=== PATIENT | male | born 1950 | race Caucasian/White ===

== ENCOUNTER 2019-10-23 12:41 | Emergency (ER) | payer MEDICARE, OTHER, SELFPAY ==
[2019-10-23 12:42] VITALS: BMI 24.2
--- NOTE | 2019-10-23 12:42 | ED_ITS ---
Entered by Kimberly Fernandez, acting as scribe for Slim Alvarez DO HPI - General Adult General: Chief complaint: Abdominal Pain Stated complaint: EPIGASTRIC PAIN Time Seen by Provider: 10/23/19 12:45 History of Present Illness: HPI narrative: 69 yo male presents with abd pain. Pt denies nausea but has diarrhea. Complains of infraumbilical abdominal pain he denies dysuria urgency or frequency has had some diarrhea. I called and talked to his primary care doctor who sent in from the custodial they had reported chest pain he did not relay that to us at all initially I found this later when talking to his doctor. Known Rodger for some time he is previously had a stroke and he has significant limitations to conversation and communication. He mostly answers in yes and no tends to get a little bit frustrated at times when we tried to delve into questions beyond yes and no because he has difficult time formulating responses. MD complaint: abd pain Location: abdomen Associated symptoms: Deny chest pain, dyspnea, malaise, nausea, rash or vomiting Review of Systems Const: Denies: fever, chills, body aches, change in appetite, fatigue or malaise ENMT: Denies: throat pain, ear pain, nasal discharge or nasal congestion Card: Denies: chest pain, edema, shortness of breath on exertion or shortness of breath when lying down Resp: Denies: shortness of breath, productive cough or non-productive cough GI: Reports: diarrhea; Denies: abdominal pain, nausea, vomiting, vomiting blood, coffee grounds in vomit, constipation, bloating, blood in stool or black tarry stool : Denies: flank pain, painful urination, urinary frequency or urinary urgency Skin/Breast: Denies: rash or itching [facility] ED PFSH: Surgical History History of intestinal surgery Social History Smoking and tobacco status: never smoked Physical Exam Const: COMMON NORMALS: no apparent distress GENERAL APPEARANCE: cooperative and comfortable ORIENTATION/CONSCIOUSNESS: Yes awake, Yes oriented to person, Yes oriented to place and Yes oriented to time HENMT: COMMON NORMALS: normocephalic, head/scalp atraumatic, hearing grossly normal bilaterally, external ears normal, EAC's normal, TM's normal bilaterally, nasal mucous membranes and turbinates normal, moist oral mucous membranes and oropharynx normal HEAD & SCALP: normocephalic and atraumatic NOSE: nasal mucous membranes and turbinates normal EXTERNAL EAR: Yes external ears normal EXTERNAL AUDITORY CANAL: EAC's normal TYMPANIC MEMBRANE: TM's normal bilaterally Eye: COMMON NORMALS: PERRL, EOMs intact bilaterally, conjunctivae normal and no scleral icterus CONJUNCTIVA: Yes conjunctivae normal PUPIL: Yes PERRL Neck/C-Spine: COMMON NORMALS: full ROM, no lymphadenopathy, supple and no JVD Lymph: LYMPHATIC: no lymphadenopathy noted and no lymphedema noted Resp: COMMON NORMALS: normal respiratory effort, no retractions, no use of accessory muscles and clear to auscultation bilaterally AUSCULTATION: clear to auscultation bilaterally Cardio: COMMON NORMALS: no JVD, regular rate, regular rhythm and no murmurs RATE: regular rate RHYTHM: regular rhythm GI: COMMON NORMALS: soft to palpation AUSCULTATION: Yes normoactive bowel sounds PALPATION: Yes soft, Yes tender Details: LUQ and RUQ and No guarding Extremity: COMMON NORMALS: normal to inspection, normal capillary refill, no clubbing, cyanosis or edema, no calf tenderness and no pedal edema Neuro: SENSORIUM/ORIENTATION: Yes oriented to person, Yes oriented to place and Yes oriented to time Skin: COMMON NORMALS: no rashes or lesions noted GENERAL SKIN EXAM: no rashes or lesions noted Course ED course: Rectal exam done in the ER is Hemoccult negative. His previous labs show significant change but they are quite old when I called . his primary care doctor his creatinine and hemoglobin are about what he recalls is his baseline which is probably reflected as well by his potassium and his MCV is to his creatinine and anemia. He is repeatedly denies any chest pain does we did do a troponin off the first blood draw and then repeated another did actually gone down some organ to go ahead and discharge him back to the custodial Dr. Garcia will follow him there and address these lab abnormalities. No change in his medications. Vital Signs: Vital signs: Vital Signs Temperature 97.7 F 10/23/19 12:49 Pulse Rate 91 10/23/19 17:19 Respiratory Rate 16 10/23/19 17:19 Blood Pressure 179/90 10/23/19 17:19 Pulse Oximetry 94 10/23/19 17:19 [facility] - General Adult Lab Data: Labs: Lab Results 10/23/19 10/23/19 10/23/19 Range/Units 12:55 12:55 12:55 WBC 6.5 (4.0-10.0) 10^3/ uL RBC 2.44 L (4.1-5.3) 10^6/u L Hgb 9.7 L (11.7-16.6) g/dL Hct 29.7 L (42.0-52.0) % MCV 121.7 H (80-94) fL MCH 39.8 H (28.0-34.0) pg MCHC 32.7 (30.0-36.0) g/dL RDW 14.5 (12.1-15.1) % Plt Count 209 (130-400) 10^3/c mm MPV 11.0 H (7.4-10.4) fL Neut % (Auto) 69.7 % Lymph % (Auto) 20.5 % [place] % (Auto) 7.1 % Eos % (Auto) 2.2 % Baso % (Auto) 0.3 % Neut # (Auto) 4.5 (1.8-7.7) 10^3/u L Lymph # (Auto) 1.3 (0.8-4.8) 10^3/u L [place] # (Auto) 0.5 (0.2-0.9) 10^3/u L Eos # (Auto) 0.1 (0.0-0.8) 10^3/u L Baso # (Auto) 0.0 (0.0-0.1) 10^3/u L Nucleated RBC % (a uto) 0 % Nucleated RBCs # 0.0 /100WBC Sodium 140 (136-145) mmol/L Potassium 3.5 (3.5-5.1) mmol/L Chloride 110 H (98-107) mmol/L Carbon Dioxide 15 L (22-29) mmol/L Anion Gap 18.5 (5-19) BUN 15 (8-23) mg/dL Creatinine 3.2 H (0.7-1.2) mg/dL GFR Calculation 19.5 L (90-130) mL/min Glucose 133 H (65-115) mg/dL Calcium 7.7 L (8.5-10.5) mg/dL Total Bilirubin 0.2 (0.15-1.2) mg/dL AST 18 (0-40) U/L ALT 11 (0-41) U/L Alkaline Phosphata se 87 (40-130) IU/L Troponin T Gen 5 n g/L 56 H (0-15) ng/mL Troponin T Baselin e (0-15) ng/mL Total Protein 6.1 L (6.6-8.7) g/dL Albumin 3.8 (3.5-5.2) g/dL Globulin 2.3 (1.3-4.6) g/dL Lipase 66 H (13-60) U/L Urine Color (Yellow) Urine Appearance (CLEAR) Urine pH (5-7) Ur Specific Gravit y (1.005-1.030) Urine Protein (Negative) Urine Glucose (UA) (Normal) Urine Ketones (Negative) Urine Blood (Negative) Urine Nitrate (Negative) Urine Bilirubin (NEGATIVE) Urine Urobilinogen (Negative) mg/dL Ur Leukocyte Dedar ase (Negative) 10/23/19 10/23/19 Range/Units 14:15 16:25 WBC (4.0-10.0) 10^3/ uL RBC (4.1-5.3) 10^6/u L Hgb (11.7-16.6) g/dL Hct (42.0-52.0) % MCV (80-94) fL MCH (28.0-34.0) pg MCHC (30.0-36.0) g/dL RDW (12.1-15.1) % Plt Count (130-400) 10^3/c mm MPV (7.4-10.4) fL Neut % (Auto) % Lymph % (Auto) % [place] % (Auto) % Eos % (Auto) % Baso % (Auto) % Neut # (Auto) (1.8-7.7) 10^3/u L Lymph # (Auto) (0.8-4.8) 10^3/u L [place] # (Auto) (0.2-0.9) 10^3/u L Eos # (Auto) (0.0-0.8) 10^3/u L Baso # (Auto) (0.0-0.1) 10^3/u L Nucleated RBC % (a uto) % Nucleated RBCs # /100WBC Sodium (136-145) mmol/L Potassium (3.5-5.1) mmol/L Chloride (98-107) mmol/L Carbon Dioxide (22-29) mmol/L Anion Gap (5-19) BUN (8-23) mg/dL Creatinine (0.7-1.2) mg/dL GFR Calculation (90-130) mL/min Glucose (65-115) mg/dL Calcium (8.5-10.5) mg/dL Total Bilirubin (0.15-1.2) mg/dL AST (0-40) U/L ALT (0-41) U/L Alkaline Phosphata se (40-130) IU/L Troponin T Gen 5 n g/L (0-15) ng/mL Troponin T Baselin e 42 H (0-15) ng/mL Total Protein (6.6-8.7) g/dL Albumin (3.5-5.2) g/dL Globulin (1.3-4.6) g/dL Lipase (13-60) U/L Urine Color Straw (Yellow) Urine Appearance Clear (CLEAR) Urine pH 5.0 (5-7) Ur Specific Gravit y 1.015 (1.005-1.030) Urine Protein Neg (Negative) Urine Glucose (UA) Trace H (Normal) Urine Ketones Negative (Negative) Urine Blood Neg (Negative) Urine Nitrate Negative (Negative) Urine Bilirubin Neg (NEGATIVE) Urine Urobilinogen Norm (Negative) mg/dL Ur Leukocyte Dedra ase Negative (Negative) Discharge Plan Discharge Patient Disposition: Home, Self-Care Clinical Impression: Abdominal pain Condition: Stable Prescriptions: No Action alendronate 10 mg Tablet 10 mg PO DAILY RF: 0 acetaminophen 325 mg Tablet 325 mg PO QID PRN (Reason: Pain) RF: 0 sulfasalazine 500 mg Tablet 1,000 mg PO TID RF: 0 loperamide 2 mg Capsule 2 mg PO BID PRN (Reason: UNKNOWN) RF: 0 citalopram 10 mg Tablet 10 mg PO DAILY RF: 0 risperidone 0.25 mg Tablet 0.25 mg PO DAILY RF: 0 triamcinolone acetonide 0.1 % Cream 1 applic TOPICAL BID PRN (Reason: UNKNOWN) RF: 0 citalopram 20 mg Tablet 20 mg PO DAILY RF: 0 lorazepam 0.5 mg Tablet 0.5 mg PO Q6H PRN (Reason: Anxiety) RF: 0 lorazepam 0.5 mg Tablet 0.5 mg PO DAILY RF: 0 tamsulosin 0.4 mg Capsule 0.4 mg PO BEDTIME RF: 0 sodium bicarbonate 650 mg Tablet 1,300 mg PO BID RF: 0 Novolog U-100 Insulin aspart 100 unit/mL Solution See Rx Instructions .ROUTE .COMPLEX RF: 0 ferrous sulfate 325 mg (65 mg iron) Tablet 325 mg PO BID RF: 0 Charli-Gest Antacid 200 mg calcium (500 mg) Tablet,Chewable 200 mg PO QID PRN (Reason: UNKNOWN) RF: 0 docusate sodium 100 mg Capsule 100 mg PO BID PRN (Reason: Constipation) RF: 0 Aspirin Childrens 81 mg Tablet,Chewable 81 mg PO DAILY RF: 0 gabapentin 100 mg Capsule 100 mg PO TID RF: 0 Vitamin D2 1,250 mcg (50,000 unit) Capsule See Rx Instructions .ROUTE .COMPLEX RF: 0 alum-mag hydroxide-simeth 200-200-20 mg/5 mL Suspension See Rx Instructions .ROUTE .COMPLEX PRN (Reason: UNKNOWN) RF: 0 mirtazapine 15 mg Tablet,Disintegrating 15 mg PO BEDTIME RF: 0 calcitriol 0.25 mcg Capsule 0.25 mcg PO BEDTIME RF: 0 risperidone 0.5 mg Tablet 0.5 mg PO BEDTIME RF: 0 Novolog PenFill U-100 Insulin 100 unit/mL Cartridge See Rx Instructions .ROUTE .COMPLEX RF: 0 Lantus Solostar U-100 Insulin 100 unit/mL (3 mL) Insulin Pen 7 unit SUBCUT BEDTIME RF: 0 Magnesium (oxide/AA chelate) 400 MG 400 mg PO BID RF: 0 Discharge Orders: Discharge Order (Routine); Ordered 10/23/19 Ordered By: Slim Alvarez Referrals: Bryan Garcia DO [Family Provider] - Discharge Diet: Usual diet Discharge Activity: Resume usual activity Patient Instructions: Cholecystitis (ED), Abdominal Pain (ED) Coding Level of Care Code 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
[2019-10-23 12:49] VITALS: BP 149/96; PULSE 107; RESP 20; TEMP 36.5; O2SAT 98
--- NOTE | 2019-10-23 12:49 | CTR_ITS ---
PROCEDURE INFORMATION: Exam: CT Abdomen And Pelvis Without Contrast Exam date and time: 10/23/2019 12:50 PM Age: 69 years old Clinical indication: Abdominal pain; Epigastric; Prior surgery; Surgery date: 6+ months; Surgery type: Stanislaw. Hips and bowel; Patient HX: Chron's; Additional info: Abd pain TECHNIQUE: Imaging protocol: Computed tomography of the abdomen and pelvis without contrast. Total DLP: 419.5 mGy-cm Radiation optimization: All CT scans at this facility use at least one of these dose optimization techniques: automated exposure control; mA and/or kV adjustment per patient size (includes targeted exams where dose is matched to clinical indication); or iterative reconstruction. COMPARISON: CT abdomen pelvis con [id number] 09/19/2016 7:09 PM FINDINGS: Detailed evaluation of the abdominal and pelvic viscera is somewhat limited in the absence of intravenous contrast. Lungs: Mild interstitial prominence and trace dependent airspace disease. Liver: No focal hepatic mass. Gallbladder and bile ducts: Cholelithiasis. Pancreas: No pancreatic mass or ductal dilatation. Spleen: No splenomegaly. Adrenals: Unremarkable adrenals. Kidneys and ureters: Renal cysts, including a 3.4 cm right renal cyst, which previously measured 3.1 cm. Right renal atrophy. Nonobstructing subcentimeter bilateral renal calculi, including a 6 mm left renal calculus. Stomach and bowel: Status post right hemicolectomy. Colonic dilatation with air-fluid levels and diverticula. Appendix: Status post appendectomy. Intraperitoneal space: No significant free fluid. Vasculature: Vascular calcification. No abdominal aortic aneurysm. Lymph nodes: Subcentimeter lymph nodes. Bladder: Partial obscuration of the bladder by beam hardening artifact in association with bilateral hip arthroplasties. Reproductive: Calcification in the prostate which is partially obscured by beam hardening artifact. Bones/joints: Bilateral hip arthroplasties. Osteopenia, mild degenerative change, and Schmorl's nodes. CT/CT abdomen pelvis con [id number] IMPRESSION: 1. Cholelithiasis. 2. Nonobstructing subcentimeter bilateral renal calculi. 3. Additional findings as described above. Radiation Dose CTDIVOL = (mGy): DLP = 419.5 (mGy-cm)
[2019-10-23 12:56] VITALS: RESP 17
[2019-10-23] MEDS: sodium chloride 0.9% 1,000 ML 999 ML IV ×2 (12:59→15:06)
[2019-10-23 13:01] LABS: Basophils % 0.3 %; Eosinophils # 0.1 10^3/uL (0.0-0.8); Eosinophils % 2.2 %; Hematocrit 29.7 % (42.0-52.0); Hemoglobin 9.7 g/dL (11.7-16.6); Lymphocytes # 1.3 10^3/uL (0.8-4.8); Lymphocytes % 20.5 %; Mean Corpuscular HGB Conc 32.7 g/dL (30.0-36.0); Mean Corpuscular Hemoglobin 39.8 pg (28.0-34.0); Mean Corpuscular Volume 121.7 fL (80-94); Monocytes # 0.5 10^3/uL (0.2-0.9); Monocytes % 7.1 %; Neutrophils # 4.5 10^3/uL (1.8-7.7); Neutrophils % 69.7 %; Nucleated Red Blood Cells % 0 %; Platelet Count 209 10^3/cmm (130-400); Red Blood Count 2.44 10^6/uL (4.1-5.3); Red Cell Distribution Width 14.5 % (12.1-15.1); White Blood Count 6.5 10^3/uL (4.0-10.0)
[2019-10-23 13:21] LABS: Alanine Aminotransferase 11 U/L (0-41); Albumin Level 3.8 g/dL (3.5-5.2); Alkaline Phosphatase 87 IU/L (40-130); Anion Gap 18.5 (5-19); Aspartate Amino Transferase 18 U/L (0-40); Blood Urea Nitrogen 15 mg/dL (8-23); Calcium 7.7 mg/dL (8.5-10.5); Carbon Dioxide 15 mmol/L (22-29); Chloride 110 mmol/L (98-107); Globulin 2.3 g/dL (1.3-4.6); Glomerular Filtration Rate 19.5 mL/min (90-130); Glucose 133 mg/dL (65-115); Lipase 66 U/L (13-60); Potassium 3.5 mmol/L (3.5-5.1); Sodium 140 mmol/L (136-145); Total Bilirubin 0.2 mg/dL (0.15-1.2); Total Protein 6.1 g/dL (6.6-8.7)
[2019-10-23] MEDS: sodium chlor 0.9% + KCl 20 mEq 20 MEQ/1,000 ML BAG 125 MEQ IV (13:31)
[2019-10-23 14:22] LABS: Add Urine Microscopic? NO
[2019-10-23 14:30] LABS: Bilirubin Urine Neg (NEGATIVE); Blood Urine Neg (Negative); Glucose Urine UA Trace (Normal); Ketones Urine Negative (Negative); Leukocyte Esterase Urine Negative (Negative); Nitrate Urine Negative (Negative); Protein Urine Neg (Negative); Specific Gravity, Urine 1.015 (1.005-1.030); Urine Appearance Clear (CLEAR); Urine Color Straw (Yellow); Urobilinogen Urine Norm (Negative)
[2019-10-23 14:44] VITALS: RESP 16; O2SAT 99
[2019-10-23] MEDS: ondansetron 2 mg/ML SDV 2 mL 4 MG IVP (14:44)
[2019-10-23] MEDS: morphine 4 mg/mL SDV 1 mL IVP (14:44)
--- NOTE | 2019-10-23 15:42 | ECG_ITS ---
Measurements Intervals [place] Rate: 105 P: 56 NM: 130 QRS: 32 QRSD: 92 T: 30 QT: 351 QTc: 464 SINUS TACHYCARDIA ABNORMAL RHYTHM ECG INTERPRETATION BASED ON A DEFAULT AGE OF 40 YEARS No previous ECG available for comparison Electronically Signed On 10-23-2019 19:05:16 REPAIR ORDER CLERK by Alison Cuevas M.D. [id number]
[2019-10-23 16:24] LABS: Troponin T (5th) Once 56 ng/mL (0-15)
[2019-10-23 17:06] LABS: Troponin(5th) Baseline 42 ng/mL (0-15)
[2019-10-23 17:19] VITALS: BP 179/90; PULSE 91; RESP 16; O2SAT 94
--- NOTE | 2019-10-23 21:42 | ECG_ITS ---
Measurements Intervals [place] Rate: 83 P: 64 CA: 131 QRS: 50 QRSD: 90 T: 39 QT: 407 QTc: 480 SINUS RHYTHM No previous ECG available for comparison Electronically Signed On 10-23-2019 19:08:06 BEVELING MACHINE OPERATOR by Alison Cuevas M.D. [email or web address]
== END 2019-10-23 18:50 | disposition home or self-care (01) ==
PROVIDERS: Emergency Provider Family Medicine; Family Provider Internal Medicine
DX: R10.13 Epigastric pain (principal); Z86.73 Personal history of transient ischemic attack (TIA), and cerebral infarction without residual deficits; K80.20 Calculus of gallbladder without cholecystitis without obstruction; N20.0 Calculus of kidney; R00.0 Tachycardia, unspecified; R94.31 Abnormal electrocardiogram [ECG] [EKG]
CPT/HCPCS: 12345; 36415; 51798; 74176; 80053; 81003; 83690; 84484; 85025; 93005; 96365; 96366; 96375; 99283; 99284; J2270; J2405; J7030

== ENCOUNTER 2020-06-17 19:56 | Inpatient (IN) | payer OTHER, MEDICARE, SELFPAY ==
[2020-06-17 19:57] VITALS: BMI 22.6
[2020-06-17 20:01] VITALS: BP 157/129; PULSE 120; RESP 32; TEMP 36.9; O2SAT 96
--- NOTE | 2020-06-17 20:19 | W.ED.ABDPA2 ---
Documented by User: NORA De 06/17/20 23:02 HPI - Abdominal Pain General: Chief Complaint: Abdominal Pain Stated Complaint: abdominal pain/ diverticulitis Time Seen by Provider: 06/17/20 20:16 Source: patient Mode of arrival: ambulatory Limitations: no limitations History of Present Illness: HPI narrative: 70-year-old male patient comes in here with abdominal pain from [facility]. Patient care staff was concerned for diverticulitis. Patient has a history of diverticulitis. Patient appears chronically ill. Patient has a history of depression, diabetes. Patient answers simple yes no answers. Suspect probable history of CVA. Patient states no vomiting or diarrhea. Patient does state yes to chills. Review of Systems General: Reports: 10 or more systems reviewed and unremarkable except in HPI and below GI: Reports: abdominal pain PFSH ED PFSH: Medical History (Updated 06/18/20 @ 01:04 BUILDING PRESSURE WASHER by Bert Maharaj DO) Anemia Anxiety reaction Bowel obstruction Crohn's disease CVA (cerebral vascular accident) Diabetes mellitus Gastroesophageal reflux GI bleeding Hypertension Nephrolithiasis Peripheral arterial occlusive disease Renal failure Surgical History History of intestinal surgery Social History Smoking and tobacco status: never smoked Physical Exam Const: COMMON NORMALS: no acute distress and patient oriented x3 GENERAL APPEARANCE: cooperative HENMT: COMMON NORMALS: normocephalic, TM's normal bilaterally and Normal external nose present HEAD & SCALP: normal to inspection and normocephalic NOSE: Normal external nose present TYMPANIC MEMBRANE: TM's normal bilaterally MOUTH: Normal oral and palatal mucosa present THROAT: posterior oropharynx normal Eye: GENERAL EYE: appearance normal, both eyes and all related structures Neck/C-Spine: COMMON NORMALS: full ROM Lymph: LYMPHATIC: no lymphadenopathy noted Chest: COMMONS NORMALS: normal inspection of the chest Resp: COMMON NORMALS: normal respiratory effort EFFORT & INSPECTION: Yes able to speak in complete sentences Cardio: COMMON NORMALS: regular rate and regular rhythm RATE: regular rate RHYTHM: regular rhythm GI: INSPECTION: Yes abdominal distension AUSCULTATION: Yes Hypoactive bowel sounds present PALPATION: Yes Tenderness to palpation present (GI) Back/Pelvis: COMMON NORMALS: thoracic and lumbar spine normal to inspection Extremity: COMMON NORMALS: normal to inspection Neuro: COMMON NORMALS: patient oriented x3 and moves all extremities Psych: COMMON NORMALS: mental status grossly normal and cooperative Skin: COMMON NORMALS: no rashes or lesions noted GENERAL SKIN EXAM: no rashes or lesions noted Course ED course: 929, reviewed with Dr. Jung regarding abnormal CT scan. It shows severe gastric dilation suggestive of a small bowel obstruction versus severe ileus. Patient also has some mild colitis. Incidental cholelithiasis, nephrolithiasis. It was also noted that patient had some bibasilar pneumonitis. Discussed this with Dr. Maharaj who agreed to seeking admission. We will do Covid screening due to the infiltrates noted on the lung. Nasogastric tube will be inserted, and Zosyn was given, and IV fluids. Vincent catheter inserted for monitoring of output. Vital Signs: Vital signs: Vital Signs Temperature 97.7 F 06/18/20 01:26 CD T Pulse Rate 113 H 06/18/20 01:26 CD T Respiratory Rate 19 H 06/18/20 01:26 CD T Blood Pressure 143/84 06/18/20 01:26 CD T Pulse Oximetry 97 06/18/20 01:26 CD T MDM - Abdominal Pain MDM Narrative: Medical decision making narrative: Patient was brought in by ambulance from [facility]. Patient was sent over for concerns of abdominal pain. Patient reports nausea. Patient has a history of diverticulitis, Crohn's, and small bowel obstruction in the past. On exam we have a patient that is able to answer yes and no questions only. Abdomen is slightly distended with generalized tenderness. Vital signs were normal. Respirations were even lungs were clear to auscultation. Absent bowel sounds were noted on auscultation. Differential diagnosis includes bowel obstruction, diverticulitis, constipation. Laboratory values noted a lactate of 4, white blood cell count 14,000, creatinine of 2.8, and glucose of 223. Patient does have a history of chronic kidney disease. CT scan of the abdomen and pelvis noted a small bowel obstruction versus a ileus, and dilation of the gastric. Reviewed exam with Dr. Maharaj who agreed patient need to be admitted for small bowel obstruction. NG tube was placed, patient was given 3 g of Zosyn, and IV fluid replacement. Patient had a Vincent catheter to monitor intake and output. Patient needs admission to the hospital for IV fluids, repeat labs, IV antibiotics, and surgical consultation. Lab Data: Labs: Lab Results 06/17/20 06/17/20 06/17/20 Range/Units 20:00 20:00 20:43 WBC 14.0 H (4.0-10.0) 10^3/ uL RBC 3.77 L (4.1-5.3) 10^6/u L Hgb 12.5 (11.7-16.6) g/dL Hct 38.5 L (42.0-52.0) % MCV 102.1 H (80-94) fL MCH 33.2 (28.0-34.0) pg MCHC 32.5 (30.0-36.0) g/dL RDW 14.1 (12.1-15.1) % Plt Count 314 (130-400) 10^3/c mm MPV 10.7 H (7.4-10.4) fL Neut % (Auto) 89.4 % Lymph % (Auto) 5.6 % Grimes % (Auto) 4.4 % Eos % (Auto) 0.0 % Baso % (Auto) 0.2 % Neut # (Auto) 12.49 H (1.8-7.7) 10^3/u L Lymph # (Auto) 0.8 (0.8-4.8) 10^3/u L Grimes # (Auto) 0.6 (0.2-0.9) 10^3/u L Eos # (Auto) 0.0 (0.0-0.8) 10^3/u L Baso # (Auto) 0.0 (0.0-0.1) 10^3/u L Nucleated RBC % (a uto) 0 % Nucleated RBCs # 0.0 /100WBC Sodium 139 (136-145) mmol/L Potassium 4.8 (3.5-5.1) mmol/L Chloride 96 L (98-107) mmol/L Carbon Dioxide 26 (22-29) mmol/L Anion Gap 21.8 H (5-19) BUN 34 H (8-23) mg/dL Creatinine 2.8 H (0.7-1.2) mg/dL GFR Calculation 22.6 L (90-130) mL/min Glucose 223 H (65-115) mg/dL Calculated Osmolal ity 303 H (285-295) mOsm/k g Lactic Acid 4.0 H (0.5-2.2) mmol/L Calcium 9.2 (8.5-10.5) mg/dL Total Bilirubin 0.2 (0.15-1.2) mg/dL AST 25 (0-40) U/L ALT 19 (0-41) U/L Alkaline Phosphata se 78 (40-130) IU/L C-Reactive Protein 11.5 H (0.0-4.9) mg/L Total Protein 7.4 (6.6-8.7) g/dL Albumin 4.3 (3.5-5.2) g/dL Globulin 3.1 (1.3-4.6) g/dL Urine Color (Yellow) Urine Appearance (CLEAR) Urine pH (5-7) Ur Specific Gravit y (1.005-1.030) Urine Protein (Negative) Urine Glucose (UA) (Normal) Urine Ketones (Negative) Urine Blood (Negative) Urine Nitrate (Negative) Urine Bilirubin (Negative) Urine Urobilinogen (Negative) mg/dL Ur Leukocyte Dedra ase (Negative) Urine RBC (0-2) /hpf Urine WBC (0-5) /hpf Ur Squamous Epith Cells (0-5) /hpf Amorphous Sediment Urine Bacteria (NONE) /hpf Hyaline Casts /lpf Urine Mucus /hpf SARS-CoV-2 Ag (Rap id) (Negative) 06/17/20 06/17/20 Range/Units 22:00 22:05 WBC (4.0-10.0) 10^3/ uL RBC (4.1-5.3) 10^6/u L Hgb (11.7-16.6) g/dL Hct (42.0-52.0) % MCV (80-94) fL MCH (28.0-34.0) pg MCHC (30.0-36.0) g/dL RDW (12.1-15.1) % Plt Count (130-400) 10^3/c mm MPV (7.4-10.4) fL Neut % (Auto) % Lymph % (Auto) % Grimes % (Auto) % Eos % (Auto) % Baso % (Auto) % Neut # (Auto) (1.8-7.7) 10^3/u L Lymph # (Auto) (0.8-4.8) 10^3/u L Grimes # (Auto) (0.2-0.9) 10^3/u L Eos # (Auto) (0.0-0.8) 10^3/u L Baso # (Auto) (0.0-0.1) 10^3/u L Nucleated RBC % (a uto) % Nucleated RBCs # /100WBC Sodium (136-145) mmol/L Potassium (3.5-5.1) mmol/L Chloride (98-107) mmol/L Carbon Dioxide (22-29) mmol/L Anion Gap (5-19) BUN (8-23) mg/dL Creatinine (0.7-1.2) mg/dL GFR Calculation (90-130) mL/min Glucose (65-115) mg/dL Calculated Osmolal ity (285-295) mOsm/k g Lactic Acid (0.5-2.2) mmol/L Calcium (8.5-10.5) mg/dL Total Bilirubin (0.15-1.2) mg/dL AST (0-40) U/L ALT (0-41) U/L Alkaline Phosphata se (40-130) IU/L C-Reactive Protein (0.0-4.9) mg/L Total Protein (6.6-8.7) g/dL Albumin (3.5-5.2) g/dL Globulin (1.3-4.6) g/dL Urine Color Yellow (Yellow) Urine Appearance Clear (CLEAR) Urine pH 6 (5-7) Ur Specific Gravit y 1.015 (1.005-1.030) Urine Protein 1+ H (Negative) Urine Glucose (UA) 1+ (Normal) Urine Ketones Negative (Negative) Urine Blood Neg (Negative) Urine Nitrate Negative (Negative) Urine Bilirubin 1+ H (Negative) Urine Urobilinogen Norm (Negative) mg/dL Ur Leukocyte Dedra ase Negative (Negative) Urine RBC 0-4 H (0-2) /hpf Urine WBC 0-4 H (0-5) /hpf Ur Squamous Epith Cells 10-15 H (0-5) /hpf Amorphous Sediment Not Reportable Urine Bacteria Trace (NONE) /hpf Hyaline Casts 5-10 H /lpf Urine Mucus Trace /hpf SARS-CoV-2 Ag (Rap id) Negative (Negative) Discharge Plan Discharge Patient Disposition: Admitted As Inpatient Admit Provider: Ryan Palomino Clinical Impression: Small bowel obstruction Condition: Stable Discharge Date/Time: 06/18/20 00:14 Coding Level of Care Code ED Sld Educational Aide for Chg Fwd Exam Comprehensive Documented by User: Bert Maharaj DO 06/18/20 01:04 BUILDING PRESSURE WASHER HPI - Abdominal Pain General: Chief Complaint: Abdominal Pain Stated Complaint: abdominal pain/ diverticulitis Time Seen by Provider: 06/17/20 20:16 PFSH ED PFSH: Medical History (Updated 06/18/20 @ 01:04 BUILDING PRESSURE WASHER by Bert Maharaj DO) Anemia Anxiety reaction Bowel obstruction Crohn's disease CVA (cerebral vascular accident) Diabetes mellitus Gastroesophageal reflux GI bleeding Hypertension Nephrolithiasis Peripheral arterial occlusive disease Renal failure Surgical History History of intestinal surgery Social History Smoking and tobacco status: never smoked Course Vital Signs: Vital signs: Vital Signs Temperature 97.7 F 06/18/20 01:26 CD T Pulse Rate 113 H 06/18/20 01:26 CD T Respiratory Rate 19 H 06/18/20 01:26 CD T Blood Pressure 143/84 06/18/20 01:26 CD T Pulse Oximetry 97 06/18/20 01:26 CD T MDM - Abdominal Pain MDM Narrative: Medical decision making narrative: This patient was originally seen by NORA Manley. I agree with his history, evaluation, and initial treatment. This patient has a small bowel obstruction with significant gastric distention. He feels much better after nasogastric tube placement and over 1400 mL output from it. He will be admitted and treated for small bowel obstruction. His creatinine is 2.8, which appears to be his baseline. Lab Data: Labs: Lab Results 06/17/20 06/17/20 06/17/20 Range/Units 20:00 20:00 20:43 WBC 14.0 H (4.0-10.0) 10^3/ uL RBC 3.77 L (4.1-5.3) 10^6/u L Hgb 12.5 (11.7-16.6) g/dL Hct 38.5 L (42.0-52.0) % MCV 102.1 H (80-94) fL MCH 33.2 (28.0-34.0) pg MCHC 32.5 (30.0-36.0) g/dL RDW 14.1 (12.1-15.1) % Plt Count 314 (130-400) 10^3/c mm MPV 10.7 H (7.4-10.4) fL Neut % (Auto) 89.4 % Lymph % (Auto) 5.6 % Grimes % (Auto) 4.4 % Eos % (Auto) 0.0 % Baso % (Auto) 0.2 % Neut # (Auto) 12.49 H (1.8-7.7) 10^3/u L Lymph # (Auto) 0.8 (0.8-4.8) 10^3/u L Grimes # (Auto) 0.6 (0.2-0.9) 10^3/u L Eos # (Auto) 0.0 (0.0-0.8) 10^3/u L Baso # (Auto) 0.0 (0.0-0.1) 10^3/u L Nucleated RBC % (a uto) 0 % Nucleated RBCs # 0.0 /100WBC Sodium 139 (136-145) mmol/L Potassium 4.8 (3.5-5.1) mmol/L Chloride 96 L (98-107) mmol/L Carbon Dioxide 26 (22-29) mmol/L Anion Gap 21.8 H (5-19) BUN 34 H (8-23) mg/dL Creatinine 2.8 H (0.7-1.2) mg/dL GFR Calculation 22.6 L (90-130) mL/min Glucose 223 H (65-115) mg/dL Calculated Osmolal ity 303 H (285-295) mOsm/k g Lactic Acid 4.0 H (0.5-2.2) mmol/L Calcium 9.2 (8.5-10.5) mg/dL Total Bilirubin 0.2 (0.15-1.2) mg/dL AST 25 (0-40) U/L ALT 19 (0-41) U/L Alkaline Phosphata se 78 (40-130) IU/L C-Reactive Protein 11.5 H (0.0-4.9) mg/L Total Protein 7.4 (6.6-8.7) g/dL Albumin 4.3 (3.5-5.2) g/dL Globulin 3.1 (1.3-4.6) g/dL Urine Color (Yellow) Urine Appearance (CLEAR) Urine pH (5-7) Ur Specific Gravit y (1.005-1.030) Urine Protein (Negative) Urine Glucose (UA) (Normal) Urine Ketones (Negative) Urine Blood (Negative) Urine Nitrate (Negative) Urine Bilirubin (Negative) Urine Urobilinogen (Negative) mg/dL Ur Leukocyte Dedra ase (Negative) Urine RBC (0-2) /hpf Urine WBC (0-5) /hpf Ur Squamous Epith Cells (0-5) /hpf Amorphous Sediment Urine Bacteria (NONE) /hpf Hyaline Casts /lpf Urine Mucus /hpf SARS-CoV-2 Ag (Rap id) (Negative) 06/17/20 06/17/20 Range/Units 22:00 22:05 WBC (4.0-10.0) 10^3/ uL RBC (4.1-5.3) 10^6/u L Hgb (11.7-16.6) g/dL Hct (42.0-52.0) % MCV (80-94) fL MCH (28.0-34.0) pg MCHC (30.0-36.0) g/dL RDW (12.1-15.1) % Plt Count (130-400) 10^3/c mm MPV (7.4-10.4) fL Neut % (Auto) % Lymph % (Auto) % Grimes % (Auto) % Eos % (Auto) % Baso % (Auto) % Neut # (Auto) (1.8-7.7) 10^3/u L Lymph # (Auto) (0.8-4.8) 10^3/u L Grimes # (Auto) (0.2-0.9) 10^3/u L Eos # (Auto) (0.0-0.8) 10^3/u L Baso # (Auto) (0.0-0.1) 10^3/u L Nucleated RBC % (a uto) % Nucleated RBCs # /100WBC Sodium (136-145) mmol/L Potassium (3.5-5.1) mmol/L Chloride (98-107) mmol/L Carbon Dioxide (22-29) mmol/L Anion Gap (5-19) BUN (8-23) mg/dL Creatinine (0.7-1.2) mg/dL GFR Calculation (90-130) mL/min Glucose (65-115) mg/dL Calculated Osmolal ity (285-295) mOsm/k g Lactic Acid (0.5-2.2) mmol/L Calcium (8.5-10.5) mg/dL Total Bilirubin (0.15-1.2) mg/dL AST (0-40) U/L ALT (0-41) U/L Alkaline Phosphata se (40-130) IU/L C-Reactive Protein (0.0-4.9) mg/L Total Protein (6.6-8.7) g/dL Albumin (3.5-5.2) g/dL Globulin (1.3-4.6) g/dL Urine Color Yellow (Yellow) Urine Appearance Clear (CLEAR) Urine pH 6 (5-7) Ur Specific Gravit y 1.015 (1.005-1.030) Urine Protein 1+ H (Negative) Urine Glucose (UA) 1+ (Normal) Urine Ketones Negative (Negative) Urine Blood Neg (Negative) Urine Nitrate Negative (Negative) Urine Bilirubin 1+ H (Negative) Urine Urobilinogen Norm (Negative) mg/dL Ur Leukocyte Dedra ase Negative (Negative) Urine RBC 0-4 H (0-2) /hpf Urine WBC 0-4 H (0-5) /hpf Ur Squamous Epith Cells 10-15 H (0-5) /hpf Amorphous Sediment Not Reportable Urine Bacteria Trace (NONE) /hpf Hyaline Casts 5-10 H /lpf Urine Mucus Trace /hpf SARS-CoV-2 Ag (Rap id) Negative (Negative) Discharge Plan Discharge Patient Disposition: Admitted As Inpatient Admit Provider: Ryan Palomino Clinical Impression: Small bowel obstruction Condition: Stable Discharge Date/Time: 06/18/20 00:14 Coding Level of Care Code ED Sld Educational Aide for Chg Fwd Exam Comprehensive
[2020-06-17] MEDS: sodium chloride 0.9% 500 ML 999 ML IV (20:32)
[2020-06-17] MEDS: ondansetron 2 mg/ML SDV 2 mL 4 MG IVP (20:32)
[2020-06-17 20:33] VITALS: RESP 18; O2SAT 94
[2020-06-17 20:33] LABS: Basophils % 0.2 %; Hematocrit 38.5 % (42.0-52.0); Hemoglobin 12.5 g/dL (11.7-16.6); Lymphocytes # 0.8 10^3/uL (0.8-4.8); Lymphocytes % 5.6 %; Mean Corpuscular HGB Conc 32.5 g/dL (30.0-36.0); Mean Corpuscular Hemoglobin 33.2 pg (28.0-34.0); Mean Corpuscular Volume 102.1 fL (80-94); Mean Platelet Volume 10.7 fL (7.4-10.4); Monocytes # 0.6 10^3/uL (0.2-0.9); Monocytes % 4.4 %; Neutrophils # 12.49 10^3/uL (1.8-7.7); Neutrophils % 89.4 %; Nucleated Red Blood Cells % 0 %; Platelet Count 314 10^3/cmm (130-400); Red Blood Count 3.77 10^6/uL (4.1-5.3); Red Cell Distribution Width 14.1 % (12.1-15.1)
[2020-06-17] MEDS: morphine 4 mg/mL SDV 1 mL 2 MG IVP (20:33)
[2020-06-17 20:36] VITALS: BP 144/85; PULSE 108; RESP 18; O2SAT 94
--- NOTE | 2020-06-17 20:50 | CTR_ITS ---
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 TECHNIQUE: Imaging protocol: Computed tomography of the abdomen and pelvis without contrast. Radiation optimization: All CT scans at this facility use at least one of these dose optimization techniques: automated exposure control; mA and/or kV adjustment per patient size (includes targeted exams where dose is matched to clinical indication); or iterative reconstruction. COMPARISON: 1. CT abdomen pelvis wo con [id number] 10/23/2019 1:[address] abdomen pelvis con [id number] 09/19/2016 7:09:05 PM RADIATION DOSE METRICS: Total DLP (mGy-cm): 422.23 FINDINGS: Limitations: The absence of intravenous contrast lessens the sensitivity of this study for solid organ abnormalities. Lungs: There are dependent densities at the lung bases bilaterally more on the left than on the right which are nonspecific. One could not exclude some pneumonitis. Correlation with clinical findings is suggested. Liver: There is no focal abnormality within the liver. Gallbladder and bile ducts: A calcified gallstone is present. Pancreas: The pancreas is normal. Spleen: The spleen is normal. Adrenal glands: The adrenal glands are normal. Kidneys and ureters: There is a 3 cm benign-appearing cyst in the lower pole of the right kidney not changed from previous. There is a peripelvic cyst in the upper pole of the right kidney. There is moderate generalized cortical atrophy of the right kidney. There is no evidence of right hydronephrosis. There is a 2 cm simple cyst medially in the left kidney not changed from previous. There are multiple left renal collecting system calcifications. There is no evidence of left hydronephrosis. There is no stone in the left ureter. Stomach and bowel: There is right hemicolectomy. There is mild wall thickening of the sigmoid colon and rectum which could represent some nonspecific colitis. There is severe dilatation of the stomach which is filled with fluid there is moderate dilatation of small bowel loops throughout the abdomen. The distal ileum just before the ileocolic anastomosis is not dilated there is suggestion of mild wall thickening. The configuration of the distal ileum is similar to on the previous examination. This could represent some focal stricture but one could not exclude active Crohn's disease. There is gas within the colon indicating absence of complete obstruction. Appendix: Not identified Intraperitoneal space: Unremarkable. No free air. No significant fluid collection. Vasculature: The aorta demonstrates mild atherosclerotic calcification. Lymph nodes: There are mildly prominent mesenteric lymph nodes not significantly changed from the recent previous examinations. Urinary bladder: Unremarkable as visualized. Reproductive: Unremarkable as visualized. Bones/joints: There are bilateral hip replacements which cause streak artifact which obscures portions of the pelvis. Soft tissues: Unremarkable. CT/CT abdomen pelvis wo con [id number] IMPRESSION: 1. Severe gastric dilatation. 2. Findings with dilated small bowel which could represent severe ileus, or more likely partial obstruction involving the distal ileum. 3. Question of mild colitis involving the rectosigmoid colon. 4. Cholelithiasis. 5. Nephrolithiasis. 6. Possible basilar pneumonitis. COMMENTS: 1. Findings were discussed with Rivera Nascimento at 06/17/2020 9:23 PM CDT. 2. Consistent with the [employer]'s Incidental Findings Committee white paper (J Am Sylvia Radiol 2018): Any incidental renal lesion less than 1 cm or classified as too small to characterize, or any incidental cystic renal lesion characterized as simple-appearing, is likely benign. No follow-up imaging is recommended for these lesions per consensus recommendations based on imaging criteria. Radiation Dose CTDIVOL = (mGy): DLP = 422.23 (mGy-cm)
[2020-06-17 20:55] LABS: Alanine Aminotransferase 19 U/L (0-41); Albumin Level 4.3 g/dL (3.5-5.2); Alkaline Phosphatase 78 IU/L (40-130); Anion Gap 21.8 (5-19); Aspartate Amino Transferase 25 U/L (0-40); Blood Urea Nitrogen 34 mg/dL (8-23); C Reactive Protein 11.5 mg/L (0.0-4.9); Calcium 9.2 mg/dL (8.5-10.5); Carbon Dioxide 26 mmol/L (22-29); Chloride 96 mmol/L (98-107); Globulin 3.1 g/dL (1.3-4.6); Glomerular Filtration Rate 22.6 mL/min (90-130); Glucose 223 mg/dL (65-115); Osmolality Calculated 303 mOsm/kg (285-295); Potassium 4.8 mmol/L (3.5-5.1); Sodium 139 mmol/L (136-145); Total Bilirubin 0.2 mg/dL (0.15-1.2); Total Protein 7.4 g/dL (6.6-8.7)
[2020-06-17 21:00] VITALS: BP 130/94; PULSE 99; RESP 18; O2SAT 99
--- NOTE | 2020-06-17 21:09 | PC.NURSE ---
lab called critical lactic acid 4.0. Notified ALEXIA Nascimento. No orders at this time
--- NOTE | 2020-06-17 21:29 | XRR_ITS ---
PROCEDURE INFORMATION: Exam: XR Chest, 1 View Exam date and time: 06/17/2020 9:29 PM Age: 70 years old Clinical indication: Device placement; Ng tube; Additional info: Ng placement TECHNIQUE: Imaging protocol: XR of the chest Views: 1 view. COMPARISON: No relevant prior studies available. FINDINGS: Tubes, catheters and devices: Nasogastric tube is in place with its tip in the stomach. Lungs: There is some minimal basilar infiltrate on both sides. More on the left. Pleural space: Unremarkable. No pleural effusion. No pneumothorax. Heart/Mediastinum: Heart is within normal limits of size. Bones/joints: There is left shoulder replacement. XR/XR chest 1V portable [id number] IMPRESSION: Minimal basilar infiltrates.
[2020-06-17 22:00] VITALS: BP 139/89; PULSE 110; RESP 28; O2SAT 96
[2020-06-17] MEDS: piperacillin-tazobactam 3.375 GM in sodium chloride 0.9% (plus) 50 ML IV (22:06)
[2020-06-17 22:23] LABS: Bilirubin Urine 1+ (Negative); Blood Urine Neg (Negative); Glucose Urine UA 1+ (Normal); Ketones Urine Negative (Negative); Leukocyte Esterase Urine Negative (Negative); Nitrate Urine Negative (Negative); Protein Urine 1+ (Negative); Specific Gravity, Urine 1.015 (1.005-1.030); Urine Appearance Clear (CLEAR); Urine Color Yellow (Yellow); Urobilinogen Urine Norm (Negative); pH Urine 6 (5-7)
[2020-06-17 22:24] LABS: Add Urine Microscopic? YES
[2020-06-17 22:26] LABS: Add Urine Culture? No; Bacteria Urine TRACE /hpf; Mucus Urine TRACE /hpf; RBC Urine 0-4 /hpf (0-2); WBC Urine 0-4 /hpf (0-5)
[2020-06-17 22:33] LABS: Reflex Lactate Order REFLEX LACTIC ORDERD
[2020-06-17 22:35] LABS: SARS Covid-2 Antigen Negative (Negative)
[2020-06-18] VITALS (11 sets, daily range): BP systolic 85–143; BP diastolic 50–91; PULSE 77–113; RESP 15–19; TEMP 36.3–37.2; O2SAT 92–99
[2020-06-18] MEDS: sodium chloride 0.9% 1,000 ML 100 ML IV ×2 (01:18→09:29)
--- NOTE | 2020-06-18 01:19 | PC.NURSE ---
ADMIT NOTE Pt received to floor from ER at 0030. Is alert and oriented. Speech is limited since old CVA as well as weakness in right arm from same CVA. Is able to converse with some words but is limited. c/o abd pain and tenderness abbey in right side. Abd is soft. Has NG tube intact via right nare and is to LIS. Draining pale green liquid at present. Pt is NPO with swabs given. Vincent intact and draining clear yellow urine. O2 in place at 2l per NC. IV fluids have been started and pt is recieviing IV Morphine and Pepcid. RN to complete admission assessment
[2020-06-18] MEDS: famotidine 20 mg/2 mL INJ IVP (01:22)
--- NOTE | 2020-06-18 01:33 | PC.NURSE ---
Morphine 4 mg ivp given at 0120. Unable to complete documentation in OCT d/t Error= Start date/time 06-18-2020 at 0105. Nas in Pharmacy has been notifed & is aware of this problem.
--- NOTE | 2020-06-18 01:34 | PM.HP ---
Providers/Chief Complaint Admitting Physician: Ryan Palomino Primary Care Provider: Bryan Garcia DO Chief Complaint: abdominal pain/ diverticulitis History of Present Illness 70-year-old with past medical history significant for anxiety, depression, peripheral vascular disease, hypertension, gastroesophageal reflux disease, diabetes mellitus, CVA, and Crohn's disease who presented to the hospital with acute onset of abdominal pain. Patient denies any nausea, vomiting. Upon arrival to emergency room his laboratory workup showed a WBC of 14.0, hemoglobin of 12.5, hematocrit 38.5 and a platelet count of 314. sodium 139, potassium 4.8, chloride 96, bicarb 26, BUN 34 and creatinine of 2.8. Prior creatinine of 3.2 in October of 2019. glucose was elevated at 223. lactic acid was elevated to 4.0. LFTs were within normal limits. COVID-19 rapid antigen testing was negative. CT abdomen pelvis was performed without contrast which showed severe gastric dilation with dilated small bowel representing ileus versus partial small bowel obstruction. Additionally was noted have questionable mild colitis involving the rectosigmoid colon. Chest x-ray showed minimal bibasilar infiltrates. Patient denied any recent fever or chills. Denied chest pain, respiratory distress or cough. in emergency room patient was given Zosyn, IV fluids, morphine. Additionally a nasogastric tube was placed to LIS. Review of Systems General: Reports: 10 or more systems reviewed and unremarkable except in HPI and below Medications/Allergies Home Medications Medication Instructions Recorded Confirmed Last Taken Type Magnesium (oxide/AA chelate) 400 mg PO BID 10/23/19 10/23/19 10/23/19 07:20 History acetaminophen 325 mg PO QID PRN 10/23/19 10/23/19 10/03/19 History alendronate 10 mg PO DAILY 10/23/19 10/23/19 10/23/19 History alum-mag hydroxide-simeth See Rx Instructions .ROUTE 10/23/19 10/23/19 Unknown History .COMPLEX PRN aspirin [Aspirin Childrens] 81 mg PO DAILY 10/23/19 10/23/19 10/23/19 History calcitriol 0.25 mcg PO BEDTIME 10/23/19 10/23/19 10/22/19 20:36 History calcium carbonate [Charli-Gest 200 mg PO QID PRN 10/23/19 10/23/19 Unknown History Antacid] citalopram 10 mg PO DAILY 10/23/19 10/23/19 10/23/19 07:20 History citalopram 20 mg PO DAILY 10/23/19 10/23/19 10/23/19 07:20 History docusate sodium 100 mg PO BID PRN 10/23/19 10/23/19 01/05/19 History ergocalciferol (vitamin D2) See Rx Instructions .ROUTE .COMPLEX 10/23/19 10/23/19 10/17/19 07:02 History [Vitamin D2] ferrous sulfate 325 mg PO BID 10/23/19 10/23/19 10/23/19 07:20 History gabapentin 100 mg PO TID 10/23/19 10/23/19 10/23/19 07:20 History insulin aspart U-100 [Novolog See Rx Instructions .ROUTE .COMPLEX 10/23/19 10/23/19 10/12/19 16:28 History PenFill U-100 Insulin] insulin aspart U-100 [Novolog See Rx Instructions .ROUTE .COMPLEX 10/23/19 10/23/19 10/23/19 10:47 History U-100 Insulin aspart] insulin glargine [Lantus Solostar 7 unit SUBCUT BEDTIME 10/23/19 10/23/19 10/22/19 20:36 History U-100 Insulin] loperamide 2 mg PO BID PRN 10/23/19 10/23/19 10/22/19 06:36 History lorazepam 0.5 mg PO DAILY 10/23/19 10/23/19 10/23/19 04:22 History lorazepam 0.5 mg PO Q6H PRN 10/23/19 10/23/19 10/22/19 14:28 History mirtazapine 15 mg PO BEDTIME 10/23/19 10/23/19 10/22/19 20:36 History risperidone 0.25 mg PO DAILY 10/23/19 10/23/19 10/23/19 07:20 History risperidone 0.5 mg PO BEDTIME 10/23/19 10/23/19 10/22/19 20:36 History sodium bicarbonate 1,300 mg PO BID 10/23/19 10/23/19 10/23/19 07:20 History sulfasalazine 1,000 mg PO TID 10/23/19 10/23/19 10/23/19 07:20 History tamsulosin 0.4 mg PO BEDTIME 10/23/19 10/23/19 10/23/19 07:20 History triamcinolone acetonide 1 applic TOPICAL BID PRN 10/23/19 10/23/19 Unknown History Allergies Allergy/AdvReac Type Severity Reaction Status Date / Time No Known Allergies Allergy Verified 10/23/19 12:52 PFSH Acute PFSH: Medical History (Updated 06/18/20 @ 01:36 AUTO BODY ESTIMATOR by Ryan Palomino MD) Anemia Anxiety reaction Bowel obstruction Crohn's disease CVA (cerebral vascular accident) Diabetes mellitus Gastroesophageal reflux GI bleeding Hypertension Nephrolithiasis Peripheral arterial occlusive disease Renal failure Surgical History History of intestinal surgery Social History Smoking and tobacco status: never smoked Vitals/I&O/Wt Last Vital Signs Temp 97.7 F 06/18/20 01:26 CDT Pulse 113 H 06/18/20 01:26 CDT Resp 19 H 06/18/20 01:26 CDT BP 143/84 06/18/20 01:26 CDT Pulse Ox 97 06/18/20 01:26 CDT Weight last 48 hrs Weight 63.503 kg Physical Exam Narrative: EXAM NARRATIVE: General : Alert in mild distress due to abdominal pain HEENT : Grossly unremarkable Chest : Decrease in bilateral bases CVS: Tachycardia no obvious murmurs Abdomen : Diffuse tenderness Ext: No edema Urinary Catheter Management^: Vincent: Cath Placed During This Visit: yes Reason for Continuing Indwelling Catheter: Acute Urinary Retention or Obstruction Urinary Catheter Date of Insertion: 06/17/20 Urinary Catheter Time of Insertion: 22:12 Data : 06/17/20 20:00 06/17/20 20:00 A&P Assessment and plan (1) Partial small bowel obstruction: Status: Acute (2) Abdominal pain: Status: Acute Abdominal pain suspected partial SBO Lactic acidosis Chrons disease Chronic stage 3 kidney disease Hypertension Diabetes Mellitus Hx of CVA Hx of GI bleed PVD GERD DVT ppx - SCDs only Plan: Ileus vs p.SBO vs gasteroparesis Possible colitis on CT Will continue NG to LIS Remain NPO NS at 75 cc/hr Continue Zosyn renally dose Pain control - will try to limit narcotics Pepcid 20 mg IV BID Zofran 4 mg IV Q6hr PRN for nausea Q6hr Blood sugar checks while NPO Sliding scale insulin only Consider general surgery consult in am CBC/CMP/Lactic acid in am Attestations Medical Necessity Statement*: Due to suspected partial bowel obstruction requiring NG possible surgery consult will likely require over 2 midnight stay in hospital. Time Spent in Patient Care: Greater than 35 minutes Coding Level of Care Code Acute Hotel Custodian for [facility] Fwd Diagnoses Partial small bowel obstruction K56.600 Abdominal pain R10.9
[2020-06-18 03:36] LABS: Basophils % 0.3 %; Eosinophils % 0.3 %; Hematocrit 36.6 % (42.0-52.0); Hemoglobin 11.4 g/dL (11.7-16.6); Lymphocytes # 0.8 10^3/uL (0.8-4.8); Mean Corpuscular HGB Conc 31.1 g/dL (30.0-36.0); Mean Corpuscular Hemoglobin 33.3 pg (28.0-34.0); Mean Platelet Volume 10.9 fL (7.4-10.4); Monocytes # 1.1 10^3/uL (0.2-0.9); Monocytes % 7.9 %; Neutrophils # 11.27 10^3/uL (1.8-7.7); Neutrophils % 85.2 %; Nucleated Red Blood Cells % 0 %; Platelet Count 225 10^3/cmm (130-400); Red Blood Count 3.42 10^6/uL (4.1-5.3); Red Cell Distribution Width 14.3 % (12.1-15.1); White Blood Count 13.2 10^3/uL (4.0-10.0)
[2020-06-18 03:47] LABS: Alanine Aminotransferase 19 U/L (0-41); Albumin Level 3.5 g/dL (3.5-5.2); Alkaline Phosphatase 67 IU/L (40-130); Blood Urea Nitrogen 34 mg/dL (8-23); Calcium 8.1 mg/dL (8.5-10.5); Carbon Dioxide 25 mmol/L (22-29); Chloride 102 mmol/L (98-107); Globulin 2.7 g/dL (1.3-4.6); Glomerular Filtration Rate 18.7 mL/min (90-130); Glucose 237 mg/dL (65-115); Osmolality Calculated 303 mOsm/kg (285-295); Sodium 139 mmol/L (136-145); Total Bilirubin 0.3 mg/dL (0.15-1.2); Total Protein 6.2 g/dL (6.6-8.7)
[2020-06-18 03:48] LABS: Lactic Sepsis W/Reflex 2.4 mmol/L (0.5-2.2)
[2020-06-18 03:58] LABS: Anion Gap 17.9 (5-19); Aspartate Amino Transferase 29 U/L (0-40); Potassium 5.9 mmol/L (3.5-5.1)
[2020-06-18 05:12] LABS: Reflex Lactate Order REFLEX LACTIC ORDERD
[2020-06-18 05:31] LABS: Slide Review Slide Review Perform
[2020-06-18] MEDS: morphine 4 mg/mL SDV 1 mL IVP (05:51)
[2020-06-18 06:39] LABS: Lactic Acid level (Lactate) 2.8 mmol/L (0.5-2.2)
[2020-06-18 08:40] LABS: Glucose Point of Care 223 mg/dL (70-110)
[2020-06-18] MEDS: piperacillin-tazobactam 3.375 GM in sodium chloride 0.9% (plus) 50 ML IV ×3 (09:29→23:50)
--- NOTE | 2020-06-18 10:34 | PM.PN ---
Subjective Subjective: Interval history: Admitted last night. H&P and labs noted. As per my conversation with the nursing staff at [facility] patient is a long-term resident over there because of history of stroke. He does have history of Crohn's disease and CKD. He was admitted last night because he started complaining of abdominal pain with nausea yesterday in the evening. His last bowel movement was on May 17 denied of having any melena or hematemesis, fever. They also state he is DNR/DNI brother Torin is the one who is his healthcare proxy. Vitals/I&O/Wt Last Vital Signs Temp 97.5 F L 06/18/20 07:31 Pulse 94 06/18/20 07:31 Resp 15 06/18/20 07:31 BP 85/56 06/18/20 07:31 Pulse Ox 97 06/18/20 07:31 06/17/20 06/18/20 06/18/20 23:59 06:59 14:59 Intake Total 1038.333 / 1038.333 Output Total Balance 1038.333 / 1038.333 Weight last 48 hrs Weight 63.503 kg Physical Exam Narrative: EXAM NARRATIVE: General: In mild acute distress because of NG tube and abdominal pain, patient is aphasic and usually communicating through few words. This is his apparent baseline as [facility]. Dehydrated HEENT: PERRLA, pupils bilaterally equal and reactive Chest: Normal vesicular breath sounds, no added sounds, equal good air entry bilaterally CVS: S1-S2 regular, no murmurs, no tachycardia, no gallops, no rubs Abdomen: Soft, generalized tenderness more localized in the right lower quadrant, no organomegaly, bowel sounds sluggish to absent Neuro: No focal deficits, no facial deformity, AO x3, power 5/5 in all limbs Urinary Catheter Management^: Vincent: Cath Placed During This Visit: yes Reason for Continuing Indwelling Catheter: Acute Urinary Retention or Obstruction Urinary Catheter Date of Insertion: 06/17/20 Urinary Catheter Time of Insertion: 22:12 Data : 06/18/20 03:07 06/18/20 03:07 A&P Assessment and plan (1) Abdominal pain: Status: Acute (2) Partial small bowel obstruction: Status: Acute (3) Crohn's disease: Status: Acute (4) CKD (chronic kidney disease) stage 4, GFR 15-29 ml/min: Status: Acute (5) Hypertension: Status: Acute (6) Diabetes mellitus: Status: Acute (7) Hyperkalemia: Status: Acute (8) Lactic acidosis: Status: Acute Additional A&P Information Abdominal pain: Most likely secondary to partial small bowel obstruction along with colitis as apparent on CT abdomen. Crohn's disease: Chronic. As per nursing staff patient has not had any recent exacerbation. Patient is on chronic sulfasalazine. Has not been on steroids for few years. Plan: For now continue with conservative treatment. Continue with NG tube to intermittent suction. N.p.o. Zofran for nausea and vomiting. Morphine 1 mg every 6 hours as needed for pain. Protonix IV for PUD prophylaxis. Continue with Zosyn for colitis. Stool studies. Check MRSA swab, blood cultures CRP mildly elevated to 11.5 on admission. Check ESR. For now hold off on sulfasalazine. Because inflammatory markers are not elevated will hold off on starting on steroids for now. We will consult surgery for further recommendation. Case discussed with Dr. Esparza. Lactic acidosis: Last lactate 2.8. Most likely secondary to colitis in setting of CKD. Continue with IV hydration with normal saline at 100 cc/h. CKD: Baseline creatinine 2-2.4. Currently 3.3. Medical reconciliation for nephrotoxic drugs. Continue with IV hydration as above. Continue with Vincent catheterization for strict input output charting. Hyperkalemia: We will treat with calcium gluconate, sodium bicarbonate, D50 and 10 in 10 units insulin. Repeat potassium levels at 4 PM. Will treat accordingly. Hypertension: Goal blood pressure less than 140/90 mmHg with mean over 60. Blood pressure is borderline for now. We will continue to monitor. Type 2 diabetes mellitus: Patient is n.p.o. for now. Continue with insulin sliding scale at moderate dose every 6 hourly. Medical reconciliation drug. Medication switched to IV where possible. Goals of care: As per the charting and conversation with the nurse at [facility] patient is DNR/DNI. Patient's brother Mr. Harkins is the healthcare proxy. Have tried calling him multiple times on [phone] but not able to get in touch. Not able to leave voicemail was not set up. Did speak with his other brother Mr. Finnegan and update him regarding his health. CODE STATUS change in system. DNR/DNI. NPO. Heparin for DVT prophylaxis Attestations Medical Necessity Statement*: Patient needs further hospitalization for management of small bowel obstruction, lactic acidosis,Crohn's, colitis, CKD, hyperkalemia. Time Spent in Patient Care: Greater than 35 minutes (>than 50% of time spent in counselling and/or direct pt care on unit). Coding Level of Care Code Acute Payroll Professional for [facility] Fwd Diagnoses Abdominal pain R10.9 Partial small bowel obstruction K56.600 Crohn's disease K50.90 CKD (chronic kidney disease) stage 4, GFR 15-29 ml/min N18.4 Hypertension I10 Diabetes mellitus E11.9 Hyperkalemia E87.5 Lactic acidosis E87.2
[2020-06-18 10:57] LABS: Glucose Point of Care 117 mg/dL (70-110)
--- NOTE | 2020-06-18 12:31 | P.CONIM_ITS ---
Providers/Reason For Consult Consulting Physican/Specialty*: General Surgery Leon Esparza MD Reason for Consult*: Crohn's disease, possible bowel obstruction. Attending Physician: Mitchel Em MD Primary Care Provider: Bryan Garcia DO History of Present Illness History of Present Illness Rodger Barbosa is a 70 year old male with a long history of Crohn's disease who is a correction resident. He is able answer questions, but it seems that he either has some difficulty remembering his medical history and/or has a hard time expressing himself, presumably from his previous CVA. He indicates that he had developed some abdominal pain over the past 2 days. He denies any vomiting. He was apparently sent to the emergency room by the correction staff for to rule out diverticulitis. Upon presentation to the emergency room yesterday a CAT scan showed a significantly dilated stomach and evidence of a possible intestinal ileus but no obvious evidence of inflammatory change anywhere. A nasogastric tube was placed and he says he felt much better after that was done. He denies any recent changes in bowel habits and says he is still passing flatus. Review of Systems General: Reports: 10 or more systems reviewed and unremarkable except in HPI and below Const: Denies: fever(s) GI: Reports: abdominal pain; Denies: vomiting Meds/Allergies Home Medications and Allergies Home Medications Medication Instructions Recorded Confirmed Last Taken Type acetaminophen 650 mg PO Q4H PRN 10/23/19 06/18/20 06/16/20 History calcitriol 0.5 mcg PO BEDTIME 10/23/19 06/18/20 06/16/20 History calcium carbonate [Charli-Gest See Rx Instructions .ROUTE 10/23/19 06/18/20 Unknown History Antacid] .COMPLEX PRN citalopram 40 mg PO DAILY 10/23/19 06/18/20 06/17/20 History docusate sodium 100 mg PO BID PRN 10/23/19 06/18/20 01/05/19 History ergocalciferol (vitamin D2) See Rx Instructions .ROUTE .COMPLEX 10/23/19 06/18/20 05/27/20 History [Vitamin D2] gabapentin 100 mg PO TID 10/23/19 06/18/20 06/17/20 History insulin aspart U-100 [Novolog See Rx Instructions .ROUTE .COMPLEX 10/23/19 06/18/20 10/23/19 10:47 History U-100 Insulin aspart] insulin glargine [Lantus Solostar 7 unit SUBCUT BEDTIME 10/23/19 06/18/20 06/16/20 History U-100 Insulin] lorazepam 0.5 mg PO BID 10/23/19 06/18/20 06/17/20 History risperidone 0.25 mg PO DAILY 10/23/19 06/18/20 06/17/20 History risperidone 0.5 mg PO BEDTIME 10/23/19 06/18/20 06/16/20 History sodium bicarbonate 1,300 mg PO TID 10/23/19 06/18/20 06/17/20 History sulfasalazine 1,000 mg PO TID 10/23/19 06/18/20 06/17/20 History tamsulosin 0.4 mg PO BEDTIME 10/23/19 06/18/20 06/16/20 History triamcinolone acetonide 1 applic TOPICAL BID PRN 10/23/19 06/18/20 Unknown History alum-mag hydroxide-simeth 30 ml PO QID PRN 06/18/20 06/18/20 Unknown History aspirin 81 mg PO DAILY 06/18/20 06/18/20 06/17/20 History hxixamrtor-[id number] chlor 1 ea MUCOUS MEMBRANE QID PRN 06/18/20 06/18/20 Unknown History [Orajel 3X Mouth Sores] calcium carbonate [Antacid Ultra 2,000 mg PO QAM 06/18/20 06/18/20 06/17/20 History Strength] calcium carbonate [Oyster Shell See Rx Instructions .ROUTE .COMPLEX 06/18/20 06/18/20 06/16/20 History Calcium 500] diclofenac sodium 4 g TOPICAL BID 06/18/20 06/18/20 06/17/20 History diphenoxylate-atropine [Lomotil] 1 tab PO QID PRN 06/18/20 06/18/20 06/16/20 History famotidine 20 mg PO DAILY PRN 06/18/20 06/18/20 Unknown History finasteride 5 mg PO BEDTIME 06/18/20 06/18/20 06/16/20 History hydrocodone-acetaminophen [[place]] 1 tab PO Q8H PRN MDD 6 TABS 06/18/20 06/18/20 06/16/20 History mirtazapine 15 mg PO BEDTIME 06/18/20 06/18/20 06/16/20 History pyridoxine (vitamin B6) 50 mg PO DAILY 06/18/20 06/18/20 06/17/20 History Allergies Allergy/AdvReac Type Severity Reaction Status Date / Time morphine Allergy Unknown Verified 06/18/20 10:09 Current Medications Current Medications Generic Name Dose Route Start Last Admin Trade Name Freq PRN Reason Stop Dose Admin Sodium Chloride 1,000 mls @ 100 mls/hr 06/18/20 01:05 POST OFFICE CLERK 06/18/20 09:29 Sodium Chloride 0.9% IV 100 mls/hr .Q10H CARRI Administration Piperacillin Sod/Tazobactam 50 mls @ 12.5 mls/hr 06/18/20 08:00 06/18/20 09:29 Sod 3.375 gm/ Sodium Chloride IV 12.5 mls/hr Q8H CARRI Administration Protocol As Directed PFSH Acute PFSH: Medical History (Updated 06/18/20 @ 13:04 by Leon Esparza MD) Anemia Anxiety reaction Carotid artery disease Cholelithiasis CKD (chronic kidney disease) stage 4, GFR 15-29 ml/min Crohn's disease CVA (cerebral vascular accident) Residual right-sided weakness Depression Diabetes mellitus Diverticulitis Gastroesophageal reflux Mild gastritis on EGD 2011 GI bleeding History of common carotid artery stent placement Hypertension Nephrolithiasis Obsessive compulsive disorder Peripheral arterial occlusive disease Surgical History (Updated 06/18/20 @ 13:04 by Leon Esparza MD) History of colonoscopy 02/2012 --active Crohn's disease at ileocolic anastomosis History of esophagogastroduodenoscopy 02/2012 --mild gastritis History of lithotripsy x 2 History of resection of small bowel x 1-2 History of right hemicolectomy Social History Smoking and tobacco status: never smoked Vitals/I&O/Wt Last Vital Signs Temp 97.3 F L 06/18/20 11:14 Pulse 89 06/18/20 11:14 Resp 16 06/18/20 11:14 BP 95/59 06/18/20 11:14 Pulse Ox 97 06/18/20 11:14 06/17/20 06/18/20 06/18/20 23:59 06:59 14:59 Intake Total 1038.333 / 1038.333 Output Total Balance 1038.333 / 1038.333 Weight last 48 hrs Weight 140 lb Physical Exam Narrative: EXAM NARRATIVE: The patient was encountered in his hospital room. He has a nasogastric tube in place which is draining light green-colored fluid. The patient does not appear to be in any acute distress. Pupils are equal. Lungs are clear anteriorly. Heart seems regular. The abdomen does reveal some hypoactive bowel sounds. He has a healed midline incision from the xiphoid process down to the pubis. He does not seem to have much in the way of tenderness on my exam. No obvious masses are palpated. The extremities reveal no edema. Urinary Catheter Management^: Vincent: Cath Placed During This Visit: yes Reason for Continuing Indwelling Catheter: Acute Urinary Retention or Obstruction Urinary Catheter Date of Insertion: 06/17/20 Urinary Catheter Time of Insertion: 22:12 Data Imaging^: CT Abd/Pel: Radiologist's impression: CT abdomen/pelvis 06/17/2020 IMPRESSION: 1. Severe gastric dilatation. 2. Findings with dilated small bowel which could represent severe ileus, or more likely partial obstruction involving the distal ileum. 3. Question of mild colitis involving the rectosigmoid colon. 4. Cholelithiasis. 5. Nephrolithiasis. 6. Possible basilar pneumonitis. A&P Assessment and plan (1) Crohn's disease: The patient is feeling much better since having an NG tube placed. He continues to pass some flatus and his CAT scan does show air throughout his intestinal tract, indicating he does not have a complete obstruction. His stomach was impressively dilated on presentation. Having said that, I am not certain that his Crohn's disease is involved in his presentation. He does appear to have some narrowing of the distal ileum as it comes up to the anastomosis in the mid to distal transverse colon, but apparently it looks the same as his last CAT scan. I am hopeful that conservative measures alone will result in the patient's improvement. I would not be opposed to at least a short trial of steroids to see if this improves his intestinal function. It does not appear that he has an immediate need for any surgical intervention. I will be happy to continue following the patient while he is hospitalized. Status: Acute Consult Attestations Medical Necessity Statement: See admitting service's notation. Coding Level of Care Code Acute Supervisor Tumbling And Rolling for Chg Fwd Diagnoses Crohn's disease K50.90
[2020-06-18] MEDS: dextrose 50% syringe 50 mL IVP (12:44)
[2020-06-18] MEDS: pantoprazole 40 mg SDV IVP (12:45)
[2020-06-18] MEDS: insulin regular-human 10 UNIT in SYRINGE 1 EACH IVP (12:49)
[2020-06-18] MEDS: sodium bicarbonate 50 MEQ in sodium chloride 0.45% 1,000 ML 100 MEQ IV ×2 (13:42→23:48)
[2020-06-18] MEDS: heparin 5,000 unit/mL INJ 1 mL 5000 UNIT SUBCUT ×2 (13:42→23:50)
[2020-06-18 14:08] LABS: Glucose Point of Care 179 mg/dL (70-110)
[2020-06-18 14:25] LABS: Anion Gap 14.6 (5-19); Blood Urea Nitrogen 39 mg/dL (8-23); Calcium 8.1 mg/dL (8.5-10.5); Carbon Dioxide 28 mmol/L (22-29); Chloride 107 mmol/L (98-107); Glomerular Filtration Rate 14.2 mL/min (90-130); Glucose 172 mg/dL (65-115); Lactate (Lactic Acid level) 2.7 mmol/L (0.5-2.2); Osmolality Calculated 313 mOsm/kg (285-295); Potassium 4.6 mmol/L (3.5-5.1); Sodium 145 mmol/L (136-145)
[2020-06-18] MEDS: albumin 12.5 GM/250 ML VIAL IV (14:43)
[2020-06-18 17:12] LABS: Glucose Point of Care 88 mg/dL (70-110)
--- NOTE | 2020-06-18 17:35 | PC.PT ---
PT note; despite encouragement patient declined out of bed for physical therapy evaluation today, will reattempt tomorrow
[2020-06-19] VITALS (8 sets, daily range): BP systolic 110–164; BP diastolic 52–80; PULSE 72–92; RESP 16–18; TEMP 36.5–36.9; O2SAT 95–98
--- NOTE | 2020-06-19 00:10 | PC.PHAR ---
Zosyn dosage is adjusted from 3.375mg IVPB every 8 hours to 3.375gm IVPB every 12 hours due to creatinine clearance of 15.1622.
[2020-06-19 00:30] LABS: Glucose Point of Care 221 mg/dL (70-110)
[2020-06-19 01:51] LABS: Glucose Point of Care 216 mg/dL (70-110)
[2020-06-19] MEDS: morphine 4 mg/mL SDV 1 mL 1 MG IVP ×2 (03:40→13:11)
[2020-06-19 04:01] LABS: Basophils % 0.1 %; Hemoglobin 9.1 g/dL (11.7-16.6); Lymphocytes # 0.4 10^3/uL (0.8-4.8); Lymphocytes % 3.8 %; Mean Corpuscular HGB Conc 31.4 g/dL (30.0-36.0); Mean Corpuscular Hemoglobin 32.7 pg (28.0-34.0); Mean Corpuscular Volume 104.3 fL (80-94); Mean Platelet Volume 12.3 fL (7.4-10.4); Monocytes # 0.1 10^3/uL (0.2-0.9); Monocytes % 0.7 %; Neutrophils # 9.34 10^3/uL (1.8-7.7); Neutrophils % 95.2 %; Nucleated Red Blood Cells % 0 %; Platelet Count 149 10^3/cmm (130-400); Red Blood Count 2.78 10^6/uL (4.1-5.3); Red Cell Distribution Width 14.5 % (12.1-15.1); White Blood Count 9.8 10^3/uL (4.0-10.0)
[2020-06-19 04:24] LABS: Alanine Aminotransferase 21 U/L (0-41); Albumin Level 3.7 g/dL (3.5-5.2); Alkaline Phosphatase 72 IU/L (40-130); Blood Urea Nitrogen 39 mg/dL (8-23); Calcium 7.8 mg/dL (8.5-10.5); Carbon Dioxide 24 mmol/L (22-29); Chloride 103 mmol/L (98-107); Glucose 212 mg/dL (65-115); Osmolality Calculated 308 mOsm/kg (285-295); Sodium 141 mmol/L (136-145); Total Bilirubin 0.4 mg/dL (0.15-1.2); Total Protein 5.7 g/dL (6.6-8.7)
[2020-06-19 04:45] LABS: Anion Gap 19.4 (5-19); Aspartate Amino Transferase 36 U/L (0-40); Potassium 5.4 mmol/L (3.5-5.1)
[2020-06-19 05:59] LABS: Glucose Point of Care 139 mg/dL (70-110)
--- NOTE | 2020-06-19 08:11 | PM.PN ---
Subjective Subjective: Interval history: The patient denies any abdominal pain. He says he is hungry this morning. He is not aware of any obvious flatus that he is passing. Vitals/I&O/Wt Last Vital Signs Temp 97.7 F 06/19/20 07:20 Pulse 77 06/19/20 07:20 Resp 16 06/19/20 07:20 BP 110/80 06/19/20 07:20 Pulse Ox 97 06/19/20 07:20 06/18/20 06/19/20 06/19/20 22:59 06:59 14:59 Intake Total 50 / 2148.333 1010 / 2148.333 Output Total 900 / 1750 850 / 1750 Balance -850 / 398.333 160 / 398.333 Weight last 48 hrs Weight 140 lb Physical Exam Narrative: EXAM NARRATIVE: Bowel sounds are present but are still somewhat hypoactive. The abdomen is nontender. Urinary Catheter Management^: Vincent: Cath Placed During This Visit: yes Reason for Continuing Indwelling Catheter: Acute Urinary Retention or Obstruction Urinary Catheter Date of Insertion: 06/17/20 Urinary Catheter Time of Insertion: 22:12 Data : 06/19/20 03:13 06/19/20 03:13 Micro: Microbiology 06/18/20 13:50 Blood Culture - Preliminary Blood SPECIMEN COLLECTED 06/18/20 13:45 Blood Culture - Preliminary Blood SPECIMEN COLLECTED A&P Assessment and plan (1) Crohn's disease: The patient's not aware of any flatus, but I am going to clamp his NG tube just to see how he does. If he tolerates this and we are able to get the nasogastric tube removed, I may consider an upper GI study given the size of his stomach on his presentation CAT scan; it is dilated enough that I do not think this was all an acute event. Status: Acute Attestations Medical Necessity Statement*: See admitting service's notation. Coding Level of Care Code Acute Film Color Tester for [facility] Diagnoses Crohn's disease K50.90
--- NOTE | 2020-06-19 08:37 | PC.NURSE ---
NG tube clamped at this time.
[2020-06-19] MEDS: pantoprazole 40 mg SDV IVP (08:38)
--- NOTE | 2020-06-19 13:01 | PM.PN ---
Subjective Subjective: Interval history: NGT clamped per Dr. Esparza, had 200 mL NGT output and 1300 mL urine output overnight. Hemodynamically stable, afebrile, on RA. Remains NPO. Resolved leukocytosis, drop in Hg, some improvement in renal function. Resting quietly in bed, reports having some gas, no BMs. 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 Medications: Reviewed: Yes Medication Review Details: Active Medications Generic Name Dose Route Start Last Admin Trade Name Freq PRN Reason Stop Dose Admin Dextrose 25 ml 06/18/20 00:33 D50w IVP ONCE PRN hypoglycemia prot ocol Protocol Dextrose 50 ml 06/18/20 00:33 D50w IVP PRN PRN hypoglycemia prot ocol Protocol Glucagon 1 mg 06/18/20 00:33 Glucagen IM ONCE PRN Adult Acute Hypog lycemia Prot. Protocol Heparin Sodium (Be ef Lung) 5,000 unit 06/18/20 12:30 06/18/20 23:50 Heparin SUBCUT 5,000 unit Q12H CARRI Administration Dextrose 500 mls @ 100 mls /hr 06/18/20 00:33 D5w IV ONCE PRN Adult Acute Hypog lycemia Prot Protocol Sodium Chloride 1,000 mls @ 100 m ls/hr 06/18/20 01:05 CS T 06/19/20 06:08 Sodium Chloride 0.9% IV Not Given .Q10H CARRI Sodium Bicarbonate 50 meq/ 1,050 mls @ 100 m ls/hr 06/18/20 11:00 06/18/20 23:48 Sodium Chloride IV 100 mls/hr .[id number] CARRI Administration Piperacillin Sod/T azobactam 50 mls @ 12.5 mls /hr 06/19/20 00:15 06/19/20 00:22 Sod 3.375 gm/ So dium Chloride IV Not Given Q12H CARRI Protocol As Directed Insulin Aspart 0 unit 06/18/20 12:30 06/19/20 05:59 Novolog SUBCUT Not Given Q6H CARRI Protocol Methylprednisolone Sodium Succinate 60 mg 06/18/20 15:00 06/19/20 06:08 Solu-Medrol IVP 60 mg Q8H CARRI Administration Morphine Sulfate 1 mg 06/18/20 10:09 06/19/20 03:40 Morphine IVP 1 mg Q4H PRN Administration pain Naloxone HCl 0.1 mg 06/18/20 01:05 CS T Narcan IVP Q2M PRN OPIATERV Ondansetron HCl 4 mg 06/18/20 01:05 CS T Zofran IVP Q6H PRN NAUSEA AND VOMITI NG Pantoprazole Sodiu m 40 mg 06/18/20 10:30 06/19/20 08:38 Protonix IVP 40 mg DAILY CARRI Administration morphine Allergy (Verified 06/18/20 10:09) Unknown Vitals/I&O/Wt Last Vital Signs Temp 97.8 F 06/19/20 11:18 Pulse 72 06/19/20 11:18 Resp 16 06/19/20 11:18 BP 156/76 06/19/20 11:18 Pulse Ox 97 06/19/20 11:18 06/18/20 06/19/20 06/19/20 22:59 06:59 14:59 Intake Total 50 / 1764.501 8948 / 2148.333 Output Total 900 / 900 850 / 1750 120 / 120 Balance -850 / 238.333 160 / 398.333 -120 / -120 Weight last 48 hrs Weight 63.503 kg Physical Exam Const: COMMON NORMALS: no acute distress and alert GENERAL APPEARANCE: cooperative and comfortable NUTRITIONAL APPEARANCE: thin ORIENTATION/CONSCIOUSNESS: Yes awake HENMT: COMMON NORMALS: normocephalic, atraumatic and hearing grossly normal bilaterally HEAD & SCALP: normocephalic and atraumatic NOSE: Other nasal findings present (NGT in place) MOUTH: moist mucous membranes abnormal Details: parched Eye: COMMON NORMALS: Equal, round and reactive pupils present, EOMs intact bilaterally and conjunctivae normal CONJUNCTIVA: Yes conjunctivae normal PUPIL: Yes Equal, round and reactive pupils present Neck/C-Spine: COMMON NORMALS: full ROM GENERAL: Yes normal visual inspection and Yes trachea midline Resp: COMMON NORMALS: normal respiratory effort, No retractions, No use of accessory muscles and clear to auscultation bilaterally EFFORT & INSPECTION: Yes able to speak in complete sentences, Yes symmetric chest movement and No tachypneic AUSCULTATION: clear to auscultation bilaterally OTHER: -on RA Cardio: COMMON NORMALS: regular rate, regular rhythm, S1 normal heart sound present, S2 normal heart sound present and No murmurs present (Cardio) RATE: regular rate RHYTHM: regular rhythm HEART SOUNDS: S1 normal heart sound present and S2 normal heart sound present GI: COMMON NORMALS: Soft to palpation and non-tender INSPECTION: Yes normal to inspection and No abdominal distension AUSCULTATION: Yes Hypoactive bowel sounds present PALPATION: Yes Soft to palpation, No Tenderness to palpation present (GI), No Guarding due to palpation present (GI), No Rigid due to palpation and No Rebound tenderness present : BLADDER/KIDNEY EXAM: Yes catheter in place Catheter type (Male): urethral Extremity: COMMON NORMALS: normal to inspection, full ROM and no clubbing, cyanosis or edema; negative for no pedal edema Neuro: COMMON NORMALS: moves all extremities, no focal motor deficits and no sensory deficits noted SENSORIUM/ORIENTATION: Yes alert SPEECH: receptive aphasia Psych: COMMON NORMALS: mental status grossly normal, Normal thought process present, cooperative, normal affect and speech normal SPEECH: Yes normal speech THOUGHT PROCESS: Normal thought process present Skin: COMMON NORMALS: no rashes or lesions noted, no jaundice, no petechiae and no mottling GENERAL SKIN EXAM: no rashes or lesions noted Urinary Catheter Management^: Vincent: Cath Placed During This Visit: yes Reason for Continuing Indwelling Catheter: Acute Urinary Retention or Obstruction Urinary Catheter Date of Insertion: 06/17/20 Urinary Catheter Time of Insertion: 22:12 Data : 06/19/20 03:13 06/19/20 14:23 Micro: Microbiology 06/18/20 13:50 Blood Culture - Preliminary Blood SPECIMEN COLLECTED 06/18/20 13:45 Blood Culture - Preliminary Blood SPECIMEN COLLECTED A&P Assessment and plan (1) Partial small bowel obstruction: -NPO, has NGT in place, continue to monitor output -Surgery consult by Dr. Esparza appreciated -pain control, antiemetics as needed -imaging reviewed -on empiric antibiotics, IVF hydration Status: Acute (2) Abdominal pain: -likely multifactorial given noted colitis, partial SBO, gastric dilatation Status: Acute Qualifiers: Abdominal location: unspecified location Qualified Code(s): R10.9 - Unspecified abdominal pain (3) Lactic acidosis: -likely secondary to colitis -on IVF hydration -trend lactic acid Status: Acute (4) Hyperkalemia: -treated medically with calcium gluconate, insulin, D50 -continue to trend Status: Acute (5) CKD (chronic kidney disease) stage 4, GFR 15-29 ml/min: -IVANA on CKD stage 4 -baseline Cr is around 2 -continue to monitor renal function -avoid nephrotoxins, renally dose meds Status: Chronic (6) Diabetes mellitus: -check A1c -Accucheks, ISS, hypoglycemia precautions Status: Chronic Qualifiers: Diabetes mellitus complication detail: with unspecified neuropathy Diabetes mellitus complication status: with neurologic complications Diabetes mellitus skilled nursing insulin use: with exterminator helper use Diabetes mellitus type: type 2 Qualified Code(s): E11.40 - Type 2 diabetes mellitus with diabetic neuropathy, unspecified; Z79.4 - USP (current) use of insulin (7) Crohn's disease: -on IV steroids, not previously on oral steroids -on chronic sulfasalazine -empiric antibiotics -mild CRP elevation, lactic acidosis, resolved leukocytosis Status: Chronic Qualifiers: Digestive disease complication type: unspecified complication Gastrointestinal tract location: unspecified location Qualified Code(s): K50.919 - Crohn's disease, unspecified, with unspecified complications (8) Hypertension: -VSS; continue to monitor Status: Chronic Qualifiers: Hypertension type: essential hypertension Qualified Code(s): I10 - Essential (primary) hypertension Additional A&P Information -hx of BPH -NPO -GI ppx with PPI -DVT ppx with heparin -Dispo: return to [facility] -Code status: DNR/DNI Attestations Medical Necessity Statement*: Patient requires hospitalization for continued management of partial SBO, colitis, acute on chronic renal impairment. Time Spent in Patient Care: Greater than 35 minutes (>than 50% of time spent in counselling and/or direct pt care on unit). Coding Level of Care Code Acute Fitness Trainer for Chg Fwd Exam Comprehensive Diagnoses Partial small bowel obstruction K56.600 Abdominal pain R10.9 Abdominal location: unspecified location Lactic acidosis E87.2 Hyperkalemia E87.5 CKD (chronic kidney disease) stage 4, GFR 15-29 ml/min N18.4 Diabetes mellitus E11.40; Z79.4 Diabetes mellitus complication detail: with unspecified neuropathy Diabetes mellitus complication status: with neurologic complications Diabetes mellitus skilled nursing insulin use: with skilled nursing use Diabetes mellitus type: type 2 Crohn's disease K50.919 Digestive disease complication type: unspecified complication Gastrointestinal tract location: unspecified location Hypertension I10 Hypertension type: essential hypertension
[2020-06-19 13:12] LABS: Glucose Point of Care 210 mg/dL (70-110)
[2020-06-19] MEDS: sodium bicarbonate 50 MEQ in sodium chloride 0.45% 1,000 ML 100 MEQ IV ×2 (13:12→22:41)
[2020-06-19] MEDS: heparin 5,000 unit/mL INJ 1 mL 5000 UNIT SUBCUT (13:12)
[2020-06-19 13:26] LABS: Glucose Point of Care 234 mg/dL (70-110)
[2020-06-19] MEDS: calcium gluconate 0.1 gm/mL 10% SDV 10mL 1 GM IVP (13:39)
[2020-06-19] MEDS: piperacillin-tazobactam 3.375 GM in sodium chloride 0.9% (plus) 50 ML IV (14:11)
[2020-06-19 15:28] LABS: Potassium 4.8 mmol/L (3.5-5.1)
[2020-06-19 17:55] LABS: Glucose Point of Care 111 mg/dL (70-110)
--- NOTE | 2020-06-19 18:12 | PC.NURSE ---
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 Relayed result to primary nurse, Sonam.
--- NOTE | 2020-06-19 18:32 | PC.NURSE ---
Patient has NG tube clammed since 0837 this morning. NG tube hooked to regular suction at this time. Waited 5 minutes with no results from NG. Patient has had no nausea or vomiting today. Orders received to remove NG tube and place patient on clear liquid diet. Water given to patient at this time. Patient was able to swallow without difficulty.
--- NOTE | 2020-06-19 18:36 | PC.PT ---
PT note; patient again refuses participation with physical therapy despite encouragement; nursing states patient only get up one he wants to, therefore no further attempts at PT evaluation will be made, until new orders received. Discharge physical therapy evaluation.
[2020-06-20] VITALS (8 sets, daily range): BP systolic 153–180; BP diastolic 74–82; PULSE 72–79; RESP 16–18; TEMP 36–37.2; O2SAT 93–98
[2020-06-20 00:53] LABS: Glucose Point of Care 212 mg/dL (70-110)
[2020-06-20] MEDS: piperacillin-tazobactam 3.375 GM in sodium chloride 0.9% (plus) 50 ML IV ×2 (01:52→11:48)
[2020-06-20] MEDS: heparin 5,000 unit/mL INJ 1 mL 5000 UNIT SUBCUT ×2 (01:53→11:49)
[2020-06-20 06:17] LABS: Basophils % 0.1 %; Hematocrit 30.4 % (42.0-52.0); Hemoglobin 9.4 g/dL (11.7-16.6); Lymphocytes # 0.7 10^3/uL (0.8-4.8); Lymphocytes % 4.2 %; Mean Corpuscular HGB Conc 30.9 g/dL (30.0-36.0); Mean Corpuscular Hemoglobin 32.8 pg (28.0-34.0); Mean Corpuscular Volume 105.9 fL (80-94); Monocytes # 0.6 10^3/uL (0.2-0.9); Monocytes % 3.8 %; Neutrophils # 15.14 10^3/uL (1.8-7.7); Neutrophils % 91.2 %; Nucleated Red Blood Cells % 0 %; Platelet Count 223 10^3/cmm (130-400); Red Blood Count 2.87 10^6/uL (4.1-5.3); Red Cell Distribution Width 14.2 % (12.1-15.1); White Blood Count 16.6 10^3/uL (4.0-10.0)
[2020-06-20 06:33] LABS: Glucose Point of Care 149 mg/dL (70-110)
[2020-06-20 06:36] LABS: Anion Gap 18.4 (5-19); Blood Urea Nitrogen 51 mg/dL (8-23); C Reactive Protein 68.8 mg/L (0.0-4.9); Calcium 8.1 mg/dL (8.5-10.5); Carbon Dioxide 26 mmol/L (22-29); Chloride 102 mmol/L (98-107); Glomerular Filtration Rate 18.1 mL/min (90-130); Glucose 149 mg/dL (65-115); Osmolality Calculated 310 mOsm/kg (285-295); Potassium 4.4 mmol/L (3.5-5.1); Sodium 142 mmol/L (136-145)
--- NOTE | 2020-06-20 07:01 | PM.PN ---
Subjective Subjective: Interval history: The patient did well with his NG tube clamped yesterday so was removed and he was started on a clear liquid diet which he says he tolerated well. The patient denies abdominal pain. He is passing flatus. He would like some regular food. Vitals/I&O/Wt Last Vital Signs Temp 97.4 F L 06/20/20 04:00 Pulse 75 06/20/20 04:00 Resp 18 06/20/20 04:00 BP 176/74 06/20/20 04:00 Pulse Ox 98 06/20/20 04:00 06/19/20 06/20/20 06/20/20 22:59 06:59 14:59 Intake Total 1098.333 / 2148.333 Output Total / 2019 Balance 598.333 / 128.333 -1400 / 128.333 Physical Exam Narrative: EXAM NARRATIVE: Abdomen is soft. Urinary Catheter Management^: Vincent: Cath Placed During This Visit: yes Reason for Continuing Indwelling Catheter: Acute Urinary Retention or Obstruction Urinary Catheter Date of Insertion: 06/17/20 Urinary Catheter Time of Insertion: 22:12 Data : 06/20/20 05:48 06/20/20 05:48 Micro: Microbiology 06/18/20 13:54 MRSA Culture - Final Nose 06/18/20 13:45 Blood Culture - Preliminary Blood NEGATIVE TO DATE 06/18/20 13:50 Blood Culture - Preliminary Blood NEGATIVE TO DATE A&P Assessment and plan (1) Crohn's disease: Advance diet. Status: Chronic Qualifiers: Gastrointestinal tract location: unspecified location Digestive disease complication type: unspecified complication Qualified Code(s): K50.919 - Crohn's disease, unspecified, with unspecified complications Attestations Medical Necessity Statement*: See admitting service's notation. Coding Level of Care Code Acute Customer Support Associate for [facility] Diagnoses Crohn's disease K50.919 Gastrointestinal tract location: unspecified location Digestive disease complication type: unspecified complication
[2020-06-20 07:31] LABS: Estmated Average Glucose 134
[2020-06-20] MEDS: morphine 4 mg/mL SDV 1 mL 1 MG IVP ×2 (07:54→23:11)
[2020-06-20 07:55] LABS: Hemoglobin A1C 6.3 % (4.0-6.0)
[2020-06-20] MEDS: pantoprazole 40 mg SDV IVP (08:04)
[2020-06-20] MEDS: sodium bicarbonate 50 MEQ in sodium chloride 0.45% 1,000 ML 100 MEQ IV (09:27)
[2020-06-20 10:49] LABS: Glucose Point of Care 212 mg/dL (70-110)
[2020-06-20] MEDS: mupirocin oint 22 gm 1 APPLIC NASAL ×2 (11:49→17:41)
--- NOTE | 2020-06-20 12:46 | P.PN_ITS ---
Subjective Subjective: Interval history: NGT removed and advanced to GI soft diet, no BMs yet though passing gas. Had 1550 mL urine output overnight, requesting removal of Vincent catheter. Noted hypertension this morning, will add oral antihypertensive agent. On RA, afebrile. Noted increased leukocytosis, stable hemoglobin, improvement in creatinine but increasing BUN. Lactate remains elevated at 3.0. Resting in bed, whimpering and pointing at IV on LUE AC, looks patent and currently has IVF running. Seems quite uncomfortable. Had a large liquid BM earlier this afternoon. Medications: Reviewed: Yes Medication Review Details: Active Medications Generic Name Dose Route Start Last Admin Trade Name Freq PRN Reason Stop Dose Admin Dextrose 25 ml 06/18/20 00:33 D50w IVP ONCE PRN hypoglycemia prot ocol Protocol Dextrose 50 ml 06/18/20 00:33 D50w IVP PRN PRN hypoglycemia prot ocol Protocol Glucagon 1 mg 06/18/20 00:33 Glucagen IM ONCE PRN Adult Acute Hypog lycemia Prot. Protocol Heparin Sodium (Be ef Lung) 5,000 unit 06/18/20 12:30 06/20/20 11:49 Heparin SUBCUT 5,000 unit Q12H CARRI Administration Dextrose 500 mls @ 100 mls /hr 06/18/20 00:33 D5w IV ONCE PRN Adult Acute Hypog lycemia Prot Protocol Piperacillin Sod/T azobactam 50 mls @ 12.5 mls /hr 06/19/20 00:15 06/20/20 11:48 Sod 3.375 gm/ So dium Chloride IV 12.5 mls/hr Q12H CARRI Administration Protocol As Directed Sodium Chloride 1,000 mls @ 100 m ls/hr 06/20/20 12:45 Sodium Chloride 0.45% IV .Q10H CARRI Metronidazole 500 mg in 100 mls @ 100 mls/hr 06/20/20 13:00 Flagyl Iv IV Q8H CARRI Protocol Insulin Aspart 0 unit 06/18/20 12:30 06/20/20 12:35 Novolog SUBCUT 6 unit Q6H CARRI Administration Protocol Methylprednisolone Sodium Succinate 60 mg 06/18/20 15:00 06/20/20 07:58 Solu-Medrol IVP 60 mg Q8H CARRI Administration Morphine Sulfate 1 mg 06/18/20 10:09 06/20/20 07:54 Morphine IVP 1 mg Q4H PRN Administration pain Mupirocin 1 applic 06/19/20 19:05 06/20/20 11:49 Bactroban NASAL 1 applic BID CARRI Administration Naloxone HCl 0.1 mg 06/18/20 01:05 CS T Narcan IVP Q2M PRN OPIATERV Ondansetron HCl 4 mg 06/18/20 01:05 CS T Zofran IVP Q6H PRN NAUSEA AND VOMITI NG Pantoprazole Sodiu m 40 mg 06/18/20 10:30 06/20/20 08:04 Protonix IVP 40 mg DAILY CARRI Administration morphine Allergy (Verified 06/18/20 10:09) Unknown Vitals/I&O/Wt Last Vital Signs Temp 97.2 F L 06/20/20 11:13 Pulse 72 06/20/20 11:13 Resp 18 06/20/20 11:13 BP 172/82 06/20/20 11:13 Pulse Ox 95 06/20/20 11:13 06/19/20 06/20/20 06/20/20 22:59 06:59 14:59 Intake Total 1098.333 / 2148.333 50 / 2198.333 1170 / 1170 Output Total 500 / 620 1400 / 2020 650 / 650 Balance 598.333 / 1528.333 -1350 / 178.333 520 / 520 Physical Exam Const: COMMON NORMALS: no acute distress and alert GENERAL APPEARANCE: cooperative NUTRITIONAL APPEARANCE: thin ORIENTATION/CONSCIOUSNESS: Yes awake HENMT: COMMON NORMALS: normocephalic, atraumatic and hearing grossly normal bilaterally HEAD & SCALP: normocephalic and atraumatic NOSE: Other nasal findings present (NGT in place) MOUTH: moist mucous membranes abnormal Details: parched Eye: COMMON NORMALS: Equal, round and reactive pupils present, EOMs intact bilaterally and conjunctivae normal CONJUNCTIVA: Yes conjunctivae normal PUPIL: Yes Equal, round and reactive pupils present Neck/C-Spine: COMMON NORMALS: full ROM GENERAL: Yes normal visual inspection and Yes trachea midline Resp: COMMON NORMALS: normal respiratory effort, No retractions, No use of accessory muscles and clear to auscultation bilaterally EFFORT & INSPECTION: Yes able to speak in complete sentences, Yes symmetric chest movement and No tachypneic AUSCULTATION: clear to auscultation bilaterally OTHER: -on RA Cardio: COMMON NORMALS: regular rate, regular rhythm, S1 normal heart sound present, S2 normal heart sound present and No murmurs present (Cardio) RATE: regular rate RHYTHM: regular rhythm HEART SOUNDS: S1 normal heart sound present and S2 normal heart sound present GI: COMMON NORMALS: Soft to palpation and non-tender INSPECTION: Yes normal to inspection and No abdominal distension AUSCULTATION: Yes Hypoactive bowel sounds present PALPATION: Yes Soft to palpation, No Tenderness to palpation p resent (GI), No Guarding due to palpation present (GI), No Rigid due to palpation and No Rebound tenderness present Extremity: COMMON NORMALS: normal to inspection, full ROM and no clubbing, cyanosis or edema; negative for no pedal edema Neuro: COMMON NORMALS: moves all extremities, no focal motor deficits and no sensory deficits noted SENSORIUM/ORIENTATION: Yes alert SPEECH: receptive aphasia Psych: COMMON NORMALS: mental status grossly normal, Normal thought process present and cooperative MOOD & AFFECT: Yes tearful THOUGHT PROCESS: Normal thought process present Skin: COMMON NORMALS: no rashes or lesions noted, no jaundice, no petechiae and no mottling GENERAL SKIN EXAM: no rashes or lesions noted Urinary Catheter Management^: Vincent: Cath Placed During This Visit: yes Reason for Continuing Indwelling Catheter: Acute Urinary Retention or Obstruction Urinary Catheter Date of Insertion: 06/17/20 Urinary Catheter Time of Insertion: 22:12 Data : 06/20/20 05:48 06/20/20 05:48 Micro: Microbiology 06/18/20 13:54 MRSA Culture - Final Nose 06/18/20 13:45 Blood Culture - Preliminary Blood NEGATIVE TO DATE 06/18/20 13:50 Blood Culture - Preliminary Blood NEGATIVE TO DATE A&P Assessment and plan (1) Partial small bowel obstruction: -NGT removed with improvement, on GI soft diet -Surgery consult by Dr. Esparza appreciated -pain control, antiemetics as needed -imaging reviewed -on empiric antibiotics, IVF hydration. Given increased leukocytosis, lactic acidosis, CRP elevation, will add Flagyl Status: Acute (2) Abdominal pain: -likely multifactorial given noted colitis, partial SBO, gastric dilat ation -improving Status: Acute Qualifiers: Abdominal location: unspecified location Qualified Code(s): R10.9 - Unspecified abdominal pain (3) Lactic acidosis: -likely secondary to colitis -on IVF hydration -remains elevated, continue to trend lactic acid Status: Acute (4) Hyperkalemia: -treated medically with calcium gluconate, insulin, D50 -continue to trend Status: Resolved (5) CKD (chronic kidney disease) stage 4, GFR 15-29 ml/min: -IVANA on CKD stage 4 -baseline Cr is around 2 -continue to monitor renal function; gradually improving -avoid nephrotoxins, renally dose meds -d/c Vincent catheter Status: Chronic (6) Diabetes mellitus: -A1c at goal (6.3) -Accucheks, ISS, hypoglycemia precautions Status: Chronic Qualifiers: Diabetes mellitus complication detail: with unspecified neuropathy Diabetes mellitus complication status: with neurologic complications Diabetes mellitus endoscopy technician insulin use: with long-term use Diabetes mellitus type: type 2 Qualified Code(s): E11.40 - Type 2 diabetes mellitus with diabetic neuropathy, unspecified; Z79.4 - hot dip tinning supervisor (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) use of insulin (7) Crohn's disease: -on IV steroids, not previously on oral steroids -on chronic sulfasalazine -empiric antibiotics -CRP elevation, lactic acidosis, increasing leukocytosis Status: Chronic Qualifiers: Digestive disease complication type: unspecified complication Gastrointestinal tract location: unspecified location Qualified Code(s): K50.919 - Crohn's disease, unspecified, with unspecified complications (8) Hypertension: -noted hypertension today; continue to monitor vital signs -start on low dose amlodipine Status: Chronic Qualifiers: Hypertension type: essential hypertension Qualified Code(s): I10 - Essential (primary) hypertension Additional A&P Information -hx of BPH; on flomax -on GI soft diet -GI ppx with PPI -DVT ppx with heparin -Dispo: return to [facility] -Code status: DNR/DNI Attestations Medical Necessity Statement*: Patient requires hospitalization for continued management of partial small bowel obstruction, gastric dilatation, acute flareup of Crohn's disease requiring continued IV fluid hydration, IV steroids and IV antibiotics. Time Spent in Patient Care: Greater than 35 minutes (>than 50% of time spent in counselling and/or direct pt care on unit) . Coding Level of Care Code Acute Phone Engineer for Chg Fwd Exam Comprehensive Diagnoses Partial small bowel obstruction K56.600 Abdominal pain R10.9 Abdominal location: unspecified location Lactic acidosis E87.2 Hyperkalemia E87.5 CKD (chronic kidney disease) stage 4, GFR 15-29 ml/min N18.4 Diabetes mellitus E11.40; Z79.4 Diabetes mellitus complication detail: with unspecified neuropathy Diabetes mellitus complication status: with neurologic complications Diabetes mellitus endoscopy technician insulin use: with endoscopy technician use Diabetes mellitus type: type 2 Crohn's disease K50.919 Digestive disease complication type: unspecified complication Gastrointestinal tract location: unspecified location Hypertension I10 Hypertension type: essential hypertension
--- NOTE | 2020-06-20 13:00 | PC.NURSE ---
Patient Vincent Catheter removed at this time. Patient had a large loose stool.
[2020-06-20] MEDS: amlodipine 5 mg Tablet PO (14:29)
[2020-06-20] MEDS: sodium chloride 0.45% 1,000 ML 100 ML IV (14:29)
[2020-06-20] MEDS: metroNIDAZOLE IV 500 MG/100 ML PREMIX 100 MG IV ×2 (14:33→21:47)
[2020-06-20 22:37] LABS: Glucose Point of Care 204 mg/dL (70-110)
[2020-06-21] VITALS (10 sets, daily range): BP systolic 149–185; BP diastolic 70–100; PULSE 62–78; RESP 16–18; TEMP 35.9–37; O2SAT 95–99
[2020-06-21 01:41] LABS: Glucose Point of Care 170 mg/dL (70-110)
[2020-06-21] MEDS: piperacillin-tazobactam 3.375 GM in sodium chloride 0.9% (plus) 50 ML IV ×3 (01:46→22:03)
[2020-06-21] MEDS: heparin 5,000 unit/mL INJ 1 mL 5000 UNIT SUBCUT ×2 (01:47→12:37)
[2020-06-21] MEDS: sodium chloride 0.45% 1,000 ML 100 ML IV ×2 (01:47→14:08)
[2020-06-21 05:24] LABS: Basophils % 0.1 %; Hematocrit 30.8 % (42.0-52.0); Hemoglobin 10.3 g/dL (11.7-16.6); Lymphocytes # 0.6 10^3/uL (0.8-4.8); Lymphocytes % 2.8 %; Mean Corpuscular HGB Conc 33.4 g/dL (30.0-36.0); Mean Corpuscular Hemoglobin 33.7 pg (28.0-34.0); Mean Corpuscular Volume 100.7 fL (80-94); Mean Platelet Volume 10.7 fL (7.4-10.4); Monocytes # 0.4 10^3/uL (0.2-0.9); Monocytes % 2.1 %; Neutrophils # 18.47 10^3/uL (1.8-7.7); Nucleated Red Blood Cells % 0 %; Platelet Count 225 10^3/cmm (130-400); Red Blood Count 3.06 10^6/uL (4.1-5.3); Red Cell Distribution Width 13.7 % (12.1-15.1); White Blood Count 19.7 10^3/uL (4.0-10.0)
[2020-06-21] MEDS: metroNIDAZOLE IV 500 MG/100 ML PREMIX 100 MG IV ×3 (05:39→20:01)
[2020-06-21 05:50] LABS: Anion Gap 17.3 (5-19); Blood Urea Nitrogen 54 mg/dL (8-23); Carbon Dioxide 23 mmol/L (22-29); Chloride 100 mmol/L (98-107); Glomerular Filtration Rate 20.1 mL/min (90-130); Glucose 167 mg/dL (65-115); Osmolality Calculated 301 mOsm/kg (285-295); Potassium 4.3 mmol/L (3.5-5.1); Sodium 136 mmol/L (136-145)
[2020-06-21 05:51] LABS: Lactate (Lactic Acid level) 1.3 mmol/L (0.5-2.2)
[2020-06-21 06:26] LABS: Glucose Point of Care 153 mg/dL (70-110)
[2020-06-21 06:45] LABS: C Reactive Protein 42.3 mg/L (0.0-4.9)
--- NOTE | 2020-06-21 07:44 | SUR.OPER ---
Notified PTs nurse about blood pressure
[2020-06-21] MEDS: amlodipine 5 mg Tablet PO ×2 (07:56→12:37)
[2020-06-21] MEDS: morphine 4 mg/mL SDV 1 mL 1 MG IVP ×4 (08:13→20:11)
[2020-06-21] MEDS: pantoprazole 40 mg SDV IVP (08:16)
[2020-06-21] MEDS: mupirocin oint 22 gm 1 APPLIC NASAL ×2 (08:16→17:40)
--- NOTE | 2020-06-21 11:36 | XR_ITS ---
WS: [id number] XR chest 1V portable [id number] REASON FOR EXAM: increasing leukocytosis, r/o infection FINDINGS: The chest is unchanged compared to previous examination of 06/17/2020. Right carotid artery stent. The heart and mediastinum are within normal limits. Minimal interstitial change in the lower lung dowd, chronic. Left shoulder arthroplasty. The right shoulder demonstrates flattening and sclerosis of the humeral h ead with inferior spurring. Mild/moderate gastric distention noted. Large gallbladder calculus. XR/XR chest 1V portable [id number] IMPRESSION: No definite acute chest abnormality.
--- NOTE | 2020-06-21 11:37 | P.PN_ITS ---
Subjective Subjective: Interval history: Hypertensive this morning so will increase dose of amlodipine, afebrile, on room air, 1 bowel movement so far today. Remains on Zosyn and Flagyl. Noted continued increase in leukocytosis though normalization of lactic acid and decreasing CRP. Will order repeat chest x-ray today. Accu- Cheks reviewed. Renal function gradually improving. Continues to tolerate GI soft diet. Resting in bed, tearful and reports some suprapubic discomfort and dysuria. Medications: Reviewed: Yes Medication Review Details: Active Medications Generic Name Dose Route Start Last Admin Trade Name Freq PRN Reason Stop Dose Admin Amlodipine Besylat e 5 mg 06/20/20 12:50 06/21/20 07:56 Norvasc PO 5 mg DAILY CARRI Administration Dextrose 25 ml 06/18/20 00:33 D50w IVP ONCE PRN hypoglycemia prot ocol Protocol Dextrose 50 ml 06/18/20 00:33 D50w IVP PRN PRN hypoglycemia prot ocol Protocol Glucagon 1 mg 06/18/20 00:33 Glucagen IM ONCE PRN Adult Acute Hypog lycemia Prot. Protocol Heparin Sodium (Be ef Lung) 5,000 unit 06/18/20 12:30 06/21/20 01:47 Heparin SUBCUT 5,000 unit Q12H CARRI Administration Dextrose 500 mls @ 100 mls /hr 06/18/20 00:33 D5w IV ONCE PRN Adult Acute Hypog lycemia Prot Protocol Sodium Chloride 1,000 mls @ 100 m ls/hr 06/20/20 12:45 06/21/20 07:56 Sodium Chloride 0.45% IV 100 mls/hr .Q10H CARRI Infusion Metronidazole 500 mg in 100 mls @ 100 mls/hr 06/20/20 13:00 06/21/20 05:39 Flagyl Iv IV 100 mls/hr Q8H CARRI Administration Protocol Piperacillin Sod/T azobactam 50 mls @ 12.5 mls /hr 06/21/20 11:00 Sod 3.375 gm/ So dium Chloride IV Q8H CARRI Protocol Insulin Aspart 0 unit 06/18/20 12:30 06/21/20 07:55 Novolog SUBCUT 4 unit Q6H CARRI Administration Protocol Methylprednisolone Sodium Succinate 60 mg 06/18/20 15:00 06/21/20 07:56 Solu-Medrol IVP 60 mg Q8H CARRI Administration Morphine Sulfate 1 mg 06/18/20 10:09 06/21/20 08:13 Morphine IVP 1 mg Q4H PRN Administration pain Mupirocin 1 applic 06/19/20 19:05 06/21/20 08:16 Bactroban NASAL 1 applic BID CARRI Administration Naloxone HCl 0.1 mg 06/18/20 01:05 CS T Narcan IVP Q2M PRN OPIATERV Ondansetron HCl 4 mg 06/18/20 01:05 CS T Zofran IVP Q6H PRN NAUSEA AND VOMITI NG Pantoprazole Sodiu m 40 mg 06/18/20 10:30 06/21/20 08:16 Protonix IVP 40 mg DAILY CARRI Administration morphine Allergy (Verified 06/18/20 10:09) Unknown Vitals/I&O/Wt Last Vital Signs Temp 97.4 F L 06/21/20 11:20 Pulse 77 06/21/20 11:20 Resp 16 06/21/20 11:20 BP 168/74 06/21/20 11:20 Pulse Ox 96 06/21/20 11:20 06/20/20 06/21/20 06/21/20 22:59 06:59 14:59 Intake Total 490 / 1780 1000 / 2780 450 / 450 Output Total 300 / 1250 400 / 400 Balance 190 / 530 1000 / 1530 50 / 50 Physical Exam Const: COMMON NORMALS: no acute distress and alert GENERAL APPEARANCE: cooperative NUTRITIONAL APPEARANCE: thin ORIENTATION/CONSCIOUSNESS: Yes awake HENMT: COMMON NORMALS: normocephalic, atraumatic, hearing grossly normal bilaterally and moist oral mucous membranes HEAD & SCALP: normocephalic and atraumatic Eye: COMMON NORMALS: Equal, round and reactive pupils present, EOMs intact bilaterally and conjunctivae normal CONJUNCTIVA: Yes conjunctivae normal PUPIL: Yes Equal, round and reactive pupils present Neck/C-Spine: COMMON NORMALS: full ROM GENERAL: Yes normal visual inspection and Yes trachea midline Resp: COMMON NORMALS: normal respiratory effort, No retractions, No use of accessory muscles and clear to auscultation bilaterally EFFORT & INSPECTION: Yes able to speak in complete sentences, Yes symmetric chest movement and No tachypneic AUSCULTATION: clear to auscultation bilaterally OTHER: -on RA Cardio: COMMON NORMALS: regular rate, regular rhythm, S1 normal heart sound present, S2 normal heart sound present and No murmurs present (Cardio) RATE: regular rate RHYTHM: regular rhythm HEART SOUNDS: S1 normal heart sound present and S2 normal heart sound present GI: COMMON NORMALS: Soft to palpation INSPECTION: Yes normal to inspection and No abdominal distension AUSCULTATION: Yes Hypoactive bowel sounds present PALPATION: Yes Soft to palpation, Yes Tenderness to palpation present (GI) (suprapubic), No Guarding due to palpation present (GI), No Rigid due to palpation and No Rebound tenderness present : OTHER: -brief on Extremity: COMMON NORMALS: normal to inspection, full ROM and no clubbing, cyanosis or edema; negative for no pedal edema Neuro: COMMON NORMALS: moves all extremities, no focal motor deficits and no sensory deficits noted SENSORIUM/ORIENTATION: Yes alert SPEECH: expressive aphasia and receptive aphasia Psych: COMMON NORMALS: mental status grossly normal, Normal thought process present and cooperative MOOD & AFFECT: Yes tearful THOUGHT PROCESS: Normal thought process present Skin: COMMON NORMALS: no rashes or lesions noted, no jaundice, no petechiae and no mottling GENERAL SKIN EXAM: no rashes or lesions noted Urinary Catheter Management^: Vincent: Cath Placed During This Visit: yes Reason for Continuing Indwelling Catheter: Acute Urinary Retention or Obstruction Urinary Catheter Date of Insertion: 06/17/20 Urinary Catheter Time of Insertion: 22:12 Data : 06/21/20 05:13 06/21/20 05:13 A&P Assessment and plan (1) Partial small bowel obstruction: -NGT removed with improvement, on GI soft diet which he is tolerating well -Surgery consult by Dr. Esparza appreciated -pain control, antiemetics as needed -imaging reviewed -on empiric antibiotics, IVF hydration. Given increased leukocytosis, lactic acidosis, CRP elevation, added Flagyl. Leukocytosis persists but CRP trending down and lactic acid normalized. Status: Acute (2) Abdominal pain: -likely multifactorial given noted colitis, partial SBO, gastric dila tation -improving -on antibiotics Status: Resolved Qualifiers: Abdominal location: unspecified location Qualified Code(s): R10.9 - U nspecified abdominal pain (3) Lactic acidosis: -likely secondary to colitis -on IVF hydration -lactic acid normalized Status: Resolved (4) Hyperkalemia: -treated medically with calcium gluconate, insulin, D50 -continue to trend Status: Resolved (5) CKD (chronic kidney disease) stage 4, GFR 15-29 ml/min: -IVANA on CKD stage 4 -baseline Cr is around 2 -continue to monitor renal function; gradually improving -avoid nephrotoxins, renally dose meds -d/c Vincent catheter Status: Chronic (6) Diabetes mellitus: -A1c at goal (6.3) -Accucheks, ISS, hypoglycemia precautions Status: Chronic Qualifiers: Diabetes mellitus complication detail: with unspecified neuropathy Diabetes mellitus complication status: with neurologic complications Diabetes mellitus 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 When appropriate will transition to oral steroids -on chronic sulfasalazine -empiric antibiotics -CRP trending down, lactic acidosis resolved, increasing leukocytosis part of which could be steroid-induced Status: Chronic Qualifiers: Digestive disease complication type: unspecified complication Gastrointestinal tract location: unspecified location Qualified Code(s): K50.919 - Crohn's disease, unspecified, with unspecified complications (8) Hypertension: -continued hypertension; continue to monitor vital signs -Increased dose of amlodipine Status: Chronic Qualifiers: Hypertension type: essential hypertension Qualified Code(s): I10 - Essential (primary) hypertension Additional A&P Information -hx of BPH; on flomax -suprapubic discomfort and dysuria; add pyridium -on GI soft diet -GI ppx with PPI -DVT ppx with heparin -Dispo: return to [facility] -Code status: DNR/DNI Attestations Medical Necessity Statement*: Patient requires hospitalization for continued IV fluid hydration secondary to acute renal impairment, continued steroid therapy secondary to Crohn's disease flare and continued hemodynamic status monitoring. Time Spent in Patient Care: 16 - 35 minutes (>than 50% of time spent in counselling and/or direct pt care on unit) . Coding Level of Care Code Acute Word Processing Operator for Chg Fwd Exam Comprehensive Diagnoses Partial small bowel obstruction K56.600 Abdominal pain R10.9 Abdominal location: unspecified location Lactic acidosis E87.2 Hyperkalemia E87.5 CKD (chronic kidney disease) stage 4, GFR 15-29 ml/min N18.4 Diabetes mellitus E11.40; Z79.4 Diabetes mellitus complication detail: with unspecified neuropathy Diabetes mellitus complication status: with neurologic complications Diabetes mellitus alf insulin use: with filler leaf cutter long use Diabetes mellitus type: type 2 Crohn's disease K50.919 Digestive disease complication type: unspecified complication Gastrointestinal tract location: unspecified location Hypertension I10 Hypertension type: essential hypertension
--- NOTE | 2020-06-21 11:54 | PC.SOCIAL ---
IMM Update Pg.2 of IMM updated. Copy provided to patient.
[2020-06-21 12:14] LABS: Glucose Point of Care 391 mg/dL (70-110)
[2020-06-21] MEDS: phenazopyridine 100 mg Tablet 200 MG PO ×2 (15:55→17:27)
[2020-06-21 16:37] LABS: Glucose Point of Care 237 mg/dL (70-110)
[2020-06-22] VITALS (12 sets, daily range): BP systolic 164–208; BP diastolic 64–92; PULSE 72–88; RESP 14–24; TEMP 36.4–37.1; O2SAT 93–96
[2020-06-22] MEDS: morphine 4 mg/mL SDV 1 mL 1 MG IVP ×2 (00:07→04:22)
[2020-06-22 00:08] LABS: Glucose Point of Care 181 mg/dL (70-110)
[2020-06-22] MEDS: metroNIDAZOLE IV 500 MG/100 ML PREMIX 100 MG IV ×3 (04:20→21:02)
[2020-06-22] MEDS: sodium chloride 0.45% 1,000 ML 100 ML IV (04:22)
[2020-06-22] MEDS: sodium chloride 0.45% 1,000 ML 50 ML IV (04:53)
--- NOTE | 2020-06-22 05:24 | PC.NURSE ---
SHIFT SUMMARY Has rested for intervals. c/o pain and tenderness across lower suprapubic area and has received IV Morphine for this per pt request. Voiding well per urinal with urine orange from meds being given. IV infusing without difficulty at 50ml/hr rate and receiving IV antibiotics. 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
[2020-06-22 05:28] LABS: Basophils % 0.1 %; Eosinophils % 0.1 %; Hematocrit 31.7 % (42.0-52.0); Hemoglobin 10.2 g/dL (11.7-16.6); Lymphocytes # 2.1 10^3/uL (0.8-4.8); Lymphocytes % 11.8 %; Mean Corpuscular HGB Conc 32.2 g/dL (30.0-36.0); Mean Corpuscular Hemoglobin 33.3 pg (28.0-34.0); Mean Corpuscular Volume 103.6 fL (80-94); Mean Platelet Volume 10.9 fL (7.4-10.4); Monocytes # 1.7 10^3/uL (0.2-0.9); Monocytes % 9.9 %; Neutrophils % 77.5 %; Nucleated Red Blood Cells % 0 %; Platelet Count 211 10^3/cmm (130-400); Red Blood Count 3.06 10^6/uL (4.1-5.3); Red Cell Distribution Width 13.6 % (12.1-15.1); White Blood Count 17.6 10^3/uL (4.0-10.0)
[2020-06-22 05:44] LABS: Anion Gap 18.5 (5-19); Blood Urea Nitrogen 52 mg/dL (8-23); C Reactive Protein 25.1 mg/L (0.0-4.9); Calcium 7.6 mg/dL (8.5-10.5); Carbon Dioxide 19 mmol/L (22-29); Chloride 103 mmol/L (98-107); Glomerular Filtration Rate 21.7 mL/min (90-130); Glucose 81 mg/dL (65-115); Osmolality Calculated 297 mOsm/kg (285-295); Potassium 3.5 mmol/L (3.5-5.1); Sodium 137 mmol/L (136-145)
[2020-06-22] MEDS: piperacillin-tazobactam 3.375 GM in sodium chloride 0.9% (plus) 50 ML IV ×3 (06:11→22:49)
[2020-06-22 06:15] LABS: Glucose Point of Care 107 mg/dL (70-110)
--- NOTE | 2020-06-22 07:03 | PM.PN ---
Subjective Subjective: Interval history: Uneventful night, continues to have suprapubic and lower abdominal discomfort, will increase analgesia particularly with noted hypertension. Had 1100 mL urine output overnight. Improving renal function. Will encourage out of bed activity as per alf, he was able to ambulate. Aphasia makes communication difficult, he typically is quite tearful and will intermittently answer yes/no Medications: Reviewed: Yes Medication Review Details: Active Medications Generic Name Dose Route Start Last Admin Trade Name Freq PRN Reason Stop Dose Admin Amlodipine Besylat e 10 mg 06/22/20 09:00 Norvasc PO DAILY CARRI Dextrose 25 ml 06/18/20 00:33 D50w IVP ONCE PRN hypoglycemia prot ocol Protocol Dextrose 50 ml 06/18/20 00:33 D50w IVP PRN PRN hypoglycemia prot ocol Protocol Glucagon 1 mg 06/18/20 00:33 Glucagen IM ONCE PRN Adult Acute Hypog lycemia Prot. Protocol Heparin Sodium (Be ef Lung) 5,000 unit 06/18/20 12:30 06/22/20 00:00 Heparin SUBCUT 5,000 unit Q12H CARRI Administration Dextrose 500 mls @ 100 mls /hr 06/18/20 00:33 D5w IV ONCE PRN Adult Acute Hypog lycemia Prot Protocol Sodium Chloride 1,000 mls @ 50 ml s/hr 06/20/20 12:45 06/22/20 04:53 Sodium Chloride 0.45% IV 50 mls/hr .Q20H CARRI Administration Metronidazole 500 mg in 100 mls @ 100 mls/hr 06/20/20 13:00 06/22/20 06:09 Flagyl Iv IV Infused Q8H CARRI Infusion Protocol Piperacillin Sod/T azobactam 50 mls @ 12.5 mls /hr 06/21/20 11:00 06/22/20 06:11 Sod 3.375 gm/ So dium Chloride IV 12.5 mls/hr Q8H CARRI Administration Protocol Insulin Aspart 0 unit 06/18/20 12:30 06/22/20 06:30 Novolog SUBCUT Not Given Q6H CARRI Protocol Methylprednisolone Sodium Succinate 60 mg 06/22/20 09:00 Solu-Medrol IVP DAILY CARRI Morphine Sulfate 1 mg 06/18/20 10:09 06/22/20 04:22 Morphine IVP 1 mg Q4H PRN Administration pain Mupirocin 1 applic 06/19/20 19:05 06/21/20 17:40 Bactroban NASAL 1 applic BID CARRI Administration Naloxone HCl 0.1 mg 06/18/20 01:05 CS T Narcan IVP Q2M PRN OPIATERV Ondansetron HCl 4 mg 06/18/20 01:05 CS T Zofran IVP Q6H PRN NAUSEA AND VOMITI NG Pantoprazole Sodiu m 40 mg 06/18/20 10:30 06/21/20 08:16 Protonix IVP 40 mg DAILY CARRI Administration Phenazopyridine HC l 200 mg 06/21/20 14:50 06/21/20 17:27 Pyridium PO 200 mg TIDPC CARRI Administration morphine Allergy (Verified 06/18/20 10:09) Unknown Vitals/I&O/Wt Last Vital Signs Temp 97.9 F 06/22/20 04:00 Pulse 75 06/22/20 04:00 Resp 14 06/22/20 04:22 BP 166/88 06/22/20 04:00 Pulse Ox 93 06/22/20 04:00 06/21/20 06/22/20 06/22/20 22:59 06:59 14:59 Intake Total 270 / 1610 1370 / 2980 Output Total 950 / 1850 725 / 2575 Balance -680 / -240 645 / 405 Physical Exam Const: COMMON NORMALS: no acute distress and alert GENERAL APPEARANCE: cooperative NUTRITIONAL APPEARANCE: thin ORIENTATION/CONSCIOUSNESS: Yes awake HENMT: COMMON NORMALS: normocephalic, atraumatic, hearing grossly normal bilaterally and moist oral mucous membranes HEAD & SCALP: normocephalic and atraumatic Eye: COMMON NORMALS: Equal, round and reactive pupils present, EOMs intact bilaterally and conjunctivae normal CONJUNCTIVA: Yes conjunctivae normal PUPIL: Yes Equal, round and reactive pupils present Neck/C-Spine: COMMON NORMALS: full ROM GENERAL: Yes normal visual inspection and Yes trachea midline Resp: COMMON NORMALS: normal respiratory effort, No retractions, No use of accessory muscles and clear to auscultation bilaterally EFFORT & INSPECTION: Yes able to speak in complete sentences, Yes symmetric chest movement and No tachypneic AUSCULTATION: clear to auscultation bilaterally OTHER: -on RA Cardio: COMMON NORMALS: regular rate, regular rhythm, S1 normal heart sound present, S2 normal heart sound present and No murmurs present (Cardio) RATE: regular rate RHYTHM: regular rhythm HEART SOUNDS: S1 normal heart sound present and S2 normal heart sound present GI: COMMON NORMALS: Soft to palpation INSPECTION: Yes normal to inspection and No abdominal distension AUSCULTATION: Yes Hypoactive bowel sounds present PALPATION: Yes Soft to palpation, Yes Tenderness to palpation present (GI) (suprapubic), No Guarding due to palpation present (GI), No Rigid due to palpation and No Rebound tenderness present : BLADDER/KIDNEY EXAM: Yes catheter in place OTHER: -brief on Extremity: COMMON NORMALS: normal to inspection, full ROM and no clubbing, cyanosis or edema; negative for no pedal edema Neuro: COMMON NORMALS: moves all extremities, no focal motor deficits and no sensory deficits noted SENSORIUM/ORIENTATION: Yes alert SPEECH: expressive aphasia and receptive aphasia OTHER: -aphasia limits communication Psych: COMMON NORMALS: mental status grossly normal, Normal thought process present and cooperative MOOD & AFFECT: Yes tearful THOUGHT PROCESS: Normal thought process present Skin: COMMON NORMALS: no rashes or lesions noted, no jaundice, no petechiae and no mottling GENERAL SKIN EXAM: no rashes or lesions noted Urinary Catheter Management^: Vincent: Cath Placed During This Visit: yes Reason for Continuing Indwelling Catheter: Acute Urinary Retention or Obstruction Urinary Catheter Date of Insertion: 06/17/20 Urinary Catheter Time of Insertion: 22:12 Data : 06/22/20 04:48 06/22/20 04:48 A&P Assessment and plan (1) Partial small bowel obstruction: -NGT removed with improvement, on GI soft diet which he is tolerating well -Surgery consult by Dr. Esparza appreciated -pain control, antiemetics as needed -imaging reviewed -on empiric antibiotics, IVF hydration. Given increased leukocytosis, lactic acidosis, CRP elevation, added Flagyl. Leukocytosis persists but CRP trending down and lactic acid normalized. Status: Acute (2) Abdominal pain: -likely multifactorial given noted colitis, partial SBO, gastric dilatation -improving -on antibiotics Status: Resolved Qualifiers: Abdominal location: unspecified location Qualified Code(s): R10.9 - Unspecified abdominal pain (3) Lactic acidosis: -likely secondary to colitis -on IVF hydration -lactic acid normalized Status: Resolved (4) Hyperkalemia: -treated medically with calcium gluconate, insulin, D50 -continue to trend Status: Resolved (5) CKD (chronic kidney disease) stage 4, GFR 15-29 ml/min: -IVANA on CKD stage 4 -baseline Cr is around 2 -continue to monitor renal function; gradually improving -avoid nephrotoxins, renally dose meds -Vincent catheter discontinued Status: Chronic (6) Diabetes mellitus: -A1c at goal (6.3) -Accucheks, ISS, hypoglycemia precautions Status: Chronic Qualifiers: Diabetes mellitus complication detail: with unspecified neuropathy Diabetes mellitus complication status: with neurologic complications 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 When appropriate will transition to oral steroids -on chronic sulfasalazine -empiric antibiotics -CRP trending down, lactic acidosis resolved, increasing leukocytosis part of which could be steroid-induced Status: Chronic Qualifiers: Digestive disease complication type: unspecified complication Gastrointestinal tract location: unspecified location Qualified Code(s): K50.919 - Crohn's disease, unspecified, with unspecified complications (8) Hypertension: -continued hypertension; continue to monitor vital signs -continue amlodipine, add low dose BB Status: Chronic Qualifiers: Hypertension type: essential hypertension Qualified Code(s): I10 - Essential (primary) hypertension Additional A&P Information -hx of BPH; on flomax -suprapubic discomfort and dysuria; pyridium added -on GI soft diet -GI ppx with PPI -DVT ppx with heparin -Dispo: return to [facility] -Code status: DNR/DNI Attestations Medical Necessity Statement*: Patient requires hospitalization for continued management of Crohn's flare, colitis, hypertension, acute renal impairment; on IV antibiotics, IVF and IV steroids. Time Spent in Patient Care: 16 - 35 minutes (>than 50% of time spent in counselling and/or direct pt care on unit). Coding Level of Care Code Acute Dividing Machine Operator for Chg Fwd Exam Comprehensive Diagnoses Partial small bowel obstruction K56.600 Abdominal pain R10.9 Abdominal location: unspecified location Lactic acidosis E87.2 Hyperkalemia E87.5 CKD (chronic kidney disease) stage 4, GFR 15-29 ml/min N18.4 Diabetes mellitus E11.40; Z79.4 Diabetes mellitus complication detail: with unspecified neuropathy Diabetes mellitus complication status: with neurologic complications Diabetes mellitus fci insulin use: with fci use Diabetes mellitus type: type 2 Crohn's disease K50.919 Digestive disease complication type: unspecified complication Gastrointestinal tract location: unspecified location Hypertension I10 Hypertension type: essential hypertension
[2020-06-22] MEDS: phenazopyridine 100 mg Tablet 200 MG PO ×3 (08:34→18:01)
[2020-06-22] MEDS: amlodipine 5 mg Tablet 10 MG PO (08:34)
[2020-06-22] MEDS: metoprolol tartrate 25 mg Tablet PO ×2 (08:35→18:01)
[2020-06-22] MEDS: pantoprazole 40 mg SDV IVP (08:35)
[2020-06-22] MEDS: mupirocin oint 22 gm 1 APPLIC NASAL ×2 (08:37→18:07)
[2020-06-22 11:04] LABS: Glucose Point of Care 265 mg/dL (70-110)
[2020-06-22] MEDS: hyDRALAzine 20 mg/mL INJ 1 mL 5 MG IVP (12:16)
[2020-06-22] MEDS: LORazepam 0.5 mg Tablet 0.25 MG PO (12:17)
[2020-06-22] MEDS: heparin 5,000 unit/mL INJ 1 mL 5000 UNIT SUBCUT ×2 (12:19)
[2020-06-22] MEDS: morphine 4 mg/mL SDV 1 mL 2 MG IVP ×2 (12:21→21:00)
[2020-06-22 16:59] LABS: Glucose Point of Care 116 mg/dL (70-110)
[2020-06-23] VITALS (8 sets, daily range): BP systolic 110–154; BP diastolic 68–77; PULSE 76–81; RESP 16–18; TEMP 36.6–36.9; O2SAT 92–97
[2020-06-23] MEDS: ondansetron 2 mg/ML SDV 2 mL 4 MG IVP (00:35)
[2020-06-23] MEDS: heparin 5,000 unit/mL INJ 1 mL 5000 UNIT SUBCUT ×2 (00:54→12:03)
[2020-06-23 00:59] LABS: Glucose Point of Care 220 mg/dL (70-110)
--- NOTE | 2020-06-23 01:26 | XRR_ITS ---
PROCEDURE INFORMATION: Exam: XR Chest, 1 View Exam date and time: 06/23/2020 1:27 AM Age: 70 years old Clinical indication: Device placement; Ng tube; Additional info: Ng tube placement TECHNIQUE: Imaging protocol: XR of the chest Views: 1 view. COMPARISON: CR XR chest 1V portable [id number] 06/21/2020 1:42 PM FINDINGS: An NG tube is seen with the tip in the stomach. Lungs: Unremarkable. No consolidation. Pleural space: Unremarkable. No pleural effusion. No pneumothorax. Heart/Mediastinum: Unremarkable. No cardiomegaly. Bones/joints: Unremarkable. XR/XR chest 1V portable [id number] IMPRESSION: No acute findings.
[2020-06-23 05:26] LABS: Basophils % 0.1 %; Eosinophils % 0.1 %; Hematocrit 35.2 % (42.0-52.0); Hemoglobin 11.1 g/dL (11.7-16.6); Lymphocytes # 1.5 10^3/uL (0.8-4.8); Lymphocytes % 8.5 %; Mean Corpuscular HGB Conc 31.5 g/dL (30.0-36.0); Mean Corpuscular Hemoglobin 33.2 pg (28.0-34.0); Mean Corpuscular Volume 105.4 fL (80-94); Monocytes # 1.9 10^3/uL (0.2-0.9); Monocytes % 10.6 %; Neutrophils # 14.43 10^3/uL (1.8-7.7); Neutrophils % 80.1 %; Nucleated Red Blood Cells % 0 %; Platelet Count 208 10^3/cmm (130-400); Red Blood Count 3.34 10^6/uL (4.1-5.3); Red Cell Distribution Width 14.1 % (12.1-15.1)
[2020-06-23 05:42] LABS: Anion Gap 19.7 (5-19); Blood Urea Nitrogen 56 mg/dL (8-23); Calcium 8.1 mg/dL (8.5-10.5); Carbon Dioxide 19 mmol/L (22-29); Chloride 103 mmol/L (98-107); Glomerular Filtration Rate 18.1 mL/min (90-130); Glucose 102 mg/dL (65-115); Osmolality Calculated 302 mOsm/kg (285-295); Potassium 3.7 mmol/L (3.5-5.1); Sodium 138 mmol/L (136-145)
[2020-06-23] MEDS: metroNIDAZOLE IV 500 MG/100 ML PREMIX 100 MG IV ×3 (05:54→21:22)
[2020-06-23] MEDS: morphine 4 mg/mL SDV 1 mL 2 MG IVP ×2 (06:31→17:19)
[2020-06-23 06:59] LABS: Glucose Point of Care 92 mg/dL (70-110)
[2020-06-23] MEDS: piperacillin-tazobactam 3.375 GM in sodium chloride 0.9% (plus) 50 ML IV ×2 (07:32→20:05)
[2020-06-23] MEDS: metoprolol tartrate 25 mg Tablet PO ×2 (08:15→17:16)
[2020-06-23] MEDS: amlodipine 5 mg Tablet 10 MG PO (08:15)
[2020-06-23] MEDS: sodium chloride 0.45% 1,000 ML 50 ML IV (08:15)
[2020-06-23] MEDS: mupirocin oint 22 gm 1 APPLIC NASAL ×2 (08:16→17:15)
[2020-06-23] MEDS: pantoprazole 40 mg SDV IVP (08:16)
[2020-06-23] MEDS: phenazopyridine 100 mg Tablet 200 MG PO ×3 (08:17→17:16)
--- NOTE | 2020-06-23 09:50 | PC.SOCIAL ---
IMM Updated Page 2 of IMM updated and given to patient. Initialed, dated, and timed and placed back in chart.
--- NOTE | 2020-06-23 09:59 | PC.NURSE ---
Called Dr Esparza to update him of his patient and the new orders for the NG tube placed overnight due to frequent emesis episodes. Left message to return call.
--- NOTE | 2020-06-23 10:30 | PC.NURSE ---
Updated Dr Esparza of NG placement overnight and abdomen being firm in left lower quad and right upper. physician will come and assess.
[2020-06-23 11:05] LABS: Glucose Point of Care 205 mg/dL (70-110)
--- NOTE | 2020-06-23 11:07 | P.PN_ITS ---
Subjective Subjective: Interval history: I had stopped seeing the patient daily earlier this week after he appeared to be doing well on a soft diet. The patient has reportedly started vomiting again and now has a nasogastric tube back in place, however. He seems to indicate that he was having pain in the left suprapubic region but says he feels better now that the NG is in place. He reportedly continues to have some bowel movements. Vitals/I&O/Wt Last Vital Signs Temp 97.8 F 06/23/20 08:00 Pulse 80 06/23/20 08:00 Resp 18 06/23/20 08:00 BP 154/77 06/23/20 08:00 Pulse Ox 97 06/23/20 08:00 06/22/20 06/23/20 06/23/20 22:59 06:59 14:59 Intake Total 730 / 2070 1050 / 2070 Output Total 675 / 1725 900 / 1725 100 / 100 Balance 55 / 345 150 / 345 -100 / -100 Physical Exam Narrative: EXAM NARRATIVE: The nasogastric tube is draining bilious material. Bowel sounds are present. There are a few sounds that may be hyperactive at times. Urinary Catheter Management^: Vincent: Cath Placed During This Visit: yes Reason for Continuing Indwelling Catheter: Acute Urinary Retention or Obstruction Urinary Catheter Date of Insertion: 06/17/20 Urinary Catheter Time of Insertion: 22:12 Data : 06/23/20 05:02 06/23/20 05:02 A&P Assessment and plan (1) Crohn's disease: This patient appears to be doing well but now has had more apparent obstructive symptoms. The patient's current steroids do not seem to be really making much difference; I would be in favor of starting to taper these. I suspect his white blood cell count is increased because of his steroid administration. The size of the patient's stomach on his original CAT scan made me somewhat concerned about a gastric outlet obstruction issue, but he clearly has bilious drainage currently making this much less likely. I had toyed with the notion of doing a contrast study earlier in the week, but held that after the patient appeared to be doing well; I am going to proceed with another CAT scan to see if we can identify an obvious obstructive process. Status: Chronic Qualifiers: Gastrointestinal tract location: unspecified location Digestive disease complication type: unspecified complication Qualified Code(s): K50.919 - Crohn's disease, unspecified, with unspecified complications Attestations Medical Necessity Statement*: See admitting service's notation. Coding Level of Care Code Acute Cylinder Machine Operator for [facility] Fwd Diagnoses Crohn's disease K50.919 Gastrointestinal tract location: unspecified location Digestive disease complication type: unspecified complication
--- NOTE | 2020-06-23 13:27 | PM.PN ---
Subjective Subjective: Interval history: Overnight patient had episodes of nausea and bilious vomiting, increased abdominal distention so NG tube was replaced. Had output of about 100 mL overnight, urine output of 800 mL. Noted relief with NG tube placement. Remains NPO. Repeat imaging ordered this morning by Dr. Esparza. Noted continued leukocytosis, stable hemoglobin, worsening renal function. Hypertensive overnight, blood pressure improved this morning. Seems more comfortable today, though does report some abdominal discomfort. Repeat CT still pending. Has had about 200 mL NGT output today. Medications: Reviewed: Yes Medication Review Details: Active Medications Generic Name Dose Route Start Last Admin Trade Name Freq PRN Reason Stop Dose Admin Amlodipine Besylat e 10 mg 06/22/20 09:00 06/23/20 08:15 Norvasc PO 10 mg DAILY CARRI Administration Dextrose 25 ml 06/18/20 00:33 D50w IVP ONCE PRN hypoglycemia prot ocol Protocol Dextrose 50 ml 06/18/20 00:33 D50w IVP PRN PRN hypoglycemia prot ocol Protocol Glucagon 1 mg 06/18/20 00:33 Glucagen IM ONCE PRN Adult Acute Hypog lycemia Prot. Protocol Heparin Sodium (Be ef Lung) 5,000 unit 06/18/20 12:30 06/23/20 12:03 Heparin SUBCUT 5,000 unit Q12H CARRI Administration Dextrose 500 mls @ 100 mls /hr 06/18/20 00:33 D5w IV ONCE PRN Adult Acute Hypog lycemia Prot Protocol Sodium Chloride 1,000 mls @ 100 m ls/hr 06/20/20 12:45 06/23/20 08:15 Sodium Chloride 0.45% IV 50 mls/hr .Q10H CARRI Administration Metronidazole 500 mg in 100 mls @ 100 mls/hr 06/20/20 13:00 06/23/20 12:03 Flagyl Iv IV 100 mls/hr Q8H CARRI Administration Protocol Piperacillin Sod/T azobactam 50 mls @ 12.5 mls /hr 06/23/20 19:30 Sod 3.375 gm/ So dium Chloride IV Q12H CARRI Protocol Insulin Aspart 0 unit 06/18/20 12:30 06/23/20 12:03 Novolog SUBCUT 6 unit Q6H CARRI Administration Protocol Lorazepam 0.25 mg 06/22/20 11:42 06/22/20 12:17 Ativan PO 0.25 mg TID PRN Administration ANXIETY Methylprednisolone Sodium Succinate 60 mg 06/22/20 09:00 06/23/20 08:14 Solu-Medrol IVP 60 mg DAILY CARRI Administration Metoprolol Tartrat e 25 mg 06/22/20 09:00 06/23/20 08:15 Lopressor PO 25 mg BID CARRI Administration Morphine Sulfate 2 mg 06/22/20 11:29 06/23/20 06:31 Morphine IVP 2 mg Q4H PRN Administration pain Mupirocin 1 applic 06/19/20 19:05 06/23/20 08:16 Bactroban NASAL 1 applic BID CARRI Administration Naloxone HCl 0.1 mg 06/18/20 01:05 CS T Narcan IVP Q2M PRN OPIATERV Ondansetron HCl 4 mg 06/18/20 01:05 CS T 06/23/20 00:35 Zofran IVP 4 mg Q6H PRN Administration NAUSEA AND VOMITI NG Pantoprazole Sodiu m 40 mg 06/18/20 10:30 06/23/20 08:16 Protonix IVP 40 mg DAILY CARRI Administration Phenazopyridine HC l 200 mg 06/21/20 14:50 06/23/20 12:03 Pyridium PO 200 mg TIDPC CARRI Administration morphine Allergy (Verified 06/18/20 10:09) Unknown Vitals/I&O/Wt Last Vital Signs Temp 98.0 F 06/23/20 12:00 Pulse 78 06/23/20 12:00 Resp 16 06/23/20 12:00 BP 131/75 06/23/20 12:00 Pulse Ox 97 06/23/20 12:00 06/22/20 06/23/20 06/23/20 22:59 06:59 14:59 Intake Total 730 / 1020 1150 / 2170 Output Total 675 / 825 900 / 1725 200 / 200 Balance 55 / 195 250 / 445 -200 / -200 Physical Exam Const: COMMON NORMALS: no acute distress and alert GENERAL APPEARANCE: cooperative and comfortable NUTRITIONAL APPEARANCE: thin ORIENTATION/CONSCIOUSNESS: Yes awake HENMT: COMMON NORMALS: normocephalic, atraumatic, hearing grossly normal bilaterally and moist oral mucous membranes HEAD & SCALP: normocephalic and atraumatic NOSE: Other nasal findings present (NGT in place) MOUTH: moist mucous membranes abnormal Details: parched Eye: COMMON NORMALS: Equal, round and reactive pupils present, EOMs intact bilaterally and conjunctivae normal CONJUNCTIVA: Yes conjunctivae normal PUPIL: Yes Equal, round and reactive pupils present Neck/C-Spine: COMMON NORMALS: full ROM GENERAL: Yes normal visual inspection and Yes trachea midline Resp: COMMON NORMALS: normal respiratory effort, No retractions, No use of accessory muscles and clear to auscultation bilaterally EFFORT & INSPECTION: Yes able to speak in complete sentences, Yes symmetric chest movement and No tachypneic AUSCULTATION: clear to auscultation bilaterally OTHER: -on RA Cardio: COMMON NORMALS: regular rate, regular rhythm, S1 normal heart sound present, S2 normal heart sound present and No murmurs present (Cardio) RATE: regular rate RHYTHM: regular rhythm HEART SOUNDS: S1 normal heart sound present and S2 normal heart sound present GI: COMMON NORMALS: Soft to palpation INSPECTION: Yes normal to inspection and No abdominal distension AUSCULTATION: Yes Hypoactive bowel sounds present PALPATION: Yes Soft to palpation, Yes Tenderness to palpation present (GI) (suprapubic) Details: LLQ and RLQ, No Guarding due to palpation present (GI), No Rigid due to palpation and No Rebound tenderness present : BLADDER/KIDNEY EXAM: Yes catheter in place OTHER: -brief on Extremity: COMMON NORMALS: normal to inspection, full ROM and no clubbing, cyanosis or edema; negative for no pedal edema Neuro: COMMON NORMALS: moves all extremities, no focal motor deficits and no sensory deficits noted SENSORIUM/ORIENTATION: Yes alert SPEECH: expressive aphasia and receptive aphasia OTHER: -aphasia limits communication Psych: COMMON NORMALS: mental status grossly normal, Normal thought process present and cooperative THOUGHT PROCESS: Normal thought process present Skin: COMMON NORMALS: no rashes or lesions noted, no jaundice, no petechiae and no mottling GENERAL SKIN EXAM: no rashes or lesions noted Urinary Catheter Management^: Vincent: Cath Placed During This Visit: yes Reason for Continuing Indwelling Catheter: Acute Urinary Retention or Obstruction Urinary Catheter Date of Insertion: 06/17/20 Urinary Catheter Time of Insertion: 22:12 Data : 06/23/20 05:02 06/23/20 05:02 A&P Assessment and plan (1) Partial small bowel obstruction: -NGT replaced overnight due to increased abdominal distention, nausea and bilious vomiting, continue to monitor output -Surgery consult by Dr. Esparza appreciated -pain control, antiemetics as needed -imaging reviewed -on empiric antibiotics, IVF hydration. Leukocytosis persists but CRP trending down and lactic acid normalized. -Repeat imaging today -N.p.o. Status: Acute (2) Abdominal pain: -likely multifactorial given noted colitis, partial SBO, gastric dilatation -Worsened overnight -on antibiotics Status: Resolved Qualifiers: Abdominal location: unspecified location Qualified Code(s): R10.9 - Unspecified abdominal pain (3) Lactic acidosis: -likely secondary to colitis -on IVF hydration -lactic acid normalized Status: Resolved (4) CKD (chronic kidney disease) stage 4, GFR 15-29 ml/min: -IVANA on CKD stage 4 -baseline Cr is around 2 -continue to monitor renal function; gradually improving -avoid nephrotoxins, renally dose meds -Vincent catheter discontinued Status: Chronic (5) Diabetes mellitus: -A1c at goal (6.3) -Accucheks, ISS, hypoglycemia precautions Status: Chronic Qualifiers: Diabetes mellitus complication detail: with unspecified neuropathy Diabetes mellitus complication status: with neurologic complications Diabetes mellitus long term care social worker insulin use: with long term care social worker use Diabetes mellitus type: type 2 Qualified Code(s): E11.40 - Type 2 diabetes mellitus with diabetic neuropathy, unspecified; 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 When appropriate will transition to oral steroids -on chronic sulfasalazine -empiric antibiotics -CRP trending down, lactic acidosis resolved, increasing leukocytosis part of which could be steroid-induced Status: Chronic Qualifiers: Digestive disease complication type: unspecified complication Gastrointestinal tract location: unspecified location Qualified Code(s): K50.919 - Crohn's disease, unspecified, with unspecified complications (7) Hypertension: -continued hypertension; continue to monitor vital signs -continue amlodipine, low dose BB Status: Chronic Qualifiers: Hypertension type: essential hypertension Qualified Code(s): I10 - Essential (primary) hypertension (8) Hyperkalemia: -treated medically with calcium gluconate, insulin, D50 Status: Resolved Additional A&P Information -hx of BPH; on flomax -suprapubic discomfort and dysuria; on pyridium -NPO -GI ppx with PPI -DVT ppx with heparin -Dispo: return to [facility] -Code status: DNR/DNI Attestations Medical Necessity Statement*: Patient requires hospitalization for continued management of partial SBO, NGT replaced overnight due to increased distention, pending repeat imaging. Time Spent in Patient Care: 16 - 35 minutes (>than 50% of time spent in counselling and/or direct pt care on unit). Coding Level of Care Code Acute It Security Consulting Director for [facility] Exam Comprehensive Diagnoses Partial small bowel obstruction K56.600 Abdominal pain R10.9 Abdominal location: unspecified location Lactic acidosis E87.2 CKD (chronic kidney disease) stage 4, GFR 15-29 ml/min N18.4 Diabetes mellitus E11.40; Z79.4 Diabetes mellitus complication detail: with unspecified neuropathy Diabetes mellitus complication status: with neurologic complications Diabetes mellitus long term care social worker insulin use: with penitentiary use Diabetes mellitus type: type 2 Crohn's disease K50.919 Digestive disease complication type: unspecified complication Gastrointestinal tract location: unspecified location Hypertension I10 Hypertension type: essential hypertension Hyperkalemia E87.5
[2020-06-23 17:18] LABS: Glucose Point of Care 139 mg/dL (70-110)
[2020-06-23 20:48] LABS: Glucose Point of Care 173 mg/dL (70-110)
[2020-06-24] VITALS (8 sets, daily range): BP systolic 128–152; BP diastolic 67–80; PULSE 71–96; RESP 17–20; TEMP 36.3–36.8; O2SAT 93–96
[2020-06-24] MEDS: heparin 5,000 unit/mL INJ 1 mL 5000 UNIT SUBCUT ×2 (01:28→11:58)
[2020-06-24] MEDS: sodium chloride 0.45% 1,000 ML 50 ML IV ×2 (01:39→13:16)
[2020-06-24] MEDS: morphine 4 mg/mL SDV 1 mL 2 MG IVP ×2 (04:12→11:09)
[2020-06-24] MEDS: metroNIDAZOLE IV 500 MG/100 ML PREMIX 100 MG IV ×3 (05:40→20:36)
[2020-06-24 06:18] LABS: Basophils % 0.1 %; Eosinophils % 0.1 %; Hematocrit 32.4 % (42.0-52.0); Lymphocytes # 1.7 10^3/uL (0.8-4.8); Lymphocytes % 9.3 %; Mean Corpuscular HGB Conc 30.9 g/dL (30.0-36.0); Mean Corpuscular Hemoglobin 32.7 pg (28.0-34.0); Mean Corpuscular Volume 105.9 fL (80-94); Mean Platelet Volume 11.3 fL (7.4-10.4); Monocytes # 1.6 10^3/uL (0.2-0.9); Monocytes % 8.8 %; Neutrophils # 14.72 10^3/uL (1.8-7.7); Nucleated Red Blood Cells % 0 %; Platelet Count 187 10^3/cmm (130-400); Red Blood Count 3.06 10^6/uL (4.1-5.3); Red Cell Distribution Width 14.1 % (12.1-15.1); White Blood Count 18.2 10^3/uL (4.0-10.0)
[2020-06-24 06:56] LABS: Blood Urea Nitrogen 58 mg/dL (8-23); Calcium 7.9 mg/dL (8.5-10.5); Carbon Dioxide 16 mmol/L (22-29); Chloride 103 mmol/L (98-107); Glomerular Filtration Rate 15.9 mL/min (90-130); Glucose 107 mg/dL (65-115); Osmolality Calculated 303 mOsm/kg (285-295); Sodium 138 mmol/L (136-145)
[2020-06-24 08:07] LABS: Glucose Point of Care 116 mg/dL (70-110)
[2020-06-24 08:23] LABS: Anion Gap 23.1 (5-19); Potassium 4.1 mmol/L (3.5-5.1)
--- NOTE | 2020-06-24 08:56 | PM.PN ---
Subjective Subjective: Interval history: The patient still has a little bit of abdominal pain this morning, but continues to pass flatus and continues to have bowel movements. He does tell me that his recent nausea is something that is brand-new for him. I had ordered a repeat CAT scan yesterday to identify any possible areas of obstruction/partial obstruction. Apparently they got too busy in emergency room/CAT scan yesterday to get the CAT scan done. Vitals/I&O/Wt Last Vital Signs Temp 98.2 F 06/24/20 08:00 Pulse 86 06/24/20 08:00 Resp 18 06/24/20 08:00 BP 152/78 06/24/20 08:00 Pulse Ox 94 06/24/20 08:00 06/23/20 06/24/20 06/24/20 22:59 06:59 14:59 Intake Total 100 / 1070 870 / 1070 Output Total 1150 / 1850 400 / 1850 Balance -1050 / -780 470 / -780 Physical Exam Narrative: EXAM NARRATIVE: NG output has been bilious and moderate in amount. Bowel sounds seem a little more active today. I cannot elicit much focal tenderness on his exam. Urinary Catheter Management^: Vincent: Cath Placed During This Visit: yes Reason for Continuing Indwelling Catheter: Acute Urinary Retention or Obstruction Urinary Catheter Date of Insertion: 06/17/20 Urinary Catheter Time of Insertion: 22:12 Data : 06/24/20 05:44 06/24/20 05:44 Micro: Microbiology 06/18/20 14:00 Stool Lactoferrin - Final Stool C.difficile Toxin B Gene (PCR) - Final Occult Blood (FIT) - Final 06/18/20 13:50 Blood Culture - Final Blood NO GROWTH AFTER 5 DAYS 06/18/20 13:45 Blood Culture - Final Blood NO GROWTH AFTER 5 DAYS A&P Assessment and plan (1) Crohn's disease: With the patient continuing to pass flatus and bowel movements, he is clearly not fully obstructed. It remains possible that he continues to have some abdominal pain and nausea in the absence of significant obstruction; it may be more of an ileus type picture. His CAT scan could not be done yesterday due to a very busy schedule in the emergency room/CAT scanner. Hopefully we can get some images today and make further decisions regarding his nasogastric tube, etc. Status: Chronic Qualifiers: Gastrointestinal tract location: unspecified location Digestive disease complication type: unspecified complication Qualified Code(s): K50.919 - Crohn's disease, unspecified, with unspecified complications Attestations Medical Necessity Statement*: See admitting service's notation. Coding Level of Care Code Acute Lime Boiler for [facility] Diagnoses Crohn's disease K50.919 Gastrointestinal tract location: unspecified location Digestive disease complication type: unspecified complication
[2020-06-24] MEDS: piperacillin-tazobactam 3.375 GM in sodium chloride 0.9% (plus) 50 ML IV ×2 (09:34→18:42)
[2020-06-24] MEDS: pantoprazole 40 mg SDV IVP (09:34)
[2020-06-24] MEDS: metoprolol tartrate 25 mg Tablet PO ×2 (09:35→17:03)
[2020-06-24] MEDS: phenazopyridine 100 mg Tablet 200 MG PO ×3 (09:35→17:03)
[2020-06-24] MEDS: amlodipine 5 mg Tablet 10 MG PO (09:36)
[2020-06-24] MEDS: mupirocin oint 22 gm 1 APPLIC NASAL ×2 (09:50→17:03)
--- NOTE | 2020-06-24 11:14 | CTR_ITS ---
PROCEDURE INFORMATION: Exam: CT Abdomen And Pelvis Without Contrast Exam date and time: 06/24/2020 10:36 AM Age: 70 years old Clinical indication: Nausea and vomiting; Prior surgery; Surgery date: 6+ months; Surgery type: Bowel; Patient HX: N/v, HX of crohns, diverticulitis, renal failure; Additional info: Crohn's disease, intermittent obstructive symptoms/signs TECHNIQUE: Imaging protocol: Computed tomography of the abdomen and pelvis without contrast. Radiation optimization: All CT scans at this facility use at least one of these dose optimization techniques: automated exposure control; mA and/or kV adjustment per patient size (includes targeted exams where dose is matched to clinical indication); or iterative reconstruction. Other contrast: Oral, OMNI 300, 450; COMPARISON: CT abdomen pelvis wo con [id number] 06/17/2020 8:54 PM RADIATION DOSE METRICS: Total DLP (mGy-cm): 382.25 FINDINGS: Tubes, catheters and devices: A nasogastric tube extends into the stomach. Lungs: There is mild atelectasis in the lung bases. Liver: Normal. No mass. Gallbladder and bile ducts: There is a calcified stone in a distended gallbladder. The bile ducts are not dilated. Pancreas: Normal. No ductal dilation. Spleen: Normal. No splenomegaly. Adrenal glands: Normal. No mass. Kidneys and ureters: There is prominent right renal atrophy. Cortical scarring is present in the left kidney. Multiple bilateral nonobstructing renal calcifications are present. Benign-appearing cysts are present in the right kidney. There is no hydronephrosis. Stomach and bowel: There is a prominent amount of stool in the colon. There is no evidence of bowel obstruction or dilatation. Patient has undergone right hemicolectomy. Appendix: No evidence of appendicitis. Intraperitoneal space: Unremarkable. No free air. No significant fluid collection. Vasculature: The aorta is calcified but there is no aneurysm. Lymph nodes: Unremarkable. No enlarged lymph nodes. Urinary bladder: Unremarkable as visualized. Reproductive: Unremarkable as visualized. Bones/joints: Degenerative changes are present in the spine. Bilateral hip prostheses are present causing metal artifact in the pelvis. Soft tissues: Unremarkable. CT/CT abdomen pelvis wo con [id number] IMPRESSION: 1. Right hemicolectomy. Prominent amount of stool in the colon. 2. Right renal atrophy. Bilateral nonobstructing nephrolithiasis. 3. Cholelithiasis. 4. No acute inflammatory processes are seen in the abdomen and pelvis. Radiation Dose CTDIVOL = (mGy): DLP = 382.25 (mGy-cm)
[2020-06-24 11:57] LABS: Glucose Point of Care 176 mg/dL (70-110)
[2020-06-24] MEDS: iohexol 300 mg/mL 50 mL Btl PO (12:48)
--- NOTE | 2020-06-24 13:41 | PC.NURSE ---
took pt to CT via wheelchair. pt is now back in bed resting.
--- NOTE | 2020-06-24 13:58 | P.PN_ITS ---
Subjective Subjective: Interval history: NGT remains in place, had 200 mL output overnight with an additional 300 mL so far today. Had 450 mL urine output overnight. Repeat CT A/P not done due to increased volume from ED yesterday. Hemodynamically stable, afebrile, on RA. Noted worsening renal function today. Case discussed with Dr. Esparza this morning. Does report some abdominal discomfort, had a loose BM this afternoon. Medications: Reviewed: Yes Medication Review Details: Active Medications Generic Name Dose Route Start Last Admin Trade Name Freq PRN Reason Stop Dose Admin Amlodipine Besylat e 10 mg 06/22/20 09:00 06/24/20 09:36 Norvasc PO 10 mg DAILY CARRI Administration Dextrose 25 ml 06/18/20 00:33 D50w IVP ONCE PRN hypoglycemia prot ocol Protocol Dextrose 50 ml 06/18/20 00:33 D50w IVP PRN PRN hypoglycemia prot ocol Protocol Glucagon 1 mg 06/18/20 00:33 Glucagen IM ONCE PRN Adult Acute Hypog lycemia Prot. Protocol Heparin Sodium (Be ef Lung) 5,000 unit 06/18/20 12:30 06/24/20 11:58 Heparin SUBCUT 5,000 unit Q12H CARRI Administration Dextrose 500 mls @ 100 mls /hr 06/18/20 00:33 D5w IV ONCE PRN Adult Acute Hypog lycemia Prot Protocol Sodium Chloride 1,000 mls @ 100 m ls/hr 06/20/20 12:45 06/24/20 13:16 Sodium Chloride 0.45% IV 50 mls/hr .Q10H CARRI Administration Metronidazole 500 mg in 100 mls @ 100 mls/hr 06/20/20 13:00 06/24/20 13:16 Flagyl Iv IV 100 mls/hr Q8H CARRI Administration Protocol Piperacillin Sod/T azobactam 50 mls @ 12.5 mls /hr 06/23/20 19:30 06/24/20 09:34 Sod 3.375 gm/ So dium Chloride IV 12.5 mls/hr Q12H CARRI Administration Protocol Insulin Aspart 0 unit 06/18/20 12:30 06/24/20 11:58 Novolog SUBCUT 4 unit Q6H CARRI Administration Protocol Lorazepam 0.25 mg 06/22/20 11:42 06/22/20 12:17 Ativan PO 0.25 mg TID PRN Administration ANXIETY Metoprolol Tartrat e 25 mg 06/22/20 09:00 06/24/20 09:35 Lopressor PO 25 mg BID CARRI Administration Morphine Sulfate 2 mg 06/22/20 11:29 06/24/20 11:09 Morphine IVP 2 mg Q4H PRN Administration pain Mupirocin 1 applic 06/19/20 19:05 06/24/20 09:50 Bactroban NASAL 1 applic BID CARRI Administration Naloxone HCl 0.1 mg 06/18/20 01:05 CS T Narcan IVP Q2M PRN OPIATERV Ondansetron HCl 4 mg 06/18/20 01:05 CS T 06/23/20 00:35 Zofran IVP 4 mg Q6H PRN Administration NAUSEA AND VOMITI NG Pantoprazole Sodiu m 40 mg 06/18/20 10:30 06/24/20 09:34 Protonix IVP 40 mg DAILY CARRI Administration Phenazopyridine HC l 200 mg 06/21/20 14:50 06/24/20 11:58 Pyridium PO 200 mg TIDPC CARRI Administration Prednisone 40 mg 06/25/20 09:00 Prednisone PO DAILY CARRI morphine Allergy (Verified 06/18/20 10:09) Unknown Vitals/I&O/Wt Last Vital Signs Temp 97.7 F 06/24/20 12:00 Pulse 71 06/24/20 12:00 Resp 18 06/24/20 12:00 BP 151/80 06/24/20 12:00 Pulse Ox 96 06/24/20 12:00 06/23/20 06/24/20 06/24/20 22:59 06:59 14:59 Intake Total 100 / 200 1020 / 1220 580.833 / 580.833 Output Total 1150 / 1450 400 / 1850 540 / 540 Balance -1050 / -1250 620 / -630 40.833 / 40.833 Physical Exam Const: COMMON NORMALS: no acute distress and alert GENERAL APPEARANCE: cooperative and comfortable NUTRITIONAL APPEARANCE: thin ORIENTATION/CONSCIOUSNESS: Yes awake HENMT: COMMON NORMALS: normocephalic, atraumatic, hearing grossly normal bilaterally and moist oral mucous membranes HEAD & SCALP: normocephalic and atraumatic NOSE: Other nasal findings present (NGT in place) MOUTH: moist mucous membranes abnormal Details: parched Eye: COMMON NORMALS: Equal, round and reactive pupils present, EOMs intact bilaterally and conjunctivae normal CONJUNCTIVA: Yes conjunctivae normal PUPIL: Yes Equal, round and reactive pupils present Neck/C-Spine: COMMON NORMALS: full ROM GENERAL: Yes normal visual inspection and Yes trachea midline Resp: COMMON NORMALS: normal respiratory effort, No retractions, No use of accessory muscles and clear to auscultation bilaterally EFFORT & INSPECTION: Yes able to speak in complete sentences, Yes symmetric chest movement and No tachypneic AUSCULTATION: clear to auscultation bilaterally OTHER: -on RA Cardio: COMMON NORMALS: regular rate, regular rhythm, S1 normal heart sound present, S2 normal heart sound present and No murmurs present (Cardio) RATE: regular rate RHYTHM: regular rhythm HEART SOUNDS: S1 normal heart sound present and S2 normal heart sound present GI: COMMON NORMALS: Soft to palpation INSPECTION: Yes normal to inspection and No abdominal distension AUSCULTATION: Yes Hypoactive bowel sounds present PALPATION: Yes Soft to palpation, Yes Tenderness to palpation present (GI) (suprapubic), No Guarding due to palpation present (GI), No Rigid due to palpation and No Rebound tenderness present : OTHER: -brief on Extremity: COMMON NORMALS: normal to inspection, full ROM and no clubbing, cyanosis or edema; negative for no pedal edema Neuro: COMMON NORMALS: moves all extremities, no focal motor deficits and no sensory deficits noted SENSORIUM/ORIENTATION: Yes alert SPEECH: expressive aphasia and receptive aphasia OTHER: -aphasia limits communication Psych: COMMON NORMALS: mental status grossly normal, Normal thought process present and cooperative MOOD & AFFECT: Yes tearful THOUGHT PROCESS: Normal thought process present Skin: COMMON NORMALS: no rashes or lesions noted, no jaundice, no petechiae and no mottling GENERAL SKIN EXAM: no rashes or lesions noted Urinary Catheter Management^: Vincent: Cath Placed During This Visit: yes Reason for Continuing Indwelling Catheter: Acute Urinary Retention or Obstruction Urinary Catheter Date of Insertion: 06/17/20 Urinary Catheter Time of Insertion: 22:12 Data : 06/24/20 05:44 06/24/20 05:44 Micro: Microbiology 06/18/20 14:00 Stool Lactoferrin - Final Stool Enteric Pathogens (PCR) - Final Parasite Antigen Panel - Final C.difficile Toxin B Gene (PCR) - Final Occult Blood (FIT) - Final 06/18/20 13:50 Blood Culture - Final Blood NO GROWTH AFTER 5 DAYS 06/18/20 13:45 Blood Culture - Final Blood NO GROWTH AFTER 5 DAYS A&P Assessment and plan (1) Partial small bowel obstruction: -NGT replaced overnight due to increased abdominal distention, nausea and bilious vomiting, continue to monitor output -Surgery consult by Dr. Esparza appreciated -pain control, antiemetics as needed -imaging reviewed -on empiric antibiotics, IVF hydration. Leukocytosis persists but CRP trending down and lactic acid normalized. -Repeat CT with reported stool in colon, otherwise no acute abnormalities -N.p.o. Status: Acute (2) Abdominal pain: -likely multifactorial given noted colitis, partial SBO, gastric dilatation -has NGT in place -on antibiotics Status: Resolved Qualifiers: Abdominal location: unspecified location Qualified Code(s): R10.9 - Unspecified abdominal pain (3) Lactic acidosis: -likely secondary to colitis -on IVF hydration -lactic acid normalized Status: Resolved (4) CKD (chronic kidney disease) stage 4, GFR 15-29 ml/min: -IVANA on CKD stage 4 -baseline Cr is around 2 -continue to monitor renal function; noted worsening today -avoid nephrotoxins, renally dose meds -Vincent catheter in place; replaced due to acute urinary retention Status: Chronic (5) Diabetes mellitus: -A1c at goal (6.3) -Accucheks, ISS, hypoglycemia precautions Status: Chronic Qualifiers: Diabetes mellitus complication detail: with unspecified neuropathy Diabetes mellitus complication status: with neurologic complications Diabetes mellitus senior care insulin use: with senior care use Diabetes mellitus type: type 2 Qualified Code(s): E11.40 - Type 2 diabetes mellitus with diabetic neuropathy, unspecified; Z79.4 - intermediate project manager (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 Transition to oral steroids -on chronic sulfasalazine -empiric antibiotics -CRP trending down, lactic acidosis resolved, increasing leukocytosis part of which could be steroid-induced Status: Chronic Qualifiers: Digestive disease complication type: unspecified complication Gastrointestinal tract location: unspecified location Qualified Code(s): K50.919 - Crohn's disease, unspecified, with unspecified complications (7) Hypertension: -continued hypertension; continue to monitor vital signs -continue amlodipine, low dose BB Status: Chronic Qualifiers: Hypertension type: essential hypertension Qualified Code(s): I10 - Essential (primary) hypertension (8) Hyperkalemia: -treated medically with calcium gluconate, insulin, D50 Status: Resolved Additional A&P Information -hx of BPH; on flomax -suprapubic discomfort and dysuria; on pyridium -NPO -GI ppx with PPI -DVT ppx with heparin -Dispo: return to [facility] -Code status: DNR/DNI Attestations Medical Necessity Statement*: Patient requires hospitalization for continued management of acute renal impairment, abdominal pain with NGT in place due to concern for some degree of obstruction. Time Spent in Patient Care: 16 - 35 minutes (>than 50% of time spent in counselling and/or direct pt care on unit) . 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
[2020-06-24 17:02] LABS: Glucose Point of Care 170 mg/dL (70-110)
--- NOTE | 2020-06-24 17:54 | PC.NURSE ---
pt has done ok today. pt has had some pain controlled by pts pain medication. pt had difficulty ambulating well to wheelchair when going to CT. pt had 300 output from NG tube today. pt had a large loose bowel movement this afternoon.
[2020-06-24 20:51] LABS: Glucose Point of Care 115 mg/dL (70-110)
[2020-06-25] VITALS (7 sets, daily range): BP systolic 119–157; BP diastolic 62–80; PULSE 67–79; RESP 16–19; TEMP 36.3–36.8; O2SAT 90–98
[2020-06-25 00:31] LABS: Glucose Point of Care 126 mg/dL (70-110)
[2020-06-25] MEDS: heparin 5,000 unit/mL INJ 1 mL 5000 UNIT SUBCUT ×2 (00:59→13:14)
[2020-06-25] MEDS: sodium chloride 0.45% 1,000 ML 50 ML IV ×2 (03:26→14:55)
[2020-06-25 03:44] LABS: Basophils % 0.1 %; Hematocrit 31.3 % (42.0-52.0); Hemoglobin 9.6 g/dL (11.7-16.6); Lymphocytes # 0.9 10^3/uL (0.8-4.8); Lymphocytes % 6.1 %; Mean Corpuscular HGB Conc 30.7 g/dL (30.0-36.0); Mean Corpuscular Hemoglobin 32.9 pg (28.0-34.0); Mean Corpuscular Volume 107.2 fL (80-94); Mean Platelet Volume 11.9 fL (7.4-10.4); Monocytes # 0.9 10^3/uL (0.2-0.9); Monocytes % 5.6 %; Neutrophils # 13.32 10^3/uL (1.8-7.7); Neutrophils % 87.1 %; Nucleated Red Blood Cells % 0 %; Platelet Count 180 10^3/cmm (130-400); Red Blood Count 2.92 10^6/uL (4.1-5.3); Red Cell Distribution Width 14.3 % (12.1-15.1); White Blood Count 15.3 10^3/uL (4.0-10.0)
[2020-06-25 05:33] LABS: Anion Gap 23.2 (5-19); Blood Urea Nitrogen 51 mg/dL (8-23); Carbon Dioxide 13 mmol/L (22-29); Chloride 102 mmol/L (98-107); Glomerular Filtration Rate 16.9 mL/min (90-130); Glucose 143 mg/dL (65-115); Osmolality Calculated 294 mOsm/kg (285-295); Potassium 4.2 mmol/L (3.5-5.1); Sodium 134 mmol/L (136-145)
[2020-06-25 05:46] LABS: Glucose Point of Care 147 mg/dL (70-110)
[2020-06-25] MEDS: metroNIDAZOLE IV 500 MG/100 ML PREMIX 100 MG IV (06:03)
[2020-06-25] MEDS: piperacillin-tazobactam 3.375 GM in sodium chloride 0.9% (plus) 50 ML IV (06:52)
[2020-06-25] MEDS: predniSONE 20 mg Tablet 40 MG PO (09:02)
[2020-06-25] MEDS: mupirocin oint 22 gm 1 APPLIC NASAL ×2 (09:02→17:49)
[2020-06-25] MEDS: pantoprazole 40 mg SDV IVP (09:02)
[2020-06-25] MEDS: amlodipine 5 mg Tablet 10 MG PO (09:02)
[2020-06-25] MEDS: metoprolol tartrate 25 mg Tablet PO ×2 (09:03→17:49)
[2020-06-25] MEDS: phenazopyridine 100 mg Tablet 200 MG PO ×3 (09:05→17:49)
[2020-06-25 10:36] LABS: Glucose Point of Care 95 mg/dL (70-110)
--- NOTE | 2020-06-25 11:00 | P.PN_ITS ---
Subjective Subjective: Interval history: The patient indicates he has lower abdominal discomfort but he points to the right inguinal region and even down into the right hemiscrotum area. I told him that I think we can get his nasogastric tube out but he seems hesitant to agree to that. Vitals/I&O/Wt Last Vital Signs Temp 98.2 F 06/25/20 07:13 Pulse 71 06/25/20 07:13 Resp 18 06/25/20 07:13 BP 119/80 06/25/20 07:13 Pulse Ox 90 06/25/20 07:13 06/24/20 06/25/20 06/25/20 22:59 06:59 14:59 Intake Total 350 / 1789.166 708.333 / 1789.166 Output Total 250 / 1640 850 / 1640 505 / 505 Balance 100 / 149.166 -141.667 / 149.166 -505 / -505 Physical Exam Narrative: EXAM NARRATIVE: Bowel sounds are present. The nasogastric tube was clamped and was hooked back up to suction without any return of fluid. The patient does have a contusion over the right inguinal region, presumably from one of his subcutaneous heparin shots. Urinary Catheter Management^: Vincent: Cath Placed During This Visit: yes Reason for Continuing Indwelling Catheter: Acute Urinary Retention or Obstruction Urinary Catheter Date of Insertion: 06/17/20 Urinary Catheter Time of Insertion: 22:12 Data : 06/25/20 03:19 06/25/20 04:49 Micro: Microbiology 06/18/20 14:00 Stool Lactoferrin - Final Stool Enteric Pathogens (PCR) - Final Parasite Antigen Panel - Final C.difficile Toxin B Gene (PCR) - Final Occult Blood (FIT) - Final CT Abd/Pel: My impression: No acute process seen. The gallbladder appears to be somewhat more distended. The patient has oral contrast all the way into the left side of the colon with some retained stool. Radiologist's impression: CT scan abdomen/pelvis 06/24/2020 IMPRESSION: 1. Right hemicolectomy. Prominent amount of stool in the colon. 2. Right renal atrophy. Bilateral nonobstructing nephrolithiasis. 3. Cholelithiasis. 4. No acute inflammatory processes are seen in the abdomen and pelvis. A&P Assessment and plan (1) Crohn's disease: The patient is hesitant to have his nasogastric tube removed, but he has oral contrast clearly all the way into the left side of the colon. There does not appear to be any evidence of obstruction. I have to wonder if the patient's pain is secondary to a subcutaneous shot in the area of his inguinal canal, affecting the ilioinguinal nerve/genital branch of the genitofemoral nerve. I am going to have nursing remove his nasogastric tube. Clear liquid diet. I am going to discontinue the patient's empiric antibiotics. I am not sure there is any active infection that we are treating. We will see how he does. Continue steroid taper. Status: Chronic Qualifiers: Gastrointestinal tract location: unspecified location Digestive disease complication type: unspecified complication Qualified Code(s): K50.919 - Crohn's disease, unspecified, with unspecified complications Attestations Medical Necessity Statement*: See admitting service's notation. 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
[2020-06-25] MEDS: morphine 4 mg/mL SDV 1 mL 2 MG IVP (11:19)
--- NOTE | 2020-06-25 11:21 | P.PN_ITS ---
Subjective Subjective: Interval history: Seen ambulating in the hallway with PT, now sitting in recliner by bedside, whimpers when asked if he has pain but unable to provide more details. Case discussed with Dr. Esparaz this morning, will d/c NGT and start on CLD. Decreasing leukocytosis, stable Hg, improved renal function. Had 1 BM yesterday. Medications: Reviewed: Yes Medication Review Details: Active Medications Generic Name Dose Route Start Last Admin Trade Name Freq PRN Reason Stop Dose Admin Amlodipine Besylat e 10 mg 06/22/20 09:00 06/25/20 09:02 Norvasc PO 10 mg DAILY CARRI Administration Dextrose 25 ml 06/18/20 00:33 D50w IVP ONCE PRN hypoglycemia prot ocol Protocol Dextrose 50 ml 06/18/20 00:33 D50w IVP PRN PRN hypoglycemia prot ocol Protocol Glucagon 1 mg 06/18/20 00:33 Glucagen IM ONCE PRN Adult Acute Hypog lycemia Prot. Protocol Heparin Sodium (Be ef Lung) 5,000 unit 06/18/20 12:30 06/25/20 00:59 Heparin SUBCUT 5,000 unit Q12H CARRI Administration Dextrose 500 mls @ 100 mls /hr 06/18/20 00:33 D5w IV ONCE PRN Adult Acute Hypog lycemia Prot Protocol Sodium Chloride 1,000 mls @ 100 m ls/hr 06/20/20 12:45 06/25/20 03:26 Sodium Chloride 0.45% IV 50 mls/hr .Q10H CARRI Administration Insulin Aspart 0 unit 06/18/20 12:30 06/25/20 06:03 Novolog SUBCUT 4 unit Q6H CARRI Administration Protocol Lorazepam 0.25 mg 06/22/20 11:42 06/22/20 12:17 Ativan PO 0.25 mg TID PRN Administration ANXIETY Metoprolol Tartrat e 25 mg 06/22/20 09:00 06/25/20 09:03 Lopressor PO 25 mg BID CARRI Administration Morphine Sulfate 2 mg 06/22/20 11:29 06/24/20 11:09 Morphine IVP 2 mg Q4H PRN Administration pain Mupirocin 1 applic 06/19/20 19:05 06/25/20 09:02 Bactroban NASAL 1 applic BID CARRI Administration Naloxone HCl 0.1 mg 06/18/20 01:05 CS T Narcan IVP Q2M PRN OPIATERV Ondansetron HCl 4 mg 06/18/20 01:05 CS T 06/23/20 00:35 Zofran IVP 4 mg Q6H PRN Administration NAUSEA AND VOMITI NG Pantoprazole Sodiu m 40 mg 06/18/20 10:30 06/25/20 09:02 Protonix IVP 40 mg DAILY CARRI Administration Phenazopyridine HC l 200 mg 06/21/20 14:50 06/25/20 09:05 Pyridium PO 200 mg TIDPC CARRI Administration Prednisone 40 mg 06/25/20 09:00 06/25/20 09:02 Prednisone PO 40 mg DAILY CARRI Administration morphine Allergy (Verified 06/18/20 10:09) Unknown Vitals/I&O/Wt Last Vital Signs Temp 97.9 F 06/25/20 11:17 Pulse 71 06/25/20 11:17 Resp 17 06/25/20 11:17 BP 151/74 06/25/20 11:17 Pulse Ox 96 06/25/20 11:17 06/24/20 06/25/20 06/25/20 22:59 06:59 14:59 Intake Total 350 / 1080.833 708.333 / 1789.166 Output Total 250 / 790 850 / 1640 505 / 505 Balance 100 / 290.833 -141.667 / 149.166 -505 / -505 Physical Exam Const: COMMON NORMALS: no acute distress and alert GENERAL APPEARANCE: cooperative and comfortable NUTRITIONAL APPEARANCE: thin ORIENTATION/CONSCIOUSNESS: Yes awake HENMT: COMMON NORMALS: normocephalic, atraumatic, hearing grossly normal bilaterally and moist oral mucous membranes HEAD & SCALP: normocephalic and atraumatic NOSE: Other nasal findings present (NGT in place) MOUTH: moist mucous membranes abnormal Details: parched Eye: COMMON NORMALS: Equal, round and reactive pupils present, EOMs intact bilaterally and conjunctivae normal CONJUNCTIVA: Yes conjunctivae normal PUPIL: Yes Equal, round and reactive pupils present Neck/C-Spine: COMMON NORMALS: full ROM GENERAL: Yes normal visual inspection and Yes trachea midline Resp: COMMON NORMALS: normal respiratory effort, No retractions, No use of accessory muscles and clear to auscultation bilaterally EFFORT & INSPECTION: Yes able to speak in complete sentences, Yes symmetric chest movement and No tachypneic AUSCULTATION: clear to auscultation bilaterally OTHER: -on RA Cardio: COMMON NORMALS: regular rate, regular rhythm, S1 normal heart sound present, S2 normal heart sound present and No murmurs present (Cardio) RATE: regular rate RHYTHM: regular rhythm HEART SOUNDS: S1 normal heart sound present and S2 normal heart sound present GI: COMMON NORMALS: Soft to palpation INSPECTION: Yes normal to inspection and No abdominal distension AUSCULTATION: Yes Hypoactive bowel sounds present PALPATION: Yes Soft to palpation, Yes Tenderness to palpation present (GI) (suprapubic), No Guarding due to palpation present (GI), No Rigid due to palpation and No Rebound tenderness present : OTHER: -brief on Extremity: COMMON NORMALS: normal to inspection, full ROM and no clubbing, cyanosis or edema; negative for no pedal edema Neuro: COMMON NORMALS: moves all extremities, no focal motor deficits and no sensory deficits noted SENSORIUM/ORIENTATION: Yes alert SPEECH: expressive aphasia and receptive aphasia OTHER: -aphasia limits communication Psych: COMMON NORMALS: mental status grossly normal, Normal thought process present and cooperative MOOD & AFFECT: Yes tearful THOUGHT PROCESS: Normal thought process present Skin: COMMON NORMALS: no rashes or lesions noted, no jaundice, no petechiae and no mottling GENERAL SKIN EXAM: no rashes or lesions noted Urinary Catheter Management^: Vincent: Cath Placed During This Visit: yes Reason for Continuing Indwelling Catheter: Acute Urinary Retention or Obstruction Urinary Catheter Date of Insertion: 06/17/20 Urinary Catheter Time of Insertion: 22:12 Data : 06/25/20 03:19 06/25/20 04:49 Micro: Microbiology 06/18/20 14:00 Stool Lactoferrin - Final Stool Enteric Pathogens (PCR) - Final Parasite Antigen Panel - Final C.difficile Toxin B Gene (PCR) - Final Occult Blood (FIT) - Final A&P Assessment and plan (1) Partial small bowel obstruction: -d/c NGT as no clinical or imaging evidence of obstruction -Surgery consult by Dr. Esparza appreciated -pain control, antiemetics as needed -imaging reviewed -d/c empiric antibiotics. Leukocytosis and CRP trending down and lactic acid normalized. -Repeat CT with reported stool in colon, otherwise no acute abnormalities -start on CLD -on IVF Status: Acute (2) Abdominal pain: -likely multifactorial given noted colitis, partial SBO, gastric dilatation -d/c NGT -d/c antibiotics Status: Resolved Qualifiers: Abdominal location: unspecified location Qualified Code(s): R10.9 - Unspecified abdominal pain (3) Lactic acidosis: -likely secondary to colitis -on IVF hydration -lactic acid normalized Status: Resolved (4) CKD (chronic kidney disease) stage 4, GFR 15-29 ml/min: -IVANA on CKD stage 4 -baseline Cr is around 2 -continue to monitor renal function; improving -avoid nephrotoxins, renally dose meds Status: Chronic (5) Diabetes mellitus: -A1c at goal (6.3) -Accucheks, ISS, hypoglycemia precautions Status: Chronic Qualifiers: Diabetes mellitus type: type 2 Diabetes mellitus prison insulin use: with prison use Diabetes mellitus complication status: with neurologic complications Diabetes mellitus complication detail: with unspecified neuropathy Qualified Code(s): E11.40 - Type 2 diabetes mellitus with diabetic neuropathy, unspecified; Z79.4 - group home (current) use of insulin (6) Crohn's disease: -off IV steroids, on oral steroids, taper -on chronic sulfasalazine -d/c empiric antibiotics -CRP trending down, lactic acidosis resolved,suspect that part of leukocytosis is steroid-induced Status: Chronic Qualifiers: Gastrointestinal tract location: unspecified location Digestive disease complication type: unspecified complication Qualified Code(s): K50.919 - Crohn's disease, unspecified, with unspecified complications (7) Hypertension: -continued hypertension; continue to monitor vital signs -continue amlodipine, low dose BB Status: Chronic Qualifiers: Hypertension type: essential hypertension Qualified Code(s): I10 - Essential (primary) hypertension (8) Hyperkalemia: Status: Resolved Additional A&P Information -hx of BPH; on flomax -suprapubic discomfort and dysuria; on pyridium -CLD -GI ppx with PPI -DVT ppx with heparin -Dispo: return to [facility] -Code status: DNR/DNI Attestations Medical Necessity Statement*: Patient requires hospitalization for continued management of abdominal pain, ileus, acute renal impairment. Time Spent in Patient Care: 16 - 35 minutes (>than 50% of time spent in counselling and/or direct pt care on unit) . 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 Diagnoses Partial small bowel obstruction K56.600 Abdominal pain R10.9 Abdominal location: unspecified location Lactic acidosis E87.2 CKD (chronic kidney disease) stage 4, GFR 15-29 ml/min N18.4 Diabetes mellitus E11.40; Z79.4 Diabetes mellitus type: type 2 Diabetes mellitus intermediate manager insulin use: with intermediate manager use Diabetes mellitus complication status: with neurologic complications Diabetes mellitus complication detail: with unspecified neuropathy Crohn's disease K50.919 Gastrointestinal tract location: unspecified location Digestive disease complication type: unspecified complication Hypertension I10 Hypertension type: essential hypertension Hyperkalemia E87.5
[2020-06-25] MEDS: bisacodyl 5 mg Tablet PO (11:24)
[2020-06-25 18:21] LABS: Glucose Point of Care 389 mg/dL (70-110)
--- NOTE | 2020-06-25 18:40 | PC.NURSE ---
pt had his NG tube removed. pt tolerating clear liquids. pt has had no nausea or vomiting. pt had no bowel movement today.
--- NOTE | 2020-06-25 19:25 | PC.NURSE ---
pt had large loose bowel movement
[2020-06-25 20:42] LABS: Glucose Point of Care 437 mg/dL (70-110)
[2020-06-26] VITALS (10 sets, daily range): BP systolic 128–161; BP diastolic 73–82; PULSE 65–74; RESP 16–18; TEMP 36.4–36.8; O2SAT 92–95
[2020-06-26 00:47] LABS: Glucose Point of Care 375 mg/dL (70-110)
[2020-06-26] MEDS: dextrose 5%-sod chloride 0.45% 1,000 ML 75 ML IV ×2 (01:22→14:37)
[2020-06-26] MEDS: heparin 5,000 unit/mL INJ 1 mL 5000 UNIT SUBCUT ×2 (01:23→12:51)
[2020-06-26] MEDS: morphine 4 mg/mL SDV 1 mL 2 MG IVP ×3 (02:48→20:52)
[2020-06-26 04:45] LABS: Glucose Point of Care 303 mg/dL (70-110)
[2020-06-26 05:49] LABS: Alanine Aminotransferase 26 U/L (0-41); Albumin Level 3.1 g/dL (3.5-5.2); Alkaline Phosphatase 112 IU/L (40-130); Aspartate Amino Transferase 12 U/L (0-40); Globulin 2.2 g/dL (1.3-4.6); Total Bilirubin 0.4 mg/dL (0.15-1.2); Total Protein 5.3 g/dL (6.6-8.7)
[2020-06-26 06:11] LABS: Glucose Point of Care 246 mg/dL (70-110)
--- NOTE | 2020-06-26 07:08 | P.PN_ITS ---
Subjective Subjective: Interval history: NG tube was removed yesterday. The patient says he continues to have bowel movements. He does not have much of an appetite. He still has some right groin pain. Vitals/I&O/Wt Last Vital Signs Temp 97.9 F 06/26/20 04:00 Pulse 68 06/26/20 04:00 Resp 17 06/26/20 04:00 BP 131/78 06/26/20 04:00 Pulse Ox 95 06/26/20 04:00 06/25/20 06/26/20 06/26/20 22:59 06:59 14:59 Intake Total 360 / 934.167 Output Total 400 / 2125 900 / 2125 Balance -40 / -1190.833 -900 / -1190.833 Physical Exam Narrative: EXAM NARRATIVE: Exam remains about the same as yesterday. Urinary Catheter Management^: Vincent: Cath Placed During This Visit: yes Reason for Continuing Indwelling Catheter: Acute Urinary Retention or O bstruction Urinary Catheter Date of Insertion: 06/17/20 Urinary Catheter Time of Insertion: 22:12 Data : 06/25/20 03:19 06/25/20 04:49 Other Labs: Laboratory Tests 06/26/20 04:39 Total Bilirubin 0.4 AST 12 ALT 26 Alkaline Phosphatase 112 A&P Assessment and plan (1) Crohn's disease: Leave on clear liquids for now. Continue steroid taper. Status: Chronic Qualifiers: Gastrointestinal tract location: unspecified location Digestive disease complication type: unspecified complication Qualified Code(s): K50.919 - Crohn's disease, unspecified, with unspecified complications Attestations Medical Necessity Statement*: See admitting service's notation. 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
[2020-06-26 08:32] LABS: Anion Gap 20.1 (5-19); Blood Urea Nitrogen 51 mg/dL (8-23); Calcium 7.8 mg/dL (8.5-10.5); Carbon Dioxide 12 mmol/L (22-29); Chloride 101 mmol/L (98-107); Glomerular Filtration Rate 20.9 mL/min (90-130); Glucose 294 mg/dL (65-115); Osmolality Calculated 293 mOsm/kg (285-295); Potassium 4.1 mmol/L (3.5-5.1); Sodium 129 mmol/L (136-145)
[2020-06-26] MEDS: metoprolol tartrate 25 mg Tablet PO ×2 (09:24→18:09)
[2020-06-26] MEDS: phenazopyridine 100 mg Tablet 200 MG PO ×3 (09:24→18:09)
[2020-06-26] MEDS: mupirocin oint 22 gm 1 APPLIC NASAL ×2 (09:25→18:09)
[2020-06-26] MEDS: amlodipine 10 mg Tablet PO (09:25)
[2020-06-26] MEDS: predniSONE 20 mg Tablet 40 MG PO (09:25)
[2020-06-26] MEDS: pantoprazole 40 mg SDV IVP (10:21)
--- NOTE | 2020-06-26 11:19 | PM.PN ---
Subjective Subjective: Interval history: Patient is on clear liquid.Is not complaining of any abdominal pain, nausea, vomiting. Vitals and labs have been reviewed. Medications: Reviewed: Yes Vitals/I&O/Wt Last Vital Signs Temp 97.5 F L 06/26/20 07:19 Pulse 74 06/26/20 07:19 Resp 17 06/26/20 07:19 BP 146/73 06/26/20 07:19 Pulse Ox 95 06/26/20 07:19 06/25/20 06/26/20 06/26/20 22:59 06:59 14:59 Intake Total 360 / 934.167 120 / 120 Output Total 400 / 1225 900 / 2125 250 / 250 Balance -40 / -290.833 -900 / -1190.833 -130 / -130 Physical Exam Const: COMMON NORMALS: patient oriented x3 HENMT: COMMON NORMALS: normocephalic, atraumatic, hearing grossly normal bilaterally and external ears normal HEAD & SCALP: normocephalic and atraumatic EXTERNAL EAR: Yes external ears normal Eye: COMMON NORMALS: no scleral icterus GENERAL EYE: appearance normal, both eyes and all related structures Chest: COMMONS NORMALS: normal inspection of the chest and normal palpation of entire chest wall CHEST: Yes Symmetrical chest wall rise Resp: COMMON NORMALS: normal respiratory effort, No retractions, No use of accessory muscles and clear to auscultation bilaterally EFFORT & INSPECTION: Yes symmetric chest movement AUSCULTATION: clear to auscultation bilaterally Cardio: COMMON NORMALS: regular rate, regular rhythm, S1 normal heart sound present, S2 normal heart sound present, No gallops present (Cardio), No murmurs present (Cardio), No rub (Cardio) and Peripheral pulses 2+ throughout RATE: regular rate RHYTHM: regular rhythm HEART SOUNDS: S1 normal heart sound present and S2 normal heart sound present PERIPHERAL PULSES: Peripheral pulses 2+ throughout GI: COMMON NORMALS: Normal to inspection, nondistended, normoactive bowel sounds present, Soft to palpation, non-tender, No hepatosplenomegaly present and no masses AUSCULTATION: Yes normoactive bowel sounds PALPATION: Yes Soft to palpation and Yes No hepatosplenomegaly present RECTAL EXAM: Yes deferred Extremity: COMMON NORMALS: no clubbing, cyanosis or edema and no pedal edema Neuro: COMMON NORMALS: patient oriented x3 Urinary Catheter Management^: Vincent: Cath Placed During This Visit: yes Reason for Continuing Indwelling Catheter: Acute Urinary Retention or Obstruction Urinary Catheter Date of Insertion: 06/17/20 Urinary Catheter Time of Insertion: 22:12 Data : 06/25/20 03:19 06/26/20 04:39 A&P Assessment and plan (1) Partial small bowel obstruction: -d/c NGT as no clinical or imaging evidence of obstruction -Surgery consult by Dr. Esparza appreciated -pain control, antiemetics as needed -imaging reviewed -d/c empiric antibiotics. Leukocytosis and CRP trending down and lactic acid normalized. -Repeat CT with reported stool in colon, otherwise no acute abnormalities -start on CLD -on IVF Status: Acute (2) Abdominal pain: -likely multifactorial given noted colitis, partial SBO, gastric dilatation -d/c NGT -d/c antibiotics Status: Resolved Qualifiers: Abdominal location: unspecified location Qualified Code(s): R10.9 - Unspecified abdominal pain (3) Lactic acidosis: -likely secondary to colitis -on IVF hydration -lactic acid normalized Status: Resolved (4) CKD (chronic kidney disease) stage 4, GFR 15-29 ml/min: -IVANA on CKD stage 4 -baseline Cr is around 2 -continue to monitor renal function; improving -avoid nephrotoxins, renally dose meds Status: Chronic (5) Diabetes mellitus: -A1c at goal (6.3) -Accucheks, ISS, hypoglycemia precautions Status: Chronic Qualifiers: Diabetes mellitus type: type 2 Diabetes mellitus mcc insulin use: with mcc use Diabetes mellitus complication status: with neurologic complications Diabetes mellitus complication detail: with unspecified neuropathy Qualified Code(s): E11.40 - Type 2 diabetes mellitus with diabetic neuropathy, unspecified; Z79.4 - intermediate manager (current) use of insulin (6) Crohn's disease: -off IV steroids, on oral steroids, taper -on chronic sulfasalazine -d/c empiric antibiotics -CRP trending down, lactic acidosis resolved,suspect that part of leukocytosis is steroid-induced Status: Chronic Qualifiers: Gastrointestinal tract location: unspecified location Digestive disease complication type: unspecified complication Qualified Code(s): K50.919 - Crohn's disease, unspecified, with unspecified complications (7) Hypertension: -continued hypertension; continue to monitor vital signs -continue amlodipine, low dose BB Status: Chronic Qualifiers: Hypertension type: essential hypertension Qualified Code(s): I10 - Essential (primary) hypertension (8) Hyperkalemia: Status: Resolved Additional A&P Information -hx of BPH; on flomax -suprapubic discomfort and dysuria; on pyridium -CLD -GI ppx with PPI -DVT ppx with heparin -Dispo: return to [facility] -Code status: DNR/DNI Attestations Medical Necessity Statement*: Patient requires hospitalization for continued management of abdominal pain and possible Crohns flare Coding Level of Care Code Acute Apparel Trimmings Sales Representative for Chg Fwd Diagnoses Partial small bowel obstruction K56.600 Abdominal pain R10.9 Abdominal location: unspecified location Lactic acidosis E87.2 CKD (chronic kidney disease) stage 4, GFR 15-29 ml/min N18.4 Diabetes mellitus E11.40; Z79.4 Diabetes mellitus type: type 2 Diabetes mellitus 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
[2020-06-26 12:04] LABS: Glucose Point of Care 225 mg/dL (70-110)
[2020-06-26 17:09] LABS: Glucose Point of Care 359 mg/dL (70-110)
[2020-06-26 21:28] LABS: Glucose Point of Care 212 mg/dL (70-110)
[2020-06-27] VITALS (8 sets, daily range): BP systolic 137–174; BP diastolic 70–88; PULSE 64–88; RESP 16–18; TEMP 36.4–36.8; O2SAT 92–96
[2020-06-27 01:18] LABS: Glucose Point of Care 223 mg/dL (70-110)
[2020-06-27] MEDS: heparin 5,000 unit/mL INJ 1 mL 5000 UNIT SUBCUT ×2 (01:20→12:23)
[2020-06-27] MEDS: dextrose 5%-sod chloride 0.45% 1,000 ML 75 ML IV ×2 (04:15→17:16)
[2020-06-27 06:27] LABS: Glucose Point of Care 207 mg/dL (70-110)
[2020-06-27] MEDS: phenazopyridine 100 mg Tablet 200 MG PO ×3 (08:57→17:17)
[2020-06-27] MEDS: metoprolol tartrate 25 mg Tablet PO ×2 (08:57→17:14)
[2020-06-27] MEDS: pantoprazole DR 40 mg Tablet PO (08:57)
[2020-06-27] MEDS: predniSONE 20 mg Tablet 40 MG PO (08:57)
[2020-06-27] MEDS: amlodipine 10 mg Tablet PO (08:58)
[2020-06-27] MEDS: mupirocin oint 22 gm 1 APPLIC NASAL ×2 (08:58→17:17)
[2020-06-27 12:19] LABS: Glucose Point of Care 285 mg/dL (70-110)
[2020-06-27] MEDS: morphine 4 mg/mL SDV 1 mL 2 MG IVP ×2 (12:19→15:57)
[2020-06-27 13:13] LABS: Basophils % 0.1 %; Eosinophils % 0.1 %; Hematocrit 33.2 % (42.0-52.0); Hemoglobin 10.4 g/dL (11.7-16.6); Lymphocytes # 0.5 10^3/uL (0.8-4.8); Lymphocytes % 3.3 %; Mean Corpuscular HGB Conc 31.3 g/dL (30.0-36.0); Mean Corpuscular Hemoglobin 32.6 pg (28.0-34.0); Mean Corpuscular Volume 104.1 fL (80-94); Mean Platelet Volume 11.8 fL (7.4-10.4); Monocytes % 6.9 %; Neutrophils # 13.36 10^3/uL (1.8-7.7); Neutrophils % 88.6 %; Nucleated Red Blood Cells % 0 %; Platelet Count 168 10^3/cmm (130-400); Red Blood Count 3.19 10^6/uL (4.1-5.3); Red Cell Distribution Width 14.1 % (12.1-15.1); White Blood Count 15.1 10^3/uL (4.0-10.0)
--- NOTE | 2020-06-27 13:38 | PM.PN ---
Subjective Subjective: Interval history: no acute event overnight.Vitals and labs are stable.Tolerating CLD Medications: Reviewed: Yes Vitals/I&O/Wt Last Vital Signs Temp 98.1 F 06/27/20 11:35 Pulse 88 06/27/20 11:35 Resp 18 06/27/20 12:19 BP 153/81 06/27/20 11:35 Pulse Ox 96 06/27/20 11:35 06/26/20 06/27/20 06/27/20 22:59 06:59 14:59 Intake Total 1000 / 2473.75 220 / 220 Output Total 200 / 700 500 / 1200 120 / 120 Balance -200 / 773.75 500 / 1273.75 100 / 100 Physical Exam Const: COMMON NORMALS: patient oriented x3 HENMT: COMMON NORMALS: normocephalic, atraumatic, hearing grossly normal bilaterally and external ears normal HEAD & SCALP: normocephalic and atraumatic EXTERNAL EAR: Yes external ears normal Eye: COMMON NORMALS: no scleral icterus GENERAL EYE: appearance normal, both eyes and all related structures Chest: COMMONS NORMALS: normal inspection of the chest and normal palpation of entire chest wall CHEST: Yes Symmetrical chest wall rise Resp: COMMON NORMALS: normal respiratory effort, No retractions, No use of accessory muscles and clear to auscultation bilaterally EFFORT & INSPECTION: Yes symmetric chest movement AUSCULTATION: clear to auscultation bilaterally Cardio: COMMON NORMALS: regular rate, regular rhythm, S1 normal heart sound present, S2 normal heart sound present, No gallops present (Cardio), No murmurs present (Cardio), No rub (Cardio) and Peripheral pulses 2+ throughout RATE: regular rate RHYTHM: regular rhythm HEART SOUNDS: S1 normal heart sound present and S2 normal heart sound present PERIPHERAL PULSES: Peripheral pulses 2+ throughout GI: COMMON NORMALS: Normal to inspection, nondistended, normoactive bowel sounds present, Soft to palpation, non-tender, No hepatosplenomegaly present and no masses AUSCULTATION: Yes normoactive bowel sounds PALPATION: Yes Soft to palpation and Yes No hepatosplenomegaly present RECTAL EXAM: Yes deferred Extremity: COMMON NORMALS: no clubbing, cyanosis or edema and no pedal edema Neuro: COMMON NORMALS: patient oriented x3 Urinary Catheter Management^: Vincent: Cath Placed During This Visit: yes, but has since been removed by the nurse Reason for Continuing Indwelling Catheter: Acute Urinary Retention or Obstruction Urinary Catheter Date of Insertion: 06/17/20 Urinary Catheter Time of Insertion: 22:12 Date Urinary Catheter Removed: 06/20/20 Time Urinary Catheter Discontinued: 14:00 Data : 06/27/20 12:58 06/27/20 13:03 A&P Assessment and plan (1) Partial small bowel obstruction: -d/c NGT as no clinical or imaging evidence of obstruction -Surgery consult by Dr. Esparza appreciated -pain control, antiemetics as needed -imaging reviewed -d/c empiric antibiotics. Leukocytosis and CRP trending down and lactic acid normalized. -Repeat CT with reported stool in colon, otherwise no acute abnormalities -start on CLD -on IVF Status: Acute (2) Abdominal pain: -likely multifactorial given noted colitis, partial SBO, gastric dilatation -d/c NGT -d/c antibiotics Status: Resolved Qualifiers: Abdominal location: unspecified location Qualified Code(s): R10.9 - Unspecified abdominal pain (3) Lactic acidosis: -likely secondary to colitis -on IVF hydration -lactic acid normalized Status: Resolved (4) CKD (chronic kidney disease) stage 4, GFR 15-29 ml/min: -IVANA on CKD stage 4 -baseline Cr is around 2 -continue to monitor renal function; improving -avoid nephrotoxins, renally dose meds Status: Chronic (5) Diabetes mellitus: -A1c at goal (6.3) -Accucheks, ISS, hypoglycemia precautions Status: Chronic Qualifiers: Diabetes mellitus type: type 2 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 Diabetes mellitus complication status: with neurologic complications Diabetes mellitus complication detail: with unspecified neuropathy Qualified Code(s): E11.40 - Type 2 diabetes mellitus with diabetic neuropathy, unspecified; Z79.4 - extermination supervisor (current) use of insulin (6) Crohn's disease: -off IV steroids, on oral steroids, taper -on chronic sulfasalazine -d/c empiric antibiotics -CRP trending down, lactic acidosis resolved,suspect that part of leukocytosis is steroid-induced Status: Chronic Qualifiers: Gastrointestinal tract location: unspecified location Digestive disease complication type: unspecified complication Qualified Code(s): K50.919 - Crohn's disease, unspecified, with unspecified complications (7) Hypertension: -continued hypertension; continue to monitor vital signs -continue amlodipine, low dose BB Status: Chronic Qualifiers: Hypertension type: essential hypertension Qualified Code(s): I10 - Essential (primary) hypertension (8) Hyperkalemia: Status: Resolved Additional A&P Information -hx of BPH; on flomax -suprapubic discomfort and dysuria; on pyridium -CLD -GI ppx with PPI -DVT ppx with heparin -Dispo: return to [facility] -Code status: DNR/DNI Attestations Medical Necessity Statement*: Patient requires hospitalization for continued management of abdominal pain, acute renal impairment. Coding Level of Care Code Acute Traffic Clerk for Chg Fwd Diagnoses Partial small bowel obstruction K56.600 Abdominal pain R10.9 Abdominal location: unspecified location Lactic acidosis E87.2 CKD (chronic kidney disease) stage 4, GFR 15-29 ml/min N18.4 Diabetes mellitus E11.40; Z79.4 Diabetes mellitus type: type 2 Diabetes mellitus retirement insulin use: with retirement use Diabetes mellitus complication status: with neurologic complications Diabetes mellitus complication detail: with unspecified neuropathy Crohn's disease K50.919 Gastrointestinal tract location: unspecified location Digestive disease complication type: unspecified complication Hypertension I10 Hypertension type: essential hypertension Hyperkalemia E87.5
[2020-06-27 14:01] LABS: Alanine Aminotransferase 22 U/L (0-41); Albumin Level 3.2 g/dL (3.5-5.2); Alkaline Phosphatase 108 IU/L (40-130); Anion Gap 17.8 (5-19); Aspartate Amino Transferase 12 U/L (0-40); Blood Urea Nitrogen 34 mg/dL (8-23); Calcium 8.2 mg/dL (8.5-10.5); Carbon Dioxide 16 mmol/L (22-29); Chloride 104 mmol/L (98-107); Globulin 2.5 g/dL (1.3-4.6); Glomerular Filtration Rate 24.7 mL/min (90-130); Glucose 344 mg/dL (65-115); Osmolality Calculated 299 mOsm/kg (285-295); Potassium 3.8 mmol/L (3.5-5.1); Sodium 134 mmol/L (136-145); Total Bilirubin 0.4 mg/dL (0.15-1.2); Total Protein 5.7 g/dL (6.6-8.7)
[2020-06-27 16:40] LABS: Glucose Point of Care 277 mg/dL (70-110)
[2020-06-28] VITALS: BP 115/80; PULSE 61; RESP 17; TEMP 36.6; O2SAT 93
[2020-06-28 02:19] LABS: Glucose Point of Care 444 mg/dL (70-110)
[2020-06-28] MEDS: heparin 5,000 unit/mL INJ 1 mL 5000 UNIT SUBCUT ×2 (02:39→13:02)
[2020-06-28 04:00] VITALS: BP 166/90; PULSE 65; RESP 16; TEMP 36.7; O2SAT 90
[2020-06-28 04:54] LABS: Basophils % 0.1 %; Eosinophils # 0.1 10^3/uL (0.0-0.8); Eosinophils % 0.4 %; Hematocrit 33.2 % (42.0-52.0); Hemoglobin 10.6 g/dL (11.7-16.6); Lymphocytes # 0.5 10^3/uL (0.8-4.8); Lymphocytes % 3.8 %; Mean Corpuscular HGB Conc 31.9 g/dL (30.0-36.0); Mean Corpuscular Hemoglobin 33.3 pg (28.0-34.0); Mean Corpuscular Volume 104.4 fL (80-94); Mean Platelet Volume 12.4 fL (7.4-10.4); Monocytes # 0.7 10^3/uL (0.2-0.9); Monocytes % 5.6 %; Neutrophils # 10.89 10^3/uL (1.8-7.7); Nucleated Red Blood Cells % 0 %; Platelet Count 159 10^3/cmm (130-400); Red Blood Count 3.18 10^6/uL (4.1-5.3); Red Cell Distribution Width 14.1 % (12.1-15.1); White Blood Count 12.2 10^3/uL (4.0-10.0)
[2020-06-28 05:14] LABS: Alanine Aminotransferase 20 U/L (0-41); Albumin Level 3.4 g/dL (3.5-5.2); Alkaline Phosphatase 104 IU/L (40-130); Blood Urea Nitrogen 35 mg/dL (8-23); Calcium 8.3 mg/dL (8.5-10.5); Carbon Dioxide 18 mmol/L (22-29); Chloride 106 mmol/L (98-107); Globulin 2.7 g/dL (1.3-4.6); Glomerular Filtration Rate 25.8 mL/min (90-130); Glucose 348 mg/dL (65-115); Osmolality Calculated 302 mOsm/kg (285-295); Sodium 135 mmol/L (136-145); Total Bilirubin 0.4 mg/dL (0.15-1.2); Total Protein 6.1 g/dL (6.6-8.7)
[2020-06-28 05:20] LABS: Anion Gap 14.9 (5-19); Aspartate Amino Transferase 20 U/L (0-40); Potassium 3.9 mmol/L (3.5-5.1)
[2020-06-28 06:55] LABS: Glucose Point of Care 219 mg/dL (70-110)
[2020-06-28 07:47] VITALS: BP 176/80; PULSE 89; RESP 18; TEMP 36.5; O2SAT 92
[2020-06-28] MEDS: metoprolol tartrate 25 mg Tablet PO (08:33)
[2020-06-28] MEDS: amlodipine 10 mg Tablet PO (08:35)
[2020-06-28] MEDS: pantoprazole DR 40 mg Tablet PO (08:35)
[2020-06-28] MEDS: predniSONE 20 mg Tablet 40 MG PO (08:35)
[2020-06-28] MEDS: mupirocin oint 22 gm 1 APPLIC NASAL (08:35)
[2020-06-28] MEDS: phenazopyridine 100 mg Tablet 200 MG PO ×2 (08:39→13:02)
[2020-06-28 11:09] LABS: Glucose Point of Care 255 mg/dL (70-110)
--- NOTE | 2020-06-28 11:19 | PM.DCS ---
Discharge Providers Date of Admission: 06/18/20 01:05 DOBBY LOOM FIXER Date of Discharge: June 28, 2020 Attending Provider at Admission: Ryan Palomino Attending Provider at Discharge: Aubrey Dee MD Primary Care Provider: Bryan Garcia DO Diagnoses at Discharge Discharge Diagnosis (1) Partial small bowel obstruction: Status: Resolved (2) Abdominal pain: Status: Resolved Qualifiers: Abdominal location: unspecified location Qualified Code(s): R10.9 - Unspecified abdominal pain (3) Lactic acidosis: Status: Resolved (4) CKD (chronic kidney disease) stage 4, GFR 15-29 ml/min: Status: Chronic (5) Diabetes mellitus: Status: Chronic Qualifiers: Diabetes mellitus type: type 2 Diabetes mellitus continuous churn buttermaker insulin use: with continuous churn buttermaker use Diabetes mellitus complication status: with neurologic complications Diabetes mellitus complication detail: with unspecified neuropathy Qualified Code(s): E11.40 - Type 2 diabetes mellitus with diabetic neuropathy, unspecified; Z79.4 - residential (current) use of insulin (6) Crohn's disease: Status: Chronic Qualifiers: Gastrointestinal tract location: unspecified location Digestive disease complication type: unspecified complication Qualified Code(s): K50.919 - Crohn's disease, unspecified, with unspecified complications (7) Hypertension: Status: Chronic Qualifiers: Hypertension type: essential hypertension Qualified Code(s): I10 - Essential (primary) hypertension (8) Hyperkalemia: Status: Resolved Reason for Visit Reason for Visit: abdominal pain/ diverticulitis Hospital Course Hospital Course 70 y/o M from [facility] with pmh of HTN,DM Chrons disease , admitted with abdominal pain, N/V, thought to be due to partial SBO per initial CT and possible Crohn's flare. Had NGT placed and seemed to improve initially , so NGT discontinued and he did well for a couple of days then had multiple episodes of emesis so NGT replaced. Repeat CT does not show obstruction possible diagnosis was ileus. Later he started tolerating CLD and diet was so advanced,at the time of discharge he was tolerating full diet.He was also managed for possible chrons flare he was covered with broad spectrum Abxs as well on steroids.Abx were later discontinued and steroid was tapered off. Patient is being discharged in stable condition to [facility]. Imaging Studies: CT abdomen pelvis wo con: Right hemicolectomy. Prominent amount of stool in the colon. Right renal atrophy. Bilateral nonobstructing nephrolithiasis. Cholelithiasis. No acute inflammatory processes are seen in the abdomen and pelvis. Stool :Enteric Bacterial panel, parasitic, c.diff,: was Negative. Physical Exam Const: COMMON NORMALS: patient oriented x3 HENMT: COMMON NORMALS: normocephalic, atraumatic, hearing grossly normal bilaterally and external ears normal HEAD & SCALP: normocephalic and atraumatic EXTERNAL EAR: Yes external ears normal Eye: COMMON NORMALS: no scleral icterus GENERAL EYE: appearance normal, both eyes and all related structures Chest: COMMONS NORMALS: normal inspection of the chest and normal palpation of entire chest wall CHEST: Yes Symmetrical chest wall rise Resp: COMMON NORMALS: normal respiratory effort, No retractions, No use of accessory muscles and clear to auscultation bilaterally EFFORT & INSPECTION: Yes symmetric chest movement AUSCULTATION: clear to auscultation bilaterally Cardio: COMMON NORMALS: regular rate, regular rhythm, S1 normal heart sound present, S2 normal heart sound present, No gallops present (Cardio), No murmurs present (Cardio), No rub (Cardio) and Peripheral pulses 2+ throughout RATE: regular rate RHYTHM: regular rhythm HEART SOUNDS: S1 normal heart sound present and S2 normal heart sound present PERIPHERAL PULSES: Peripheral pulses 2+ throughout GI: COMMON NORMALS: Normal to inspection, nondistended, normoactive bowel sounds present, Soft to palpation, non-tender, No hepatosplenomegaly present and no masses AUSCULTATION: Yes normoactive bowel sounds PALPATION: Yes Soft to palpation and Yes No hepatosplenomegaly present RECTAL EXAM: Yes deferred Extremity: COMMON NORMALS: no clubbing, cyanosis or edema and no pedal edema Neuro: COMMON NORMALS: patient oriented x3 Urinary Catheter Management^: Vincent: Cath Placed During This Visit: yes, but has since been removed by the nurse Reason for Continuing Indwelling Catheter: Acute Urinary Retention or Obstruction Urinary Catheter Date of Insertion: 06/17/20 Urinary Catheter Time of Insertion: 22:12 Date Urinary Catheter Removed: 06/20/20 Time Urinary Catheter Discontinued: 14:00 Discharge Data Data Completed and Pending: Completed Studies During Hospitalization Category Date Time Status CT abdomen pelvis wo con [id number] Rout ine Cat Scan 06/24/20 11:[address] abdomen pelvis wo con [id number] Urge nt Cat Scan 06/17/20 20:50 Completed XR chest 1V sravan ble [id number] Routine Exams 06/21/20 11:36 Completed XR chest 1V sravan ble [id number] Stat Exams 06/17/20 21:29 Completed XR chest 1V sravan ble [id number] Stat Exams 06/23/20 01:26 Completed Pending at discharge Category Date Time Status CBC Auto Diff [Co mplete Blood Count w/Auto] AM LABS Lab 06/29/20 04:00 Ordered CBC Auto Diff [Co mplete Blood Count w/Auto] AM LABS Lab 06/30/20 04:00 Ordered CMP [Comprehensiv e Metabolic Panel] AM LABS Lab 06/29/20 04:00 Ordered CMP [Comprehensiv e Metabolic Panel] AM LABS Lab 06/30/20 04:00 Ordered Labs from last 24 hours 06/28/20 06/28/20 06/28/20 10:56 06:46 04:26 WBC RBC Hgb Hct MCV MCH MCHC RDW Plt Count MPV Neut % (Auto) Lymph % (Auto) [place] % (Auto) Eos % (Auto) Baso % (Auto) Neut # (Auto) Lymph # (Auto) [place] # (Auto) Eos # (Auto) Baso # (Auto) Nucleated RBC % (a uto) Nucleated RBCs # Sodium 135 L Potassium 3.9 Chloride 106 Carbon Dioxide 18 L Anion Gap 14.9 BUN 35 H Creatinine 2.5 H GFR Calculation 25.8 L Glucose 348 H POC Glucose 255 219 Calculated Osmolal ity 302 H Calcium 8.3 L Total Bilirubin 0.4 AST 20 ALT 20 Alkaline Phosphata se 104 Total Protein 6.1 L Albumin 3.4 L Globulin 2.7 06/28/20 06/28/20 06/27/20 04:26 02:17 16:31 WBC 12.2 H RBC 3.18 L Hgb 10.6 L Hct 33.2 L MCV 104.4 H MCH 33.3 MCHC 31.9 RDW 14.1 Plt Count 159 MPV 12.4 H Neut % (Auto) 89.0 Lymph % (Auto) 3.8 [place] % (Auto) 5.6 Eos % (Auto) 0.4 Baso % (Auto) 0.1 Neut # (Auto) 10.89 H Lymph # (Auto) 0.5 L [place] # (Auto) 0.7 Eos # (Auto) 0.1 Baso # (Auto) 0.0 Nucleated RBC % (a uto) 0 Nucleated RBCs # 0.0 Sodium Potassium Chloride Carbon Dioxide Anion Gap BUN Creatinine GFR Calculation Glucose POC Glucose 444 277 Calculated Osmolal ity Calcium Total Bilirubin AST ALT Alkaline Phosphata se Total Protein Albumin Globulin 06/27/20 06/27/20 06/27/20 13:03 12:58 12:11 WBC 15.1 H RBC 3.19 L Hgb 10.4 L Hct 33.2 L MCV 104.1 H MCH 32.6 MCHC 31.3 RDW 14.1 Plt Count 168 MPV 11.8 H Neut % (Auto) 88.6 Lymph % (Auto) 3.3 [place] % (Auto) 6.9 Eos % (Auto) 0.1 Baso % (Auto) 0.1 Neut # (Auto) 13.36 H Lymph # (Auto) 0.5 L [place] # (Auto) 1.0 H Eos # (Auto) 0.0 Baso # (Auto) 0.0 Nucleated RBC % (a uto) 0 Nucleated RBCs # 0.0 Sodium 134 L Potassium 3.8 Chloride 104 Carbon Dioxide 16 L Anion Gap 17.8 BUN 34 H Creatinine 2.6 H GFR Calculation 24.7 L Glucose 344 H POC Glucose 285 Calculated Osmolal ity 299 H Calcium 8.2 L Total Bilirubin 0.4 AST 12 ALT 22 Alkaline Phosphata se 108 Total Protein 5.7 L Albumin 3.2 L Globulin 2.5 Vitals: Last Vital Signs Temp 97.7 F 06/28/20 07:47 Pulse 89 06/28/20 07:47 Resp 18 06/28/20 07:47 BP 176/80 06/28/20 07:47 Pulse Ox 92 06/28/20 07:47 Discharge Plan Discharge Patient Disposition: Home Condition: Stable Prescriptions: New amlodipine 10 mg Tablet 10 mg PO DAILY 30 Days RF: 0 metoprolol tartrate 25 mg Tablet 25 mg PO BID 30 Days Qty: 60 RF: 0 prednisone 20 mg tablet 20 mg PO DAILY Qty: 3 RF: 0 Continued acetaminophen 325 mg Tablet 650 mg PO Q4H PRN (Reason: Pain) RF: 0 sulfasalazine 500 mg Tablet 1,000 mg PO TID RF: 0 citalopram 10 mg Tablet 40 mg PO DAILY RF: 0 risperidone 0.25 mg Tablet 0.25 mg PO DAILY RF: 0 triamcinolone acetonide 0.1 % Cream 1 applic TOPICAL BID PRN (Reason: UNKNOWN) RF: 0 lorazepam 0.5 mg Tablet 0.5 mg PO BID RF: 0 tamsulosin 0.4 mg Capsule 0.4 mg PO BEDTIME RF: 0 sodium bicarbonate 650 mg Tablet 1,300 mg PO TID RF: 0 insulin aspart U-100 [Novolog U-100 Insulin aspart] 100 unit/mL Solution See Rx Instructions .ROUTE .COMPLEX RF: 0 calcium carbonate [Charli-Gest Antacid] 200 mg calcium (500 mg) Tablet,Chewable See Rx Instructions .ROUTE .COMPLEX PRN (Reason: UNKNOWN) RF: 0 docusate sodium 100 mg Capsule 100 mg PO BID PRN (Reason: Constipation) RF: 0 gabapentin 100 mg Capsule 100 mg PO TID RF: 0 ergocalciferol (vitamin D2) [Vitamin D2] 1,250 mcg (50,000 unit) Capsule See Rx Instructions .ROUTE .COMPLEX RF: 0 calcitriol 0.25 mcg Capsule 0.5 mcg PO BEDTIME RF: 0 risperidone 0.5 mg Tablet 0.5 mg PO BEDTIME RF: 0 Lantus Solostar U-100 Insulin 100 unit/mL (3 mL) Insulin Pen 7 unit SUBCUT BEDTIME RF: 0 [place] 5-325 mg Tablet 1 tab PO Q8H MDD 6 TABS PRN (Reason: Pain) RF: 0 Lomotil 2.5-0.025 mg Tablet 1 tab PO QID PRN (Reason: UNKNOWN) RF: 0 aspirin 81 mg Tablet,Delayed Release (Dr/Ec) 81 mg PO DAILY RF: 0 Antacid Ultra Strength 400 mg calcium (1,000 mg) Tablet,Chewable 2,000 mg PO QAM RF: 0 famotidine 20 mg Tablet 20 mg PO DAILY PRN (Reason: UNKNOWN) RF: 0 Oyster Shell Calcium 500 500 mg calcium (1,250 mg) Tablet See Rx Instructions .ROUTE .COMPLEX RF: 0 pyridoxine (vitamin B6) 50 mg Tablet 50 mg PO DAILY RF: 0 mirtazapine 15 mg Tablet 15 mg PO BEDTIME RF: 0 alum-mag hydroxide-simeth 200-200-20 mg/5 mL Suspension 30 ml PO QID PRN (Reason: UNKNOWN) RF: 0 finasteride 5 mg Tablet 5 mg PO BEDTIME RF: 0 diclofenac sodium 1 % Gel 4 g TOPICAL BID RF: 0 Orajel 3X Mouth Sores 20-0.1-0.15 % Gel 1 ea MUCOUS MEMBRANE QID PRN (Reason: UNKNOWN) RF: 0 Discharge Orders: Discharge Order (Routine); Ordered 06/28/20 Ordered By: Aubrey Dee Referrals: [facility] [Outside] Discharge Diet: Usual diet, Diabetic and Low Salt Discharge Activity: Increase activity as tolerated Discharge Attestations Time Spent in Discharge Care*: greater than 30 min Specific Discharge Activities: educating patient, educating and/or supporting family/caregiver, discussing with pcp/other providers, discussing with oil field caser/social workers/dc planners and evaluating patient/reviewing data Status at Discharge: Cognitive status at discharge: cognitively intact, Behavioral status at discharge: cooperative, Functional status at discharge: independent ambulation Overall status at discharge: patient is back to baseline Quality Metrics Clinical Quality Measures During this hospital stay, did patient experience: None Coding Level of Care Code Acute Multifocal Lens Inspector for Chg Fwd Diagnoses Partial small bowel obstruction K56.600 Abdominal pain R10.9 Abdominal location: unspecified location Lactic acidosis E87.2 CKD (chronic kidney disease) stage 4, GFR 15-29 ml/min N18.4 Diabetes mellitus E11.40; Z79.4 Diabetes mellitus type: type 2 Diabetes mellitus shelter insulin 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
--- NOTE | 2020-06-28 14:55 | PC.NURSE ---
Report called to chinyere at [facility] at this time.
[2020-06-28 15:05] VITALS: BP 170/86; PULSE 85; RESP 16; TEMP 36.8; O2SAT 92
[2020-06-28 15:30] VITALS: BP 170/86; PULSE 85; RESP 16; TEMP 36.8; O2SAT 92
--- NOTE | 2020-06-28 15:30 | PC.NURSE ---
Patient wheel chaired to [employer] transport van for transport to [facility]. Patient is alert to self.
== END 2020-06-28 15:30 | disposition skilled nursing facility (03) | DRG 389 ==
LOC: ER 23:17 → MEDSURG 06-18 01:04
PROVIDERS: Family Medicine; Nurse Practitioner Family; Student in an Organized Health Care Education/Training Program; Surgery; Admitting Provider Hospitalist; Emergency Provider Emergency Medicine; PCP Internal Medicine; Visit Provider Internal Medicine
DX: K56.600 Partial intestinal obstruction, unspecified as to cause (principal); N18.4 Chronic kidney disease, stage 4 (severe); K50.90 Crohn's disease, unspecified, without complications; E87.2 Acidosis; N17.9 Acute kidney failure, unspecified; K52.9 Noninfective gastroenteritis and colitis, unspecified; F41.9 Anxiety disorder, unspecified; F32.9 Major depressive disorder, single episode, unspecified; I73.9 Peripheral vascular disease, unspecified; E11.22 Type 2 diabetes mellitus with diabetic chronic kidney disease; I12.9 Hypertensive chronic kidney disease with stage 1 through stage 4 chronic kidney disease, or unspecified chronic kidney disease; K21.9 Gastro-esophageal reflux disease without esophagitis; I69.920 Aphasia following unspecified cerebrovascular disease; Z87.442 Personal history of urinary calculi; Z66 Do not resuscitate; E87.5 Hyperkalemia; Z90.49 Acquired absence of other specified parts of digestive tract; Z79.52 Long term (current) use of systemic steroids; R30.0 Dysuria; Z79.4 Long term (current) use of insulin
CPT/HCPCS: 12345; 36415; 36416; 51702; 71045; 74176; 80048; 80053; 80076; 81001; 82274; 82962; 83036; 83605; 83630; 84132; 85025; 86140; 87040; 87426; 87493; 87506; 87641; 96372; 96375; 97110; 97116; 97161; 97530; 99284; C9113; J0360; J0610; J1644; J1815; J2270; J2405; J2543; J2930; J3490; J7030; J7040; J7512; J7799; P9041; Q9967; S0030

== ENCOUNTER 2020-06-30 10:03 | Emergency (ER) | payer OTHER, MEDICARE, SELFPAY ==
[2020-06-30] VITALS (18 sets, daily range): BP systolic 79–149; BP diastolic 40–86; PULSE 74–110; RESP 15–33; TEMP 36.8; O2SAT 94–100; BMI 18.6
--- NOTE | 2020-06-30 10:10 | ECG_ITS ---
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 Measurements Intervals [place] Rate: 81 P: 54 MO: 113 QRS: 34 QRSD: 88 T: 65 QT: 374 QTc: 435 Interpretive Statements SINUS RHYTHM WITH SHORT MO INTERVAL NONSPECIFIC T-WAVE ABNORMALITY Compared to ECG 10/23/2019 16:11:51 Short MO interval now present T-wave abnormality now present Electronically Signed On 06-30-2020 19:55:04 HAND I CUTTER by Saurav Allen M.D. [email or web address]
--- NOTE | 2020-06-30 10:11 | CT_ITS ---
WS: [id number] CT ABDOMEN PELVIS TECHNIQUE: Contrast-enhanced CT of the abdomen and pelvis with coronal and sagittal reformatted image s. CLINICAL INFORMATION: abd pain COMPARISON: CT June 24, 2020 DLP: 369.[address] scans at [facility] use at least one of these dose optimization techniques: automat ed exposure control; mA and/or kV adjustment per patient size (includes targeted exams where dose is matched to clinical indication); or iterative reconstruction. FINDINGS: Mild intrahepatic biliary ductal dilatation. Mild diffuse fatty infiltration the liver. Fluid distend ed gallbladder with prominent calculus unchanged. No pericholecystic fluid. Normal GE junction. Subse gmental atelectasis in the lung bases. Hazy groundglass infiltrates in the right middle lobe and righ t lower lobe new/progressed from June 24, 2020. Normal caliber abdominal aorta. Aortic calcification. Normal spleen. Fatty atrophy of the pancreas. A drenal glands are normal. Bilateral renal cortical atrophy. No hydronephrosis. Bilateral renal cysts. Bilateral THAs. Prior postoperative changes right hemicolectomy. Mild narrowing at the anastomosis in the left upper quadrant although no evidence of obstruction. This is unchanged in appearance from pr ior examinations. Air distended sigmoid colon. No evidence of small or large bowel obstruction. No ev idence of diverticulitis. Normal lumbar spine. CT/CT abdomen pelvis w con* [id number] IMPRESSION: 1. Hydropic gallbladder with prominent gallbladder calculus. No pericholecysti c fluid. This is similar in appearance to June 24, 2020. 2. New groundglass infiltrates within the right middle lobe and right lower lo be with subsegmental atelectasis in the lung bases. Correlate for viral pneumon ia. This is new since the CT June 24, 2020 3. Bilateral renal cortical atrophy. No hydronephrosis.. 4. No evidence of small or large bowel obstruction. 5. Prior right hemicolectomy. Anastomosis in the left upper quadrant with mild narrowing although no evidence of obstruction. 6. No evidence of diverticulitis. Notified Slim Alvarez DO at 06/30/2020 1:29 PM.
--- NOTE | 2020-06-30 10:13 | ED_ITS ---
HPI - Abdominal Pain General: Chief Complaint: General Medical Stated Complaint: ALOC Time Seen by Provider: 06/30/20 10:05 History of Present Illness: HPI narrative: 70-year-old male presents emergency room with altered mental status complaining of elevated blood sugars tachycardia shaking. Patient at his baseline has some difficulty communicating. He was recently seen here for bowel obstruction no fever no complaints of cough. On arrival here he complete I can get him to admit to abdominal discomfort but he denies any other problems. MD elicited complaint: abdominal pain Onset (ago): hour(s) Pain Consistency: constant Location: Diffuse Severity: moderate Quality: cramping Radiation: none Migration to: no migration Exacerbating factors: nothing Associated Symptoms: Reports GI cramping and excessive flatus; Denies bloating, change in bowel habits, change in stool character, chills, coffee ground emesis, constipation, diarrhea, dyspepsia, dysuria, fever(s), heartburn, hematochezia, hematuria, hematemesis, fecal incontinence, loose stools, melena, nausea, poor appetite, syncope and vomiting Review of Systems Const: Denies: fever(s) or chills ENMT: Denies: throat pain, ear or mastoid pain, nasal discharge or nasal congestion Card: Denies: syncope Resp: Denies: dyspnea, productive cough or non-productive cough GI: Reports: GI cramping and excessive flatus; Denies: vomiting, hematemesis, coffee ground emesis, heartburn, diarrhea, constipation, bloating, fecal incontinence, change in bowel habits, change in stool character, hematochezia or melena : Denies: hematuria Skin/Breast: Denies: rash or pruritus PFS ED PFSH: Medical History Abdominal pain Anemia Anxiety reaction Carotid artery disease Cholelithiasis CKD (chronic kidney disease) stage 4, GFR 15-29 ml/min Crohn's disease CVA (cerebral vascular accident) Residual right-sided weakness Depression Diabetes mellitus Diverticulitis Gastroesophageal reflux Mild gastritis on EGD 2011 GI bleeding History of common carotid artery stent placement Hyperkalemia Hypertension Lactic acidosis Nephrolithiasis Obsessive compulsive disorder Partial small bowel obstruction Peripheral arterial occlusive disease Small bowel obstruction Surgical History History of colonoscopy 02/2012 --active Crohn's disease at ileocolic anastomosis History of esophagogastroduodenoscopy 02/2012 --mild gastritis History of lithotripsy x 2 History of resection of small bowel x 1-2 History of right hemicolectomy Social History Smoking and tobacco status: never smoked Physical Exam Const: GENERAL APPEARANCE: cooperative and comfortable ORIENTATION/CONSCIOUSNESS: Yes awake HENMT: COMMON NORMALS: normocephalic, atraumatic and hearing grossly normal bilaterally HEAD & SCALP: normocephalic and atraumatic Neck/C-Spine: COMMON NORMALS: no JVD Resp: AUSCULTATION: rhonchi and wheezes Cardio: COMMON NORMALS: no JVD, regular rate, regular rhythm and No murmurs present (Cardio) RATE: regular rate RHYTHM: regular rhythm GI: COMMON NORMALS: Soft to palpation and No hepatosplenomegaly present AUSCULTATION: Yes normoactive bowel sounds PALPATION: Yes Soft to palpation, No Tenderness to palpation present (GI), No Guarding due to palpation present (GI) and Yes No hepatosplenomegaly present Extremity: COMMON NORMALS: normal to inspection, capillary refill normal, no clubbing, cyanosis or edema, no calf tenderness and no pedal edema Skin: COMMON NORMALS: no rashes or lesions noted GENERAL SKIN EXAM: no rashes or lesions noted Course Vital Signs: Vital signs: Vital Signs Temperature 98.3 F 06/30/20 10:15 Pulse Rate 87 06/30/20 23:58 Respiratory Rate 20 H 06/30/20 23:58 Blood Pressure 148/86 06/30/20 23:58 Pulse Oximetry 100 06/30/20 23:58 MDM - Abdominal Pain MDM Narrative: Medical decision making narrative: No available ICU beds at our facility will make arrangements for transfer to an outside facility patient is septic with an elevated white count antibiotics started screening for Covid done as well. Lab Data: Labs: Lab Results 06/30/20 06/30/20 06/30/20 Range/Units 10:43 10:43 10:43 WBC 35.1 H* (4.0-10.0) 10^3/ uL RBC 3.08 L (4.1-5.3) 10^6/u L Hgb 10.2 L (11.7-16.6) g/dL Hct 31.1 L (42.0-52.0) % MCV 101.0 H (80-94) fL MCH 33.1 (28.0-34.0) pg MCHC 32.8 (30.0-36.0) g/dL RDW 15.3 H (12.1-15.1) % Plt Count 115 L (130-400) 10^3/c mm MPV 13.7 H (7.4-10.4) fL Neut % (Auto) 76.5 % Lymph % (Auto) 0.6 % [place] % (Auto) 3.1 % Eos % (Auto) 18.0 % Baso % (Auto) 0.2 % Neut # (Auto) 26.86 H (1.8-7.7) 10^3/u L Lymph # (Auto) 0.2 L (0.8-4.8) 10^3/u L [place] # (Auto) 1.1 H (0.2-0.9) 10^3/u L Eos # (Auto) 6.3 H (0.0-0.8) 10^3/u L Baso # (Auto) 0.1 (0.0-0.1) 10^3/u L Nucleated RBC % (a uto) 0 % Nucleated RBCs # 0.0 /100WBC Fibrinogen D-Dimer Specimen Type Sample Site ABG pH (7.35-7.45) ABG pCO2 (35-45) mmHg ABG pO2 (80.0-100.0) mmH g ABG HCO3 (22-26) mmol/L ABG Base Excess (-2.0-2.0) mmol/ L Isak Test Hematocrit (42-52) % O2 Delivery Device FiO2 % Residential Team Leader ID Sodium 136 (136-145) mmol/L Potassium 3.8 (3.5-5.1) mmol/L Chloride 101 (98-107) mmol/L Carbon Dioxide 18 L (22-29) mmol/L Anion Gap 20.8 H (5-19) BUN 41 H (8-23) mg/dL Creatinine 2.5 H (0.7-1.2) mg/dL GFR Calculation 25.8 L (90-130) mL/min Glucose 224 H (65-115) mg/dL Calculated Osmolal ity 299 H (285-295) mOsm/k g Lactic Acid 4.7 H* (0.5-2.2) mmol/L Lactic Acid (Sepsi s) (0.5-2.2) mmol/L Calcium 8.4 L (8.5-10.5) mg/dL Ferritin (30-400) ng/mL Total Bilirubin 4.4 H (0.15-1.2) mg/dL AST 32 (0-40) U/L ALT 23 (0-41) U/L Alkaline Phosphata se 85 (40-130) IU/L Lactate Dehydrogen ase (135-225) U/L C-Reactive Protein (0.0-4.9) mg/L Total Protein 5.4 L (6.6-8.7) g/dL Albumin 3.2 L (3.5-5.2) g/dL Globulin 2.2 (1.3-4.6) g/dL Lipase 551 H (13-60) U/L Procalcitonin (0-0.5) ng/mL Urine Color (Yellow) Urine Appearance (CLEAR) Urine pH (5-7) Ur Specific Gravit y (1.005-1.030) Urine Protein (Negative) Urine Glucose (UA) (Normal) Urine Ketones (Negative) Urine Blood (Negative) Urine Nitrate (Negative) Urine Bilirubin (Negative) Urine Urobilinogen (Negative) mg/dL Ur Leukocyte Dedra ase (Negative) Urine RBC (0-2) /hpf Urine WBC (0-5) /hpf Ur Squamous Epith Cells (0-5) /hpf Amorphous Sediment /hpf Urine Bacteria (NONE) /hpf SARS-CoV-2 Ag (Rap id) (Negative) 06/30/20 06/30/20 06/30/20 Range/Units 10:43 10:43 13:43 WBC (4.0-10.0) 10^3/ uL RBC (4.1-5.3) 10^6/u L Hgb (11.7-16.6) g/dL Hct (42.0-52.0) % MCV (80-94) fL MCH (28.0-34.0) pg MCHC (30.0-36.0) g/dL RDW (12.1-15.1) % Plt Count (130-400) 10^3/c mm MPV (7.4-10.4) fL Neut % (Auto) % Lymph % (Auto) % [place] % (Auto) % Eos % (Auto) % Baso % (Auto) % Neut # (Auto) (1.8-7.7) 10^3/u L Lymph # (Auto) (0.8-4.8) 10^3/u L [place] # (Auto) (0.2-0.9) 10^3/u L Eos # (Auto) (0.0-0.8) 10^3/u L Baso # (Auto) (0.0-0.1) 10^3/u L Nucleated RBC % (a uto) % Nucleated RBCs # /100WBC Fibrinogen Cancelled D-Dimer Cancelled Specimen Type Sample Site ABG pH (7.35-7.45) ABG pCO2 (35-45) mmHg ABG pO2 (80.0-100.0) mmH g ABG HCO3 (22-26) mmol/L ABG Base Excess (-2.0-2.0) mmol/ L Isak Test Hematocrit (42-52) % O2 Delivery Device FiO2 % Residential Team Leader ID Sodium (136-145) mmol/L Potassium (3.5-5.1) mmol/L Chloride (98-107) mmol/L Carbon Dioxide (22-29) mmol/L Anion Gap (5-19) BUN (8-23) mg/dL Creatinine (0.7-1.2) mg/dL GFR Calculation (90-130) mL/min Glucose (65-115) mg/dL Calculated Osmolal ity (285-295) mOsm/k g Lactic Acid (0.5-2.2) mmol/L Lactic Acid (Sepsi s) 0.9 (0.5-2.2) mmol/L Calcium (8.5-10.5) mg/dL Ferritin 1090 H (30-400) ng/mL Total Bilirubin (0.15-1.2) mg/dL AST (0-40) U/L ALT (0-41) U/L Alkaline Phosphata se (40-130) IU/L Lactate Dehydrogen ase 286 H (135-225) U/L C-Reactive Protein 117.8 H (0.0-4.9) mg/L Total Protein (6.6-8.7) g/dL Albumin (3.5-5.2) g/dL Globulin (1.3-4.6) g/dL Lipase (13-60) U/L Procalcitonin 2.32 H (0-0.5) ng/mL Urine Color (Yellow) Urine Appearance (CLEAR) Urine pH (5-7) Ur Specific Gravit y (1.005-1.030) Urine Protein (Negative) Urine Glucose (UA) (Normal) Urine Ketones (Negative) Urine Blood (Negative) Urine Nitrate (Negative) Urine Bilirubin (Negative) Urine Urobilinogen (Negative) mg/dL Ur Leukocyte Dedra ase (Negative) Urine RBC (0-2) /hpf Urine WBC (0-5) /hpf Ur Squamous Epith Cells (0-5) /hpf Amorphous Sediment /hpf Urine Bacteria (NONE) /hpf SARS-CoV-2 Ag (Rap id) (Negative) 06/30/20 06/30/20 06/30/20 Range/Units 13:43 14:41 14:50 WBC (4.0-10.0) 10^3/ uL RBC (4.1-5.3) 10^6/u L Hgb (11.7-16.6) g/dL Hct (42.0-52.0) % MCV (80-94) fL MCH (28.0-34.0) pg MCHC (30.0-36.0) g/dL RDW (12.1-15.1) % Plt Count (130-400) 10^3/c mm MPV (7.4-10.4) fL Neut % (Auto) % Lymph % (Auto) % [place] % (Auto) % Eos % (Auto) % Baso % (Auto) % Neut # (Auto) (1.8-7.7) 10^3/u L Lymph # (Auto) (0.8-4.8) 10^3/u L [place] # (Auto) (0.2-0.9) 10^3/u L Eos # (Auto) (0.0-0.8) 10^3/u L Baso # (Auto) (0.0-0.1) 10^3/u L Nucleated RBC % (a uto) % Nucleated RBCs # /100WBC Fibrinogen 400 D-Dimer 0.73 H Specimen Type Arterial Sample Site Radial, left ABG pH 7.35 (7.35-7.45) ABG pCO2 35.1 (35-45) mmHg ABG pO2 72.8 L (80.0-100.0) mmH g ABG HCO3 19.5 L (22-26) mmol/L ABG Base Excess -5.5 L (-2.0-2.0) mmol/ L Isak Test Pos Hematocrit 25.1 L (42-52) % O2 Delivery Device Room air FiO2 21.0 % Residential Team Leader ID Cak Sodium (136-145) mmol/L Potassium (3.5-5.1) mmol/L Chloride (98-107) mmol/L Carbon Dioxide (22-29) mmol/L Anion Gap (5-19) BUN (8-23) mg/dL Creatinine (0.7-1.2) mg/dL GFR Calculation (90-130) mL/min Glucose (65-115) mg/dL Calculated Osmolal ity (285-295) mOsm/k g Lactic Acid (0.5-2.2) mmol/L Lactic Acid (Sepsi s) (0.5-2.2) mmol/L Calcium (8.5-10.5) mg/dL Ferritin (30-400) ng/mL Total Bilirubin (0.15-1.2) mg/dL AST (0-40) U/L ALT (0-41) U/L Alkaline Phosphata se (40-130) IU/L Lactate Dehydrogen ase (135-225) U/L C-Reactive Protein (0.0-4.9) mg/L Total Protein (6.6-8.7) g/dL Albumin (3.5-5.2) g/dL Globulin (1.3-4.6) g/dL Lipase (13-60) U/L Procalcitonin (0-0.5) ng/mL Urine Color (Yellow) Urine Appearance (CLEAR) Urine pH (5-7) Ur Specific Gravit y (1.005-1.030) Urine Protein (Negative) Urine Glucose (UA) (Normal) Urine Ketones (Negative) Urine Blood (Negative) Urine Nitrate (Negative) Urine Bilirubin (Negative) Urine Urobilinogen (Negative) mg/dL Ur Leukocyte Dedra ase (Negative) Urine RBC (0-2) /hpf Urine WBC (0-5) /hpf Ur Squamous Epith Cells (0-5) /hpf Amorphous Sediment /hpf Urine Bacteria (NONE) /hpf SARS-CoV-2 Ag (Rap id) Negative (Negative) 06/30/20 06/30/20 Range/Units 17:18 20:43 WBC (4.0-10.0) 10^3/ uL RBC (4.1-5.3) 10^6/u L Hgb (11.7-16.6) g/dL Hct (42.0-52.0) % MCV (80-94) fL MCH (28.0-34.0) pg MCHC (30.0-36.0) g/dL RDW (12.1-15.1) % Plt Count (130-400) 10^3/c mm MPV (7.4-10.4) fL Neut % (Auto) % Lymph % (Auto) % [place] % (Auto) % Eos % (Auto) % Baso % (Auto) % Neut # (Auto) (1.8-7.7) 10^3/u L Lymph # (Auto) (0.8-4.8) 10^3/u L [place] # (Auto) (0.2-0.9) 10^3/u L Eos # (Auto) (0.0-0.8) 10^3/u L Baso # (Auto) (0.0-0.1) 10^3/u L Nucleated RBC % (a uto) % Nucleated RBCs # /100WBC Fibrinogen D-Dimer Specimen Type Sample Site ABG pH (7.35-7.45) ABG pCO2 (35-45) mmHg ABG pO2 (80.0-100.0) mmH g ABG HCO3 (22-26) mmol/L ABG Base Excess (-2.0-2.0) mmol/ L Isak Test Hematocrit (42-52) % O2 Delivery Device FiO2 % Residential Team Leader ID Sodium (136-145) mmol/L Potassium (3.5-5.1) mmol/L Chloride (98-107) mmol/L Carbon Dioxide (22-29) mmol/L Anion Gap (5-19) BUN (8-23) mg/dL Creatinine (0.7-1.2) mg/dL GFR Calculation (90-130) mL/min Glucose (65-115) mg/dL Calculated Osmolal ity (285-295) mOsm/k g Lactic Acid 1.6 (0.5-2.2) mmol/L Lactic Acid (Sepsi s) (0.5-2.2) mmol/L Calcium (8.5-10.5) mg/dL Ferritin (30-400) ng/mL Total Bilirubin (0.15-1.2) mg/dL AST (0-40) U/L ALT (0-41) U/L Alkaline Phosphata se (40-130) IU/L Lactate Dehydrogen ase (135-225) U/L C-Reactive Protein (0.0-4.9) mg/L Total Protein (6.6-8.7) g/dL Albumin (3.5-5.2) g/dL Globulin (1.3-4.6) g/dL Lipase (13-60) U/L Procalcitonin (0-0.5) ng/mL Urine Color Yellow (Yellow) Urine Appearance Clear (CLEAR) Urine pH 5 (5-7) Ur Specific Gravit y 1.005 (1.005-1.030) Urine Protein Trace (Negative) Urine Glucose (UA) 4+ H (Normal) Urine Ketones Negative (Negative) Urine Blood 3+ H (Negative) Urine Nitrate Negative (Negative) Urine Bilirubin Neg (Negative) Urine Urobilinogen Norm (Negative) mg/dL Ur Leukocyte Dedra ase Negative (Negative) Urine RBC 0-4 H (0-2) /hpf Urine WBC 0-4 H (0-5) /hpf Ur Squamous Epith Cells 0-4 H (0-5) /hpf Amorphous Sediment 3+ /hpf Urine Bacteria 1+ H (NONE) /hpf SARS-CoV-2 Ag (Rap id) (Negative) Discharge Plan Discharge Patient Disposition: Transfer to ED Clinical Impression: Sepsis, Pneumonia Prescriptions: No Action acetaminophen 325 mg Tablet 650 mg PO Q4H PRN (Reason: Pain) RF: 0 sulfasalazine 500 mg Tablet 1,000 mg PO TID RF: 0 citalopram 10 mg Tablet 40 mg PO DAILY RF: 0 risperidone 0.25 mg Tablet 0.25 mg PO DAILY RF: 0 triamcinolone acetonide 0.1 % Cream 1 applic TOPICAL BID RF: 0 lorazepam 0.5 mg Tablet 0.5 mg PO BID RF: 0 tamsulosin 0.4 mg Capsule 0.4 mg PO BEDTIME RF: 0 sodium bicarbonate 650 mg Tablet 1,300 mg PO TID RF: 0 insulin aspart U-100 [Novolog U-100 Insulin aspart] 100 unit/mL Solution See Rx Instructions .ROUTE .COMPLEX RF: 0 calcium carbonate [Charli-Gest Antacid] 200 mg calcium (500 mg) Tablet,Chewable See Rx Instructions .ROUTE .COMPLEX PRN (Reason: REFLUX) RF: 0 docusate sodium 100 mg Capsule 100 mg PO BID PRN (Reason: Constipation) RF: 0 gabapentin 100 mg Capsule 100 mg PO TID RF: 0 ergocalciferol (vitamin D2) [Vitamin D2] 1,250 mcg (50,000 unit) Capsule See Rx Instructions .ROUTE .COMPLEX RF: 0 calcitriol 0.25 mcg Capsule 0.5 mcg PO BEDTIME RF: 0 risperidone 0.5 mg Tablet 0.5 mg PO BEDTIME RF: 0 Lantus Solostar U-100 Insulin 100 unit/mL (3 mL) Insulin Pen 7 unit SUBCUT BEDTIME RF: 0 hydrocodone-acetaminophen 5-325 mg Tablet 1 tab PO Q8H PRN (Reason: Pain) RF: 0 diphenoxylate-atropine [Lomotil] 2.5-0.025 mg Tablet 1 tab PO QID PRN (Reason: Diarrhea) RF: 0 aspirin 81 mg Tablet,Delayed Release (Dr/Ec) 81 mg PO DAILY RF: 0 calcium carbonate [Antacid Ultra Strength] 400 mg calcium (1,000 mg) Tablet,Chewable 2,000 mg PO QAM RF: 0 famotidine 20 mg Tablet 20 mg PO DAILY PRN (Reason: REFLUX) RF: 0 calcium carbonate [Oyster Shell Calcium 500] 500 mg calcium (1,250 mg) Tablet See Rx Instructions .ROUTE .COMPLEX RF: 0 pyridoxine (vitamin B6) 50 mg Tablet 50 mg PO DAILY RF: 0 mirtazapine 15 mg Tablet 15 mg PO BEDTIME RF: 0 alum-mag hydroxide-simeth 200-200-20 mg/5 mL Suspension 30 ml PO QID PRN (Reason: REFLUX) RF: 0 finasteride 5 mg Tablet 5 mg PO BEDTIME RF: 0 diclofenac sodium 1 % Gel 4 g TOPICAL BID RF: 0 Orajel 3X Mouth Sores 20-0.1-0.15 % Gel 1 ea MUCOUS MEMBRANE QID PRN (Reason: MOUTH SORES) RF: 0 amlodipine 10 mg Tablet 10 mg PO DAILY 30 Days RF: 0 metoprolol tartrate 25 mg Tablet 25 mg PO BID 30 Days Qty: 60 RF: 0 prednisone 20 mg tablet 20 mg PO DAILY Qty: 3 RF: 0 Referrals: Bryan Garcia DO [Primary Care Provider] - Coding Level of Care Code ED Remote Operations Producer for Chg Fwd Exam Comprehensive
[2020-06-30] MEDS: sodium chloride 0.9% 500 ML 999 ML IV (11:00)
[2020-06-30 11:12] LABS: Basophils # 0.1 10^3/uL (0.0-0.1); Basophils % 0.2 %; Eosinophils # 6.3 10^3/uL (0.0-0.8); Hematocrit 31.1 % (42.0-52.0); Hemoglobin 10.2 g/dL (11.7-16.6); Lymphocytes # 0.2 10^3/uL (0.8-4.8); Lymphocytes % 0.6 %; Mean Corpuscular HGB Conc 32.8 g/dL (30.0-36.0); Mean Corpuscular Hemoglobin 33.1 pg (28.0-34.0); Mean Platelet Volume 13.7 fL (7.4-10.4); Monocytes # 1.1 10^3/uL (0.2-0.9); Monocytes % 3.1 %; Neutrophils # 26.86 10^3/uL (1.8-7.7); Neutrophils % 76.5 %; Nucleated Red Blood Cells % 0 %; Platelet Count 115 10^3/cmm (130-400); Red Blood Count 3.08 10^6/uL (4.1-5.3); Red Cell Distribution Width 15.3 % (12.1-15.1)
[2020-06-30 11:19] LABS: Alanine Aminotransferase 23 U/L (0-41); Albumin Level 3.2 g/dL (3.5-5.2); Alkaline Phosphatase 85 IU/L (40-130); Blood Urea Nitrogen 41 mg/dL (8-23); Calcium 8.4 mg/dL (8.5-10.5); Carbon Dioxide 18 mmol/L (22-29); Chloride 101 mmol/L (98-107); Globulin 2.2 g/dL (1.3-4.6); Glomerular Filtration Rate 25.8 mL/min (90-130); Glucose 224 mg/dL (65-115); Osmolality Calculated 299 mOsm/kg (285-295); Sodium 136 mmol/L (136-145); Total Bilirubin 4.4 mg/dL (0.15-1.2); Total Protein 5.4 g/dL (6.6-8.7)
[2020-06-30 11:22] LABS: Anion Gap 20.8 (5-19); Potassium 3.8 mmol/L (3.5-5.1)
[2020-06-30 11:23] LABS: Aspartate Amino Transferase 32 U/L (0-40)
[2020-06-30 11:26] LABS: Lipase 551 U/L (13-60)
[2020-06-30 11:28] LABS: Lactic Sepsis W/Reflex 4.7 mmol/L (0.5-2.2)
--- NOTE | 2020-06-30 11:34 | PC.NURSE ---
pt had large bowel movement. hygiene needs provided at this time
[2020-06-30 11:44] LABS: Slide Review Slide Review Perform; White Blood Count 35.1 10^3/uL (4.0-10.0)
[2020-06-30] MEDS: ondansetron 2 mg/ML SDV 2 mL 4 MG IVP (12:01)
[2020-06-30] MEDS: sodium chloride 0.9% 1,000 ML 999 ML IV (12:04)
[2020-06-30 12:38] LABS: Reflex Lactate Order REFLEX LACTIC ORDERD
[2020-06-30] MEDS: iodixanol 320 mg/mL 100mL Btl IV ×2 (12:51→16:19)
--- NOTE | 2020-06-30 13:28 | XR_ITS ---
WS: [id number] Portable AP upright chest, 06/30/2020 Clinical Data: basliar infiltrates Comparison: Portable chest, 06/23/2020. Findings: No nodules, masses or effusions are seen. The heart is normal. The pulmonary vascularity is not increased. No pneumonia or pneumothorax is seen. The aortic arch and descending aorta show mild calcification and tortuosity. There is a left shoulder hemiarthroplasty. Monitor leads are noted on t he upper abdominal wall. XR/XR chest 1V portable [id number] Impression: Atherosclerosis.
[2020-06-30 14:03] LABS: Procalcitonin 2.32 ng/mL (0-0.5)
[2020-06-30 14:30] LABS: C Reactive Protein 117.8 mg/L (0.0-4.9)
[2020-06-30 14:38] LABS: Lactate Dehydrogenase 286 U/L (135-225)
[2020-06-30 14:46] LABS: Fibrinogen 400 mg/dL (174-498)
[2020-06-30 14:49] LABS: D Dimer 0.73 ug/mIFEU (0-0.59)
[2020-06-30 14:53] LABS: ABG PCO2 35.1 mmHg (35-45); ABG PH Result 7.35 (7.35-7.45); Arterial Blood Gas Hematocrit 25.1 % (42-52); Base Excess ABG -5.5 mmol/L (-2.0-2.0); Blood Gas Allen Test Pos; Blood Gas Operator Identificat CAK; Blood Gas Sample Site Radial, left; Blood Gas Sample Type Arterial; HCO3 ABG 19.5 mmol/L (22-26); Oxygen Device ROOM AIR; PO2 ABG 72.8 mmHg (80.0-100.0)
[2020-06-30 14:54] LABS: Lactic Acid level (Lactate) 0.9 mmol/L (0.5-2.2)
--- NOTE | 2020-06-30 15:09 | CTR_ITS ---
PROCEDURE INFORMATION: Exam: CT Angiography Chest With Contrast Exam date and time: 06/30/2020 3:56 PM Age: 70 years old Clinical indication: Abnormal findings; Abnormal diagnostic tests; Elevated d-dimer; Prior surgery; Surgery type: Shoulder; Additional info: Ground glass infiltrates/elevated ddimer TECHNIQUE: Imaging protocol: Computed tomographic angiography of the chest with intravenous contrast. 3D rendering (Not supervised by radiologist): MIP and/or 3D reconstructed images were created by the technologist. Radiation optimization: All CT scans at this facility use at least one of these dose optimization techniques: automated exposure control; mA and/or kV adjustment per patient size (includes targeted exams where dose is matched to clinical indication); or iterative reconstruction. Contrast material: VISIPAQUE; Contrast volume: 66 ml; Contrast route: INTRAVENOUS (IV); COMPARISON: CR XR chest 1V portable [id number] 06/30/2020 1:30 PM RADIATION DOSE METRICS: Total DLP (mGy-cm): 458.2 FINDINGS: Pulmonary arteries: No pulmonary embolus or aortic dissection. Aorta: Unremarkable. No aortic aneurysm. No aortic dissection. Lungs: Ground-glass opacities in the right middle lobe with interstitial opacities in both lower lobes suggesting [id number]-wlhzazsm bilateral pneumonia. Mucous secretions and debris in the right mainstem bronchus, origin of the right upper lobe bronchus, origin of the right middle lobe bronchus and right lower lobe bronchus. Pleural space: Unremarkable. No pneumothorax. No pleural effusion. Heart: Mild calcified coronary artery disease. Lymph nodes: Unremarkable. No enlarged lymph nodes. Gallbladder and bile ducts: Enlarged greater than or equal to 5.0 cm transverse diameter gallbladder consistent with gallbladder hydrops. Solitary gallstone within the gallbladder. 7 mm common bile duct which is upper limits of normal for the patient's age. Kidneys and ureters: Left renal simple cyst measuring >1.0 cm. Bones/joints: Mild thoracic spondylosis. Stable total left shoulder replacement. Soft tissues: Unremarkable. CT/CT angio chest PE protcl [id number] IMPRESSION: 1. Ground-glass opacities in the right middle lobe with interstitial opacities in both lower lobes suggesting [id number] bilateral pneumonia. 2. Mild calcified coronary artery disease. 3. Mucous secretions and debris in the right mainstem bronchus, origin of the right upper lobe bronchus, origin of the right middle lobe bronchus and right lower lobe bronchus. 4. No pulmonary embolus or aortic dissection. 5. Enlarged greater than or equal to 5.0 cm transverse diameter gallbladder consistent with gallbladder hydrops. 6. Solitary gallstone within the gallbladder. COMMENTS: Consistent with the [employer]'s Incidental Findings Committee white paper (J Am Sylvia Radiol 2018): Any incidental renal lesion less than 1 cm or classified as too small to characterize, or any incidental cystic renal lesion characterized as simple-appearing, is likely benign. No follow-up imaging is recommended for these lesions per consensus recommendations based on imaging criteria. Radiation Dose CTDIVOL = (mGy): DLP = 458.2 (mGy-cm)
[2020-06-30 15:28] LABS: SARS Covid-2 Antigen Negative (Negative)
[2020-06-30] MEDS: piperacillin-tazobactam 3.375 GM in sodium chloride 0.9% (plus) 50 ML IV (15:30)
[2020-06-30] MEDS: levofloxacin-dextrose 5 % 750 MG/150 ML PREMIX 100 MG IV (15:47)
[2020-06-30] MEDS: sodium chloride 0.9% 1,564.89 ML 999 ML IV (15:48)
[2020-06-30 15:57] LABS: Ferritin 1090 ng/mL (30-400)
[2020-06-30 17:44] LABS: Lactic Sepsis W/Reflex 1.6 mmol/L (0.5-2.2)
--- NOTE | 2020-06-30 18:37 | PC.NURSE ---
Patient attempted to get out of bed, patient removed IV leaking fluids and antibiotics into bed. Patient cleaned, new pull up, and linens changed. Patient reoriented and sent back to bed.
--- NOTE | 2020-06-30 19:02 | PC.NURSE ---
Pt linens changed and pt placed in a brief. Pt has breakdown and erythema on buttocks and scrotal area.
--- NOTE | 2020-06-30 20:15 | PC.NURSE ---
Pt linens and brief changed.
[2020-06-30] MEDS: fentaNYL 50 mcg/mL INJ 2mL 100 MCG IVP (20:28)
[2020-06-30 21:07] LABS: Add Urine Microscopic? YES; Bilirubin Urine Neg (Negative); Blood Urine 3+ (Negative); Glucose Urine UA 4+ (Normal); Ketones Urine Negative (Negative); Leukocyte Esterase Urine Negative (Negative); Nitrate Urine Negative (Negative); Protein Urine Trace (Negative); Specific Gravity, Urine 1.005 (1.005-1.030); Urine Appearance Clear (CLEAR); Urine Color Yellow (Yellow); Urobilinogen Urine Norm (Negative); pH Urine 5 (5-7)
[2020-06-30 21:09] LABS: Bacteria Urine 1+ /hpf; RBC Urine 0-4 /hpf (0-2); Squamous Epithelial Cell Urine 0-4 /hpf (0-5); WBC Urine 0-4 /hpf (0-5)
[2020-06-30 21:10] LABS: Add Urine Culture? No; Amorphous Sediment Urine 3+ /hpf
--- NOTE | 2020-06-30 22:46 | PC.NURSE ---
update given to pt nurse at [facility].
--- NOTE | 2020-07-03 12:26 | PC.NURSE ---
Preliminary blood culture results faxed to [facility]. Report given to Ofelia CHRISTOPHER
== END 2020-07-01 00:11 ==
PROVIDERS: Emergency Provider Family Medicine; PCP Internal Medicine
DX: A41.9 Sepsis, unspecified organism (principal); J18.9 Pneumonia, unspecified organism; Z79.4 Long term (current) use of insulin; Z79.82 Long term (current) use of aspirin; I25.10 Atherosclerotic heart disease of native coronary artery without angina pectoris; E11.22 Type 2 diabetes mellitus with diabetic chronic kidney disease; I12.9 Hypertensive chronic kidney disease with stage 1 through stage 4 chronic kidney disease, or unspecified chronic kidney disease; N18.4 Chronic kidney disease, stage 4 (severe); Z86.73 Personal history of transient ischemic attack (TIA), and cerebral infarction without residual deficits
CPT/HCPCS: 12345; 36415; 36600; 51702; 71045; 71275; 74177; 80053; 81001; 82728; 82803; 83605; 83615; 83690; 84145; 85025; 85378; 85384; 86140; 87040; 87077; 87186; 87205; 87426; 93005; 96365; 96367; 96375; 99284; 99285; J1956; J2405; J2543; J3010; J7030; J7040; Q9967

== ENCOUNTER 2020-09-13 07:58 | Emergency (ER) | payer OTHER, MEDICARE, SELFPAY ==
[2020-09-13 08:01] VITALS: BP 158/78; PULSE 97; RESP 20; TEMP 37.2; O2SAT 99
--- NOTE | 2020-09-13 08:01 | XR_ITS ---
WS: [id number] Exam: XR KUB portable [id number] Date/Time of Exam: 09/13/2020 8:14 AM Reason For Exam: PEG tube broken Comparison 11/23/2012. No bowel obstruction or free air. Opaque tubing with a bulb seen along the central and right abdomen apparently representing a Vincent catheter inflated in the stomach. No radiopaque foreign bodies or tub e fragments identified. 1.5 cm rounded calcification in the right abdomen most likely a laminated gal lstone. Calcification superimposing left kidney probably renal calculi. Several surgical sutures are seen in the left abdomen. Visualized organ margins are intact. Bilateral total hip replacements. Nons pecific chronic calcifications in the right lower quadrant. XR/XR KUB portable [id number] IMPRESSION: 1. No acute abdominal finding. No obvious retained radiopaque foreign body. 2. Apparent Vincent catheter in place with the bulb inflated in the region of the gastric air bubble. 3. Cholelithiasis and left renal lithiasis
--- NOTE | 2020-09-13 08:02 | W.ED.GENADLT ---
HPI - General Adult General: Chief complaint: General Medical Stated complaint: PEG TUBE BROKEN Time Seen by Provider: 09/13/20 08:00 History of Present Illness: HPI narrative: 70 yo male presents by ambulance from the intermediate. Patient has a PEG tube in place. Nursing reports that it had broken and there is a portion of it still within the stomach. Onset (ago): unknown Location: abdomen Associated symptoms: Deny chest pain, dyspnea, malaise, nausea, rash or vomiting Review of Systems Const: Denies: fever(s), chills, body aches, change in appetite, fatigue or malaise ENMT: Denies: throat pain, ear or mastoid pain, nasal discharge or nasal congestion Card: Denies: chest pain, edema, dyspnea on exertion or orthopnea Resp: Denies: dyspnea, productive cough or non-productive cough GI: Denies: abdominal pain, nausea, vomiting, hematemesis, coffee ground emesis, diarrhea, constipation, bloating, hematochezia or melena : Denies: flank pain, dysuria, urinary frequency or urinary urgency Skin/Breast: Denies: rash or pruritus PFSH ED PFSH: Medical History Abdominal pain Anemia Anxiety reaction Carotid artery disease Cholelithiasis CKD (chronic kidney disease) stage 4, GFR 15-29 ml/min Crohn's disease CVA (cerebral vascular accident) Residual right-sided weakness Depression Diabetes mellitus Diverticulitis Gastroesophageal reflux Mild gastritis on EGD 2011 GI bleeding History of common carotid artery stent placement Hyperkalemia Hypertension Lactic acidosis Nephrolithiasis Obsessive compulsive disorder Partial small bowel obstruction Peripheral arterial occlusive disease Small bowel obstruction Surgical History History of colonoscopy 02/2012 --active Crohn's disease at ileocolic anastomosis History of esophagogastroduodenoscopy 02/2012 --mild gastritis History of lithotripsy x 2 History of resection of small bowel x 1-2 History of right hemicolectomy Social History Smoking and tobacco status: never smoked Physical Exam Const: COMMON NORMALS: no acute distress GENERAL APPEARANCE: cooperative and comfortable HENMT: COMMON NORMALS: normocephalic, atraumatic and hearing grossly normal bilaterally HEAD & SCALP: normocephalic and atraumatic Neck/C-Spine: COMMON NORMALS: no JVD Resp: COMMON NORMALS: normal respiratory effort, No retractions, No use of accessory muscles and clear to auscultation bilaterally AUSCULTATION: clear to auscultation bilaterally Cardio: COMMON NORMALS: no JVD, regular rate, regular rhythm and No murmurs present (Cardio) RATE: regular rate RHYTHM: regular rhythm GI: COMMON NORMALS: Soft to palpation and No hepatosplenomegaly present AUSCULTATION: Yes normoactive bowel sounds PALPATION: Yes Soft to palpation, No Tenderness to palpation present (GI), No Guarding due to palpation present (GI) and Yes No hepatosplenomegaly present Extremity: COMMON NORMALS: normal to inspection, capillary refill normal, no clubbing, cyanosis or edema, no calf tenderness and no pedal edema Skin: COMMON NORMALS: no rashes or lesions noted GENERAL SKIN EXAM: no rashes or lesions noted Course Vital Signs: Vital signs: Vital Signs Temperature 98.9 F 09/13/20 08:01 Pulse Rate 97 09/13/20 08:48 Respiratory Rate 20 H 09/13/20 08:48 Blood Pressure 164/88 09/13/20 08:48 Pulse Oximetry 98 09/13/20 08:48 MDM - General Adult MDM Narrative: Medical decision making narrative: Initially on arrival a Vincent tube was placed to preserve the stoma since we were not sure how long it been open. KUB done is no evidence of any retained foreign body. To the extent there might be one which is like unlikely given the composition of these tubes is a like he should pass it without difficulty. A new PEG tube was placed aspirated gastric contents without difficulty discharge back to the intermediate Discharge Plan Discharge Patient Disposition: Home Clinical Impression: Complication of feeding tube Condition: Stable Prescriptions: No Action acetaminophen 325 mg Tablet 650 mg PO Q4H PRN (Reason: Pain) RF: 0 sulfasalazine 500 mg Tablet 1,000 mg PO TID RF: 0 citalopram 10 mg Tablet 40 mg PO DAILY RF: 0 risperidone 0.25 mg Tablet 0.25 mg PO DAILY RF: 0 triamcinolone acetonide 0.1 % Cream 1 applic TOPICAL BID RF: 0 lorazepam 0.5 mg Tablet 0.5 mg PO BID RF: 0 tamsulosin 0.4 mg Capsule 0.4 mg PO BEDTIME RF: 0 sodium bicarbonate 650 mg Tablet 1,300 mg PO TID RF: 0 insulin aspart U-100 [Novolog U-100 Insulin aspart] 100 unit/mL Solution See Rx Instructions .ROUTE .COMPLEX RF: 0 calcium carbonate [Charli-Gest Antacid] 200 mg calcium (500 mg) Tablet,Chewable See Rx Instructions .ROUTE .COMPLEX PRN (Reason: REFLUX) RF: 0 docusate sodium 100 mg Capsule 100 mg PO BID PRN (Reason: Constipation) RF: 0 gabapentin 100 mg Capsule 100 mg PO TID RF: 0 ergocalciferol (vitamin D2) [Vitamin D2] 1,250 mcg (50,000 unit) Capsule See Rx Instructions .ROUTE .COMPLEX RF: 0 calcitriol 0.25 mcg Capsule 0.5 mcg PO BEDTIME RF: 0 risperidone 0.5 mg Tablet 0.5 mg PO BEDTIME RF: 0 Lantus Solostar U-100 Insulin 100 unit/mL (3 mL) Insulin Pen 7 unit SUBCUT BEDTIME RF: 0 hydrocodone-acetaminophen 5-325 mg Tablet 1 tab PO Q8H PRN (Reason: Pain) RF: 0 diphenoxylate-atropine [Lomotil] 2.5-0.025 mg Tablet 1 tab PO QID PRN (Reason: Diarrhea) RF: 0 aspirin 81 mg Tablet,Delayed Release (Dr/Ec) 81 mg PO DAILY RF: 0 calcium carbonate [Antacid Ultra Strength] 400 mg calcium (1,000 mg) Tablet,Chewable 2,000 mg PO QAM RF: 0 famotidine 20 mg Tablet 20 mg PO DAILY PRN (Reason: REFLUX) RF: 0 calcium carbonate [Oyster Shell Calcium 500] 500 mg calcium (1,250 mg) Tablet See Rx Instructions .ROUTE .COMPLEX RF: 0 pyridoxine (vitamin B6) 50 mg Tablet 50 mg PO DAILY RF: 0 mirtazapine 15 mg Tablet 15 mg PO BEDTIME RF: 0 alum-mag hydroxide-simeth 200-200-20 mg/5 mL Suspension 30 ml PO QID PRN (Reason: REFLUX) RF: 0 finasteride 5 mg Tablet 5 mg PO BEDTIME RF: 0 diclofenac sodium 1 % Gel 4 g TOPICAL BID RF: 0 Orajel 3X Mouth Sores 20-0.1-0.15 % Gel 1 ea MUCOUS MEMBRANE QID PRN (Reason: MOUTH SORES) RF: 0 prednisone 20 mg tablet 20 mg PO DAILY Qty: 3 RF: 0 Discharge Orders: Discharge ED (Routine); Ordered 09/13/20 Ordered By: Slim Alvarez Referrals: Bryan Garcia DO [Primary Care Provider] - Discharge Diet: Usual diet Discharge Activity: Resume usual activity Coding Level of Care Code ED Vaccine Specialist for Krystag Papa
[2020-09-13 08:48] VITALS: BP 164/88; PULSE 97; RESP 20; O2SAT 98
== END 2020-09-13 09:40 | disposition home or self-care (01) ==
PROVIDERS: Emergency Provider Family Medicine; PCP Internal Medicine
DX: K94.20 Gastrostomy complication, unspecified (principal); Z79.82 Long term (current) use of aspirin; Z79.4 Long term (current) use of insulin; E11.22 Type 2 diabetes mellitus with diabetic chronic kidney disease; I12.9 Hypertensive chronic kidney disease with stage 1 through stage 4 chronic kidney disease, or unspecified chronic kidney disease; N18.4 Chronic kidney disease, stage 4 (severe); Z86.73 Personal history of transient ischemic attack (TIA), and cerebral infarction without residual deficits
CPT/HCPCS: 12345; 74018; 99281; 99283

== ENCOUNTER 2020-10-15 08:20 | Inpatient (IN) | payer OTHER, MEDICARE, SELFPAY ==
[2020-10-15] VITALS (41 sets, daily range): BP systolic 83–142; BP diastolic 35–96; PULSE 105–130; RESP 14–50; TEMP 36.6–37.2; O2SAT 77–100; BMI 20.1
--- NOTE | 2020-10-15 08:30 | XRR_ITS ---
PROCEDURE INFORMATION: Exam: XR Chest Exam date and time: 10/15/2020 8:34 AM Age: 70 years old Clinical indication: Pain; Other: Aroung feeding tube; Prior surgery; Additional info: Abd pain TECHNIQUE: Imaging protocol: XR of the chest Views: 1 view. COMPARISON: CR XR chest 1V portable [id number] 06/30/2020 1:30 PM FINDINGS: Lungs: Lungs are well aerated without a focal area of consolidation. Pleural spaces: Unremarkable. No pleural effusion. No pneumothorax. Heart/Mediastinum: Unremarkable. No cardiomegaly. Bones/joints: Prior shoulder arthroplasty on the left XR/XR chest 1V portable [id number] IMPRESSION: Lungs are well aerated without a focal area of consolidation.
[2020-10-15 08:38] LABS: Glucose Point of Care 363 mg/dL (70-110)
--- NOTE | 2020-10-15 08:38 | CTR_ITS ---
PROCEDURE INFORMATION: Exam: CT Abdomen And Pelvis Without Contrast Exam date and time: 10/15/2020 10:04 AM Age: 70 years old Clinical indication: Abdominal pain; Generalized; Prior surgery TECHNIQUE: Imaging protocol: Computed tomography of the abdomen and pelvis without contrast. Radiation optimization: All CT scans at this facility use at least one of these dose optimization techniques: automated exposure control; mA and/or kV adjustment per patient size (includes targeted exams where dose is matched to clinical indication); or iterative reconstruction. COMPARISON: CT abdomen pelvis w con* [id number] 06/30/2020 12:46 PM RADIATION DOSE METRICS: Total DLP (mGy-cm): 991.66 FINDINGS: Lungs: Mild basilar atelectasis bilaterally right greater than left. Tiny right pleural effusion. Liver: Normal. No mass. Gallbladder and bile ducts: Gallstone. Distended gallbladder Pancreas: Normal. No ductal dilation. Spleen: Normal. No splenomegaly. Adrenal glands: Normal. No mass. Kidneys and ureters: Atrophic scarred kidneys bilaterally. 3 cm cyst right kidney. Calcifications likely cortical. Stomach and bowel: Gastrostomy Moderate amount of stool in the rectosigmoid region. Air and stool throughout much of the large bowel. Suspected colitis. Possible sterocoral colitis. Prior right hemicolectomy. Scattered loops of air-filled nondilated small bowel. Mild thickening of the small bowel in the right upper abdomen. Appendix: No evidence of appendicitis. Intraperitoneal space: See Bones/joints finding. Vasculature: Calcification of the aorta. Lymph nodes: Unremarkable. No enlarged lymph nodes. Urinary bladder: Unremarkable as visualized. Reproductive: Unremarkable as visualized. Bones/joints: Hip arthroplasty on the left and right. Metallic artifact henders characterization of the pelvic structures. Soft tissues: Unremarkable. CT/CT abdomen pelvis con [id number] IMPRESSION: 1. Moderate amount of stool in the rectosigmoid region. Air and stool throughout much of the large bowel. Suspected colitis. Possible sterocoral colitis. Prior right hemicolectomy. 2. Scattered loops of air-filled nondilated small bowel. Mild thickening of the small bowel in the right upper abdomen. Mild inflammation in the fat. Possible enteritis. Possibly related to the adjacent distended gallbladder with gallstone. 3. Gallstone. Distended gallbladder. Question mild inflammation. Consider follow-up ultrasound. 4. Mild basilar atelectasis bilaterally right greater than left. Tiny right pleural effusion. COMMENTS: Consistent with the [employer]'s Incidental Findings Committee white paper (J Am Sylvia Radiol 2018): Any incidental renal lesion less than 1 cm or classified as too small to characterize, or any incidental cystic renal lesion characterized as simple-appearing, is likely benign. No follow-up imaging is recommended for these lesions per consensus recommendations based on imaging criteria. Radiation Dose CTDIVOL = (mGy): DLP = 991.66 (mGy-cm)
--- NOTE | 2020-10-15 08:41 | ED_ITS ---
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 Is a resident of [facility] in [facility]. States his belly has been distended and is hurting. He is able to nod yes and no to questions asked. He is alert. Blood pressure slightly low with elevated heart rate suspicious for sepsis. History of small bowel obstruction, Crohn's disease, has history of abdominal surgery due to Crohn's disease. longterm reports elevated blood sugar in the 400s this morning. MD elicited complaint: abdominal pain Pertinent past history: other (Crohn's disease) Pain Consistency: constant Location: Diffuse Severity: moderate Associated Symptoms: Reports anorexia, bloating and fecal incontinence (Chronic); Denies chills, dysuria and fever(s) Review of Systems General: Reports: 10 or more systems reviewed and unremarkable except in HPI and below Const: Reports: change in appetite, fatigue and malaise; Denies: fever(s), chills or diaphoresis Eyes: Denies: blurry vision or eye redness ENMT: Denies: throat pain, dental pain, halitosis, disequilibrium, nasal discharge or nasal congestion Card: Denies: chest pain, palpitations, irregular heart rhythm or swelling of feet/ankles Resp: Denies: dyspnea, productive cough, non-productive cough, wheezing or chest congestion GI: Reports: abdominal pain, bloating and fecal incontinence (Chronic) : Denies: dysuria Musc: Denies: neck pain, back pain, joint pain or joint warmth Skin/Breast: Denies: rash or pruritus Neuro: Denies: headache(s), weakness in extremities or behavioral changes Psych: Denies: anxiety Kenneth/Lymph: Denies: easy bruising PFS ED PFSH: Medical History (Updated 10/15/20 @ 15:29 by Conner Sauer MD) Abdominal pain Anemia Anxiety reaction Carotid artery disease Cholelithiasis CKD (chronic kidney disease) stage 4, GFR 15-29 ml/min Crohn's disease CVA (cerebral vascular accident) Residual right-sided weakness Depression Diabetes mellitus Diverticulitis Gastroesophageal reflux Mild gastritis on EGD 2011 GI bleeding History of common carotid artery stent placement Hyperkalemia Hypertension Lactic acidosis Nephrolithiasis Obsessive compulsive disorder Partial small bowel obstruction Peripheral arterial occlusive disease Small bowel obstruction Surgical History History of colonoscopy 02/2012 --active Crohn's disease at ileocolic anastomosis History of esophagogastroduodenoscopy 02/2012 --mild gastritis History of lithotripsy x 2 History of resection of small bowel x 1-2 History of right hemicolectomy Social History Smoking and tobacco status: never smoked Physical Exam Const: COMMON NORMALS: no acute distress, patient oriented x3 and alert EXAM LIMITATIONS: language barrier GENERAL APPEARANCE: cooperative, well kempt, well developed, ill appearing, frail appearing and well hydrated NUTRITIONAL APPEARANCE: thin ORIENTATION/CONSCIOUSNESS: Yes awake, Yes oriented to person, Yes oriented to place and Yes oriented to time HENMT: COMMON NORMALS: normocephalic, atraumatic, EAC's normal, Normal external nose present and moist oral mucous membranes HEAD & SCALP: normal to inspection, normocephalic and atraumatic FACE & SINUS: normal facial exam NOSE: Normal external nose present EXTERNAL AUDITORY CANAL: EAC's normal MOUTH: lip normal, tongue normal and moist mucous membranes abnormal (dry) Eye: COMMON NORMALS: Equal, round and reactive pupils present and EOMs intact bilaterally GENERAL EYE: appearance normal, both eyes and all related structures PUPIL: Yes Equal, round and reactive pupils present Neck/C-Spine: COMMON NORMALS: full ROM, no lymphadenopathy and supple GENERAL: Yes normal visual inspection and Yes trachea midline CERVICAL SPINE: Yes cervical ROM normal Lymph: LYMPHATIC: no lymphadenopathy noted Chest: COMMONS NORMALS: normal inspection of the chest and normal palpation of entire chest wall CHEST: No localized rib tenderness with anteroposterior compression Resp: COMMON NORMALS: normal respiratory effort, No retractions, No use of accessory muscles and clear to auscultation bilaterally EFFORT & INSPECTION: Yes tachypneic and No audible wheezes AUSCULTATION: clear to auscultation bilaterally Cardio: COMMON NORMALS: regular rhythm, S1 normal heart sound present, S2 normal heart sound present and Peripheral pulses 2+ throughout RATE: tachycardic RHYTHM: regular rhythm HEART SOUNDS: S1 normal heart sound present and S2 normal heart sound present PERIPHERAL PULSES: Peripheral pulses 2+ throughout GI: INSPECTION: No abdominal wall ecchymosis, Yes abdominal distension, No central obesity, Yes scar, No visible herniation, No Localized GI swelling present and No GI erythema present AUSCULTATION: Yes Hypoactive bowel sounds present PALPATION: Yes Firmness to palpation present (GI), Yes Tenderness to palpation present (GI) Details: LLQ, RLQ, LUQ and RUQ, No Ascites present and No Abdominal wall crepitus present PERCUSSION: dullness to percussion : COMMON NORMALS: Yes no CVA tenderness BLADDER/KIDNEY EXAM: Yes no CVA tenderness Back/Pelvis: COMMON NORMALS: no CVA tenderness and thoracic and lumbar spine normal to inspection Extremity: COMMON NORMALS: normal to inspection, capillary refill normal, no clubbing, cyanosis or edema, no calf tenderness and no pedal edema GENERAL: Yes normal exam except as noted Neuro: COMMON NORMALS: patient oriented x3 and no focal motor deficits SENSORIUM/ORIENTATION: Yes alert, Yes oriented to person, Yes oriented to place and Yes oriented to time GAIT: Yes Unable to assess gait MOTOR EXAM: Abnormal motor strength present (chronic weakness) Psych: COMMON NORMALS: mental status grossly normal, Normal thought process present and cooperative APPEARANCE: Yes well kempt ATTITUDE: Yes calm ACTIVITY/MOTOR BEHAVIOR: Yes appropriate eye contact THOUGHT PROCESS: Normal thought process present Skin: COMMON NORMALS: no rashes or lesions noted and turgor normal GENERAL SKIN EXAM: no rashes or lesions noted and turgor normal Course ED course: Case discussed with Dr. Pope, concern for acute abdomen as patient meets septic criteria. Transfer of care as patient will require hospitalization or transfer pending CT results. Transfer of care placed. Vital Signs: Vital signs: Vital Signs Temperature 98.1 F 10/15/20 16:54 Pulse Rate 120 H 10/15/20 17:45 Respiratory Rate 50 H 10/15/20 17:45 Blood Pressure 109/47 10/15/20 17:30 Pulse Oximetry 96 10/15/20 17:59 MDM - Abdominal Pain Lab Data: Labs: Lab Results 10/15/20 10/15/20 10/15/20 Range/Units 08:33 08:52 08:52 WBC 28.2 H (4.0-10.0) 10^3/ uL RBC 3.18 L (4.1-5.3) 10^6/u L Hgb 10.3 L (11.7-16.6) g/dL Hct 31.8 L (42.0-52.0) % MCV 100.0 H (80-94) fL MCH 32.4 (28.0-34.0) pg MCHC 32.4 (30.0-36.0) g/dL RDW 13.8 (12.1-15.1) % Plt Count 267 (130-400) 10^3/c mm MPV 11.5 H (7.4-10.4) fL Neut % (Auto) 91.3 % Lymph % (Auto) 1.7 % Culberson % (Auto) 6.3 % Eos % (Auto) 0.0 % Baso % (Auto) 0.1 % Neut # (Auto) 25.72 H (1.8-7.7) 10^3/u L Lymph # (Auto) 0.5 L (0.8-4.8) 10^3/u L Culberson # (Auto) 1.8 H (0.2-0.9) 10^3/u L Eos # (Auto) 0.0 (0.0-0.8) 10^3/u L Baso # (Auto) 0.0 (0.0-0.1) 10^3/u L Nucleated RBC % (a uto) 0 % Nucleated RBCs # 0.0 /100WBC PT 16.80 H (12.1-14.9) SECO NDS INR 1.32 H (0.8-1.2) APTT 27.6 (23.9-36.7) SECO NDS D-Dimer 3.96 H (0-0.59) ug/mIFE U Sodium (136-145) mmol/L Potassium (3.5-5.1) mmol/L Chloride (98-107) mmol/L Carbon Dioxide (22-29) mmol/L Anion Gap (5-19) BUN (8-23) mg/dL Creatinine (0.7-1.2) mg/dL GFR Calculation (90-130) mL/min Glucose (65-115) mg/dL POC Glucose 363 H (70-110) mg/dL Calculated Osmolal ity (285-295) mOsm/k g Lactate (0.5-2.2) mmol/L Calcium (8.5-10.5) mg/dL Total Bilirubin (0.15-1.2) mg/dL AST (0-40) U/L ALT (0-41) U/L Alkaline Phosphata se (40-130) IU/L Total Protein (6.6-8.7) g/dL Albumin (3.5-5.2) g/dL Globulin (1.3-4.6) g/dL Lipase (13-60) U/L Urine Color (Yellow) Urine Appearance (CLEAR) Urine pH (5-7) Ur Specific Gravit y (1.005-1.030) Urine Protein (Negative) Urine Glucose (UA) (Normal) Urine Ketones (Negative) Urine Blood (Negative) Urine Nitrate (Negative) Urine Bilirubin (Negative) Urine Urobilinogen (Negative) mg/dL Ur Leukocyte Dedra ase (Negative) Urine RBC (0-2) /hpf Urine WBC (0-5) /hpf Ur Squamous Epith Cells (0-5) /hpf Amorphous Sediment /hpf Urine Bacteria (NONE) /hpf Coarse Granular Ca sts /lpf Urine Mucus /hpf Serum Ketones (Negative) 10/15/20 10/15/20 10/15/20 Range/Units 08:52 08:52 08:52 WBC (4.0-10.0) 10^3/ uL RBC (4.1-5.3) 10^6/u L Hgb (11.7-16.6) g/dL Hct (42.0-52.0) % MCV (80-94) fL MCH (28.0-34.0) pg MCHC (30.0-36.0) g/dL RDW (12.1-15.1) % Plt Count (130-400) 10^3/c mm MPV (7.4-10.4) fL Neut % (Auto) % Lymph % (Auto) % Culberson % (Auto) % Eos % (Auto) % Baso % (Auto) % Neut # (Auto) (1.8-7.7) 10^3/u L Lymph # (Auto) (0.8-4.8) 10^3/u L Culberson # (Auto) (0.2-0.9) 10^3/u L Eos # (Auto) (0.0-0.8) 10^3/u L Baso # (Auto) (0.0-0.1) 10^3/u L Nucleated RBC % (a uto) % Nucleated RBCs # /100WBC PT (12.1-14.9) SECO NDS INR (0.8-1.2) APTT (23.9-36.7) SECO NDS D-Dimer (0-0.59) ug/mIFE U Sodium 136 (136-145) mmol/L Potassium 3.4 L (3.5-5.1) mmol/L Chloride 95 L (98-107) mmol/L Carbon Dioxide 18 L (22-29) mmol/L Anion Gap 26.4 H (5-19) BUN 91 H* D (8-23) mg/dL Creatinine 4.1 H (0.7-1.2) mg/dL GFR Calculation 14.6 L (90-130) mL/min Glucose 284 H (65-115) mg/dL POC Glucose (70-110) mg/dL Calculated Osmolal ity 320 H (285-295) mOsm/k g Lactate 5.5 H* (0.5-2.2) mmol/L Calcium 8.7 (8.5-10.5) mg/dL Total Bilirubin 0.3 (0.15-1.2) mg/dL AST 24 (0-40) U/L ALT 14 (0-41) U/L Alkaline Phosphata se 74 (40-130) IU/L Total Protein 6.5 L (6.6-8.7) g/dL Albumin 3.4 L (3.5-5.2) g/dL Globulin 3.1 (1.3-4.6) g/dL Lipase 23 (13-60) U/L Urine Color (Yellow) Urine Appearance (CLEAR) Urine pH (5-7) Ur Specific Gravit y (1.005-1.030) Urine Protein (Negative) Urine Glucose (UA) (Normal) Urine Ketones (Negative) Urine Blood (Negative) Urine Nitrate (Negative) Urine Bilirubin (Negative) Urine Urobilinogen (Negative) mg/dL Ur Leukocyte Dedra ase (Negative) Urine RBC (0-2) /hpf Urine WBC (0-5) /hpf Ur Squamous Epith Cells (0-5) /hpf Amorphous Sediment /hpf Urine Bacteria (NONE) /hpf Coarse Granular Ca sts /lpf Urine Mucus /hpf Serum Ketones Negative (Negative) 10/15/20 10/15/20 10/15/20 Range/Units 10:33 12:25 13:28 WBC (4.0-10.0) 10^3/ uL RBC (4.1-5.3) 10^6/u L Hgb (11.7-16.6) g/dL Hct (42.0-52.0) % MCV (80-94) fL MCH (28.0-34.0) pg MCHC (30.0-36.0) g/dL RDW (12.1-15.1) % Plt Count (130-400) 10^3/c mm MPV (7.4-10.4) fL Neut % (Auto) % Lymph % (Auto) % Culberson % (Auto) % Eos % (Auto) % Baso % (Auto) % Neut # (Auto) (1.8-7.7) 10^3/u L Lymph # (Auto) (0.8-4.8) 10^3/u L Culberson # (Auto) (0.2-0.9) 10^3/u L Eos # (Auto) (0.0-0.8) 10^3/u L Baso # (Auto) (0.0-0.1) 10^3/u L Nucleated RBC % (a uto) % Nucleated RBCs # /100WBC PT (12.1-14.9) SECO NDS INR (0.8-1.2) APTT (23.9-36.7) SECO NDS D-Dimer (0-0.59) ug/mIFE U Sodium (136-145) mmol/L Potassium (3.5-5.1) mmol/L Chloride (98-107) mmol/L Carbon Dioxide (22-29) mmol/L Anion Gap (5-19) BUN (8-23) mg/dL Creatinine (0.7-1.2) mg/dL GFR Calculation (90-130) mL/min Glucose (65-115) mg/dL POC Glucose 200 H (70-110) mg/dL Calculated Osmolal ity (285-295) mOsm/k g Lactate 4.8 H* (0.5-2.2) mmol/L Calcium (8.5-10.5) mg/dL Total Bilirubin (0.15-1.2) mg/dL AST (0-40) U/L ALT (0-41) U/L Alkaline Phosphata se (40-130) IU/L Total Protein (6.6-8.7) g/dL Albumin (3.5-5.2) g/dL Globulin (1.3-4.6) g/dL Lipase (13-60) U/L Urine Color Yellow (Yellow) Urine Appearance Sl hazy (CLEAR) Urine pH 5 (5-7) Ur Specific Gravit y 1.020 (1.005-1.030) Urine Protein Trace (Negative) Urine Glucose (UA) Norm (Normal) Urine Ketones Negative (Negative) Urine Blood 2+ H (Negative) Urine Nitrate Negative (Negative) Urine Bilirubin 2+ H (Negative) Urine Urobilinogen Norm (Negative) mg/dL Ur Leukocyte Dedra ase Negative (Negative) Urine RBC 5-10 H (0-2) /hpf Urine WBC Rare (0-5) /hpf Ur Squamous Epith Cells None (0-5) /hpf Amorphous Sediment 1+ /hpf Urine Bacteria Trace (NONE) /hpf Coarse Granular Ca sts 0-4 H /lpf Urine Mucus 1+ /hpf Serum Ketones (Negative) Discharge Plan Discharge Admit Provider: Conner Sauer Coding Level of Care Code ED Diorama Model Maker for Chg Fwd Exam Comprehensive Documented by User: Lillian Pope MD 10/15/20 19:47 HPI - Abdominal Pain General: Chief Complaint: Abdominal Pain Stated Complaint: ABD PAIN Time Seen by Provider: 10/15/20 08:30 [facility] ED PFSH: Medical History (Updated 10/15/20 @ 15:29 by Conner Sauer MD) Abdominal pain Anemia Anxiety reaction Carotid artery disease Cholelithiasis CKD (chronic kidney disease) stage 4, GFR 15-29 ml/min Crohn's disease CVA (cerebral vascular accident) Residual right-sided weakness Depression Diabetes mellitus Diverticulitis Gastroesophageal reflux Mild gastritis on EGD 2011 GI bleeding History of common carotid artery stent placement Hyperkalemia Hypertension Lactic acidosis Nephrolithiasis Obsessive compulsive disorder Partial small bowel obstruction Peripheral arterial occlusive disease Small bowel obstruction Surgical History History of colonoscopy 02/2012 --active Crohn's disease at ileocolic anastomosis History of esophagogastroduodenoscopy 02/2012 --mild gastritis History of lithotripsy x 2 History of resection of small bowel x 1-2 History of right hemicolectomy Social History Smoking and tobacco status: never smoked Course Vital Signs: Vital signs: Vital Signs Temperature 98.1 F 10/15/20 16:54 Pulse Rate 120 H 10/15/20 17:45 Respiratory Rate 50 H 10/15/20 17:45 Blood Pressure 109/47 10/15/20 17:30 Pulse Oximetry 96 10/15/20 17:59 MDM - Abdominal Pain MDM Narrative: Medical decision making narrative: Received call from radiologist with critical findings on CT; possible cholecystitis, small bowel wall thickening, marked constipation. Discussed the case with our surgeon communications designer, Dr. Fowler. He requested right upper quadrant sono to further evaluate the gallbladder, but he does not think it is a source of his sepsis. Still awaiting urinalysis, broad-spectrum antibiotics have been started. UA does not show any acute infection. Right upper quadrant sono does not show any obvious acute cholecystitis. Discussed again with Dr. Fowler, he recommends continuing antibiotics for suspected colitis and continued fluid resuscitation, admit to ICU. No surgical intervention at this time, but he will continue to consult as an inpatient. Repeat lactic acid had decreased slightly to 4.8. Medical Records: Attestation: I reviewed the patient's medical records. Lab Data: Labs: Lab Results 10/15/20 10/15/20 10/15/20 Range/Units 08:33 08:52 08:52 WBC 28.2 H (4.0-10.0) 10^3/ uL RBC 3.18 L (4.1-5.3) 10^6/u L Hgb 10.3 L (11.7-16.6) g/dL Hct 31.8 L (42.0-52.0) % MCV 100.0 H (80-94) fL MCH 32.4 (28.0-34.0) pg MCHC 32.4 (30.0-36.0) g/dL RDW 13.8 (12.1-15.1) % Plt Count 267 (130-400) 10^3/c mm MPV 11.5 H (7.4-10.4) fL Neut % (Auto) 91.3 % Lymph % (Auto) 1.7 % Culberson % (Auto) 6.3 % Eos % (Auto) 0.0 % Baso % (Auto) 0.1 % Neut # (Auto) 25.72 H (1.8-7.7) 10^3/u L Lymph # (Auto) 0.5 L (0.8-4.8) 10^3/u L Culberson # (Auto) 1.8 H (0.2-0.9) 10^3/u L Eos # (Auto) 0.0 (0.0-0.8) 10^3/u L Baso # (Auto) 0.0 (0.0-0.1) 10^3/u L Nucleated RBC % (a uto) 0 % Nucleated RBCs # 0.0 /100WBC PT 16.80 H (12.1-14.9) SECO NDS INR 1.32 H (0.8-1.2) APTT 27.6 (23.9-36.7) SECO NDS D-Dimer 3.96 H (0-0.59) ug/mIFE U Sodium (136-145) mmol/L Potassium (3.5-5.1) mmol/L Chloride (98-107) mmol/L Carbon Dioxide (22-29) mmol/L Anion Gap (5-19) BUN (8-23) mg/dL Creatinine (0.7-1.2) mg/dL GFR Calculation (90-130) mL/min Glucose (65-115) mg/dL POC Glucose 363 H (70-110) mg/dL Calculated Osmolal ity (285-295) mOsm/k g Lactate (0.5-2.2) mmol/L Calcium (8.5-10.5) mg/dL Total Bilirubin (0.15-1.2) mg/dL AST (0-40) U/L ALT (0-41) U/L Alkaline Phosphata se (40-130) IU/L Total Protein (6.6-8.7) g/dL Albumin (3.5-5.2) g/dL Globulin (1.3-4.6) g/dL Lipase (13-60) U/L Urine Color (Yellow) Urine Appearance (CLEAR) Urine pH (5-7) Ur Specific Gravit y (1.005-1.030) Urine Protein (Negative) Urine Glucose (UA) (Normal) Urine Ketones (Negative) Urine Blood (Negative) Urine Nitrate (Negative) Urine Bilirubin (Negative) Urine Urobilinogen (Negative) mg/dL Ur Leukocyte Dedra ase (Negative) Urine RBC (0-2) /hpf Urine WBC (0-5) /hpf Ur Squamous Epith Cells (0-5) /hpf Amorphous Sediment /hpf Urine Bacteria (NONE) /hpf Coarse Granular Ca sts /lpf Urine Mucus /hpf Serum Ketones (Negative) 10/15/20 10/15/20 10/15/20 Range/Units 08:52 08:52 08:52 WBC (4.0-10.0) 10^3/ uL RBC (4.1-5.3) 10^6/u L Hgb (11.7-16.6) g/dL Hct (42.0-52.0) % MCV (80-94) fL MCH (28.0-34.0) pg MCHC (30.0-36.0) g/dL RDW (12.1-15.1) % Plt Count (130-400) 10^3/c mm MPV (7.4-10.4) fL Neut % (Auto) % Lymph % (Auto) % Culberson % (Auto) % Eos % (Auto) % Baso % (Auto) % Neut # (Auto) (1.8-7.7) 10^3/u L Lymph # (Auto) (0.8-4.8) 10^3/u L Culberson # (Auto) (0.2-0.9) 10^3/u L Eos # (Auto) (0.0-0.8) 10^3/u L Baso # (Auto) (0.0-0.1) 10^3/u L Nucleated RBC % (a uto) % Nucleated RBCs # /100WBC PT (12.1-14.9) SECO NDS INR (0.8-1.2) APTT (23.9-36.7) SECO NDS D-Dimer (0-0.59) ug/mIFE U Sodium 136 (136-145) mmol/L Potassium 3.4 L (3.5-5.1) mmol/L Chloride 95 L (98-107) mmol/L Carbon Dioxide 18 L (22-29) mmol/L Anion Gap 26.4 H (5-19) BUN 91 H* D (8-23) mg/dL Creatinine 4.1 H (0.7-1.2) mg/dL GFR Calculation 14.6 L (90-130) mL/min Glucose 284 H (65-115) mg/dL POC Glucose (70-110) mg/dL Calculated Osmolal ity 320 H (285-295) mOsm/k g Lactate 5.5 H* (0.5-2.2) mmol/L Calcium 8.7 (8.5-10.5) mg/dL Total Bilirubin 0.3 (0.15-1.2) mg/dL AST 24 (0-40) U/L ALT 14 (0-41) U/L Alkaline Phosphata se 74 (40-130) IU/L Total Protein 6.5 L (6.6-8.7) g/dL Albumin 3.4 L (3.5-5.2) g/dL Globulin 3.1 (1.3-4.6) g/dL Lipase 23 (13-60) U/L Urine Color (Yellow) Urine Appearance (CLEAR) Urine pH (5-7) Ur Specific Gravit y (1.005-1.030) Urine Protein (Negative) Urine Glucose (UA) (Normal) Urine Ketones (Negative) Urine Blood (Negative) Urine Nitrate (Negative) Urine Bilirubin (Negative) Urine Urobilinogen (Negative) mg/dL Ur Leukocyte Dedra ase (Negative) Urine RBC (0-2) /hpf Urine WBC (0-5) /hpf Ur Squamous Epith Cells (0-5) /hpf Amorphous Sediment /hpf Urine Bacteria (NONE) /hpf Coarse Granular Ca sts /lpf Urine Mucus /hpf Serum Ketones Negative (Negative) 10/15/20 10/15/20 10/15/20 Range/Units 10:33 12:25 13:28 WBC (4.0-10.0) 10^3/ uL RBC (4.1-5.3) 10^6/u L Hgb (11.7-16.6) g/dL Hct (42.0-52.0) % MCV (80-94) fL MCH (28.0-34.0) pg MCHC (30.0-36.0) g/dL RDW (12.1-15.1) % Plt Count (130-400) 10^3/c mm MPV (7.4-10.4) fL Neut % (Auto) % Lymph % (Auto) % Culberson % (Auto) % Eos % (Auto) % Baso % (Auto) % Neut # (Auto) (1.8-7.7) 10^3/u L Lymph # (Auto) (0.8-4.8) 10^3/u L [place]berson # (Auto) (0.2-0.9) 10^3/u L Eos # (Auto) (0.0-0.8) 10^3/u L Baso # (Auto) (0.0-0.1) 10^3/u L Nucleated RBC % (a uto) % Nucleated RBCs # /100WBC PT (12.1-14.9) SECO NDS INR (0.8-1.2) APTT (23.9-36.7) SECO NDS D-Dimer (0-0.59) ug/mIFE U Sodium (136-145) mmol/L Potassium (3.5-5.1) mmol/L Chloride (98-107) mmol/L Carbon Dioxide (22-29) mmol/L Anion Gap (5-19) BUN (8-23) mg/dL Creatinine (0.7-1.2) mg/dL GFR Calculation (90-130) mL/min Glucose (65-115) mg/dL POC Glucose 200 H (70-110) mg/dL Calculated Osmolal ity (285-295) mOsm/k g Lactate 4.8 H* (0.5-2.2) mmol/L Calcium (8.5-10.5) mg/dL Total Bilirubin (0.15-1.2) mg/dL AST (0-40) U/L ALT (0-41) U/L Alkaline Phosphata se (40-130) IU/L Total Protein (6.6-8.7) g/dL Albumin (3.5-5.2) g/dL Globulin (1.3-4.6) g/dL Lipase (13-60) U/L Urine Color Yellow (Yellow) Urine Appearance Sl hazy (CLEAR) Urine pH 5 (5-7) Ur Specific Gravit y 1.020 (1.005-1.030) Urine Protein Trace (Negative) Urine Glucose (UA) Norm (Normal) Urine Ketones Negative (Negative) Urine Blood 2+ H (Negative) Urine Nitrate Negative (Negative) Urine Bilirubin 2+ H (Negative) Urine Urobilinogen Norm (Negative) mg/dL Ur Leukocyte Dedra ase Negative (Negative) Urine RBC 5-10 H (0-2) /hpf Urine WBC Rare (0-5) /hpf Ur Squamous Epith Cells None (0-5) /hpf Amorphous Sediment 1+ /hpf Urine Bacteria Trace (NONE) /hpf Coarse Granular Ca sts 0-4 H /lpf Urine Mucus 1+ /hpf Serum Ketones (Negative) Discharge Plan Discharge Admit Provider: Conner Sauer Coding Level of Care Code ED Diorama Model Maker for Chg Fwd Exam Comprehensive
--- NOTE | 2020-10-15 08:50 | XRR_ITS ---
PROCEDURE INFORMATION: Exam: XR Abdomen Exam date and time: 10/15/2020 8:59 AM Clinical indication: Patient status: Other: Feeding tube pain; Pain: Pain around feeding tube; Prior surgery; Additional info: Abd pain, feeding tube TECHNIQUE: Imaging protocol: XR of the abdomen. Views: Frontal supine view of the abdomen. 1 View. COMPARISON: No relevant prior studies available. FINDINGS: Gastrointestinal tract: Gastrostomy bowel gas pattern is nonspecific. Air filled large bowel including distal rectal gas. Scattered loops of air filled small bowel none of which are dilated. Moderate to large amount of stool throughout the large bowel. Organs: Gallstone. At least 3 renal calcifications on the left Bones/joints: Prior hip arthroplasty bilateral XR/XR [id number] IMPRESSION: 1. Bowel gas pattern is nonspecific. Air filled large bowel including distal rectal gas. 2. Moderate to large amount of stool throughout the large bowel.
[2020-10-15 09:01] LABS: Basophils % 0.1 %; Hematocrit 31.8 % (42.0-52.0); Hemoglobin 10.3 g/dL (11.7-16.6); Lymphocytes # 0.5 10^3/uL (0.8-4.8); Lymphocytes % 1.7 %; Mean Corpuscular HGB Conc 32.4 g/dL (30.0-36.0); Mean Corpuscular Hemoglobin 32.4 pg (28.0-34.0); Mean Platelet Volume 11.5 fL (7.4-10.4); Monocytes # 1.8 10^3/uL (0.2-0.9); Monocytes % 6.3 %; Neutrophils # 25.72 10^3/uL (1.8-7.7); Neutrophils % 91.3 %; Nucleated Red Blood Cells % 0 %; Platelet Count 267 10^3/cmm (130-400); Red Blood Count 3.18 10^6/uL (4.1-5.3); Red Cell Distribution Width 13.8 % (12.1-15.1); White Blood Count 28.2 10^3/uL (4.0-10.0)
--- NOTE | 2020-10-15 09:04 | PC.NURSE ---
arrives with spoiled under pad. White pasty stool. Noted skin break down in buttocks area, No bleeding noted. NS infusing in left hand , 24 g.
[2020-10-15] MEDS: fentaNYL 50 mcg/mL INJ 2mL 25 MCG IVP (09:07)
[2020-10-15] MEDS: sodium chloride 0.9% 1,000 ML 999 ML IV ×2 (09:08→10:19)
[2020-10-15 09:32] LABS: Ketone (Acetest) Serum Negative (Negative)
[2020-10-15 09:34] LABS: INR 1.32 (0.8-1.2)
[2020-10-15 09:35] LABS: Partial Thromboplastin Time 27.6 SECONDS (23.9-36.7)
[2020-10-15 09:44] LABS: D Dimer 3.96 ug/mIFEU (0-0.59)
[2020-10-15 09:48] LABS: Alanine Aminotransferase 14 U/L (0-41); Albumin Level 3.4 g/dL (3.5-5.2); Alkaline Phosphatase 74 IU/L (40-130); Anion Gap 26.4 (5-19); Aspartate Amino Transferase 24 U/L (0-40); Calcium 8.7 mg/dL (8.5-10.5); Carbon Dioxide 18 mmol/L (22-29); Chloride 95 mmol/L (98-107); Globulin 3.1 g/dL (1.3-4.6); Glomerular Filtration Rate 14.6 mL/min (90-130); Glucose 284 mg/dL (65-115); Lipase 23 U/L (13-60); Osmolality Calculated 320 mOsm/kg (285-295); Potassium 3.4 mmol/L (3.5-5.1); Sodium 136 mmol/L (136-145); Total Bilirubin 0.3 mg/dL (0.15-1.2); Total Protein 6.5 g/dL (6.6-8.7)
[2020-10-15 10:13] LABS: Blood Urea Nitrogen 91 mg/dL (8-23); Lactate (Lactic Acid level) 5.5 mmol/L (0.5-2.2)
[2020-10-15] MEDS: piperacillin-tazobactam 3.375 GM in sodium chloride 0.9% (plus) 50 ML IV ×2 (10:16→10:35)
--- NOTE | 2020-10-15 10:37 | PC.NURSE ---
Cleaned and repositioned pt. Placed Vincent cath
--- NOTE | 2020-10-15 10:51 | USR_ITS ---
PROCEDURE INFORMATION: Exam: US Abdomen, Limited; Right Upper Quadrant Exam date and time: 10/15/2020 11:06 AM Age: 70 years old Clinical indication: Abnormal findings; Abnormal radiologic finding of the abdomen; Radiologic exam and body structure: CT abdomen; Patient HX: Patient has g-tube; Additional info: Abnormal CT TECHNIQUE: Imaging protocol: US abdomen. Real time ultrasound with image documentation. Limited exam focused on the right upper quadrant. COMPARISON: CR (ABDOMEN, ) 10/15/2020 8:47 AM FINDINGS: Liver: liver is mildly echogenic likely related to fatty infiltration. Liver 13 cm Flow within the portal vein is towards the liver- hepatopedal Gallbladder: 2.2 cm gallstone within the neck of the gallbladder. Question mild gallbladder wall thickening. Consider hepatobiliary imaging if indicated. Common bile duct: Common bile duct 5 mm Common bile duct normal. Pancreas: Pancreas not visualized secondary to bowel gas. Right kidney: Small atrophic echogenic right kidney. 7 cm. Simple appearing 3 cm cyst inferiorly. Aorta: Aorta and inferior vena cava poorly visualized secondary to bowel gas. Intraperitoneal space: Small amount of fluid in Underwood's pouch. US/US gall bladder [id number] IMPRESSION: 1. 2.2 cm gallstone within the neck of the gallbladder. Question mild gallbladder wall thickening. Consider hepatobiliary imaging if indicated. 2. Pancreas not visualized secondary to bowel gas. 3. Liver is mildly echogenic likely related to fatty infiltration. Left lobe poorly visualized secondary to bowel gas. 4. Small amount of fluid in Underwood's pouch.
--- NOTE | 2020-10-15 10:52 | P.CONIM_ITS ---
Providers/Reason For Consult Consulting Physican/Specialty*: Renaldo Fowler MD Reason for Consult*: Abdominal pain Requesting Physcian: Dr. Pope Primary Care Provider: Bryan Garcia DO History of Present Illness History of Present Illness Chief Complaint: Abdominal pain History of present illness: Mr. Rodger Barbosa is a 70 year old male with multiple medical comorbidities: Anxiety, depression, peripheral vascular disease, hypertension, gastroesophageal reflux disease, diabetes mellitus, CVA, and Crohn's disease who presented to the hospital with acute onset of abdominal pain. Patient is nonverbal does not give much of history but he points to the suprapubic region a t the clinical encounter, further work-up showed leukocytosis of 28,000+, hemoglobin of 10.3 g, platelet count 2 67,000 and neutrophil of 25.72. INR 1.32, potassium 3.4, blood urea nitrogen 91 and serum creatinine 4.1. Serum lactic acid 5.5 mmol and LFTs within normal limits Chest x-ray Lungs are well aerated without a focal area of consolidation. KUB 1. Bowel gas pattern is nonspecific. Air filled large bowel including distal rectal gas. 2. Moderate to large amount of stool throughout the large bowel. CT abdomen pelvis was performed without contrast which showed: IMPRESSION: 1. Moderate amount of stool in the rectosigmoid region. Air and stool throughout much of the large bowel. Suspected colitis. Possible sterocoral colitis. Prior right hemicolectomy. 2. Scattered loops of air-filled nondilated small bowel. Mild thickening of the small bowel in the right upper abdomen. Mild inflammation in the fat. Possible enteritis. Possibly related to the adjacent distended gallbladder with gallstone. 3. Gallstone. Distended gallbladder. Question mild inflammation. Consider follow-up ultrasound. 4. Mild basilar atelectasis bilaterally right greater than left. Tiny right pleural effusion. General surgery was consulted for further evaluation for concern of the gallbladder would be the source of patient's septic picture. Patient was seen and evaluated in the emergency room #12. Patient was recently seen in my office for potential explantation of feeding tube yet I did request medical records from outside facility to review before any explantation. Review of Systems General: Reports: ROS unobtainable due to medical condition Meds/Allergies Home Medications and Allergies Home Medications Medication Instructions Recorded Confirmed Last Taken Type Lantus Solostar U-100 Insulin 7 unit SUBCUT BEDTIME 10/23/19 08/31/20 06/29/20 History acetaminophen 650 mg PO Q4H PRN 10/23/19 08/31/20 06/29/20 History citalopram 40 mg PO DAILY 10/23/19 08/31/20 06/29/20 History docusate sodium 100 mg PO BID PRN 10/23/19 08/31/20 01/05/19 History lorazepam 0.5 mg PO BID 10/23/19 08/31/20 06/30/20 History risperidone 0.25 mg PO DAILY 10/23/19 08/31/20 06/30/20 History risperidone 0.5 mg PO BEDTIME 10/23/19 08/31/20 06/29/20 History sodium bicarbonate 1,300 mg PO TID 10/23/19 08/31/20 06/30/20 History sulfasalazine 1,000 mg PO TID 10/23/19 08/31/20 06/30/20 History Orajel 3X Mouth Sores 1 ea MUCOUS MEMBRANE QID PRN 06/18/20 08/31/20 Unknown History alum-mag hydroxide-simeth 30 ml PO QID PRN 06/18/20 08/31/20 Unknown History aspirin 81 mg PO DAILY 06/18/20 08/31/20 06/30/20 History diclofenac sodium 4 g TOPICAL BID 06/18/20 08/31/20 06/30/20 History diphenoxylate-atropine [Lomotil] 1 tab PO QID PRN 06/18/20 08/31/20 06/29/20 History pyridoxine (vitamin B6) 50 mg PO DAILY 06/18/20 08/31/20 06/30/20 History hydrocodone-acetaminophen 1 tab PO Q8H PRN 06/30/20 08/31/20 06/30/20 History bisacodyl 10 mg WI DAILY PRN 10/15/20 10/15/20 10/14/20 History calcitriol See Rx Instructions .ROUTE .COMPLEX 10/15/20 10/15/20 10/14/20 History carvedilol 6.25 mg PO BID@0700,1900 10/15/20 10/15/20 10/15/20 History famotidine 20 mg PO DAILY PRN 10/15/20 10/15/20 Unknown History glucagon (human recombinant) 1 mg SUBCUT Q20M PRN 10/15/20 10/15/20 08/30/19 History [GlucaGen HypoKit] insulin lispro [Humalog Alex See Rx Instructions .ROUTE .COMPLEX 10/15/20 10/15/20 10/15/20 History KwikPen U-100] miconazole nitrate 1 spray TOPICAL BID 10/15/20 10/15/20 10/09/20 History pantoprazole [Protonix] 40 mg FEEDING TUBE DAILY 10/15/20 10/15/20 10/15/20 History Allergies Allergy/AdvReac Type Severity Reaction Status Date / Time morphine Allergy Unknown Verified 10/15/20 11:17 Current Medications Current Medications Generic Name Dose Route Start Last Admin Trade Name Freq PRN Reason Stop Dose Admin Sodium Chloride 1,000 mls @ 999 mls/hr 10/15/20 10:15 10/15/20 10:19 Sodium Chloride 0.9% IV 10/15/20 11:15 999 mls/hr .Q1H1M ONE Administration Piperacillin Sod/Tazobactam 50 mls @ 100 mls/hr 10/15/20 10:33 10/15/20 10:35 Sod 3.375 gm/ Sodium Chloride IV 10/15/20 11:02 100 mls/hr ONCE ONE Administration Protocol PFSH Acute PFSH: Medical History Abdominal pain Anemia Anxiety reaction Carotid artery disease Cholelithiasis CKD (chronic kidney disease) stage 4, GFR 15-29 ml/min Crohn's disease CVA (cerebral vascular accident) Residual right-sided weakness Depression Diabetes mellitus Diverticulitis Gastroesophageal reflux Mild gastritis on EGD 2011 GI bleeding History of common carotid artery stent placement Hyperkalemia Hypertension Lactic acidosis Nephrolithiasis Obsessive compulsive disorder Partial small bowel obstruction Peripheral arterial occlusive disease Small bowel obstruction Surgical History History of colonoscopy 02/2012 --active Crohn's disease at ileocolic anastomosis History of esophagogastroduodenoscopy 02/2012 --mild gastritis History of lithotripsy x 2 History of resection of small bowel x 1-2 History of right hemicolectomy Social History Smoking and tobacco status: never smoked Vitals/I&O/Wt Last Vital Signs Temp 97.9 F 10/15/20 08:21 Pulse 124 H 10/15/20 10:01 Resp 20 H 10/15/20 10:01 BP 103/64 10/15/20 10:01 Pulse Ox 94 10/15/20 10:01 Weight last 48 hrs Weight 125 lb Physical Exam Narrative: EXAM NARRATIVE: Patient is conscious alert nonverbal BMI 20.2 Head and neck examination PERRLA no masses no cervical lymphadenopathy no jaundice Cardiac examination audible S1-S2 no murmurs no gallops no arrhythmias Chest is clear bilateral,abscence of Rhonchi or wheezes,no surgical emphysema Abdomen tenderess mostly appreciated towards the lower abdomen with maximal tenderness in the suprapubic region, right upper quadrant no tenderness appreciated clinical. Epigastric area shows G-tube in place with gastric content nondistended soft no organomegaly Vincent catheter in place with scant urine Diaper bedside shows white pasty stool no evidence of bleeding Extremities no cyanosis no clubbing no edema Urinary Catheter Management^: Vincent: Cath Placed During This Visit: yes Urinary Catheter Date of Insertion: 10/15/20 Urinary Catheter Time of Insertion: 10:50 Data Micro: Micro: Microbiology 10/15/20 08:46 Blood Culture - Pr eliminary Blood SPECIMEN [facility] 10/15/20 08:45 Blood Culture - Pr eliminary Blood SPECIMEN [facility] A&P Assessment and plan (1) Abdominal pain: After history taking physical examination and reviewing the chart and images with my personal interpretation, patient gives a picture of sepsis he wi ll require ICU admission, based on my physical exam I doubt that the patient gives a picture of gallbladder involvement yet I will recommend to obtain an ultrasound of the gallbladder and if continues to be a concern that the gallbladder is the source patient would benefit from a cholecystostomy tube. I did not appreciate pericholecystic fluid on the CT scan but an ultrasound would be more appropriate, LFTs are normal no biliary dilation to suggest ascending cholangitis with obstructive nature. Giving the fact that the patient has maximal tenderness in the suprapubic region I would be more leaning for urosepsis, concern for enterocolitis is a possibility yet the patient does not have toxic megacolon Or pneumatosis.In addition the patient is very dehydrated will require with IV fluid resu scitation. Broad-spectrum antibiotics after cultures are obtained ICU admission Repeated physical examination N.p.o. Repeat lactic acid per protocol Strict I's and O's Continuous telemetry and cardiac monitoring We will follow as a consult Thank you for consulting general surgery to participate taking care Mr. Barbosa Status: Resolved Qualifiers: Abdominal location: unspecified location Qualified Code(s): R10.9 - Unspecified abdominal pain Consult Attestations Medical Necessity Statement: Inpatient hospitalization for management of sepsis and identification of the source Time Spent in Patient Care: (>than 50% of time spent in counselling and/or direct pt care on unit) . Coding Level of Care Code Acute Appeals Officer for Chg Fwd Diagnoses Abdominal pain R10.9 Abdominal location: unspecified location
[2020-10-15 11:20] LABS: Add Urine Microscopic? YES; Bilirubin Urine 2+ (Negative); Blood Urine 2+ (Negative); Glucose Urine UA Norm (Normal); Ketones Urine Negative (Negative); Leukocyte Esterase Urine Negative (Negative); Nitrate Urine Negative (Negative); Protein Urine Trace (Negative); Urine Appearance SL Hazy (CLEAR); Urine Color Yellow (Yellow); Urobilinogen Urine Norm (Negative); pH Urine 5 (5-7)
[2020-10-15 11:21] LABS: Add Urine Culture? No; Amorphous Sediment Urine 1+ /hpf; Bacteria Urine TRACE /hpf; Coarse Granular Casts Urine 0-4 /lpf; Mucus Urine 1+ /hpf; WBC Urine RARE /hpf (0-5)
[2020-10-15 13:16] LABS: Lactate (Lactic Acid level) 4.8 mmol/L (0.5-2.2)
--- NOTE | 2020-10-15 13:22 | PC.NURSE ---
New IV in left forearm, NS infusing on pump
--- NOTE | 2020-10-15 13:23 | PC.NURSE ---
Cleaned and repositioned pt. Juaquin color stool and anus area tender to touch and excoriation
[2020-10-15 13:31] LABS: Glucose Point of Care 200 mg/dL (70-110)
[2020-10-15] MEDS: sodium chloride 0.9% 1,000 ML 150 ML IV ×2 (13:31→20:34)
[2020-10-15] MEDS: vancomycin 1,000 MG in sodium chloride 0.9% 250 ML 250 MG IV (14:27)
--- NOTE | 2020-10-15 14:49 | PC.NURSE ---
Cleaned and changed soiled diaper.
--- NOTE | 2020-10-15 15:11 | CTR_ITS ---
PROCEDURE INFORMATION: Exam: CT Chest Without Contrast; Diagnostic Exam date and time: 10/15/2020 3:32 PM Age: 70 years old Clinical indication: Shortness of breath; Additional info: SOB TECHNIQUE: Imaging protocol: Diagnostic computed tomography of the chest without contrast. Radiation optimization: All CT scans at this facility use at least one of these dose optimization techniques: automated exposure control; mA and/or kV adjustment per patient size (includes targeted exams where dose is matched to clinical indication); or iterative reconstruction. COMPARISON: CT angio chest PE protcl [id number] 06/30/2020 4:07 PM RADIATION DOSE METRICS: Total DLP (mGy-cm): 691.14 FINDINGS: Tubes, catheters and devices: Gastrostomy tube in the mid gastric body. Lungs: Mild emphysematous changes of lungs. Mild right lower lobe compressive atelectasis. No focal pulmonary consolidation. No focal endobronchial lesion. No peripheral honeycombing. No septal thickening. Pleural spaces: Trace volume layering right pleural effusion. Heart: Unremarkable. No cardiomegaly. No pericardial effusion. Mediastinal space: Questionable very mild circumferential wall thickening mid through distal esophagus but this is not well characterized. No fluid collection within mediastinum. No soft tissue inflammation within mediastinum. Aorta: Mild to moderate atherosclerotic plaques of aortic arch and great vessel origins. No aneurysm. Great vessels off aortic arch: Partial visualization of a stent in the right carotid artery. Lymph nodes: Unremarkable. No enlarged lymph nodes. Gallbladder and bile ducts: Large round calcified gallstone. Gallbladder is dilated but this feature is similar to prior. No inflammatory gallbladder wall thickening is apparent. Kidneys and ureters: Severe cortical atrophy of both kidneys. Intraperitoneal space: Small volume perihepatic ascites. Bones/joints: Left shoulder arthroplasty with unremarkable alignment. Severe right shoulder glenohumeral joint arthritis. Soft tissues: Unremarkable. CT/CT chest wo con [id number] IMPRESSION: 1. No focal acute pulmonary disease. 2. Small volume right pleural effusion with a mild right lower lobe compressive atelectasis. 3. Small right perihepatic space free fluid volume. 4. Cholelithiasis. Radiation Dose CTDIVOL = (mGy): DLP = 691.14 (mGy-cm)
--- NOTE | 2020-10-15 15:11 | ECG_ITS ---
[facility] Test Date: 2020-10-15 Pat Name: Rodger Barbosa Department: Room: ICU12 Gender: Male [employer] Supervisor: : [id number] Requested By: Conner Sauer Order Number: [id number] Shaquille MD: Saurav Allen M.D. Measurements Intervals [place] Rate: 110 P: 52 NV: 92 QRS: 50 QRSD: 92 T: 89 QT: 370 QTc: 502 Interpretive Statements SINUS TACHYCARDIA WITH SHORT NV INTERVAL WITH OCCASIONAL SUPRAVENTRICULAR PREMATURE COMPLEXES NONSPECIFIC T-WAVE ABNORMALITY Compared to ECG 06/30/2020 10:24:41 Sinus rhythm no longer present T-wave abnormality still present Electronically Signed On 10-15-2020 16:57:57 CORRECTIONAL PROGRAM SPECIALIST by Saurav Allen M.D. [email or web address]
--- NOTE | 2020-10-15 15:16 | PM.HP ---
Providers/Chief Complaint Primary Care Provider: Bryan Garcia DO Chief Complaint: ABD PAIN History of Present Illness Rodger Barbosa is a 70 year old male with a past medical history of CVA with productive aphasia, PEG tube dependent, at baseline can ambulate with a walker, communicates through head nods and writing sometimes, DNR/DNI, history of GI bleed, history of Crohn's disease status post bowel resection, history of CKD stage IV, history of chronic anemia, history of hypertension, history of insulin-dependent type 2 diabetes mellitus, history of multiple CVAs, history of carotid artery disease, history of nephrolithiasis with history of lithotripsy, recently hospitalization for partial small bowel obstruction, who presents to [facility] from [facility] correction due to complaints of abdominal pain. History taking from the patient is difficult, I have received most of the history from the nurses at take care of him at [facility]. Nurses at [facility] tell me that over the last 3 days patient has been complaining of abdominal pain, he points to his lower abdomen, no fevers that they noticed, no vital abnormalities at least over the weekend, no fevers, no diarrhea, he actually was having large bowel movements over the weekend, but continues to complain of lower abdominal pain. This morning he continued to have abdominal pain, poor appetite, did not have anything to eat, they noticed that he was tachycardic heart rates in the 110's, so they brought him to [facility] for further evaluation. In the emergency room, patient was found to be septic, blood pressures 90s over 40s, improving with fluid hydration, white blood cell count 28.2, INR 1.32, D-dimer 3.96 creatinine 4.1, BUN 91, bicarb 18, lactic acid 4.8, UA possible indicates UTI, chest x-ray no focal pneumonia, CT of the abdomen pelvis does not show any significant infectious source, no obstructive nephrolithiasis, right upper quadrant ultrasound does not show significant evidence of cholecystitis, CT scan of the abdomen pelvis does not show significant evidence of mesenteric ischemia, case was discussed with general surgery. Currently patient is in septic shock secondary to UTI, I will discuss with urology on reviewing the CT scans to make sure there is no obstructive uropathy, patient has received Zosyn and vancomycin in the ER, has received sepsis bolus. I was able to tell the patient's DPOA Torin Chelsey, 4 #[phone], who confirmed that patient is DNR/DNI, he was okay with central line placement, does not want aggressive interventions, I have advised him of patient's critical status, will keep him updated Review of Systems General: Reports: ROS unobtainable due to medical condition GI: Reports: abdominal pain Medications/Allergies Home Medications Medication Instructions Recorded Confirmed Last Taken Type Lantus Solostar U-100 Insulin 7 unit SUBCUT BEDTIME 10/23/19 10/15/20 10/15/20 History acetaminophen 650 mg PO Q4H PRN 10/23/19 10/15/20 10/12/20 History citalopram 40 mg FEEDING TUBE DAILY 10/23/19 10/15/20 10/15/20 06:00 History docusate sodium 100 mg PO BID PRN 10/23/19 10/15/20 01/05/19 History lorazepam 0.5 mg PO BID@0600,1900 10/23/19 10/15/20 10/15/20 History risperidone 0.25 mg PO DAILY@0600 10/23/19 10/15/20 10/15/20 History risperidone 0.5 mg PO BEDTIME@1900 10/23/19 10/15/20 10/14/20 History sodium bicarbonate 1,300 mg FEEDING TUBE 10/23/19 10/15/20 10/15/20 History TID@0600,1200,1900 sulfasalazine 1,000 mg PO TID 10/23/19 10/15/20 10/15/20 History Orajel 3X Mouth Sores 1 ea MUCOUS MEMBRANE QID PRN 06/18/20 10/15/20 Unknown History alum-mag hydroxide-simeth 30 ml FEEDING TUBE QID PRN 06/18/20 10/15/20 Unknown History aspirin 81 mg PO DAILY@0600 06/18/20 10/15/20 10/15/20 06:07 History diclofenac sodium 4 g TOPICAL BID 06/18/20 10/15/20 10/15/20 History diphenoxylate-atropine [Lomotil] 1 tab FEEDING TUBE QID PRN 06/18/20 10/15/20 10/12/20 History pyridoxine (vitamin B6) 50 mg FEEDING TUBE DAILY@0600 06/18/20 10/15/20 10/15/20 History hydrocodone-acetaminophen 1 tab PO Q8H PRN 06/30/20 10/15/20 10/14/20 History bisacodyl 10 mg OH DAILY PRN 10/15/20 10/15/20 10/14/20 History calcitriol See Rx Instructions .ROUTE .COMPLEX 10/15/20 10/15/20 10/14/20 History carvedilol 6.25 mg PO BID@0700,1900 10/15/20 10/15/20 10/15/20 History famotidine 20 mg PO DAILY PRN 10/15/20 10/15/20 Unknown History glucagon (human recombinant) 1 mg SUBCUT Q20M PRN 10/15/20 10/15/20 08/30/19 History [GlucaGen HypoKit] insulin lispro [Humalog Alex See Rx Instructions .ROUTE .COMPLEX 10/15/20 10/15/20 10/15/20 History KwikPen U-100] miconazole nitrate 1 spray TOPICAL BID 10/15/20 10/15/20 10/09/20 History pantoprazole [Protonix] 40 mg FEEDING TUBE DAILY 10/15/20 10/15/20 10/15/20 History Allergies Allergy/AdvReac Type Severity Reaction Status Date / Time morphine Allergy Unknown Verified 10/15/20 11:17 PFSH Acute PFSH: Medical History Abdominal pain Anemia Anxiety reaction Carotid artery disease Cholelithiasis CKD (chronic kidney disease) stage 4, GFR 15-29 ml/min Crohn's disease CVA (cerebral vascular accident) Residual right-sided weakness Depression Diabetes mellitus Diverticulitis Gastroesophageal reflux Mild gastritis on EGD 2011 GI bleeding History of common carotid artery stent placement Hyperkalemia Hypertension Lactic acidosis Nephrolithiasis Obsessive compulsive disorder Partial small bowel obstruction Peripheral arterial occlusive disease Small bowel obstruction Surgical History History of colonoscopy 02/2012 --active Crohn's disease at ileocolic anastomosis History of esophagogastroduodenoscopy 02/2012 --mild gastritis History of lithotripsy x 2 History of resection of small bowel x 1-2 History of right hemicolectomy Social History Smoking and tobacco status: never smoked Vitals/I&O/Wt Last Vital Signs Temp 97.9 F 10/15/20 08:21 Pulse 114 H 10/15/20 15:00 Resp 18 10/15/20 15:00 BP 125/77 10/15/20 15:00 Pulse Ox 97 10/15/20 15:00 10/15/20 10/15/20 10/15/20 06:59 14:59 22:59 Intake Total 1000 / 1000 Balance 1000 / 1000 Weight last 48 hrs Weight 56.699 kg Physical Exam Const: EXAM LIMITATIONS: altered mental status GENERAL APPEARANCE: ill appearing and frail appearing ORIENTATION/CONSCIOUSNESS: Yes awake and Yes oriented to person; not oriented to place and not oriented to time OTHER: Difficult to assess, does seem to have altered mentation, has productive aphasia Eye: COMMON NORMALS: Equal, round and reactive pupils present Lymph: LYMPHATIC: no lymphadenopathy noted Chest: COMMONS NORMALS: normal inspection of the chest Resp: COMMON NORMALS: normal respiratory effort, No retractions, No use of accessory muscles and clear to auscultation bilaterally Cardio: COMMON NORMALS: no JVD RATE: tachycardic HEART SOUNDS: S1 normal heart sound present, S2 normal heart sound present and no murmurs GI: INSPECTION: Yes normal to inspection and Yes abdominal distension AUSCULTATION: Yes Hypoactive bowel sounds present PALPATION: Yes Tenderness to palpation present (GI) Details: LLQ, RLQ, LUQ and RUQ, No Guarding due to palpation present (GI) and No Rigid due to palpation PERCUSSION: normal to percussion OTHER: Long abdominal incision scar : COMMON NORMALS: Yes no CVA tenderness Extremity: COMMON NORMALS: capillary refill normal, no clubbing, cyanosis or edema and no pedal edema Neuro: OTHER: Difficult to do neurologic testing given patient's altered mentation, productive aphasia Urinary Catheter Management^: Vincent: Cath Placed During This Visit: yes Urinary Catheter Date of Insertion: 10/15/20 Urinary Catheter Time of Insertion: 10:50 Sepsis: Is patient septic: Yes Focused sepsis exam performed: Yes Date exam was performed: 10/15/20 Time exam was performed: 15:00 Data : 10/15/20 08:52 10/15/20 08:52 Micro: Microbiology 10/15/20 08:46 Blood Culture - Preliminary Blood SPECIMEN COLLECTED 10/15/20 08:45 Blood Culture - Preliminary Blood SPECIMEN COLLECTED A&P Assessment and plan (1) Septic shock: -Sepsis criteria met with hypotension, tachycardia, lactic acid 4.8, creatinine 4.1 -Source is likely cystitis -CT scan did not show any evidence of nephrolithiasis, or obstructive uropathy, but will have urology review scans Plan: -Admit to ICU -Blood cultures, sputum cultures, urine cultures -Stool studies ordered -Monitor hemodynamics closely, maintain MAP greater than 65, NICOM machine, if fluid responsive LR boluses if not fluid responsive will start Levophed -Avoid fluid overload -We will start tube feeds, Glucerna, if patient is not requiring significant amounts of Levophed -Broad-spectrum antibiotic therapy vancomycin, and Primaxin -Central line to be placed by ER physician -We will obtain CT of the chest -Pepcid for GI prophylaxis -Heparin for DVT prophylaxis -Patient is DNR/DNI -Patient's DPOA is Torin Barbosa [phone] Status: Acute (2) UTI (urinary tract infection): Status: Acute (3) Lactic acidosis: Status: Acute (4) Acute renal failure: Creatinine 4.1, has CKD stage IV, likely related to sepsis on top of chronic kidney disease, fluid as above Status: Acute (5) Diabetes mellitus: Low-dose sliding scale Status: Inactive Qualifiers: Diabetes mellitus type: type 2 Diabetes mellitus computer terminal operator insulin use: with computer terminal operator use Diabetes mellitus complication status: with neurologic complications Diabetes mellitus complication detail: with unspecified neuropathy Qualified Code(s): E11.40 - Type 2 diabetes mellitus with diabetic neuropathy, unspecified; Z79.4 - technician terminal and repeater (current) use of insulin (6) Anemia: hgb 10.3, will monitor Status: Acute (7) CKD (chronic kidney disease) stage 4, GFR 15-29 ml/min: Status: Inactive (8) 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, productive aphasia, Status: Acute (9) Hypertension: Status: Inactive Qualifiers: Hypertension type: essential hypertension Qualified Code(s): I10 - Essential (primary) hypertension (10) Abdominal pain: Status: Resolved Qualifiers: Abdominal location: unspecified location Qualified Code(s): R10.9 - Unspecified abdominal pain Attestations Medical Necessity Statement*: Patient requires hospitalization for sepsis, secondary to UTI, ICU admission, acute renal failure, lactic acidosis Coding Level of Care Code Acute Copper Roller Handler Printing for g Fwd Diagnoses Septic shock A41.9; R65.21 UTI (urinary tract infection) N39.0 Lactic acidosis E87.2 Acute renal failure N17.9 Diabetes mellitus E11.40; Z79.4 Diabetes mellitus type: type 2 Diabetes mellitus correction insulin use: with correction use Diabetes mellitus complication status: with neurologic complications Diabetes mellitus complication detail: with unspecified neuropathy Anemia D64.9 CKD (chronic kidney disease) stage 4, GFR 15-29 ml/min N18.4 CVA (cerebral vascular accident) I63.9 Hypertension I10 Hypertension type: essential hypertension Abdominal pain R10.9 Abdominal location: unspecified location Sepsis Event Note Evaluation Current stage of sepsis: severe sepsis Possible source: GI tract/intra-abdominal and genitourinary Focused Exam Vital Signs Temp Pulse Pulse Resp BP BP Pulse Ox 10/15/20 15:00 114 H 18 125/77 97 10/15/20 14:00 114 H 18 91/60 96 10/15/20 13:00 117 H 32 H 90/54 99 10/15/20 12:00 126 H 18 124/49 96 10/15/20 11:00 122 H 20 H 124/78 96 10/15/20 10:01 124 H 20 H 103/64 94 10/15/20 09:07 18 97 10/15/20 09:01 109 H 18 111/44 97 10/15/20 08:28 110 H 20 H 111/44 97 10/15/20 08:21 97.9 F 130 H 16 97/66 92 Respiratory exam: Absent accessory muscle use Cardiovascular exam: Present tachycardia Capillary refill: < 3 Seconds Peripheral pulse strength: 2+ Slightly Diminished Peripheral pulse location: Pedal Skin exam: pale Date exam was performed: 10/15/20 Time exam was performed: 15:28 Problem List (1) Abdominal pain: Status: Resolved (2) Septic shock: Status: Acute (3) UTI (urinary tract infection): Status: Acute (4) Lactic acidosis: Status: Acute (5) Acute renal failure: Status: Acute (6) Diabetes mellitus: Status: Inactive (7) Anemia: Status: Acute (8) CKD (chronic kidney disease) stage 4, GFR 15-29 ml/min: Status: Inactive (9) CVA (cerebral vascular accident): Status: Acute Comment: Residual right-sided weakness (10) Hypertension: Status: Inactive
--- NOTE | 2020-10-15 16:34 | PC.NURSE ---
Cleaned soiled diaper, repositioned for comfort. Keeping pt informed.
--- NOTE | 2020-10-15 17:11 | ECG_ITS ---
[facility] Test Date: 2020-10-15 Pat Name: Rodger Barbosa Department: Room: [facility]04 Gender: Male Per Diem Physical Therapist Assistant: : 1950 Requested By: Conner Sauer Order Number: [id number] Shaquille MD: Saurav Allen M.D. Measurements Intervals [place] Rate: 109 P: 56 AR: 117 QRS: 37 QRSD: 92 T: 68 QT: 351 QTc: 474 Interpretive Statements SINUS TACHYCARDIA WITH SHORT AR INTERVAL WITH OCCASIONAL SUPRAVENTRICULAR PREMATURE COMPLEXES NONSPECIFIC T-WAVE ABNORMALITY ABNORMAL RHYTHM ECG Compared to ECG 10/15/2020 15:46:53 No significant changes Electronically Signed On 10-16-2020 19:02:08 CHILD NEUROLOGIST by Saurav Allen M.D. [email or web address] medical [email or web address] memorial [email or web address].[id number]
[2020-10-15 17:12] LABS: Troponin(5th) Baseline 118 ng/L (0-15)
[2020-10-15] MEDS: heparin 5,000 unit/mL INJ 1 mL 5000 UNIT SUBCUT (17:24)
[2020-10-15 17:26] LABS: Glucose Point of Care 200 mg/dL (70-110)
[2020-10-15 17:53] LABS: ABG PCO2 28.3 mmHg (35-45); ABG PH Result 7.34 (7.35-7.45); Base Excess ABG -9.3 mmol/L (-2.0-2.0); Blood Gas Allen Test Pos; Blood Gas Sample Type Arterial; HCO3 ABG 15.2 mmol/L (22-26)
[2020-10-15 17:54] LABS: Blood Gas Operator Identificat GD; Blood Gas Sample Site Radial, left; Oxygen Device ROOM AIR
--- NOTE | 2020-10-15 18:19 | PC.PHAR ---
Pharmacokinetic dosing service Date: 10/15/2020 Time: 1819 Objective: Patient: Rodger Barbosa Floor: ICU-4 Age: 70 yo Serum creatinine: 4.1 mg/dL Height: 66.0 Inches Weight (kg): 56.699 Diagnosis: Relevant medical/social history: Cultures and sensitivities: Other labs: Assessment: IBW (kg): 63.80 Dosing wt(kg): 56.699 Estimated Creatinine clearance (ml/min): 13.8 CRCL method: Cockcroft and Gault using ibw(default). Drug selected: Vancomycin Loading dose (mg): 0 Vd (liters): 51.0 (factor used: 0.9 L/kg) James (hr-1): 0.016 Half life (hrs): 43.32 Recommended dose: 1000 mg Interval: 48 hrs Infusion time (hrs): 1.5 Predicted peak (mcg/mL): 36.1 Predicted trough (mcg/mL): 17.16 Total body weight is being used for vancomycin dosing. Renal function is stable [ ] /unstable [ ] Recommendations: Give Vancomycin 1000 mg q 48 hrs with an expected Cpeak of 36.1 mcg/ml and an expected Ctrough of 17.16 mcg/ml Renal dosing of other antibiotics (review renal dosing of other medications and list guidelines here): Thank you for the consult, will continue to follow. Signature: Ivis Keys [facility]
--- NOTE | 2020-10-15 19:08 | PC.NURSE ---
unable to use iv attempted several other sites unable to obtain . to insert central line
--- NOTE | 2020-10-15 20:01 | PC.NURSE ---
1944 Central line placed right IJ By Dr. Maharaj per hospital policy. XRAY at bedside linein good placement per Dr. Magana.
--- NOTE | 2020-10-15 20:03 | XRR_ITS ---
PROCEDURE INFORMATION: Exam: XR Chest Exam date and time: 10/15/2020 8:07 PM Age: 70 years old Clinical indication: Device placement; Other: Dentral line placement; Prior surgery; Surgery type: Shoulder TECHNIQUE: Imaging protocol: XR of the chest Views: 1 view. COMPARISON: CT chest con [id number] 10/15/2020 4:09 PM FINDINGS: Tubes, catheters and devices: Right IJ approach central line is in satisfactory position, with distal tip in the RA. Lungs: Low lung volumes. No consolidation. Pleural spaces: Unremarkable. No pleural effusion. No pneumothorax. Heart/Mediastinum: Unremarkable. No cardiomegaly. Bones/joints: No acute osseous injury identified. Left shoulder hardware noted. XR/XR chest 1V [id number] IMPRESSION: 1. No evidence of active cardiopulmonary disease. No pneumothorax. 2. Right IJ approach central line in satisfactory position.
[2020-10-15] MEDS: famotidine 20 mg/2 mL INJ IVP (20:06)
[2020-10-15] MEDS: sodium bicarbonate 8.4% 1 mEq/mL 50mL Syr 50 MEQ IVP (20:38)
[2020-10-15] MEDS: LORazepam 0.5 mg Tablet PO (20:51)
[2020-10-15] MEDS: risperiDONE 0.25 mg Tablet 0.5 MG PO (20:51)
[2020-10-15 20:52] LABS: Glucose Point of Care 128 mg/dL (70-110)
[2020-10-15] MEDS: insulin glargine 100 units/1 mL 7 UNIT SUBCUT (20:54)
--- NOTE | 2020-10-15 21:11 | ECG_ITS ---
[facility] Test Date: 2020-10-16 Pat Name: Rodger Barbosa Department: Room: [facility]04 Gender: Male Worldwide Chief Creative Officer: : 1950 Requested By: Conner Sauer Order Number: [id number] Shaquille MD: Saurav Allen M.D. Measurements Intervals [place] Rate: 110 P: 55 NM: 92 QRS: 40 QRSD: 93 T: 50 QT: 369 QTc: 500 Interpretive Statements SINUS TACHYCARDIA WITH SHORT NM INTERVAL Compared to ECG 10/15/2020 17:31:53 T-wave abnormality no longer present Electronically Signed On 10-16-2020 19:01:28 AUTOMOTIVE SALES EXECUTIVE by Saurav Allen M.D. [email or web address] [email or web address] coast veterans health care systemBiomondeselect medical specialty hospital - akronNewscron/store/OM/[id number]
[2020-10-15 21:46] LABS: Procalcitonin 8.41 ng/mL (0-0.5)
[2020-10-15 21:51] LABS: Troponin 5 2HR 105.7 ng/L (0-15)
[2020-10-15 21:57] LABS: C Reactive Protein 292.3 mg/L (0.0-4.9)
[2020-10-16] VITALS (72 sets, daily range): BP systolic 87–156; BP diastolic 37–99; PULSE 103–134; RESP 20–36; TEMP 37–37.3; O2SAT 69–100
[2020-10-16 00:07] LABS: Troponin 5 6HR Delta -12.4 ng/L (0-12)
[2020-10-16 00:10] LABS: Troponin 5 6HR 105.6 ng/L (0-15)
[2020-10-16] MEDS: sodium chloride 0.9% 1,000 ML 150 ML IV (02:51)
[2020-10-16 04:44] LABS: ABG PH Result 7.37 (7.35-7.45); Arterial Blood Gas Hematocrit 28.8 % (42-52); Blood Gas Sample Site Brachial, left; Blood Gas Sample Type Arterial; HCO3 ABG 17.3 mmol/L (22-26); Oxygen Device ROOM AIR; PO2 ABG 56.9 mmHg (80.0-100.0)
[2020-10-16 05:37] LABS: Basophils % 0.2 %; Eosinophils # 0.4 10^3/uL (0.0-0.8); Eosinophils % 1.8 %; Hematocrit 26.9 % (42.0-52.0); Hemoglobin 8.9 g/dL (11.7-16.6); Lymphocytes # 0.8 10^3/uL (0.8-4.8); Mean Corpuscular HGB Conc 33.1 g/dL (30.0-36.0); Mean Corpuscular Hemoglobin 32.4 pg (28.0-34.0); Mean Corpuscular Volume 97.8 fL (80-94); Mean Platelet Volume 11.6 fL (7.4-10.4); Monocytes # 1.6 10^3/uL (0.2-0.9); Neutrophils # 16.71 10^3/uL (1.8-7.7); Neutrophils % 85.5 %; Nucleated Red Blood Cells % 0 %; Platelet Count 227 10^3/cmm (130-400); Red Blood Count 2.75 10^6/uL (4.1-5.3); Red Cell Distribution Width 13.9 % (12.1-15.1); White Blood Count 19.5 10^3/uL (4.0-10.0)
[2020-10-16] MEDS: pyridoxine 50 mg Tablet PEG-TUBE (05:46)
[2020-10-16] MEDS: heparin 5,000 unit/mL INJ 1 mL 5000 UNIT SUBCUT (05:46)
[2020-10-16] MEDS: risperiDONE 0.25 mg Tablet PO (05:46)
[2020-10-16] MEDS: aspirin 81 mg EC Tablet PO (05:46)
[2020-10-16] MEDS: LORazepam 0.5 mg Tablet PO ×2 (05:46→18:46)
[2020-10-16] MEDS: famotidine 20 mg/2 mL INJ IVP (05:47)
[2020-10-16 06:06] LABS: Lactate (Lactic Acid level) 1.2 mmol/L (0.5-2.2)
[2020-10-16 06:08] LABS: Estmated Average Glucose 103; Hemoglobin A1C 5.2 % (4.0-6.0)
[2020-10-16 06:10] LABS: NT Pro B Type Natriuretic Pept 1519 pg/mL (0-125); Procalcitonin 9.92 ng/mL (0-0.5); Thyroid Stimulating Hormone 1.91 uIU/mL (0.27-4.20)
[2020-10-16 06:22] LABS: Alanine Aminotransferase 15 U/L (0-41); Albumin Level 2.3 g/dL (3.5-5.2); Anion Gap 21.3 (5-19); Aspartate Amino Transferase 35 U/L (0-40); C Reactive Protein 322.8 mg/L (0.0-4.9); Calcium 6.9 mg/dL (8.5-10.5); Carbon Dioxide 16 mmol/L (22-29); Chloride 101 mmol/L (98-107); Chol HDL Ratio 1.96 mg/dL (1.0-5.00); Cholesterol 104 mg/dL (0-200); Globulin 2.9 g/dL (1.3-4.6); Glomerular Filtration Rate 14.2 mL/min (90-130); Glucose 68 mg/dL (65-115); HDL Cholesterol 53 mg/dL (60-100); LDL Cholesterol Calculated 34 mg/dL (50-129); LDL HDL Ratio 0.64 RATIO (0.00-3.22); Magnesium 1.9 mg/dL (1.7-2.3); Osmolality Calculated 310 mOsm/kg (285-295); Phosphorus 5.3 mg/dL (2.5-4.5); Potassium 3.3 mmol/L (3.5-5.1); Sodium 135 mmol/L (136-145); Total Bilirubin 0.2 mg/dL (0.15-1.2); Total Protein 5.2 g/dL (6.6-8.7); Triglycerides 83 mg/dL (0-150)
[2020-10-16 06:34] LABS: Alkaline Phosphatase 48 IU/L (40-130)
[2020-10-16 07:23] LABS: Blood Urea Nitrogen 102 mg/dL (8-23); Creatine Phosphokinase 523 U/L (39-308)
--- NOTE | 2020-10-16 07:36 | P.PN_ITS ---
Subjective Subjective: Interval history: Patient overall responding to IV fluid resuscitation, continues to have bowel movements, no acute events overnight. Vitals/I&O/Wt Last Vital Signs Temp 99.0 F 10/16/20 04:00 Pulse 122 H 10/16/20 06:37 Resp 31 H 10/16/20 06:00 BP 112/51 10/16/20 06:00 Pulse Ox 95 10/16/20 06:00 10/15/20 10/16/20 10/16/20 22:59 06:59 14:59 Intake Total 100 / 1100 1042.5 / 2142.5 Output Total 300 / 300 Balance 100 / 1100 742.5 / 1842.5 Weight last 48 hrs Weight 125 lb Physical Exam Narrative: EXAM NARRATIVE: Patient is conscious alert nonverbal BMI 20.2 Head and neck examination PERRLA no masses no cervical lymphadenopathy no jaundice Abdomen tenderess much less in comparison to physical examination yesterday, definitely no signs of peritonitis Vincent catheter in place with scant urine Diaper shows white pasty stool no evidence of bleeding Extremities no cyanosis no clubbing no edema Urinary Catheter Management^: Vincent: Cath Placed During This Visit: yes Reason for Continuing Indwelling Catheter: Accurate Measurement of Urinary Output in Critically Ill Patients Urinary Catheter Date of Insertion: 10/15/20 Urinary Catheter Time of Insertion: 10:50 Data : 10/16/20 05:09 10/16/20 05:09 Micro: Microbiology 10/15/20 08:46 Blood Culture - Preliminary Blood SPECIMEN COLLECTED 10/15/20 08:45 Blood Culture - Preliminary Blood SPECIMEN COLLECTED A&P Assessment and plan (1) Constipation: From surgical standpoint of view and after reviewing the images with repeated physical examination, I do believe that the patient is very well constipated and he will require likely GoLYTELY to be administered through the G-tube to help with cleansing of his bowels. Once patient have more bowel movements can start tube feeds per hospitalist service Please call for questions or concerns Assurance and education All questions have been answered and all concerns have been addressed to patient's satisfaction. Status: Acute Attestations Medical Necessity Statement*: Patient requiring hospitalization for appropriate IV fluid resuscitation and resumption of bowel movements Time Spent in Patient Care: (>than 50% of time spent in counselling and/or direct pt care on unit) . Coding Level of Care Code Acute Binding Cutter Synthetic Cloth for Chg Fwd Diagnoses Constipation K59.00
[2020-10-16 07:51] LABS: Glucose Point of Care 63 mg/dL (70-110)
--- NOTE | 2020-10-16 07:57 | USCV_ITS ---
Rodger Barbosa Age: 70 Gender: M : 1950 Exam Date: 10/16/2020 08:18 Ordering Phys: Conner Sauer MD Technologist: Hector Koo [place] [facility] [place]: sob BP: 112 / 51 HR: 109 Rhythm: Sinus Technical Quality: Fair MEASUREMENTS (Male / Female) Normal Values 2D ECHO LV Diastolic Diameter PLAX 4.3 cm 4.2 - 5.9 / 3.9 - 5.3 cm LV Systolic Diameter PLAX 2.8 cm IVS Diastolic Thickness 1.1 cm 0.6 - 1.0 / 0.6 - 0.9 cm IVS Systolic Thickness 1.4 cm LVPW Diastolic Thickness 1.3 cm 0.6 - 1.0 / 0.6 - 0.9 cm LVPW Systolic Thickness 1.8 cm LVOT Diameter 2.0 cm LV Ejection Fraction MOD 2C 71.1 % LV Ejection Fraction 2C AL 73.5 % LA Diameter 3.3 cm LA Width 2.9 cm LA Height 4.7 cm RA Width 0.0 cm M-MODE LV Diastolic Diameter MM 5.8 cm 4.2 - 5.9 / 3.9 - 5.3 cm LV Systolic Diameter MM 4.1 cm IVS Diastolic Thickness MM 0.5 cm 0.6 - 1.0 / 0.6 - 0.9 cm IVS Systolic Thickness MM 1.2 cm LVPW Diastolic Thickness MM 0.6 cm 0.6 - 1.0 / 0.6 - 0.9 cm LVPW Systolic Thickness MM 1.8 cm Aortic Annulus Diameter 2.6 cm LA Ao Ratio MM 1.3 MV E Point Septal Separation 0.4 cm DOPPLER AV Peak Velocity 149.0 cm/s LVOT Peak Velocity 108.0 cm/s AV Area Cont Eq vti 2.5 cm squared AV Area Cont Eq pk 2.4 cm squared MV Area PHT 5.1 cm squared Mitral E to A Ratio 0.8 MV E' Velocity 46.5 cm/s Mitral E to MV E' Ratio 6.8 Mitral E to LV E' Lateral Ratio 5.5 Mitral E to LV E' Septal Ratio 9.1 TR Peak Velocity 280.0 cm/s TR Peak Gradient 31.4 mmHg PV Peak Velocity 123.0 cm/s RV Acceleration Time 0.1 s RV Ejection Time 0.2 s RV AcT/ET 0.4 FINDINGS Left Ventricle Normal left ventricular cavity size. Reduced left ventricle ejection fraction there appeared to be apical hypokinesis. Estimated ejection fraction around 50%. Please note that these are suboptimal images therefore cannot assess ejection fraction accurately advised repeating echocardiogram with contrast for ejection fraction. Right Ventricle The right ventricle is normal in size and function. Right Atrium The right atrium is normal in size. Left Atrium The left atrium is normal in size. Mitral Valve Structurally normal mitral valve without significant stenosis or prolapse. There is no mitral regurgitation. Aortic Valve Moderate aortic valve calcification. No aortic valve stenosis. No aortic valve regurgitation. There appeared to be thickening of aortic valve cannot rule out vegetation. Clinical correlation advised. Tricuspid Valve Structurally normal tricuspid valve without significant stenosis or regurgitation. Pulmonary artery systolic pressure is normal. Pulmonic Valve Structurally normal pulmonic valve without significant stenosis. There is no pulmonic regurgitation. Pericardium Normal pericardium without effusion. Aorta Normal ascending aorta dimension. CONCLUSIONS 1-Normal left ventricular cavity size. Reduced left ventricle ejection fraction there appeared to be apical hypokinesis. Estimated ejection fraction around 50%. Please note that these are suboptimal images therefore cannot assess ejection fraction accurately advised repeating echocardiogram with contrast for accurate ejection fraction. 2-There is no pericardial effusion. 3-No significant valve abnormalities. 4-Pulmonary artery systolic pressure is within normal limits. 5-Right atrial pressure is around 5 mm of mercury. 6-There are no prior echocardiogram studies to compare. Alison Cuevas MD (Electronically Signed) Final Date: 16 October 2020 20:21 S
[2020-10-16 08:36] LABS: Glucose Point of Care 72 mg/dL (70-110)
[2020-10-16] MEDS: lidocaine 1% 5 ML in potassium chloride premix 100 ML 25 ML IV (08:39)
[2020-10-16] MEDS: dextrose 5%-sod chloride 0.9% 1,000 ML 125 ML IV ×2 (08:40→15:38)
[2020-10-16] MEDS: citalopram 20 mg Tablet 40 MG PEG-TUBE (08:40)
[2020-10-16] MEDS: peg /e-lyte soln 4,000 mL Btl 1500 ML PO (08:41)
--- NOTE | 2020-10-16 09:05 | PC.OT ---
OT eval attempted, pt refused. Pt educated on benefit of activity and he continued to refuse. When therapist asked if she could try later today pt refused again. Pt also refused when therapist offered to try tomorrow. RN alerted.
[2020-10-16 09:28] LABS: INR 1.76 (0.8-1.2)
[2020-10-16 09:29] LABS: Fibrinogen 660 mg/dL (174-498); Partial Thromboplastin Time 39.1 SECONDS (23.9-36.7)
--- NOTE | 2020-10-16 09:29 | PC.CHAP ---
Pastoral Care Encounter/Spiritual Assessment Type of Contact [] Declined equipment services associate visit [] Patient/Family/Request visit [] Outpatient visit [] Follow-up visit [] Physician referral [] Code/Alert [x] Routine visit [] Staff referral [] Actively dying [] Patient sleeping [] Family support [] [] Out of room [] Palliative care [] [] Receiving care in room [] Pre-surgical visit [] Trauma [] Long length of stay [x] ICU visit [] Other: Relational/Emotional Strength [] Patient feels connected with others/family/visitors/staff [] Distress [] Loneliness/isolation [] Abandonment Spirituality of Patient [] Person of Indigo [] Attends Bahai of their Indigo [] Believes in Prayer [] Reads Bible or Worship materials [] There are Spiritual issues to be addressed Clinical Biostatistics Director Interventions [x] Prayer [] Active listening [] Non-anxious presence [] Spiritual/emotional support [] Crisis/trauma care [] Spiritual counseling [] Bereavement support [] Provided bereavement packet [] Provided Bible/devotional materials [] Provided toy/stuffed animal, coloring book to patient or family member [] Provided Communion [] Anointing/[place] [] Salvation [x] Completed spiritual assessment [] Other: Impact on Illness or Injury [] Angry [] Fearful [] Anxious [] Often cries [] Exhaustion [] Unable to work [] Unable to attend confucianist [] Unable to walk/stand [] Unable to read [] Unable to drive [] Unable to eat/drink [] Unable to sleep [] Unable to be with family [] Patient intubated [] Other: Summary Time spent with patient
[2020-10-16 09:39] LABS: D Dimer 7.37 ug/mIFEU (0-0.59)
[2020-10-16 11:38] LABS: Glucose Point of Care 152 mg/dL (70-110)
--- NOTE | 2020-10-16 12:32 | P.PN_ITS ---
Subjective Subjective: Interval history: Yesterday afternoon, patient was septic, severely volume depleted, he was transferred to the ICU with a single peripheral IV in his left hand, which upon further examination use, was not functioning, thus patient was septic, severely volume depleted, without any IV access I attempted to place a right IJ, however patient was severely volume depleted, I tried to place a left femoral, patient was felt very volume depleted, and it was quite difficult to place central line. Thankfully Dr. Maharaj from the ER came and help me, and we were able to place a right IJ successfully, patient was significantly dehydrated, the right IJ and femoral veins were significantly collapsed during ultrasound examination, no significant pressure required Overnight patient did not have any hypotensive events, responded well to fluids, this morning he is much more alert, awake, he remains aphasic, continues to have pasty bowel movements, was seen by general surgery, was started on GoLYTELY through the PEG tube This morning, he is able to follow commands, he is able to squeeze his left hand, can nod his head to yes or no questions, overnight afebrile, normotensive, currently in 1 to 2 L Vitals/I&O/Wt Last Vital Signs Temp 99.1 F 10/16/20 07:00 Pulse 112 H 10/16/20 08:15 Resp 27 H 10/16/20 08:15 BP 123/60 10/16/20 08:15 Pulse Ox 89 L 10/16/20 08:15 10/15/20 10/16/20 10/16/20 22:59 06:59 14:59 Intake Total 100 / 1100 1042.5 / 2142.5 60 / 60 Output Total 300 / 300 100 / 100 Balance 100 / 1100 742.5 / 1842.5 -40 / -40 Weight last 48 hrs Weight 56.699 kg Physical Exam Const: COMMON NORMALS: no acute distress GENERAL APPEARANCE: cooperative and frail appearing ORIENTATION/CONSCIOUSNESS: Yes awake and Yes oriented to person; not oriented to place and not oriented to time OTHER: Difficult to discern, as he has productive aphasia Neck/C-Spine: COMMON NORMALS: no JVD Resp: COMMON NORMALS: normal respiratory effort, No retractions, No use of accessory muscles and clear to auscultation bilaterally AUSCULTATION: clear to auscultation bilaterally, no crackles and no rales Cardio: COMMON NORMALS: no JVD, regular rate, regular rhythm, S1 normal heart sound present, S2 normal heart sound present and No murmurs present (Cardio) RATE: regular rate RHYTHM: regular rhythm HEART SOUNDS: S1 normal heart sound present and S2 normal heart sound present GI: COMMON NORMALS: Normal to inspection, nondistended, normoactive bowel sounds present and Soft to palpation PALPATION: Yes Soft to palpation and Yes Tenderness to palpation present (GI) (Has generalized tenderness) Extremity: COMMON NORMALS: capillary refill normal, no clubbing, cyanosis or edema and no pedal edema Neuro: SENSORIUM/ORIENTATION: Yes oriented to person, No oriented to place and No oriented to time Urinary Catheter Management^: Vincent: Cath Placed During This Visit: yes Reason for Continuing Indwelling Catheter: Accurate Measurement of Urinary Output in Critically Ill Patients Urinary Catheter Date of Insertion: 10/15/20 Urinary Catheter Time of Insertion: 10:50 Data : 10/16/20 05:09 10/16/20 05:09 Micro: Microbiology 10/16/20 08:00 C.difficile Toxin B Gene (PCR) - Final Stool - Stool Aspirate 10/15/20 08:46 Blood Culture - Preliminary Blood NEGATIVE TO DATE 10/15/20 08:45 Blood Culture - Preliminary Blood NEGATIVE TO DATE A&P Assessment and plan (1) Septic shock: -Sepsis criteria met with hypotension, tachycardia, lactic acid 4.8, creatinine 4.1 -Has had evidence of DIC -Also with severe dehydration, right IJ, femoral veins were quite easily collapsible on ultrasound -Source is likely cystitis, pro-Charli 9.92, WBC 19.5, lactate 1.2 -CT scan did not show any evidence of nephrolithiasis, or obstructive uropathy, Plan: -Admit to ICU -Blood cultures, sputum cultures, urine cultures -Stool studies ordered -Monitor hemodynamics closely, maintain MAP greater than 65, continue fluid therapy, switch to D5 normal saline due to low blood sugars -Avoid fluid overload -Hold tube feeds, given significant constipation -Broad-spectrum antibiotic therapy vancomycin, and Primaxin -Right IJ central line placed -Pepcid for GI prophylaxis -Heparin for DVT prophylaxis on hold given anemia -Patient is DNR/DNI -Patient's DPOA is Torin Barbosa [phone] Status: Acute (2) UTI (urinary tract infection): Status: Acute (3) Lactic acidosis: Status: Acute (4) Acute renal failure: Creatinine 4.2, has CKD stage IV, likely related to sepsis and dehydration on top of chronic kidney disease, fluid as above Status: Acute (5) Diabetes mellitus: Low-dose sliding scale Status: Inactive Qualifiers: Diabetes mellitus type: type 2 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 insulin use: with shelter use Diabetes mellitus complication status: with neurologic complications Diabetes mellitus complication detail: with unspecified neuropathy Qualified Code(s): E11.40 - Type 2 diabetes mellitus with diabetic neuropathy, unspecified; Z79.4 - intermediate frame tender (current) use of insulin (6) Anemia: Has a history of GI bleeds in the past, history of Crohn's disease -Hemoglobin down to 8.9 -Patient's DIC panel is positive, BUN is 102 -No active signs of bleeding -Likely multifactorial from anemia, possible GI bleed, and DIC Plan: -Hold heparin -Monitor hemodynamics closely -Monitor hemoglobin, iron studies -Monitor for bleeding -Protonix, Carafate Status: Acute (7) CKD (chronic kidney disease) stage 4, GFR 15-29 ml/min: Status: Inactive (8) 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, productive aphasia, Status: Acute (9) Hypertension: Status: Inactive Qualifiers: Hypertension type: essential hypertension Qualified Code(s): I10 - Essential (primary) hypertension (10) Abdominal pain: Status: Resolved Qualifiers: Abdominal location: unspecified location Qualified Code(s): R10.9 - Unspecified abdominal pain (11) DIC (disseminated intravascular coagulation): Evidence of DIC given elevated INR, D-dimer, FDP Monitor for signs of bleeding Monitor hemodynamics closely for spontaneous retroperitoneal bleeds Status: Acute (12) Severe dehydration: Receiving IV fluids as above Status: Acute (13) Constipation: Status: Acute (14) Elevated d-dimer: Likely secondary to DIC, no respiratory complaints, is on 1 to 2 L nasal cannula, nonetheless anticoagulation in him would be contraindicated currently given concerns of anemia GI bleed, DIC Status: Acute (15) Rhabdomyolysis: Continue IV fluids Status: Acute (16) NSTEMI (non-ST elevated myocardial infarction): Likely type II NSTEMI, supply demand ischemia from sepsis, dehydration Baseline troponin 118, 6-hour 105, negative delta, BNP 1519 Plan: -Continue aspirin and statin -Telemetry monitoring -We will order cardiac echocardiogram Status: Acute Additional A&P Information Plan for today, continue GoLYTELY through the PEG tube, has severe constipation, continue IV hydration, continue antibiotics, follow cultures monitor hemoglobin, monitor for spontaneous bleeding Attestations Medical Necessity Statement*: Patient requires hospitalization for septic shock secondary UTI, DIC, anemia, acute renal failure, rhabdo, NSTEMI, significant constipation Coding Level of Care Code 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 [facility] Diagnoses Septic shock A41.9; R65.21 UTI (urinary tract infection) N39.0 Lactic acidosis E87.2 Acute renal failure N17.9 Diabetes mellitus E11.40; Z79.4 Diabetes mellitus type: type 2 Diabetes mellitus shelter insulin use: with shelter use Diabetes mellitus complication status: with neurologic complications Diabetes mellitus complication detail: with unspecified neuropathy Anemia D64.9 CKD (chronic kidney disease) stage 4, GFR 15-29 ml/min N18.4 CVA (cerebral vascular accident) I63.9 Hypertension I10 Hypertension type: essential hypertension Abdominal pain R10.9 Abdominal location: unspecified location DIC (disseminated intravascular coagulation) D65 Severe dehydration E86.0 Constipation K59.00 Elevated d-dimer R79.89 Rhabdomyolysis M62.82 NSTEMI (non-ST elevated myocardial infarction) I21.4
[2020-10-16 13:44] LABS: Hematocrit 25.1 % (42.0-52.0); Hemoglobin 8.3 g/dL (11.7-16.6)
[2020-10-16 14:26] LABS: Ferritin 228 ng/mL (30-400); Iron 7 ug/dL (59-158)
[2020-10-16] MEDS: acetaminophen 325 mg Tablet 650 MG PO (15:39)
[2020-10-16] MEDS: sucralfate 1 gm/10 mL Oral Liq UDC PO ×2 (15:40→21:54)
[2020-10-16 16:38] LABS: Glucose Point of Care 245 mg/dL (70-110)
--- NOTE | 2020-10-16 18:11 | PC.NURSE ---
conts. to ooze june colored stools this shift. rectal area remains reddened. positioned and encouraged to stay on side.
[2020-10-16] MEDS: risperiDONE 0.25 mg Tablet 0.5 MG PO (18:47)
[2020-10-16] MEDS: pantoprazole 40 mg SDV IVP (19:01)
[2020-10-16 19:05] LABS: Hematocrit 28.6 % (42.0-52.0)
[2020-10-16] MEDS: OLANZapine 10 mg VIAL IM (19:57)
[2020-10-16] MEDS: haloperidol inj 5 mg/mL INJ 1 mL IM (21:54)
[2020-10-16] MEDS: dexmedetomidine 400 MCG in sodium chloride 0.9% (100 ml) 100 ML 5.9 MCG IV (23:35)
[2020-10-17] VITALS (28 sets, daily range): BP systolic 70–144; BP diastolic 43–89; PULSE 97–127; RESP 17–41; TEMP 36.5–37.7; O2SAT 87–97
--- NOTE | 2020-10-17 03:40 | PC.NURSE ---
ASSUMING CARE 1900 Patient is lying in bed on room air. Patient is able to answer yes and no questions but is unable to communicate with nurse or hold conversation. Patient is pulling EKG leads off, has pulled his right internal jugular central line out. Dr. Verde notified and gave one time order for 10 mg IM zyprexa. Patient verbally redirected and instructed to please leave EKG leads on due to importance for nurse to monitor him. Patients bottom cleaned and has bright blanchable redness to rectum and surrounding tissue.
--- NOTE | 2020-10-17 03:47 | PC.NURSE ---
HALDOL Patient continues to pull off leads, pull at raymond catheter, and is uncooperative to verbal redirection. Dr. Verde called again and gave one time order for 5 MG IM Haldol.
--- NOTE | 2020-10-17 03:48 | PC.NURSE ---
PRECEDEX GTT Around 0030 patient continues to pull at leads, catheter, and being physically aggressive while nurse is trying to clean patients bottom and reattach EKG leads. Patient redirected and asked not to hit nurse. Patient calmed down easily, but Dr. Verde notified of situation and gave order for IV precedex drip, and to start it at 0.4 mcg/hour.
[2020-10-17 05:43] LABS: Lactate (Lactic Acid level) 1.5 mmol/L (0.5-2.2)
[2020-10-17 05:46] LABS: Alanine Aminotransferase 19 U/L (0-41); Albumin Level 2.5 g/dL (3.5-5.2); Alkaline Phosphatase 61 IU/L (40-130); Anion Gap 19.4 (5-19); Aspartate Amino Transferase 53 U/L (0-40); C Reactive Protein 325.6 mg/L (0.0-4.9); Carbon Dioxide 16 mmol/L (22-29); Chloride 112 mmol/L (98-107); Globulin 2.7 g/dL (1.3-4.6); Glomerular Filtration Rate 13.4 mL/min (90-130); Glucose 193 mg/dL (65-115); Hematocrit 23.5 % (42.0-52.0); Hemoglobin 7.3 g/dL (11.7-16.6); Magnesium 1.7 mg/dL (1.7-2.3); Mean Corpuscular HGB Conc 31.1 g/dL (30.0-36.0); Mean Corpuscular Hemoglobin 31.6 pg (28.0-34.0); Mean Corpuscular Volume 101.7 fL (80-94); Mean Platelet Volume 11.8 fL (7.4-10.4); Osmolality Calculated 331 mOsm/kg (285-295); Phosphorus 4.2 mg/dL (2.5-4.5); Platelet Count 210 10^3/cmm (130-400); Potassium 4.4 mmol/L (3.5-5.1); Red Blood Count 2.31 10^6/uL (4.1-5.3); Red Cell Distribution Width 14.4 % (12.1-15.1); Sodium 143 mmol/L (136-145); Total Bilirubin 0.2 mg/dL (0.15-1.2); Total Protein 5.2 g/dL (6.6-8.7); White Blood Count 12.6 10^3/uL (4.0-10.0)
[2020-10-17 05:54] LABS: Procalcitonin 7.67 ng/mL (0-0.5)
[2020-10-17 06:14] LABS: Blood Urea Nitrogen 97 mg/dL (8-23)
[2020-10-17 06:22] LABS: Creatine Phosphokinase 443 U/L (39-308)
[2020-10-17 06:32] LABS: INR 2.32 (0.8-1.2); Partial Thromboplastin Time 48.3 SECONDS (23.9-36.7)
[2020-10-17 06:33] LABS: Fibrinogen 637 mg/dL (174-498)
[2020-10-17] MEDS: LORazepam 0.5 mg Tablet PO ×2 (06:37→18:22)
[2020-10-17] MEDS: sucralfate 1 gm/10 mL Oral Liq UDC PO ×4 (06:38→20:49)
[2020-10-17] MEDS: pyridoxine 50 mg Tablet PEG-TUBE (06:38)
[2020-10-17] MEDS: pantoprazole 40 mg SDV IVP ×2 (06:38→18:24)
[2020-10-17] MEDS: risperiDONE 0.25 mg Tablet PO (06:38)
[2020-10-17 06:43] LABS: D Dimer 13.11 ug/mIFEU (0-0.59)
[2020-10-17 07:01] LABS: Slide Review Slide Review Perform
[2020-10-17 07:03] LABS: Absolute Segmented Neutrophil 7.3 10/cmm (1.6-7.1); Lymphocytes 3 %; Monocytes Absolute 0.8 10^3/cmm (0.1-0.6); Segmented Neutrophils 58 %; Total Cells Counted 100 (0-100)
[2020-10-17 07:04] LABS: Absolute Neutrophil 11.3 10^3/cmm (1.4-6.5); Anisocytosis 1+; Macrocytosis 1+; Platelet Estimate Normal (Normal)
[2020-10-17 07:05] LABS: Eosinophils 0 %
[2020-10-17 08:20] LABS: Glucose Point of Care 199 mg/dL (70-110)
--- NOTE | 2020-10-17 09:29 | PM.PN ---
Subjective Subjective: Interval history: Patient reports abdominal pain, generalized. He could not specify. He has underlying dementia and is a poor historian. Denies chest pain. He answers with simple yes or no. He had minimal dark concentrated urine in the Vincent bag. He is tachycardic. He has june colored stools as per RN. He was unable to tolerate GoLYTELY much due to abdominal cramping. He denies chest pain or shortness of breath. He is saturating in the low 90s on 2 L by nasal cannula this morning. His blood pressure appears to be slightly better this morning. proBNP significantly increased although lung exam is clear. His hemoglobin and WBC are down. Platelets are trending down as well. INR 2.32 this morning. Creatinine continues to trend up. Patient's imaging is highly concerning for acute cholecystitis with evidence of gallstone at the neck of the gallbladder. His epigastric area is very tender to palpation. Vitals/I&O/Wt Last Vital Signs Temp 97.7 F 10/17/20 08:00 Pulse 117 H 10/17/20 08:13 Resp 19 H 10/17/20 08:00 BP 108/59 10/17/20 08:00 Pulse Ox 92 10/17/20 08:13 10/16/20 10/17/20 10/17/20 22:59 06:59 14:59 Intake Total 1370.833 / 1430.833 7.178 / 6323.340 3184 / 1100 Output Total 100 / 200 900 / 1100 Balance 1270.833 / 1230.833 -892.822 / 226.528 6639 / 1100 Physical Exam Const: COMMON NORMALS: no acute distress OTHER: Appears to be oriented to self and place. Not very communicative. Resp: COMMON NORMALS: normal respiratory effort and clear to auscultation bilaterally AUSCULTATION: clear to auscultation bilaterally Cardio: COMMON NORMALS: regular rate, regular rhythm and S2 normal heart sound present RATE: regular rate RHYTHM: regular rhythm HEART SOUNDS: S2 normal heart sound present OTHER: No lower extremity edema GI: OTHER: Appears slightly distended and tender mostly at epigastric area. Midline scar noted. Some guarding noted. Feeding tube insertion site is clean. Neuro: COMMON NORMALS: no focal motor deficits Urinary Catheter Management^: Vincent: Cath Placed During This Visit: yes Reason for Continuing Indwelling Catheter: Accurate Measurement of Urinary Output in Critically Ill Patients Urinary Catheter Date of Insertion: 10/15/20 Urinary Catheter Time of Insertion: 10:50 Data : 10/17/20 05:05 10/17/20 05:05 Micro: Microbiology 10/15/20 08:00 Stool Lactoferrin - Final Stool Occult Blood (FIT) - Final 10/16/20 08:00 C.difficile Toxin B Gene (PCR) - Final Stool - Stool Aspirate 10/15/20 08:46 Blood Culture - Preliminary Blood NEGATIVE TO DATE 10/15/20 08:45 Blood Culture - Preliminary Blood NEGATIVE TO DATE A&P Assessment and plan (1) Septic shock: -Sepsis criteria met with hypotension, tachycardia, lactic acid 4.8, creatinine 4.1 -Has had evidence of DIC -Also with severe dehydration, right IJ, femoral veins were quite easily collapsible on ultrasound -Source is likely cystitis, pro-Charli 9.92, WBC 19.5, lactate 1.2 -CT scan did not show any evidence of nephrolithiasis, or obstructive uropathy, Plan: -Admit to ICU -Blood cultures, sputum cultures, urine cultures -Stool studies ordered -Monitor hemodynamics closely, maintain MAP greater than 65, continue fluid therapy, switch to D5 normal saline due to low blood sugars -Avoid fluid overload -Hold tube feeds, given significant constipation -Broad-spectrum antibiotic therapy vancomycin, and Primaxin -Right IJ central line placed -Pepcid for GI prophylaxis -Heparin for DVT prophylaxis on hold given anemia -Patient is DNR/DNI -Patient's DPOA is Torin Barbosa [phone] Status: Acute (2) UTI (urinary tract infection): Status: Acute (3) Lactic acidosis: Status: Acute (4) Acute renal failure: Creatinine 4.2, has CKD stage IV, likely related to sepsis and dehydration on top of chronic kidney disease, fluid as above Status: Acute (5) Diabetes mellitus: Low-dose sliding scale Status: Inactive Qualifiers: Diabetes mellitus type: type 2 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: with middle or intermediate school principal use Diabetes mellitus complication status: with neurologic complications Diabetes mellitus complication detail: with unspecified neuropathy Qualified Code(s): E11.40 - Type 2 diabetes mellitus with diabetic neuropathy, unspecified; Z79.4 - USP (current) use of insulin (6) Anemia: Has a history of GI bleeds in the past, history of Crohn's disease -Hemoglobin down to 8.9 -Patient's DIC panel is positive, BUN is 102 -No active signs of bleeding -Likely multifactorial from anemia, possible GI bleed, and DIC Plan: -Hold heparin -Monitor hemodynamics closely -Monitor hemoglobin, iron studies -Monitor for bleeding -Protonix, Carafate Status: Acute (7) CKD (chronic kidney disease) stage 4, GFR 15-29 ml/min: Status: Inactive (8) 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, productive aphasia, Status: Acute (9) Hypertension: Status: Inactive Qualifiers: Hypertension type: essential hypertension Qualified Code(s): I10 - Essential (primary) hypertension (10) Abdominal pain: Status: Resolved Qualifiers: Abdominal location: unspecified location Qualified Code(s): R10.9 - Unspecified abdominal pain (11) DIC (disseminated intravascular coagulation): Evidence of DIC given elevated INR, D-dimer, FDP Monitor for signs of bleeding Monitor hemodynamics closely for spontaneous retroperitoneal bleeds Status: Acute (12) Severe dehydration: Receiving IV fluids as above Status: Acute (13) Constipation: Status: Acute (14) Elevated d-dimer: Likely secondary to DIC, no respiratory complaints, is on 1 to 2 L nasal cannula, nonetheless anticoagulation in him would be contraindicated currently given concerns of anemia GI bleed, DIC Status: Acute (15) Rhabdomyolysis: Continue IV fluids Status: Acute (16) NSTEMI (non-ST elevated myocardial infarction): Likely type II NSTEMI, supply demand ischemia from sepsis, dehydration Baseline troponin 118, 6-hour 105, negative delta, BNP 1519 Plan: -Continue aspirin and statin -Telemetry monitoring -We will order cardiac echocardiogram Status: Acute Additional A&P Information Acute cholecystitis with gallstone at the neck of the gallbladder Acute on chronic normocytic anemia. Concern for GI bleed. Acute kidney injury on top of chronic kidney disease stage IV. Appears prerenal PLAN: I do not think further evaluation with HIDA scan is needed at this point. Clinically patient appears to have acute cholecystitis. Continue antibiotics Continue monitoring cardiorespiratory status in ICU. Patient may require BiPAP support. We will continue IV hydration with normal saline at only 30 mL/h for now. Give 1 unit of PRBC. Continue high-dose PPI. Will give 10 mg p.o. vitamin K. Hopefully gallbladder can be cooled off with antibiotics. Consider cholecystostomy tube placement if not getting better. Attestations Medical Necessity Statement*: Patient with acute cholecystitis and septic shock requires close ICU monitoring and treatment. 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: with middle or intermediate school principal use Diabetes mellitus complication status: with neurologic complications Diabetes mellitus complication detail: with unspecified neuropathy Anemia D64.9 CKD (chronic kidney disease) stage 4, GFR 15-29 ml/min N18.4 CVA (cerebral vascular accident) I63.9 Hypertension I10 Hypertension type: essential hypertension Abdominal pain R10.9 Abdominal location: unspecified location DIC (disseminated intravascular coagulation) D65 Severe dehydration E86.0 Constipation K59.00 Elevated d-dimer R79.89 Rhabdomyolysis M62.82 NSTEMI (non-ST elevated myocardial infarction) I21.4
--- NOTE | 2020-10-17 09:39 | PC.CHAP ---
Pastoral Care Encounter/Spiritual Assessment Type of Contact [] Declined aprn visit [] Patient/Family/Request visit [] Outpatient visit [] Follow-up visit [] Physician referral [] Code/Alert [x] Routine visit [] Staff referral [] Actively dying [] Patient sleeping [] Family support [] [] Out of room [] Palliative care [] [] Receiving care in room [] Pre-surgical visit [] Trauma [] Long length of stay [x] ICU visit [] Other: Relational/Emotional Strength [] Patient feels connected with others/family/visitors/staff [] Distress [] Loneliness/isolation [] Abandonment Spirituality of Patient [] Person of Indigo [] Attends Hindu of their Indigo [] Believes in Prayer [] Reads Bible or Sikh materials [] There are Spiritual issues to be addressed 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 [x] Prayer [] Active listening [] Non-anxious presence [] Spiritual/emotional support [] Crisis/trauma care [] Spiritual counseling [] Bereavement support [] Provided bereavement packet [] Provided Bible/devotional materials [] Provided toy/stuffed animal, coloring book to patient or family member [] Provided Communion [] Anointing/[place] [] Salvation [x] Completed spiritual assessment [] Other: Impact on Illness or Injury [] Angry [] Fearful [] Anxious [] Often cries [] Exhaustion [] Unable to work [] Unable to attend moravian [] Unable to walk/stand [] Unable to read [] Unable to drive [] Unable to eat/drink [] Unable to sleep [] Unable to be with family [] Patient intubated [] Other: Summary Time spent with patient
[2020-10-17] MEDS: citalopram 20 mg Tablet 40 MG PEG-TUBE (10:01)
[2020-10-17] MEDS: phytonadione (ADULT) 10 mg/mL Ampule 1 mL PO (10:02)
--- NOTE | 2020-10-17 11:29 | P.PN_ITS ---
Subjective Subjective: Interval history: Patient continues to be in the ICU and tolerating slowly GoLYTELY yet he does develop some cramps. He does have incontinence per nursing report, it is very challenging to obtain subjective information from the patient at this point. Continues to point to his right lower side and suprapubic area and left lower quadrant indicating discomfort. Trending down in leukocytosis Vitals/I&O/Wt Last Vital Signs Temp 97.7 F 10/17/20 08:00 Pulse 117 H 10/17/20 08:13 Resp 19 H 10/17/20 08:00 BP 108/59 10/17/20 08:00 Pulse Ox 92 10/17/20 08:13 10/16/20 10/17/20 10/17/20 22:59 06:59 14:59 Intake Total 1370.833 / 1430.833 7.178 / 9076.001 8182 / 1100 Output Total 100 / 200 900 / 1100 Balance 1270.833 / 1230.833 -892.822 / 502.972 7179 / 1100 Physical Exam Narrative: EXAM NARRATIVE: Patient is conscious alert in mild to moderate distress BMI 20 Head and neck examination PERRLA no masses no cervical lymphadenopathy no jaundice Abdomen mild to moderate tenderness appreciated towards the right lower side suprapubic and left lower quadrant tender nondistended soft no organomegaly guarding or rigidity/no signs of peritonitis. Midline scar At this point no right upper quadrant tenderness is appreciated G-tube in place without complication Vincent catheter in place Bedside rectal disimpaction was done by me revealing large amount of firm light brown stool with streaks of blood Urinary Catheter Management^: Vincent: Cath Placed During This Visit: yes Reason for Continuing Indwelling Catheter: Accurate Measurement of Urinary Output in Critically Ill Patients Urinary Catheter Date of Insertion: 10/15/20 Urinary Catheter Time of Insertion: 10:50 Data : 10/18/20 03:12 10/18/20 03:12 Micro: Microbiology 10/15/20 08:00 Stool Lactoferrin - Final Stool Occult Blood (FIT) - Final 10/16/20 08:00 C.difficile Toxin B Gene (PCR) - Final Stool - Stool Aspirate 10/15/20 08:46 Blood Culture - Preliminary Blood NEGATIVE TO DATE 10/15/20 08:45 Blood Culture - Preliminary Blood NEGATIVE TO DATE A&P Assessment and plan (1) Constipation: Continue GoLYTELY 30 to 50 mL per G-tube Rectal disimpaction as needed Repeat ultrasound of the liver and gallbladder would be warranted if there is no much improvement although the patient leukocytosis is trending down. I still believe that the patient is dehydrated and has remarkable constipation. Broad-spectrum antibiotics should address the mild inflammation mentioned on the ultrasound of the gallbladder yet if there is a worsening manifestations likely a cholecystostomy tube would be appropriate. Please call for questions or concerns Assurance and education All questions have been answered and all concerns have been addressed to patient's satisfaction. Status: Acute Attestations Medical Necessity Statement*: Continue inpatient hospitalization with medical management and surgical care Time Spent in Patient Care: (>than 50% of time spent in counselling and/or direct pt care on unit) . 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
[2020-10-17 12:00] LABS: Glucose Point of Care 202 mg/dL (70-110)
[2020-10-17] MEDS: sodium chloride 0.9% 1,000 ML 30 ML IV (12:00)
[2020-10-17] MEDS: vancomycin 1,000 MG in sodium chloride 0.9% 250 ML 250 MG IV (16:19)
--- NOTE | 2020-10-17 16:24 | PC.NURSE ---
Spoke with lab regarding pt blood work. They state that they are having difficulty with cross matching and will let unit know as soon as testing is done.
[2020-10-17 17:31] LABS: Glucose Point of Care 57 mg/dL (70-110)
[2020-10-17 18:07] LABS: Glucose Point of Care 83 mg/dL (70-110)
--- NOTE | 2020-10-17 18:34 | PC.PT ---
PT note; nursing recommends hold PT evaluation today, will reattempt tomorrow
[2020-10-17 19:53] LABS: Glucose Point of Care 116 mg/dL (70-110)
[2020-10-17] MEDS: risperiDONE 0.25 mg Tablet 0.5 MG PO (20:49)
[2020-10-17] MEDS: metoprolol tartrate 1 mg/1 mL SDV 5 mL 5 MG IV (22:40)
[2020-10-17] MEDS: sodium chloride 0.9% (100 ml) 100 ML 30 ML (23:20)
[2020-10-17 23:37] LABS: Glucose Point of Care 158 mg/dL (70-110)
[2020-10-18] VITALS (41 sets, daily range): BP systolic 114–169; BP diastolic 61–112; PULSE 94–116; RESP 16–110; TEMP 37.4–37.6; O2SAT 85–98
[2020-10-18] MEDS: FUROsemide 10 mg/mL SDV 4mL 40 MG IVP (03:45)
[2020-10-18 03:56] LABS: Basophils % 0.2 %; Eosinophils % 0.1 %; Lymphocytes # 0.6 10^3/uL (0.8-4.8); Lymphocytes % 3.4 %; Mean Corpuscular HGB Conc 31.8 g/dL (30.0-36.0); Mean Corpuscular Hemoglobin 31.4 pg (28.0-34.0); Mean Corpuscular Volume 98.8 fL (80-94); Mean Platelet Volume 11.3 fL (7.4-10.4); Monocytes % 6.2 %; Neutrophils # 14.62 10^3/uL (1.8-7.7); Neutrophils % 89.3 %; Nucleated Red Blood Cells % 0 %; Platelet Count 227 10^3/cmm (130-400); Red Blood Count 3.25 10^6/uL (4.1-5.3); Red Cell Distribution Width 14.7 % (12.1-15.1); White Blood Count 16.4 10^3/uL (4.0-10.0)
[2020-10-18 04:09] LABS: INR 1.32 (0.8-1.2)
[2020-10-18 04:10] LABS: Lactate (Lactic Acid level) 1.3 mmol/L (0.5-2.2); Partial Thromboplastin Time 46.8 SECONDS (23.9-36.7)
[2020-10-18 04:12] LABS: Fibrinogen 687 mg/dL (174-498)
[2020-10-18 04:16] LABS: Alanine Aminotransferase 21 U/L (0-41); Albumin Level 2.6 g/dL (3.5-5.2); Alkaline Phosphatase 66 IU/L (40-130); Aspartate Amino Transferase 48 U/L (0-40); C Reactive Protein 302.1 mg/L (0.0-4.9); Calcium 8.1 mg/dL (8.5-10.5); Carbon Dioxide 14 mmol/L (22-29); Chloride 116 mmol/L (98-107); Glomerular Filtration Rate 13.8 mL/min (90-130); Glucose 145 mg/dL (65-115); Magnesium 1.8 mg/dL (1.7-2.3); Osmolality Calculated 335 mOsm/kg (285-295); Phosphorus 4.2 mg/dL (2.5-4.5); Sodium 147 mmol/L (136-145); Total Bilirubin 0.6 mg/dL (0.15-1.2); Total Protein 5.6 g/dL (6.6-8.7)
[2020-10-18 04:17] LABS: Hemoglobin 10.2 g/dL (11.7-16.6)
[2020-10-18 04:18] LABS: Hematocrit 32.1 % (42.0-52.0)
[2020-10-18 04:25] LABS: D Dimer 13.96 ug/mIFEU (0-0.59)
[2020-10-18 04:27] LABS: Procalcitonin 4.95 ng/mL (0-0.5)
[2020-10-18 04:41] LABS: Creatine Phosphokinase 177 U/L (39-308)
[2020-10-18 04:55] LABS: Blood Urea Nitrogen 92 mg/dL (8-23)
[2020-10-18] MEDS: LORazepam 0.5 mg Tablet PO ×2 (05:40→18:12)
[2020-10-18] MEDS: pyridoxine 50 mg Tablet PEG-TUBE (05:40)
[2020-10-18] MEDS: risperiDONE 0.25 mg Tablet PO (05:40)
--- NOTE | 2020-10-18 07:51 | PM.PN ---
Subjective Subjective: Interval history: Patient is sleeping this morning. He is grimacing when abdomen is palpated. Had no overnight issues. Makes good urine. Still remains tachycardic. Patient had several diarrheal bowel movements since yesterday while drinking GoLYTELY. Vitals/I&O/Wt Last Vital Signs Temp 99.5 F 10/18/20 01:32 Pulse 109 H 10/18/20 06:00 Resp 32 H 10/18/20 06:00 BP 134/72 10/18/20 06:00 Pulse Ox 85 L 10/18/20 06:00 10/17/20 10/18/20 10/18/20 22:59 06:59 14:59 Intake Total 350 / 1450 365 / 1815 100 / 100 Output Total 1050 / 1950 Balance 350 / 550 -685 / -135 100 / 100 Weight last 48 hrs Weight 56.5 kg Physical Exam Narrative: EXAM NARRATIVE: Heart is regular and lungs are clear. No lower extremity edema. Urinary Catheter Management^: Vincent: Cath Placed During This Visit: yes Reason for Continuing Indwelling Catheter: Accurate Measurement of Urinary Output in Critically Ill Patients Urinary Catheter Date of Insertion: 10/15/20 Urinary Catheter Time of Insertion: 10:50 Data : 10/18/20 03:12 10/18/20 03:12 Micro: Microbiology 10/15/20 08:00 Stool Lactoferrin - Final Stool Enteric Pathogens (PCR) - Final Parasite Antigen Panel - Final Occult Blood (FIT) - Final A&P Assessment and plan (1) Septic shock: -Sepsis criteria met with hypotension, tachycardia, lactic acid 4.8, creatinine 4.1 -Has had evidence of DIC -Also with severe dehydration, right IJ, femoral veins were quite easily collapsible on ultrasound -Source is likely cystitis, pro-Charli 9.92, WBC 19.5, lactate 1.2 -CT scan did not show any evidence of nephrolithiasis, or obstructive uropathy, Plan: -Admit to ICU -Blood cultures, sputum cultures, urine cultures -Stool studies ordered -Monitor hemodynamics closely, maintain MAP greater than 65, continue fluid therapy, switch to D5 normal saline due to low blood sugars -Avoid fluid overload -Hold tube feeds, given significant constipation -Broad-spectrum antibiotic therapy vancomycin, and Primaxin -Right IJ central line placed -Pepcid for GI prophylaxis -Heparin for DVT prophylaxis on hold given anemia -Patient is DNR/DNI -Patient's DPOA is Torin Barbosa [phone] Status: Acute (2) UTI (urinary tract infection): Status: Acute (3) Lactic acidosis: Status: Acute (4) Acute renal failure: Creatinine 4.2, has CKD stage IV, likely related to sepsis and dehydration on top of chronic kidney disease, fluid as above Status: Acute (5) Diabetes mellitus: Low-dose sliding scale Status: Inactive Qualifiers: Diabetes mellitus type: type 2 Diabetes mellitus press tender long goods insulin use: with press tender long goods use Diabetes mellitus complication status: with neurologic complications Diabetes mellitus complication detail: with unspecified neuropathy Qualified Code(s): E11.40 - Type 2 diabetes mellitus with diabetic neuropathy, unspecified; Z79.4 - terminal press operator (current) use of insulin (6) Anemia: Has a history of GI bleeds in the past, history of Crohn's disease -Hemoglobin down to 8.9 -Patient's DIC panel is positive, BUN is 102 -No active signs of bleeding -Likely multifactorial from anemia, possible GI bleed, and DIC Plan: -Hold heparin -Monitor hemodynamics closely -Monitor hemoglobin, iron studies -Monitor for bleeding -Protonix, Carafate Status: Acute (7) CKD (chronic kidney disease) stage 4, GFR 15-29 ml/min: Status: Inactive (8) 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, productive aphasia, Status: Acute (9) Hypertension: Status: Inactive Qualifiers: Hypertension type: essential hypertension Qualified Code(s): I10 - Essential (primary) hypertension (10) Abdominal pain: Status: Resolved Qualifiers: Abdominal location: unspecified location Qualified Code(s): R10.9 - Unspecified abdominal pain (11) DIC (disseminated intravascular coagulation): Evidence of DIC given elevated INR, D-dimer, FDP Monitor for signs of bleeding Monitor hemodynamics closely for spontaneous retroperitoneal bleeds Status: Acute (12) Severe dehydration: Receiving IV fluids as above Status: Acute (13) Constipation: Status: Acute (14) Elevated d-dimer: Likely secondary to DIC, no respiratory complaints, is on 1 to 2 L nasal cannula, nonetheless anticoagulation in him would be contraindicated currently given concerns of anemia GI bleed, DIC Status: Acute (15) Rhabdomyolysis: Continue IV fluids Status: Acute (16) NSTEMI (non-ST elevated myocardial infarction): Likely type II NSTEMI, supply demand ischemia from sepsis, dehydration Baseline troponin 118, 6-hour 105, negative delta, BNP 1519 Plan: -Continue aspirin and statin -Telemetry monitoring -We will order cardiac echocardiogram Status: Acute Additional A&P Information Acute cholecystitis with gallstone at the neck of the gallbladder Acute on chronic normocytic anemia. Concern for GI bleed. Acute kidney injury on top of chronic kidney disease stage IV. Appears prerenal PLAN: Will stop IV fluids and start tube feeds at slow rate. Standing dose senna/Colace Restart carvedilol and continue monitoring blood pressure and hemoglobin. Continue antibiotics. Attestations Medical Necessity Statement*: Patient with what appears acute cholecystitis and severe constipation requires close ICU monitoring and treatment due to high risk for deterioration till deemed safe for transfer. Time Spent in Patient Care: 16 - 35 minutes Coding Level of Care Code Acute Blacking Wheel Tender for Chg Fwd Diagnoses Septic shock A41.9; R65.21 UTI (urinary tract infection) N39.0 Lactic acidosis E87.2 Acute renal failure N17.9 Diabetes mellitus E11.40; Z79.4 Diabetes mellitus type: type 2 Diabetes mellitus press tender long goods insulin use: with custodial use Diabetes mellitus complication status: with neurologic complications Diabetes mellitus complication detail: with unspecified neuropathy Anemia D64.9 CKD (chronic kidney disease) stage 4, GFR 15-29 ml/min N18.4 CVA (cerebral vascular accident) I63.9 Hypertension I10 Hypertension type: essential hypertension Abdominal pain R10.9 Abdominal location: unspecified location DIC (disseminated intravascular coagulation) D65 Severe dehydration E86.0 Constipation K59.00 Elevated d-dimer R79.89 Rhabdomyolysis M62.82 NSTEMI (non-ST elevated myocardial infarction) I21.4
[2020-10-18] MEDS: sucralfate 1 gm/10 mL Oral Liq UDC PO ×4 (07:56→21:11)
[2020-10-18] MEDS: pantoprazole 40 mg SDV IVP ×2 (07:56→18:12)
[2020-10-18] MEDS: citalopram 20 mg Tablet 40 MG PEG-TUBE (08:01)
[2020-10-18 08:04] LABS: Glucose Point of Care 175 mg/dL (70-110)
--- NOTE | 2020-10-18 09:08 | PC.OT ---
OT NOTE: OT TREATMENT ATTEMPTED. PATIENT IS SLEEPING SOUNDLY AND UNABLE TO AWAKEN. PER NURSING ATIVAN WAS GIVEN EARLIER. WILL ATTEMPT IN P.M.
[2020-10-18] MEDS: sennosides-docusate Tablet 1 TAB PO ×2 (09:26→18:09)
[2020-10-18] MEDS: carvedilol 6.25 mg Tablet PO ×2 (09:27→18:08)
[2020-10-18 11:40] LABS: Glucose Point of Care 146 mg/dL (70-110)
--- NOTE | 2020-10-18 14:38 | PC.SOCIAL ---
IMM Updated IMM updated signed, dated, timed and placed in chart. Provided copy for patient. [ End ]
--- NOTE | 2020-10-18 15:06 | PC.OT ---
OT NOTE: OT TREATMENT ATTEMPTED AGAIN THIS AFTERNOON. PATIENT IS SLEEPING, OPEN EYES TO NAME AND SHAKES HEAD NO WHEN ASKED IF HE WOULD PARTICIPATE IN SKILLED OT THIS AFTERNOON. PATIENT NURSE REPORTS THAT HE HAS BEEN DROWSY ALL DAY. WILL ATTEMPT AGAIN TOMORROW.
--- NOTE | 2020-10-18 17:38 | P.PN_ITS ---
Subjective Subjective: Interval history: Patient overall seems to be doing better and continues to move his bowels. No acute events overnight Vitals/I&O/Wt Last Vital Signs Temp 99.5 F 10/18/20 01:32 Pulse 98 10/18/20 14:00 Resp 23 H 10/18/20 14:00 BP 159/80 10/18/20 14:00 Pulse Ox 94 10/18/20 14:00 10/18/20 10/18/20 10/18/20 06:59 14:59 22:59 Intake Total 365 / 1815 246.822 / 246.822 Output Total 1050 / 1950 800 / 800 Balance -685 / -135 -553.178 / -553.178 Weight last 48 hrs Weight 124 lb 8.979 oz Physical Exam Narrative: EXAM NARRATIVE: Patient is conscious alert BMI 20 Head and neck examination PERRLA no masses no cervical lymphadenopathy no ja undice Abdomen much less tender nondistended soft no organomegaly guarding or rigidity/no signs of peritonitis Urinary Catheter Management^: Vincent: Cath Placed During This Visit: yes Reason for Continuing Indwelling Catheter: Accurate Measurement of Urinary Output in Critically Ill Patients Urinary Catheter Date of Insertion: 10/15/20 Urinary Catheter Time of Insertion: 10:50 Data : 10/19/20 07:45 10/19/20 07:45 Micro: Microbiology 10/15/20 08:00 Stool Lactoferrin - Final Stool Enteric Pathogens (PCR) - Final Parasite Antigen Panel - Final Occult Blood (FIT) - Final A&P Assessment and plan (1) Constipation: Continue conservative measures and resume tube feeds as much as patient to lerates No acute surgical intervention at this point If continues to be an issue with the gallbladder ultrasound of the gallbladder should be repeated Status: Acute Attestations Medical Necessity Statement*: Continue medical hospitalization for resuming bowel functions and p.o. intake Time Spent in Patient Care: (>than 50% of time spent in counselling and/or direct pt care on unit) . Coding Level of Care Code Acute Exercise Equipment Repair Technician for Latosha Elam Diagnoses Constipation K59.00
[2020-10-18 17:41] LABS: Glucose Point of Care 215 mg/dL (70-110)
[2020-10-18] MEDS: risperiDONE 0.25 mg Tablet 0.5 MG PO (18:13)
[2020-10-18] MEDS: lanolin oint 7 gm 1 APPLIC TOPICAL (23:23)
[2020-10-18 23:43] LABS: Glucose Point of Care 180 mg/dL (70-110)
[2020-10-19] VITALS (47 sets, daily range): BP systolic 129–165; BP diastolic 64–89; PULSE 80–104; RESP 10–33; TEMP 36.4–37.1; O2SAT 88–98
[2020-10-19] MEDS: HYDROcodone-APAP 7.5-325 mg/15 mL UDC PO ×3 (02:07→20:45)
[2020-10-19] MEDS: risperiDONE 0.25 mg Tablet PO (05:32)
[2020-10-19] MEDS: pyridoxine 50 mg Tablet PEG-TUBE (05:32)
[2020-10-19] MEDS: LORazepam 0.5 mg Tablet PO ×2 (05:32→18:34)
[2020-10-19 07:27] LABS: Glucose Point of Care 282 mg/dL (70-110)
[2020-10-19 07:53] LABS: Basophils % 0.1 %; Eosinophils % 0.2 %; Hematocrit 32.1 % (42.0-52.0); Hemoglobin 10.2 g/dL (11.7-16.6); Lymphocytes # 0.9 10^3/uL (0.8-4.8); Lymphocytes % 6.6 %; Mean Corpuscular HGB Conc 31.8 g/dL (30.0-36.0); Mean Corpuscular Hemoglobin 31.5 pg (28.0-34.0); Mean Corpuscular Volume 99.1 fL (80-94); Mean Platelet Volume 11.2 fL (7.4-10.4); Monocytes # 1.2 10^3/uL (0.2-0.9); Monocytes % 8.9 %; Neutrophils # 11.63 10^3/uL (1.8-7.7); Neutrophils % 83.3 %; Nucleated Red Blood Cells % 0 %; Platelet Count 214 10^3/cmm (130-400); Red Blood Count 3.24 10^6/uL (4.1-5.3); Red Cell Distribution Width 15.1 % (12.1-15.1)
[2020-10-19] MEDS: pantoprazole 40 mg SDV IVP ×2 (07:59→20:45)
[2020-10-19] MEDS: sucralfate 1 gm/10 mL Oral Liq UDC PO ×2 (07:59→11:25)
[2020-10-19] MEDS: sennosides-docusate Tablet 1 TAB PO ×2 (08:00→17:15)
[2020-10-19] MEDS: carvedilol 6.25 mg Tablet PO ×2 (08:00→17:15)
[2020-10-19] MEDS: citalopram 20 mg Tablet 40 MG PEG-TUBE (08:00)
--- NOTE | 2020-10-19 08:19 | PM.PN ---
Subjective Subjective: Interval history: Patient is much more alert this morning. Denies chest pain or shortness of breath but does report abdominal pain. Vitals are stable. He had good urinary output. White blood cell count is improving and his absolute neutrophil count is down to 11.63. His abdominal exam remains nonsurgical. Vitals/I&O/Wt Last Vital Signs Temp 98.7 F 10/19/20 03:15 Pulse 93 10/19/20 06:30 Resp 18 10/19/20 06:30 BP 130/69 10/19/20 06:30 Pulse Ox 95 10/19/20 06:30 10/18/20 10/19/20 10/19/20 22:59 06:59 14:59 Intake Total 150 / 396.822 90 / 486.822 Output Total 1600 / 2400 750 / 3150 Balance -1450 / -2003.178 -660 / -2663.178 Weight last 48 hrs Weight 56.5 kg Physical Exam Narrative: EXAM NARRATIVE: Heart is regular and lungs are clear. No lower extremity edema. Abdomen is soft and slightly tender at epigastric area. Urinary Catheter Management^: Vincent: Cath Placed During This Visit: yes Reason for Continuing Indwelling Catheter: Accurate Measurement of Urinary Output in Critically Ill Patients Urinary Catheter Date of Insertion: 10/15/20 Urinary Catheter Time of Insertion: 10:50 Data : 10/19/20 07:45 10/18/20 03:12 A&P Assessment and plan (1) Septic shock: -Sepsis criteria met with hypotension, tachycardia, lactic acid 4.8, creatinine 4.1 -Has had evidence of DIC -Also with severe dehydration, right IJ, femoral veins were quite easily collapsible on ultrasound -Source is likely cystitis, pro-Charli 9.92, WBC 19.5, lactate 1.2 -CT scan did not show any evidence of nephrolithiasis, or obstructive uropathy, Plan: -Admit to ICU -Blood cultures, sputum cultures, urine cultures -Stool studies ordered -Monitor hemodynamics closely, maintain MAP greater than 65, continue fluid therapy, switch to D5 normal saline due to low blood sugars -Avoid fluid overload -Hold tube feeds, given significant constipation -Broad-spectrum antibiotic therapy vancomycin, and Primaxin -Right IJ central line placed -Pepcid for GI prophylaxis -Heparin for DVT prophylaxis on hold given anemia -Patient is DNR/DNI -Patient's DPOA is Torin Barbosa [phone] Status: Acute (2) UTI (urinary tract infection): Status: Acute (3) Lactic acidosis: Status: Acute (4) Acute renal failure: Creatinine 4.2, has CKD stage IV, likely related to sepsis and dehydration on top of chronic kidney disease, fluid as above Status: Acute (5) Diabetes mellitus: Low-dose sliding scale Status: Inactive Qualifiers: Diabetes mellitus type: type 2 Diabetes mellitus penitentiary insulin use: with penitentiary use Diabetes mellitus complication status: with neurologic complications Diabetes mellitus complication detail: with unspecified neuropathy Qualified Code(s): E11.40 - Type 2 diabetes mellitus with diabetic neuropathy, unspecified; Z79.4 - retirement (current) use of insulin (6) Anemia: Has a history of GI bleeds in the past, history of Crohn's disease -Hemoglobin down to 8.9 -Patient's DIC panel is positive, BUN is 102 -No active signs of bleeding -Likely multifactorial from anemia, possible GI bleed, and DIC Plan: -Hold heparin -Monitor hemodynamics closely -Monitor hemoglobin, iron studies -Monitor for bleeding -Protonix, Carafate Status: Acute (7) CKD (chronic kidney disease) stage 4, GFR 15-29 ml/min: Status: Inactive (8) 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, productive aphasia, Status: Acute (9) Hypertension: Status: Inactive Qualifiers: Hypertension type: essential hypertension Qualified Code(s): I10 - Essential (primary) hypertension (10) Abdominal pain: Status: Resolved Qualifiers: Abdominal location: unspecified location Qualified Code(s): R10.9 - Unspecified abdominal pain (11) DIC (disseminated intravascular coagulation): Evidence of DIC given elevated INR, D-dimer, FDP Monitor for signs of bleeding Monitor hemodynamics closely for spontaneous retroperitoneal bleeds Status: Acute (12) Severe dehydration: Receiving IV fluids as above Status: Acute (13) Constipation: Status: Acute (14) Elevated d-dimer: Likely secondary to DIC, no respiratory complaints, is on 1 to 2 L nasal cannula, nonetheless anticoagulation in him would be contraindicated currently given concerns of anemia GI bleed, DIC Status: Acute (15) Rhabdomyolysis: Continue IV fluids Status: Acute (16) NSTEMI (non-ST elevated myocardial infarction): Likely type II NSTEMI, supply demand ischemia from sepsis, dehydration Baseline troponin 118, 6-hour 105, negative delta, BNP 1519 Plan: -Continue aspirin and statin -Telemetry monitoring -We will order cardiac echocardiogram Status: Acute Additional A&P Information Acute cholecystitis with gallstone at the neck of the gallbladder Acute on chronic normocytic anemia. Concern for GI bleed. Acute kidney injury on top of chronic kidney disease stage IV. Appears prerenal PLAN: Awaiting CMP this morning. We will go ahead and restart tube feeds. Resume aspirin and heparin and continue monitoring CBC Transfer patient to [facility]. If shows worsening will repeat gallbladder ultrasound and consider cholecystostomy tube. Currently given overall clinical improvement we will continue antibiotics and monitoring. Patient ultimately will require cholecystectomy. Attestations Medical Necessity Statement*: Patient with what appears to be acute cholecystitis requires close inpatient monitoring and treatment. Coding Level of Care Code Acute Supervisor Bridges And Buildings for Chg Fwd Diagnoses Septic shock A41.9; R65.21 UTI (urinary tract infection) N39.0 Lactic acidosis E87.2 Acute renal failure N17.9 Diabetes mellitus E11.40; Z79.4 Diabetes mellitus type: type 2 Diabetes mellitus penitentiary insulin use: with penitentiary use Diabetes mellitus complication status: with neurologic complications Diabetes mellitus complication detail: with unspecified neuropathy Anemia D64.9 CKD (chronic kidney disease) stage 4, GFR 15-29 ml/min N18.4 CVA (cerebral vascular accident) I63.9 Hypertension I10 Hypertension type: essential hypertension Abdominal pain R10.9 Abdominal location: unspecified location DIC (disseminated intravascular coagulation) D65 Severe dehydration E86.0 Constipation K59.00 Elevated d-dimer R79.89 Rhabdomyolysis M62.82 NSTEMI (non-ST elevated myocardial infarction) I21.4
[2020-10-19 08:35] LABS: Alanine Aminotransferase 16 U/L (0-41); Albumin Level 2.7 g/dL (3.5-5.2); Alkaline Phosphatase 73 IU/L (40-130); Anion Gap 19.6 (5-19); Aspartate Amino Transferase 23 U/L (0-40); Calcium 9.3 mg/dL (8.5-10.5); Carbon Dioxide 16 mmol/L (22-29); Chloride 114 mmol/L (98-107); Globulin 3.2 g/dL (1.3-4.6); Glomerular Filtration Rate 12.2 mL/min (90-130); Glucose 296 mg/dL (65-115); Osmolality Calculated 345 mOsm/kg (285-295); Potassium 3.6 mmol/L (3.5-5.1); Sodium 146 mmol/L (136-145); Total Bilirubin 0.3 mg/dL (0.15-1.2); Total Protein 5.9 g/dL (6.6-8.7)
[2020-10-19 08:44] LABS: Blood Urea Nitrogen 101 mg/dL (8-23)
--- NOTE | 2020-10-19 09:08 | PC.CHAP ---
Pastoral Care Encounter/Spiritual Assessment Type of Contact [] Declined scrap hooker visit [] Patient/Family/Request visit [] Outpatient visit [] Follow-up visit [] Physician referral [] Code/Alert [x] Routine visit [] Staff referral [] Actively dying [] Patient sleeping [] Family support [] [] Out of room [] Palliative care [] [] Receiving care in room [] Pre-surgical visit [] Trauma [] Long length of stay [x] ICU visit [] Other: Relational/Emotional Strength [] Patient feels connected with others/family/visitors/staff [] Distress [] Loneliness/isolation [] Abandonment Spirituality of Patient [x] Person of Indigo [] Attends Islam of their Indigo [] Believes in Prayer [] Reads Bible or Faith materials [] There are Spiritual issues to be addressed Hardscape Foreman Interventions [x] Prayer [] Active listening [] Non-anxious presence [] Spiritual/emotional support [] Crisis/trauma care [] Spiritual counseling [] Bereavement support [] Provided bereavement packet [] Provided Bible/devotional materials [] Provided toy/stuffed animal, coloring book to patient or family member [] Provided Communion [] Anointing/Isabela [] Salvation [x] Completed spiritual assessment [] Other: Impact on Illness or Injury [] Angry [] Fearful [] Anxious [] Often cries [] Exhaustion [] Unable to work [] Unable to attend taoist [] Unable to walk/stand [] Unable to read [] Unable to drive [] Unable to eat/drink [] Unable to sleep [] Unable to be with family [] Patient intubated [] Other: Summary Time spent with patient
[2020-10-19] MEDS: lanolin oint 7 gm 1 APPLIC TOPICAL (10:44)
[2020-10-19 11:20] LABS: Glucose Point of Care 164 mg/dL (70-110)
[2020-10-19 14:06] LABS: Vancomycin Trough 15.2 ug/mL (10-15)
--- NOTE | 2020-10-19 15:12 | PC.OT ---
OT note: Attempted OT in afternoon after pt was moved upstairs but pt sleeping soundly and unable to participate at this time.
[2020-10-19] MEDS: vancomycin 1,000 MG in sodium chloride 0.9% 250 ML 250 MG IV (17:15)
[2020-10-19] MEDS: heparin 5,000 unit/mL INJ 1 mL 5000 UNIT SUBCUT (17:16)
[2020-10-19 17:46] LABS: Glucose Point of Care 290 mg/dL (70-110)
[2020-10-19] MEDS: risperiDONE 0.25 mg Tablet 0.5 MG PO (18:33)
[2020-10-19] MEDS: insulin glargine 100 units/1 mL 7 UNIT SUBCUT (20:45)
[2020-10-19 21:23] LABS: Glucose Point of Care 148 mg/dL (70-110)
[2020-10-20] VITALS: BP 166/84; PULSE 97; RESP 18; TEMP 36.9; O2SAT 90
--- NOTE | 2020-10-20 03:00 | PC.NURSE ---
When this nurse went to shut off the patients tube feeding, he stated that he wanted it continued. This nurse upped his rate from 10ml to 20ml.
[2020-10-20 04:00] VITALS: BP 168/85; PULSE 99; RESP 18; TEMP 36.6; O2SAT 95
[2020-10-20] MEDS: pantoprazole 40 mg SDV IVP ×2 (06:10→18:11)
[2020-10-20] MEDS: heparin 5,000 unit/mL INJ 1 mL 5000 UNIT SUBCUT ×2 (06:11→18:11)
[2020-10-20] MEDS: risperiDONE 0.25 mg Tablet PO (06:15)
[2020-10-20] MEDS: LORazepam 0.5 mg Tablet PO ×2 (06:15→18:09)
[2020-10-20] MEDS: pyridoxine 50 mg Tablet PEG-TUBE (06:15)
[2020-10-20 06:39] LABS: Basophils % 0.2 %; Eosinophils # 0.2 10^3/uL (0.0-0.8); Eosinophils % 1.4 %; Hematocrit 33.8 % (42.0-52.0); Hemoglobin 10.8 g/dL (11.7-16.6); Lymphocytes % 7.7 %; Mean Corpuscular Hemoglobin 31.2 pg (28.0-34.0); Mean Corpuscular Volume 97.7 fL (80-94); Mean Platelet Volume 11.2 fL (7.4-10.4); Monocytes # 1.2 10^3/uL (0.2-0.9); Monocytes % 8.8 %; Neutrophils # 10.92 10^3/uL (1.8-7.7); Neutrophils % 80.6 %; Nucleated Red Blood Cells % 0 %; Platelet Count 243 10^3/cmm (130-400); Red Blood Count 3.46 10^6/uL (4.1-5.3); Red Cell Distribution Width 14.9 % (12.1-15.1); White Blood Count 13.6 10^3/uL (4.0-10.0)
[2020-10-20 07:06] LABS: Alanine Aminotransferase 14 U/L (0-41); Albumin Level 2.5 g/dL (3.5-5.2); Alkaline Phosphatase 94 IU/L (40-130); Anion Gap 18.6 (5-19); Aspartate Amino Transferase 22 U/L (0-40); Calcium 8.9 mg/dL (8.5-10.5); Carbon Dioxide 18 mmol/L (22-29); Chloride 119 mmol/L (98-107); Globulin 3.3 g/dL (1.3-4.6); Glomerular Filtration Rate 13.4 mL/min (90-130); Glucose 209 mg/dL (65-115); Osmolality Calculated 349 mOsm/kg (285-295); Potassium 3.6 mmol/L (3.5-5.1); Sodium 152 mmol/L (136-145); Total Bilirubin 0.3 mg/dL (0.15-1.2); Total Protein 5.8 g/dL (6.6-8.7)
[2020-10-20 07:12] LABS: Glucose Point of Care 240 mg/dL (70-110)
[2020-10-20 07:16] LABS: Blood Urea Nitrogen 94 mg/dL (8-23)
[2020-10-20 07:50] VITALS: BP 182/96; PULSE 109; RESP 18; TEMP 37.2; O2SAT 96
[2020-10-20 10:16] LABS: Glucose Point of Care 311 mg/dL (70-110)
[2020-10-20 10:49] VITALS: BP 185/97; PULSE 107; RESP 17; TEMP 36.7; O2SAT 96
[2020-10-20] MEDS: citalopram 20 mg Tablet 40 MG PEG-TUBE (14:48)
[2020-10-20] MEDS: acetaminophen 325 mg Tablet 650 MG PO (14:48)
--- NOTE | 2020-10-20 14:52 | PM.PN ---
Subjective Subjective: Interval history: Patient appears further improving. Patient denies any abdominal pain. Patient tolerates tube feeds at 20 mL/h. Continues to have some diarrheal bowel movements which appears to be related to his tube feeds. Denies shortness of breath or chest pain. Vitals/I&O/Wt Last Vital Signs Temp 98.1 F 10/20/20 10:49 Pulse 107 H 10/20/20 10:49 Resp 17 10/20/20 10:49 BP 185/97 10/20/20 10:49 Pulse Ox 96 10/20/20 10:49 10/19/20 10/20/20 10/20/20 22:59 06:59 14:59 Intake Total 400 / 500 100 / 100 Output Total 0 / 0 1450 / 1450 450 / 450 Balance 400 / 500 -1450 / -950 -350 / -350 Physical Exam Narrative: EXAM NARRATIVE: Heart is regular and lungs are clear. No lower extremity edema. Abdomen is soft and slightly tender at epigastric area on deep palpation. Urinary Catheter Management^: Vincent: Cath Placed During This Visit: yes Reason for Continuing Indwelling Catheter: Accurate Measurement of Urinary Output in Critically Ill Patients Urinary Catheter Date of Insertion: 10/15/20 Urinary Catheter Time of Insertion: 10:50 Data : 10/20/20 05:15 10/20/20 05:15 Micro: Microbiology 10/15/20 08:46 Blood Culture - Final Blood NO GROWTH AFTER 5 DAYS 10/15/20 08:45 Blood Culture - Final Blood NO GROWTH AFTER 5 DAYS A&P Assessment and plan (1) Septic shock: -Sepsis criteria met with hypotension, tachycardia, lactic acid 4.8, creatinine 4.1 -Has had evidence of DIC -Also with severe dehydration, right IJ, femoral veins were quite easily collapsible on ultrasound -Source is likely cystitis, pro-Charli 9.92, WBC 19.5, lactate 1.2 -CT scan did not show any evidence of nephrolithiasis, or obstructive uropathy, Plan: -Admit to ICU -Blood cultures, sputum cultures, urine cultures -Stool studies ordered -Monitor hemodynamics closely, maintain MAP greater than 65, continue fluid therapy, switch to D5 normal saline due to low blood sugars -Avoid fluid overload -Hold tube feeds, given significant constipation -Broad-spectrum antibiotic therapy vancomycin, and Primaxin -Right IJ central line placed -Pepcid for GI prophylaxis -Heparin for DVT prophylaxis on hold given anemia -Patient is DNR/DNI -Patient's DPOA is Torin Barbosa [phone] Status: Acute (2) UTI (urinary tract infection): Status: Acute (3) Lactic acidosis: Status: Acute (4) Acute renal failure: Creatinine 4.2, has CKD stage IV, likely related to sepsis and dehydration on top of chronic kidney disease, fluid as above Status: Acute (5) Diabetes mellitus: Low-dose sliding scale Status: Inactive Qualifiers: Diabetes mellitus type: type 2 Diabetes mellitus terminal gauger supervisor insulin use: with correction use Diabetes mellitus complication status: with neurologic complications Diabetes mellitus complication detail: with unspecified neuropathy Qualified Code(s): E11.40 - Type 2 diabetes mellitus with diabetic neuropathy, unspecified; Z79.4 - parts counterman (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) use of insulin (6) Anemia: Has a history of GI bleeds in the past, history of Crohn's disease -Hemoglobin down to 8.9 -Patient's DIC panel is positive, BUN is 102 -No active signs of bleeding -Likely multifactorial from anemia, possible GI bleed, and DIC Plan: -Hold heparin -Monitor hemodynamics closely -Monitor hemoglobin, iron studies -Monitor for bleeding -Protonix, Carafate Status: Acute (7) CKD (chronic kidney disease) stage 4, GFR 15-29 ml/min: Status: Inactive (8) 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, productive aphasia, Status: Acute (9) Hypertension: Status: Inactive Qualifiers: Hypertension type: essential hypertension Qualified Code(s): I10 - Essential (primary) hypertension (10) Abdominal pain: Status: Resolved Qualifiers: Abdominal location: unspecified location Qualified Code(s): R10.9 - Unspecified abdominal pain (11) DIC (disseminated intravascular coagulation): Evidence of DIC given elevated INR, D-dimer, FDP Monitor for signs of bleeding Monitor hemodynamics closely for spontaneous retroperitoneal bleeds Status: Acute (12) Severe dehydration: Receiving IV fluids as above Status: Acute (13) Constipation: Status: Acute (14) Elevated d-dimer: Likely secondary to DIC, no respiratory complaints, is on 1 to 2 L nasal cannula, nonetheless anticoagulation in him would be contraindicated currently given concerns of anemia GI bleed, DIC Status: Acute (15) Rhabdomyolysis: Continue IV fluids Status: Acute (16) NSTEMI (non-ST elevated myocardial infarction): Likely type II NSTEMI, supply demand ischemia from sepsis, dehydration Baseline troponin 118, 6-hour 105, negative delta, BNP 1519 Plan: -Continue aspirin and statin -Telemetry monitoring -We will order cardiac echocardiogram Status: Acute Additional A&P Information Acute cholecystitis with gallstone at the neck of the gallbladder Acute on chronic normocytic anemia. Concern for GI bleed. Acute kidney injury on top of chronic kidney disease stage IV. Appears prerenal PLAN: We will check stool for C. difficile infection. Will discontinue vancomycin and continue Primaxin for now We will remove rectal tube if no evidence of C. difficile infection. Increase tube feeds and monitor to make sure patient can tolerate. If remains stable we will likely be able to dismiss patient back to nursing facility in a day or 2. [address] Simons this morning who will follow up with patient after he is discharged. Attestations Medical Necessity Statement*: Patient with acute cholecystitis and acute kidney injury requires close inpatient monitoring and treatment. Coding Level of Care Code Acute Dietary Manager for Chg Fwd Diagnoses Septic shock A41.9; R65.21 UTI (urinary tract infection) N39.0 Lactic acidosis E87.2 Acute renal failure N17.9 Diabetes mellitus E11.40; Z79.4 Diabetes mellitus type: type 2 Diabetes mellitus terminal gauger supervisor insulin use: with correction use Diabetes mellitus complication status: with neurologic complications Diabetes mellitus complication detail: with unspecified neuropathy Anemia D64.9 CKD (chronic kidney disease) stage 4, GFR 15-29 ml/min N18.4 CVA (cerebral vascular accident) I63.9 Hypertension I10 Hypertension type: essential hypertension Abdominal pain R10.9 Abdominal location: unspecified location DIC (disseminated intravascular coagulation) D65 Severe dehydration E86.0 Constipation K59.00 Elevated d-dimer R79.89 Rhabdomyolysis M62.82 NSTEMI (non-ST elevated myocardial infarction) I21.4
[2020-10-20 15:18] VITALS: BP 162/76; PULSE 107; RESP 16; TEMP 36.3; O2SAT 98
--- NOTE | 2020-10-20 15:52 | PC.SOCIAL ---
*IMM UPDATE* manager cath lab gave IMM update via phone to patient's brother, Torin. Understood. Initialed, dated, timed and placed in chart.
[2020-10-20 17:08] LABS: Glucose Point of Care 193 mg/dL (70-110)
--- NOTE | 2020-10-20 17:22 | PC.PT ---
Patient continues to refuse attempted physical therapy evaluation for third time, today, discharge physical therapy evaluation orders, will reattempt PT evaluation when patient agreeable to same with physician.
--- NOTE | 2020-10-20 17:36 | PM.PN ---
Subjective Subjective: Interval history: Patient overall looks better and feels better, continue to have loose bowel movements and rectal tube in place. Patient transferred to the floor Medications: Reviewed: Yes Vitals/I&O/Wt Last Vital Signs Temp 97.4 F L 10/20/20 15:18 Pulse 107 H 10/20/20 15:18 Resp 16 10/20/20 15:18 BP 162/76 10/20/20 15:18 Pulse Ox 98 10/20/20 15:18 10/20/20 10/20/20 10/20/20 06:59 14:59 22:59 Intake Total 100 / 100 Output Total 1450 / 1450 450 / 450 800 / 1250 Balance -1450 / -950 -350 / -350 -800 / -1150 Physical Exam Narrative: EXAM NARRATIVE: Patient is conscious alert BMI 20 Head and neck examination PERRLA no masses no cervical lymphadenopathy no jaundice Abdomen much less tender nondistended soft no organomegaly guarding or rigidity/no signs of peritonitis Urinary Catheter Management^: Vincent: Cath Placed During This Visit: yes Reason for Continuing Indwelling Catheter: Accurate Measurement of Urinary Output in Critically Ill Patients Urinary Catheter Date of Insertion: 10/15/20 Urinary Catheter Time of Insertion: 10:50 Data : 10/20/20 05:15 10/20/20 05:15 Micro: Microbiology 10/15/20 08:46 Blood Culture - Final Blood NO GROWTH AFTER 5 DAYS 10/15/20 08:45 Blood Culture - Final Blood NO GROWTH AFTER 5 DAYS A&P Assessment and plan (1) Constipation: Condition resolved and patient having more bowel movements From surgical standpoint of view can be transreferred to the intermediate facility when appropriate from medical hospitalist service Return to clinic in 3 weeks upon discharge Status: Acute Attestations Medical Necessity Statement*: Continue hospitalization for resumption of feeding tube and rectal tube care Time Spent in Patient Care: (>than 50% of time spent in counselling and/or direct pt care on unit). Coding Level of Care Code Acute Meat Supervisor for g Fwd Diagnoses Constipation K59.00
[2020-10-20] MEDS: metoprolol tartrate 1 mg/1 mL SDV 5 mL 5 MG IV (18:04)
[2020-10-20] MEDS: carvedilol 6.25 mg Tablet PO (18:09)
[2020-10-20] MEDS: risperiDONE 0.25 mg Tablet 0.5 MG PO (18:09)
[2020-10-20 20:00] VITALS: BP 167/83; PULSE 95; RESP 18; TEMP 37; O2SAT 98
[2020-10-20] MEDS: insulin glargine 100 units/1 mL 7 UNIT SUBCUT (21:21)
[2020-10-20 21:27] LABS: Glucose Point of Care 221 mg/dL (70-110)
[2020-10-20] MEDS: HYDROcodone-APAP 7.5-325 mg/15 mL UDC PO (23:45)
[2020-10-21] VITALS: BP 175/93; PULSE 101; RESP 19; TEMP 37.2; O2SAT 97
[2020-10-21 04:00] VITALS: BP 178/88; PULSE 106; RESP 18; TEMP 36.6; O2SAT 98
[2020-10-21 05:11] LABS: Basophils % 0.2 %; Eosinophils # 0.1 10^3/uL (0.0-0.8); Eosinophils % 0.8 %; Hemoglobin 11.5 g/dL (11.7-16.6); Lymphocytes % 8.5 %; Mean Corpuscular HGB Conc 31.9 g/dL (30.0-36.0); Mean Corpuscular Hemoglobin 31.3 pg (28.0-34.0); Mean Corpuscular Volume 98.1 fL (80-94); Mean Platelet Volume 11.6 fL (7.4-10.4); Monocytes # 1.1 10^3/uL (0.2-0.9); Monocytes % 9.4 %; Neutrophils # 9.03 10^3/uL (1.8-7.7); Nucleated Red Blood Cells % 0 %; Platelet Count 264 10^3/cmm (130-400); Red Blood Count 3.67 10^6/uL (4.1-5.3); Red Cell Distribution Width 14.8 % (12.1-15.1); White Blood Count 11.3 10^3/uL (4.0-10.0)
[2020-10-21 06:05] LABS: Alanine Aminotransferase 12 U/L (0-41); Albumin Level 2.8 g/dL (3.5-5.2); Alkaline Phosphatase 96 IU/L (40-130); Anion Gap 19.6 (5-19); Aspartate Amino Transferase 15 U/L (0-40); Calcium 8.7 mg/dL (8.5-10.5); Carbon Dioxide 17 mmol/L (22-29); Chloride 120 mmol/L (98-107); Globulin 3.4 g/dL (1.3-4.6); Glucose 393 mg/dL (65-115); Osmolality Calculated 363 mOsm/kg (285-295); Potassium 3.6 mmol/L (3.5-5.1); Sodium 153 mmol/L (136-145); Total Bilirubin 0.3 mg/dL (0.15-1.2); Total Protein 6.2 g/dL (6.6-8.7)
[2020-10-21] MEDS: pyridoxine 50 mg Tablet PEG-TUBE (06:14)
[2020-10-21] MEDS: risperiDONE 0.25 mg Tablet PO (06:14)
[2020-10-21] MEDS: heparin 5,000 unit/mL INJ 1 mL 5000 UNIT SUBCUT (06:14)
[2020-10-21] MEDS: LORazepam 0.5 mg Tablet PO (06:14)
[2020-10-21] MEDS: acetaminophen 325 mg Tablet 650 MG PO (06:14)
[2020-10-21] MEDS: pantoprazole 40 mg SDV IVP (06:15)
[2020-10-21 06:17] LABS: Blood Urea Nitrogen 99 mg/dL (8-23)
[2020-10-21 06:41] LABS: Glucose Point of Care 386 mg/dL (70-110)
[2020-10-21 08:00] VITALS: BP 154/84; PULSE 90; RESP 18; TEMP 37; O2SAT 98
[2020-10-21] MEDS: metoprolol tartrate 1 mg/1 mL SDV 5 mL 5 MG IV (08:26)
[2020-10-21] MEDS: citalopram 20 mg Tablet 40 MG PEG-TUBE (09:28)
[2020-10-21] MEDS: carvedilol 6.25 mg Tablet PO (09:28)
[2020-10-21 11:00] VITALS: BP 147/80; PULSE 98; RESP 18; TEMP 37.2; O2SAT 98
[2020-10-21 11:16] LABS: Glucose Point of Care 278 mg/dL (70-110)
--- NOTE | 2020-10-21 12:34 | P.DS_ITS ---
Discharge Providers Date of Admission: 10/15/20 15:09 Date of Discharge: October 21, 2020 Attending Provider at Admission: Conner Sauer MD Attending Provider at Discharge: Geoff Hawthorne MD Primary Care Provider: Bryan Garcia DO Diagnoses at Discharge Discharge Diagnosis (1) Constipation: Status: Acute (2) Acute cholecystitis: Status: Acute (3) NSTEMI (non-ST elevated myocardial infarction): Status: Acute Permanent problem details: Type II (4) Rhabdomyolysis: Status: Acute (5) Severe dehydration: Status: Acute (6) Acute renal failure: Status: Acute (7) Diabetes mellitus type 2 in nonobese: Status: Acute (8) Chronic kidney disease, stage IV (severe): Status: Acute (9) Sepsis: Status: Acute (10) Septic shock: Status: Acute (11) Anemia: Status: Acute (12) DIC (disseminated intravascular coagulation): Status: Acute Reason for Visit Reason for Visit: ABD PAIN Hospital Course Hospital Course Patient presented septic with evidence of septic shock and DIC. Initially it felt to be related to urinary tract infection although UA was not suggestive. Further evaluation showed that patient has 2.2 cm gallstone within the neck of the gallbladder and mild gallbladder wall thickening. Acute cholecystitis was highly suspected. Patient was treated with Primaxin and gradually improved and this morning reports feeling much better. He denies abdominal pain. His exam much improved and he is not tender on palpation of epigastric area. He is noted to have diarrheal bowel movements and this appears to be related to tube feeds and/or antibiotics. Patient had extensive constipation likely related to Imodium he takes at times for diarrheal bowel movements. This will need to be closely monitored and senna/Colace will need to be given as soon as patient shows evidence of constipation. I will discharge patient on 1 week of ciprofloxacin and Flagyl. Patient will follow up with Dr. Simons in 3 weeks to be evaluated for cholecystectomy. Patient has hypernatremia and low sodium tube feeds recommended with now increased free water administration. Will request repeat lab work in several days to make sure sodium and kidney function further improve. Patient's BNP is going up considering amount of fluids he received. Unfortunately given his kidney function and sodium I do not think it is safe to prescribe diuretics. Patient may require transient oxygen use if needed and hopefully once his infection is completely treated he will get back to his normal. Patient may end up requiring dialysis in the near future. Will request outpatient follow-up with nephrology. Patient's mild non-ST elevation NM felt to be of type II secondary to sepsis and septic shock. No further cardiac evaluation was requested considering his underlying medical condition. EF was 50% with apical hypokinesis which could possibly indicate some Takotsubo syndrome and hopefully will improve down the road once infection is controlled and cholecystectomy performed. Physical Exam Narrative: EXAM NARRATIVE: Lungs are clear and heart is regular. Abdomen is soft and nontender with positive bowel sounds. No lower extremity edema. Patient is tolerating tube feeds. He has loose bowel movements. Urinary Catheter Management^: Vincent: Cath Placed During This Visit: yes Reason for Continuing Indwelling Catheter: Assist healing open wound Urinary Catheter Date of Insertion: 10/15/20 Urinary Catheter Time of Insertion: 10:50 Discharge Data Data Completed and Pending: Completed Studies During Hospitalization Category Date Time Status CT abdomen pelvis wo con [id number] Urge nt Cat Scan 10/15/20 08:[address] chest wo con 7 1250 Urgent Cat Scan 10/15/20 15:11 Completed XR KUB [id number] Stat Exams 10/15/20 08:50 Completed XR chest 1V [id number] Stat Exams 10/15/20 20:03 Completed XR chest 1V sravan ble [id number] Urgent Exams 10/15/20 08:30 Completed CV echo complete* [id number] Routine Ultrasound 10/16/20 07:57 Completed US gall bladder 7 6705 Urgent Ultrasound 10/15/20 10:51 Completed Pending at discharge Category Date Time Status Complete Blood Co unt w/Auto AM LABS Lab 10/22/20 04:00 Ordered Comprehensive Met abolic Panel AM LA BS Lab 10/22/20 04:00 Ordered Magnesium AM LABS Lab 10/22/20 04:00 Ordered Labs from last 24 hours 10/21/20 10/21/20 10/21/20 10:50 06:36 04:29 WBC 11.3 H RBC 3.67 L Hgb 11.5 L Hct 36.0 L MCV 98.1 H MCH 31.3 MCHC 31.9 RDW 14.8 Plt Count 264 MPV 11.6 H Neut % (Auto) 80.0 Lymph % (Auto) 8.5 Donley % (Auto) 9.4 Eos % (Auto) 0.8 Baso % (Auto) 0.2 Neut # (Auto) 9.03 H Lymph # (Auto) 1.0 Donley # (Auto) 1.1 H Eos # (Auto) 0.1 Baso # (Auto) 0.0 Nucleated RBC % (a uto) 0 Nucleated RBCs # 0.0 Sodium Potassium Chloride Carbon Dioxide Anion Gap BUN Creatinine GFR Calculation Glucose POC Glucose 278 H 386 H Calculated Osmolal ity Calcium Magnesium Total Bilirubin AST ALT Alkaline Phosphata se Total Protein Albumin Globulin Crossmatch 10/21/20 10/20/20 10/20/20 04:21 21:22 17:06 WBC RBC Hgb Hct MCV MCH MCHC RDW Plt Count MPV Neut % (Auto) Lymph % (Auto) Donley % (Auto) Eos % (Auto) Baso % (Auto) Neut # (Auto) Lymph # (Auto) Donley # (Auto) Eos # (Auto) Baso # (Auto) Nucleated RBC % (a uto) Nucleated RBCs # Sodium 153 H Potassium 3.6 Chloride 120 H Carbon Dioxide 17 L Anion Gap 19.6 H BUN 99 H* Creatinine 4.0 H GFR Calculation 15.0 L Glucose 393 H POC Glucose 221 H 193 H Calculated Osmolal ity 363 H Calcium 8.7 Magnesium 2.0 Total Bilirubin 0.3 AST 15 ALT 12 Alkaline Phosphata se 96 Total Protein 6.2 L Albumin 2.8 L Globulin 3.4 Crossmatch 10/17/20 11:36 WBC RBC Hgb Hct MCV MCH MCHC RDW Plt Count MPV Neut % (Auto) Lymph % (Auto) Donley % (Auto) Eos % (Auto) Baso % (Auto) Neut # (Auto) Lymph # (Auto) Donley # (Auto) Eos # (Auto) Baso # (Auto) Nucleated RBC % (a uto) Nucleated RBCs # Sodium Potassium Chloride Carbon Dioxide Anion Gap BUN Creatinine GFR Calculation Glucose POC Glucose Calculated Osmolal ity Calcium Magnesium Total Bilirubin AST ALT Alkaline Phosphata se Total Protein Albumin Globulin Crossmatch See Detail Vitals: Last Vital Signs Temp 98.9 F 10/21/20 11:00 Pulse 98 10/21/20 11:00 Resp 18 10/21/20 11:00 BP 147/80 10/21/20 11:00 Pulse Ox 98 10/21/20 11:00 Discharge Plan Discharge Patient Disposition: Xfer SNF Condition: Stable Prescriptions: New sennosides-docusate sodium 8.6-50 mg Tablet 1 tab PO BID PRN (Reason: constipation) Qty: 60 RF: 0 Flagyl 500 mg tablet 500 mg PO Q8H 7 Days Qty: 21 RF: 0 ciprofloxacin 500 mg/5 mL suspension,microcapsule recon 500 mg PO Q12H 7 Days Qty: 70 RF: 0 atorvastatin 10 mg tablet 10 mg PO DAILY Qty: 30 RF: 0 Continued acetaminophen 325 mg Tablet 650 mg PO Q4H PRN (Reason: Pain) RF: 0 sulfasalazine 500 mg Tablet 1,000 mg PO TID RF: 0 citalopram 10 mg Tablet 40 mg feeding tube DAILY RF: 0 risperidone 0.25 mg Tablet 0.25 mg PO DAILY@0600 RF: 0 lorazepam 0.5 mg Tablet 0.5 mg PO BID@0600,1900 RF: 0 sodium bicarbonate 650 mg Tablet 1,300 mg feeding tube TID@0600,1200,1900 RF: 0 risperidone 0.5 mg Tablet 0.5 mg PO BEDTIME@1900 RF: 0 Lantus Solostar U-100 Insulin 100 unit/mL (3 mL) Insulin Pen 7 unit SUBCUT BEDTIME RF: 0 hydrocodone-acetaminophen 5-325 mg Tablet 1 tab PO Q8H PRN (Reason: Pain) RF: 0 carvedilol 6.25 mg Tablet 6.25 mg PO BID@0700,1900 RF: 0 miconazole nitrate 2 % Aerosol Powder 1 spray TOPICAL BID RF: 0 bisacodyl 10 mg Suppository 10 mg AL DAILY PRN (Reason: Constipation) RF: 0 calcitriol 1 mcg/mL Solution See Rx Instructions .ROUTE .COMPLEX RF: 0 GlucaGen HypoKit 1 mg Recon Soln 1 mg SUBCUT Q20M PRN (Reason: UNKNOWN) RF: 0 famotidine 40 mg/5 mL (8 mg/mL) Suspension 20 mg PO DAILY PRN (Reason: UNKNOWN) RF: 0 Protonix [address] For Susp In Packet 40 mg feeding tube DAILY RF: 0 insulin lispro [Humalog Alex KwikPen U-100] 100 unit/mL Insulin Pen, Half- Unit See Rx Instructions .ROUTE .COMPLEX RF: 0 diphenoxylate-atropine [Lomotil] 2.5-0.025 mg Tablet 1 tab feeding tube QID PRN (Reason: Diarrhea) RF: 0 aspirin 81 mg Tablet,Delayed Release (Dr/Ec) 81 mg PO DAILY@0600 RF: 0 pyridoxine (vitamin B6) 50 mg Tablet 50 mg feeding tube DAILY@0600 RF: 0 diclofenac sodium 1 % Gel 4 g TOPICAL BID RF: 0 Orajel 3X Mouth Sores 20-0.1-0.15 % Gel 1 ea MUCOUS MEMBRANE QID PRN (Reason: MOUTH SORES) RF: 0 Discontinued docusate sodium 100 mg Capsule 100 mg PO BID PRN (Reason: Constipation) RF: 0 alum-mag hydroxide-simeth 200-200-20 mg/5 mL Suspension 30 ml feeding tube QID PRN (Reason: REFLUX) RF: 0 Discharge Orders: Discharge Order (Routine); Ordered 10/21/20 Ordered By: Geoff Hawthorne Other Ambulatory Orders: Complete Blood Count w/Auto (Routine) Timeframe: 3 Days Location: Determined by Patient Ordered By: Geoff Hawthorne Comprehensive Metabolic Panel (Routine) Timeframe: 3 Days Facility: [facility] - Location: Lab - Main Lab Ordered By: Geoff Hawthorne Referrals: Rodger Agudelo MD [Referring] - 1 week Renaldo Fowler MD [Physician] - 11/10/20 (Please call Friday to schedule an appointment on 11/10/20 Return to surgery office in 3-week) Bryan Garcia DO [Primary Care Provider] - 4-7 days (Please call Friday to schedule a follow up appointment. ) Discharge Diet: Usual diet Discharge Activity: Resume usual activity Patient Instructions: Ciprofloxacin (By mouth), Laxative, Stimulant (By mouth), Metronidazole (By mouth), Myocardial Infarction (GEN), Urinary Tract Infection in Men (GEN), Rhabdomyolysis (DC) Activity Restrictions/Additional Instructions: Please call your doctor or present to emergency department if your condition worsens or you develop diarrhea, lightheadedness, fatigue or see blood in your stool or black stool. Please continue with tube feeds you were previously getting at [facility] and please increase free water administration to 250 mL every 4 hours. Please discuss with dietitian to see if low sodium tube feeds can be used. Repeat blood work will be requested in 3 days with results sent to primary care physician to make sure hypernatremia and kidney function are improving. Please use senna/Colace as soon as you noted to be constipated. Continue it twice daily until your bowel function completely restored otherwise notify your doctor. Discharge Attestations Time Spent in Discharge Care*: greater than 30 min Status at Discharge: Cognitive status at discharge: cognitively intact , Behavioral status at discharge: cooperative , Quality Metrics Clinical Quality Measures During this hospital stay, did patient experience: AMI Clinical Trial Participant: No Contraindication to aspirin (AMI): Aspirin given Contraindication to statin: Statin prescribed Coding Level of Care Code Acute Principal Gifts Officer for [facility] Fwd Diagnoses Constipation K59.00 Acute cholecystitis K81.0 NSTEMI (non-ST elevated myocardial infarction) I21.4 Rhabdomyolysis M62.82 Severe dehydration E86.0 Acute renal failure N17.9 Diabetes mellitus type 2 in nonobese E11.9 Chronic kidney disease, stage IV (severe) N18.4 Sepsis A41.9 Septic shock A41.9; R65.21 Anemia D64.9 DIC (disseminated intravascular coagulation) D65
[2020-10-21 15:39] VITALS: BP 158/88; PULSE 97; RESP 18; TEMP 36.9; O2SAT 96
[2020-10-21 18:09] VITALS: BP 158/88; PULSE 97; RESP 18; TEMP 36.9; O2SAT 96
== END 2020-10-21 18:10 | disposition skilled nursing facility (03) | DRG 871 ==
LOC: ER 08:54 → ICU 15:35 → MEDSURG 10-19 11:16
PROVIDERS: Family Medicine; Admitting Provider Family Medicine; Emergency Provider Nurse Practitioner Family; PCP Internal Medicine; Visit Provider Internal Medicine
DX: A41.9 Sepsis, unspecified organism (principal); R65.21 Severe sepsis with septic shock; D65 Disseminated intravascular coagulation [defibrination syndrome]; I21.A1 Myocardial infarction type 2; E87.2 Acidosis; N17.9 Acute kidney failure, unspecified; N18.4 Chronic kidney disease, stage 4 (severe); I69.351 Hemiplegia and hemiparesis following cerebral infarction affecting right dominant side; M62.82 Rhabdomyolysis; K80.00 Calculus of gallbladder with acute cholecystitis without obstruction; E87.0 Hyperosmolality and hypernatremia; K59.00 Constipation, unspecified; E86.0 Dehydration; F03.90 Unspecified dementia, unspecified severity, without behavioral disturbance, psychotic disturbance, mood disturbance, and anxiety; E11.22 Type 2 diabetes mellitus with diabetic chronic kidney disease; I12.9 Hypertensive chronic kidney disease with stage 1 through stage 4 chronic kidney disease, or unspecified chronic kidney disease; D64.9 Anemia, unspecified; Z66 Do not resuscitate; E11.40 Type 2 diabetes mellitus with diabetic neuropathy, unspecified; E11.51 Type 2 diabetes mellitus with diabetic peripheral angiopathy without gangrene; F41.8 Other specified anxiety disorders; F42.9 Obsessive-compulsive disorder, unspecified; K21.9 Gastro-esophageal reflux disease without esophagitis; I69.320 Aphasia following cerebral infarction; Z79.4 Long term (current) use of insulin; Z79.82 Long term (current) use of aspirin; Z79.891 Long term (current) use of opiate analgesic; Z90.49 Acquired absence of other specified parts of digestive tract; Z87.442 Personal history of urinary calculi; Z95.828 Presence of other vascular implants and grafts
CPT/HCPCS: 36415; 36416; 36430; 36592; 36600; 51702; 71045; 71250; 74018; 74176; 76705; 80053; 80061; 80202; 80500; 81001; 82009; 82274; 82550; 82728; 82803; 82962; 83036; 83540; 83605; 83630; 83690; 83735; 83880; 84100; 84145; 84443; 84484; 85007; 85014; 85018; 85025; 85045; 85362; 85378; 85384; 85610; 85730; 86140; 86850; 86870; 86900; 86920; 87040; 87493; 87506; 93005; 93306; 94664; 96361; 96365; 96367; 96372; 96375; 97167; 97530; 97535; 99285; C1751; C9113; J0743; J1630; J1644; J1815 ×2; J1940; J2543; J3010; J3370; J3430; J3480; J3490; J7030; J7050; P9016; Q3014

== ENCOUNTER 2021-02-20 12:43 | Emergency (ER) | payer OTHER, MEDICARE, SELFPAY ==
[2021-02-20 12:45] VITALS: BP 176/91; PULSE 83; RESP 18; TEMP 36.7; O2SAT 98
--- NOTE | 2021-02-20 13:04 | ED_ITS ---
HPI - General Adult General: Chief complaint: General Medical Stated complaint: PEG TUBE ISSUES Time Seen by Provider: 02/20/21 12:57 History of Present Illness: HPI narrative: This patient is a 70-year-old male who presents to the emergency department for malfunctioning PEG tube. Apparently staff was trying to flush the PEG tube and it ruptured at the side. A tube otherwise is still in place. Will need to be replaced in the emergency department. Patient has no other complaints Onset (ago): minute(s) Associated symptoms: Deny chest pain, dyspnea, headache(s), nausea, rash, palpitations or vomiting Review of Systems General: Reports: 10 or more systems reviewed and unremarkable except in HPI and below Const: Denies: fever(s), chills, body aches or fatigue Eyes: Denies: change in vision or blurry vision ENMT: Denies: throat pain, hoarseness or mouth pain Card: Denies: chest pain, palpitations, irregular heart rhythm, edema, swelling of feet/ankles or lightheadedness Resp: Denies: dyspnea, productive cough, non-productive cough, wheezing or pain on inspiration GI: Reports: other (PEG tube malfunction); Denies: abdominal pain, nausea or vomiting : Denies: flank pain, dysuria, urinary frequency, urinary urgency or urinary hesitancy Musc: Denies: neck pain, back pain, extremity pain, extremity swelling, joint pain, joint swelling, joint redness, joint warmth or limited range of motion Skin/Breast: Denies: rash, pruritus, erythema or skin tenderness Neuro: Denies: headache(s), numbness in extremities or weakness in extremities Psych: Denies: anxiety or depression [facility] PFSH: Medical History Abdominal pain Anemia Anxiety reaction Carotid artery disease Cholelithiasis Chronic kidney disease, stage IV (severe) CKD (chronic kidney disease) stage 4, GFR 15-29 ml/min Crohn's disease CVA (cerebral vascular accident) Residual right-sided weakness Depression Diabetes mellitus Diverticulitis Gastroesophageal reflux Mild gastritis on EGD 2011 GI bleeding History of common carotid artery stent placement Hyperkalemia Hypertension Lactic acidosis Nephrolithiasis Obsessive compulsive disorder Partial small bowel obstruction Peripheral arterial occlusive disease Small bowel obstruction UTI (urinary tract infection) Surgical History History of colonoscopy 02/2012 --active Crohn's disease at ileocolic anastomosis History of esophagogastroduodenoscopy 02/2012 --mild gastritis History of lithotripsy x 2 History of resection of small bowel x 1-2 History of right hemicolectomy Social History Smoking and tobacco status: never smoked Physical Exam Const: COMMON NORMALS: no acute distress, average body habitus, patient oriented x3, no limitations, healthy appearing, alert and well nourished HENMT: COMMON NORMALS: normocephalic, atraumatic, hearing grossly normal bilaterally, external ears normal, EAC's normal, TM's normal bilaterally, Normal external nose present, Normal nasal mucous membranes and turbinates present, moist oral mucous membranes, oropharynx normal, dentition normal and gingiva normal HEAD & SCALP: normocephalic and atraumatic NOSE: Normal external nose present and Normal nasal mucous membranes and turbinates present EXTERNAL EAR: Yes external ears normal EXTERNAL AUDITORY CANAL: EAC's normal TYMPANIC MEMBRANE: TM's normal bilaterally Neck/C-Spine: COMMON NORMALS: full ROM, no lymphadenopathy, supple, no meningeal signs, no JVD, Thyroid normal and No carotid bruits THYROID: Thyroid normal Chest: COMMONS NORMALS: normal inspection of the chest, normal palpation of entire chest wall, normal inspection of the breasts and normal palpation of the breasts Breast/axilla inspection: Yes normal inspection of the breasts BREAST/AXILLA PALPATION: Yes normal palpation of the breasts Resp: COMMON NORMALS: normal respiratory effort, No retractions, No use of accessory muscles, clear to auscultation bilaterally and percussion normal AUSCULTATION: clear to auscultation bilaterally PERCUSSION: percussion normal Cardio: COMMON NORMALS: no JVD, regular rate, regular rhythm, S1 normal heart sound present, S2 normal heart sound present, No gallops present (Cardio), No clicks present (Cardio), No murmurs present (Cardio), No rub (Cardio) and Peripheral pulses 2+ throughout RATE: regular rate RHYTHM: regular rhythm HEART SOUNDS: S1 normal heart sound present and S2 normal heart sound present PERIPHERAL PULSES: Peripheral pulses 2+ throughout GI: COMMON NORMALS: Normal to inspection, nondistended, normoactive bowel sounds present (PEG tube in abdomen appears to have malfunction), Soft to palpation, non-tender, No hepatosplenomegaly present, no masses and no bruits PALPATION: Yes Soft to palpation and Yes No hepatosplenomegaly present : COMMON NORMALS: Yes no CVA tenderness BLADDER/KIDNEY EXAM: Yes no CVA tenderness Back/Pelvis: COMMON NORMALS: no CVA tenderness, thoracic and lumbar spine normal to inspection, no thoracic nor lumbar tenderness, thoraco-lumbar ROM normal and straight leg raise negative bilaterally Extremity: COMMON NORMALS: normal to inspection, full ROM, capillary refill normal, no joint enlargement, no clubbing, cyanosis or edema, no calf tenderness and no pedal edema Neuro: COMMON NORMALS: patient oriented x3 SENSORIUM/ORIENTATION: Yes alert MENINGEAL SIGNS: Yes no meningeal signs Procedures Feeding Tube Replacement Type of Tube: gastrostomy Insertion Site Prior to Procedure: clean Tube Used for Reinsertion: other (18 Wolof replacement PEG tube) Wolof Tube Size (F): 18 Balloon size (mL): 10 Verification of Placement: auscultation Tube Secured by: attachment device Patient Tolerated Procedure: well Additional Comments: Patient tolerated without difficult Course Vital Signs: Vital signs: Vital Signs Temperature 98.1 F 02/20/21 12:45 Pulse Rate 83 02/20/21 12:45 Respiratory Rate 15 02/20/21 13:40 Blood Pressure 178/88 02/20/21 13:40 Pulse Oximetry 98 02/20/21 12:45 MDM - General Adult MDM Narrative: Medical decision making narrative: Old PEG tube removed. Was unable to deflate the cuff due to malfunctioning PEG tube. But removed easily and replaced with 18 Wolof PEG tube good position with auscultation. Patient tolerated procedure well. Patient be discharged back to senior care Discharge Plan Discharge Condition: Stable Prescriptions: No Action acetaminophen 325 mg Tablet 650 mg feeding tube Q4H PRN (Reason: Pain) RF: 0 sulfasalazine 500 mg Tablet 1,000 mg feeding tube TID RF: 0 lorazepam 0.5 mg Tablet 0.5 mg feeding tube BID@0600,1900 RF: 0 sodium bicarbonate 650 mg Tablet 1,300 mg feeding tube TID@0600,1200,1900 RF: 0 Lantus Solostar U-100 Insulin 100 unit/mL (3 mL) Insulin Pen 12 unit SUBCUT BEDTIME RF: 0 hydrocodone-acetaminophen 5-325 mg Tablet 1 tab feeding tube Q8H MDD 6 tabs PRN (Reason: Pain) RF: 0 miconazole nitrate 2 % Aerosol Powder 1 spray TOPICAL BID PRN (Reason: UNKNOWN) RF: 0 bisacodyl 10 mg Suppository 10 mg MS DAILY PRN (Reason: Constipation) RF: 0 calcitriol 1 mcg/mL Solution See Rx Instructions .ROUTE .COMPLEX RF: 0 GlucaGen HypoKit 1 mg Recon Soln 1 mg SUBCUT PRN RF: 0 pantoprazole [Protonix] [address] For Susp In Packet 40 mg feeding tube DAILY RF: 0 insulin lispro [Humalog Alex KwikPen U-100] 100 unit/mL Insulin Pen, Half- Unit See Rx Instructions .ROUTE .COMPLEX RF: 0 atorvastatin 10 mg tablet 10 mg feeding tube DAILY RF: 0 Coreg 12.5 mg Tablet 12.5 mg feeding tube BID RF: 0 citalopram 10 mg/5 mL solution 40 mg feeding tube DAILY RF: 0 risperidone 1 mg/mL solution See Rx Instructions .ROUTE .COMPLEX RF: 0 Triad Wound Dressing Paste 1 applic TOPICAL PRN RF: 0 sennosides-docusate sodium 8.6-50 mg tablet 1 tab PO BID PRN (Reason: constipation) RF: 0 naloxone 0.4 mg/mL Solution See Rx Instructions .ROUTE .COMPLEX RF: 0 nystatin 100,000 unit/gram Powder 1 applic TOPICAL BID RF: 0 diphenoxylate-atropine [Lomotil] 2.5-0.025 mg Tablet 1 tab feeding tube QID PRN (Reason: Diarrhea) RF: 0 aspirin 81 mg Tablet,Delayed Release (Dr/Ec) 81 mg feeding tube DAILY@0600 RF: 0 pyridoxine (vitamin B6) 50 mg Tablet 50 mg feeding tube DAILY@0600 RF: 0 diclofenac sodium 1 % Gel 4 g TOPICAL BID RF: 0 Orajel 3X Mouth Sores 20-0.1-0.15 % Gel 1 ea MUCOUS MEMBRANE QID PRN (Reason: MOUTH SORES) RF: 0 Discharge Orders: Discharge ED (Routine); Ordered 02/20/21 Ordered By: Brian Matthews Referrals: Bryan Garcia, [Primary Care Provider] - Discharge Diet: Usual diet Discharge Activity: Resume usual activity Activity Restrictions/Additional Instructions: Continue all current senior care care. 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
[2021-02-20 13:40] VITALS: BP 178/88; RESP 15
[2021-02-20 14:56] VITALS: BP 178/88; RESP 15
== END 2021-02-20 14:56 | disposition home or self-care (01) ==
PROVIDERS: Emergency Provider Emergency Medicine; PCP Internal Medicine
DX: K94.20 Gastrostomy complication, unspecified (principal); Z79.4 Long term (current) use of insulin; I12.9 Hypertensive chronic kidney disease with stage 1 through stage 4 chronic kidney disease, or unspecified chronic kidney disease; E11.22 Type 2 diabetes mellitus with diabetic chronic kidney disease; N18.4 Chronic kidney disease, stage 4 (severe); Z86.73 Personal history of transient ischemic attack (TIA), and cerebral infarction without residual deficits
CPT/HCPCS: 99281

== ENCOUNTER 2021-12-14 10:30 | Emergency (ER) | payer OTHER, MEDICARE, SELFPAY ==
[2021-12-14 10:33] VITALS: BP 169/89; PULSE 81; RESP 16; O2SAT 97
--- NOTE | 2021-12-14 11:00 | W.ED.GENADLT ---
HPI - General Adult General: Chief complaint: General Medical Stated complaint: pulled PEG tube out Time Seen by Provider: 12/14/21 10:33 Source: patient Mode of arrival: EMS History of Present Illness: 71-year-old male presents emergency room from halfway. PEG tube placed to the epigastric area was dislodged and removed. It happened just prior to arrival has not had any drainage from the tube. Onset (ago): minute(s) Relieving factors: none Exacerbating factors: none Associated symptoms: Deny chest pain, cough, diaphoresis, decreased appetite, dyspnea, fevers/chills, headache(s), malaise, nausea, rash, palpitations, seizures, short of breath, syncope, vomiting or weakness Treatments prior to arrival: none Review of Systems Const: Denies: malaise or diaphoresis Card: Denies: chest pain, palpitations or syncope Resp: Denies: dyspnea GI: Denies: nausea or vomiting Skin/Breast: Denies: rash Neuro: Denies: headache(s) PFSH ED PFSH: Medical History Abdominal pain Anemia Anxiety reaction Carotid artery disease Cholelithiasis Chronic kidney disease, stage IV (severe) CKD (chronic kidney disease) stage 4, GFR 15-29 ml/min Crohn's disease CVA (cerebral vascular accident) Residual right-sided weakness Depression Diabetes mellitus Diverticulitis Gastroesophageal reflux Mild gastritis on EGD 2011 GI bleeding History of common carotid artery stent placement Hyperkalemia Hypertension Lactic acidosis Nephrolithiasis Obsessive compulsive disorder Partial small bowel obstruction Peripheral arterial occlusive disease Small bowel obstruction UTI (urinary tract infection) Surgical History History of colonoscopy 02/2012 --active Crohn's disease at ileocolic anastomosis History of esophagogastroduodenoscopy 02/2012 --mild gastritis History of lithotripsy x 2 History of resection of small bowel x 1-2 History of right hemicolectomy Social History Smoking and tobacco status: never smoked Physical Exam Const: COMMON NORMALS: no acute distress GENERAL APPEARANCE: cooperative and comfortable ORIENTATION/CONSCIOUSNESS: Yes awake, Yes oriented to person, Yes oriented to place and Yes oriented to time HENMT: COMMON NORMALS: normocephalic, atraumatic and hearing grossly normal bilaterally HEAD & SCALP: normocephalic and atraumatic Neck/C-Spine: COMMON NORMALS: no JVD Resp: COMMON NORMALS: normal respiratory effort, No retractions, No use of accessory muscles and clear to auscultation bilaterally AUSCULTATION: clear to auscultation bilaterally Cardio: COMMON NORMALS: no JVD, regular rate, regular rhythm and No murmurs present (Cardio) RATE: regular rate RHYTHM: regular rhythm GI: COMMON NORMALS: Soft to palpation and No hepatosplenomegaly present AUSCULTATION: Yes normoactive bowel sounds PALPATION: Yes Soft to palpation, No Tenderness to palpation present (GI), No Guarding due to palpation present (GI) and Yes No hepatosplenomegaly present Neuro: SENSORIUM/ORIENTATION: Yes oriented to person, Yes oriented to place and Yes oriented to time Procedures Feeding Tube Replacement Type of Tube: gastrostomy Insertion Site Prior to Procedure: clean Burkinan Tube Size (F): 18 Balloon size (mL): 7 Verification of Placement: auscultation Tube Secured by: attachment device Patient Tolerated Procedure: well Complications: local bleeding (Minor) Course Vital Signs: Vital signs: Vital Signs Pulse Rate 81 12/14/21 10:33 Respiratory Rate 16 12/14/21 10:33 Blood Pressure 169/89 12/14/21 10:33 Pulse Oximetry 97 12/14/21 10:33 [facility] - General Adult Medical Decision Making PEG tube replaced. No complications auscultation confirms placement. Return to halfway Medical Records I reviewed the patient's medical records. Lab Data I reviewed the patient's lab results. Discharge Plan Discharge Patient Disposition: Home Clinical Impression: Complication of feeding tube Condition: Stable Prescriptions: No Action acetaminophen 325 mg Tablet 650 mg feeding tube Q4H PRN (Reason: Pain) 0RF Rx Instructions: NOT TO EXCEED 3000MG IN 24 HOURS sulfasalazine 500 mg Tablet 1,000 mg feeding tube TID 0RF lorazepam 0.5 mg Tablet 0.5 mg feeding tube BID@0600,1900 0RF sodium bicarbonate 650 mg Tablet 1,300 mg feeding tube TID@0600,1200,1900 0RF Lantus Solostar U-100 Insulin 100 unit/mL (3 mL) Insulin Pen 12 unit SUBCUT BEDTIME 0RF hydrocodone-acetaminophen 5-325 mg Tablet 1 tab feeding tube Q8H MDD 6 tabs PRN (Reason: Pain) 0RF miconazole nitrate 2 % Aerosol Powder 1 spray TOPICAL BID PRN (Reason: UNKNOWN) 0RF bisacodyl 10 mg Suppository [address] DAILY PRN (Reason: Constipation) 0RF calcitriol 1 mcg/mL Solution See Rx Instructions .ROUTE .COMPLEX 0RF Rx Instructions: 0.5 mcg GASTRIC TUBE daily GlucaGen HypoKit 1 mg Recon Soln 1 mg SUBCUT PRN 0RF pantoprazole [Protonix] [address] For Susp In Packet 40 mg feeding tube DAILY 0RF insulin lispro [Humalog Alex KwikPen U-100] 100 unit/mL Insulin Pen, Half-Unit See Rx Instructions .ROUTE .COMPLEX 0RF Rx Instructions: PER SLIDING SCALE QID 150-200=0 UNITS 201-250=2 UNITS 251-300=4 UNITS 301-350=6 UNITS 351-400=8 UNITS IF BS IS GREATER THAN 400 OR LESS THAN 60 CALL atorvastatin 10 mg tablet 10 mg feeding tube DAILY 0RF Coreg 12.5 mg Tablet 12.5 mg feeding tube BID 0RF citalopram 10 mg/5 mL solution 40 mg feeding tube DAILY 0RF risperidone 1 mg/mL solution See Rx Instructions .ROUTE .COMPLEX 0RF Rx Instructions: 0.25 ML PER PO QAM AND 0.5ML PO AT BEDTIME Triad Wound Dressing Paste 1 applic TOPICAL PRN 0RF Rx Instructions: APPLY TRIAD PASTE TO BUTTOCKS/PERIREA FOR PROTECTION sennosides-docusate sodium 8.6-50 mg tablet 1 tab PO BID PRN (Reason: constipation) 0RF naloxone 0.4 mg/mL Solution See Rx Instructions .ROUTE .COMPLEX 0RF Rx Instructions: 0.4 mg IM IN DELTOID OR THIGH-MAY REPEAT EVERY 3 TO 5 MINUTES FOR 3 DOSES AND CALL 911 IF NO RESPONSE nystatin 100,000 unit/gram Powder 1 applic TOPICAL BID 0RF Rx Instructions: APPLY TO BILATERAL BUTTOCKS FOR REDNESS diphenoxylate-atropine [Lomotil] 2.5-0.025 mg Tablet 1 tab feeding tube QID PRN (Reason: Diarrhea) 0RF aspirin 81 mg Tablet,Delayed Release (Dr/Ec) 81 mg feeding tube DAILY@0600 0RF pyridoxine (vitamin B6) 50 mg Tablet 50 mg feeding tube DAILY@0600 0RF diclofenac sodium 1 % Gel 4 g TOPICAL BID 0RF Rx Instructions: APPLy TO BLE FOR PAIN RELIEF Orajel 3X Mouth Sores 20-0.1-0.15 % Gel 1 ea MUCOUS MEMBRANE QID PRN (Reason: MOUTH SORES) 0RF Rx Instructions: APPLY TO SORE TOOTH OR SURROUNDING GUMS Discharge Orders: Discharge ED (Routine); Ordered 12/14/21 Ordered By: Slim Alvarez Referrals: Bryan Garcia DO [Primary Care Provider] - Discharge Diet: Usual diet Discharge Activity: Resume usual activity Patient Instructions: Opioid Safety Activity Restrictions/Additional Instructions: Routine PEG tube care. Coding Level of Care Code ED Cooling Pipe Inspector for Latosha Elam
== END 2021-12-14 11:37 | disposition home or self-care (01) ==
PROVIDERS: Emergency Provider Family Medicine; PCP Internal Medicine
DX: K94.29 Other complications of gastrostomy (principal); K50.90 Crohn's disease, unspecified, without complications; Z90.49 Acquired absence of other specified parts of digestive tract
CPT/HCPCS: 43762; 99282

== ENCOUNTER 2023-06-27 13:32 | Emergency (ER) | payer OTHER, SELFPAY ==
[2023-06-27 13:33] VITALS: BP 150/71; PULSE 86; RESP 18; TEMP 36.9; O2SAT 99; BMI 24.2
--- NOTE | 2023-06-27 13:53 | ED_ITS ---
HPI - General Adult General: Chief complaint: Abdominal Pain Stated complaint: peg tube placement Time Seen by Provider: 06/27/23 13:32 Source: patient Mode of arrival: EMS History of Present Illness: 73-year-old male brought in for PEG tube was broken They would like to have it replaced he is not having any pains no complications. When he arrives here it is still in place and the tube was capped but the tether is broken loose PFSH ED PFSH: Medical History Abdominal pain Anemia Anxiety reaction Carotid artery disease Cholelithiasis Chronic kidney disease, stage IV (severe) CKD (chronic kidney disease) stage 4, GFR 15-29 ml/min Crohn's disease CVA (cerebral vascular accident) Residual right-sided weakness Depression Diabetes mellitus Diverticulitis Gastroesophageal reflux Mild gastritis on EGD 2011 GI bleeding History of common carotid artery stent placement Hyperkalemia Hypertension Lactic acidosis Nephrolithiasis Obsessive compulsive disorder Partial small bowel obstruction Peripheral arterial occlusive disease Small bowel obstruction UTI (urinary tract infection) Surgical History History of colonoscopy 02/2012 --active Crohn's disease at ileocolic anastomosis History of esophagogastroduodenoscopy 02/2012 --mild gastritis History of lithotripsy x 2 History of resection of small bowel x 1-2 History of right hemicolectomy Social History Smoking and tobacco/nicotine status: never used tobacco/nicotine Procedures Feeding Tube Replacement Type of Tube: gastrostomy Insertion Site Prior to Procedure: clean Tube Used for Reinsertion: Bard Persian Tube Size (F): 18 Balloon size (mL): 10 Verification of Placement: auscultation Tube Secured by: attachment device Patient Tolerated Procedure: well Course Vital Signs: Vital signs: Vital Signs Temperature 98.4 F 06/27/23 13:33 Pulse Rate 86 06/27/23 13:33 Respiratory Rate 18 06/27/23 13:33 Blood Pressure 150/71 06/27/23 13:33 Pulse Oximetry 99 06/27/23 13:33 Oxygen Delivery Me thod Room Air 06/27/23 13:33 MDM - General Adult Medical Decision Making Feeding tube replaced at the bedside without difficulty. [facility] crew was kind enough to allow us to replace this while the patient was on the cot. Procedure was prioritized so that they could return him directly to the intermediate to minimize disruptions to the patient's care. No radiology studies performed this visit Discharge Plan Discharge Patient Disposition: Home Clinical Impression: Complication of feeding tube Condition: Stable Prescriptions: No Action acetaminophen 325 mg Tablet 650 mg feeding tube Q4H PRN (Reason: Pain) Rx Instructions: NOT TO EXCEED 3000MG IN 24 HOURS sulfasalazine 500 mg Tablet 1,000 mg feeding tube TID lorazepam 0.5 mg Tablet 0.5 mg feeding tube BID@0600,1900 sodium bicarbonate 650 mg Tablet 1,300 mg feeding tube TID@0600,1200,1900 Lantus Solostar U-100 Insulin 100 unit/mL (3 mL) Insulin Pen 12 unit SUBCUT BEDTIME hydrocodone-acetaminophen 5-325 mg Tablet 1 tab feeding tube Q8H MDD 6 tabs PRN (Reason: Pain) miconazole nitrate 2 % Aerosol Powder 1 spray TOPICAL BID PRN (Reason: UNKNOWN) bisacodyl 10 mg Suppository 10 mg MD DAILY PRN (Reason: Constipation) calcitriol 1 mcg/mL Solution See Rx Instructions .ROUTE .COMPLEX Rx Instructions: 0.5 mcg GASTRIC TUBE daily GlucaGen HypoKit 1 mg Recon Soln 1 mg SUBCUT PRN pantoprazole [Protonix] [address] For Susp In Packet 40 mg feeding tube DAILY insulin lispro [Humalog Alex KwikPen U-100] 100 unit/mL Insulin Pen, Half- Unit See Rx Instructions .ROUTE .COMPLEX Rx Instructions: PER SLIDING SCALE QID 150-200=0 UNITS 201-250=2 UNITS 251-300=4 UNITS 301-350=6 UNITS 351-400=8 UNITS IF BS IS GREATER THAN 400 OR LESS THAN 60 CALL atorvastatin 10 mg tablet 10 mg feeding tube DAILY Coreg 12.5 mg Tablet 12.5 mg feeding tube BID citalopram 10 mg/5 mL solution 40 mg feeding tube DAILY risperidone 1 mg/mL solution See Rx Instructions .ROUTE .COMPLEX Rx Instructions: 0.25 ML PER PO QAM AND 0.5ML PO AT BEDTIME Triad Wound Dressing Paste 1 applic TOPICAL PRN Rx Instructions: APPLY TRIAD PASTE TO BUTTOCKS/PERIREA FOR PROTECTION sennosides-docusate sodium 8.6-50 mg tablet 1 tab PO BID PRN (Reason: constipation) naloxone 0.4 mg/mL Solution See Rx Instructions .ROUTE .COMPLEX Rx Instructions: 0.4 mg IM IN DELTOID OR THIGH-MAY REPEAT EVERY 3 TO 5 MINUTES FOR 3 DOSES AND CALL 911 IF NO RESPONSE nystatin 100,000 unit/gram Powder 1 applic TOPICAL BID Rx Instructions: APPLY TO BILATERAL BUTTOCKS FOR REDNESS diphenoxylate-atropine [Lomotil] 2.5-0.025 mg Tablet 1 tab feeding tube QID PRN (Reason: Diarrhea) aspirin 81 mg Tablet,Delayed Release (Dr/Ec) 81 mg feeding tube DAILY@0600 pyridoxine (vitamin B6) 50 mg Tablet 50 mg feeding tube DAILY@0600 diclofenac sodium 1 % Gel 4 g TOPICAL BID Rx Instructions: APPLy TO BLE FOR PAIN RELIEF Orajel 3X Mouth Sores 20-0.1-0.15 % Gel 1 ea MUCOUS MEMBRANE QID PRN (Reason: MOUTH SORES) Rx Instructions: APPLY TO SORE TOOTH OR SURROUNDING GUMS Discharge Orders: Discharge ED (Routine); Ordered 06/27/23 Ordered By: Slim Alvarez Referrals: Bryan Garcia DO [Primary Care Provider] - Discharge Diet: Usual diet Discharge Activity: Resume usual activity Patient Instructions: Opioid Safety, Pain Management Activity Restrictions/Additional Instructions: Thank you for choosing [facility] for your healthcare needs today. Please realize this is an emergency room and that we are providing you with a medical screening exam and this may not be complete and all inclusive of all the testing and or work up that you may need to determine your ailment or severity of your illness. It is very important that you follow up as instructed or that you return to the Emergency Department should you have concerns or if your cond ition changes or worsens in any way. You are seen in the emergency room to change a nonfunctioning gastric tube. The tube was changed without any difficulty. Continue routine cares. Coding Level of Care Code ED Block Mason for Latosha Elam
== END 2023-06-27 14:10 | disposition home or self-care (01) ==
PROVIDERS: Emergency Provider Family Medicine; PCP Internal Medicine
DX: K94.29 Other complications of gastrostomy (principal); E11.22 Type 2 diabetes mellitus with diabetic chronic kidney disease; I12.9 Hypertensive chronic kidney disease with stage 1 through stage 4 chronic kidney disease, or unspecified chronic kidney disease; N18.4 Chronic kidney disease, stage 4 (severe); Z86.73 Personal history of transient ischemic attack (TIA), and cerebral infarction without residual deficits; Z79.82 Long term (current) use of aspirin; Z79.4 Long term (current) use of insulin
CPT/HCPCS: 43762; 99283

== ENCOUNTER 2023-12-02 16:22 | Emergency (ER) | payer OTHER, SELFPAY ==
[2023-12-02 16:26] VITALS: BP 189/82; PULSE 92; TEMP 36.9; O2SAT 99
--- NOTE | 2023-12-02 16:26 | XRR_ITS ---
PROCEDURE INFORMATION: Exam: XR Left Elbow Exam date and time: 12/02/2023 4:56 PM Age: 73 years old Clinical indication: Pain; Elbow; Left; Additional info: Fall, hematoma TECHNIQUE: Imaging protocol: Radiologic exam of the left elbow. Views: 3 or more views. COMPARISON: No relevant prior studies available. FINDINGS: Bones/joints: Normal. Soft tissues: Soft tissue swelling in the proximal dorsal forearm and elbow. XR/XR elbow LT min 3V* [id number] IMPRESSION: No fracture.
--- NOTE | 2023-12-02 16:50 | ED_ITS ---
HPI - Extremity Problem General: Chief complaint: Extremity Problem,Nontraumatic Stated complaint: Peg tube/ elbow pain from fall Time Seen by Provider: 12/02/23 16:24 History of Present Illness: Patient presents to the ER by EMS with complaints of broken On his PEG tube and recent nonwitnessed fall with hematoma on left elbow. Patient's not verbalizing any pain and has moderate range of motion with his elbow. Review of Systems General: Reports: 10 or more systems reviewed and unremarkable except in HPI and below PFSH ED PFSH: Medical History Chronic kidney disease, stage IV (severe) UTI (urinary tract infection) Carotid artery disease History of common carotid artery stent placement Diverticulitis Obsessive compulsive disorder Depression Cholelithiasis Lactic acidosis Hyperkalemia CKD (chronic kidney disease) stage 4, GFR 15-29 ml/min Abdominal pain Partial small bowel obstruction Small bowel obstruction Crohn's disease Diabetes mellitus Hypertension Nephrolithiasis Anemia GI bleeding Gastroesophageal reflux Mild gastritis on EGD 2011 Anxiety reaction Peripheral arterial occlusive disease CVA (cerebral vascular accident) Residual right-sided weakness Surgical History History of colonoscopy 02/2012 --active Crohn's disease at ileocolic anastomosis History of esophagogastroduodenoscopy 02/2012 --mild gastritis History of lithotripsy x 2 History of resection of small bowel x 1-2 History of right hemicolectomy Social History Smoking and tobacco/nicotine status: never used tobacco/nicotine Physical Exam Neck/C-Spine: COMMON NORMALS: no JVD Chest: COMMONS NORMALS: normal inspection of the chest and normal palpation of entire chest wall Resp: COMMON NORMALS: normal respiratory effort, No retractions, No use of accessory muscles and clear to auscultation bilaterally AUSCULTATION: clear to auscultation bilaterally Cardio: COMMON NORMALS: no JVD, regular rate, regular rhythm, S1 normal heart sound present, S2 normal heart sound present, No gallops present (Cardio), No clicks present (Cardio), No murmurs present (Cardio) and No rub (Cardio) RATE: regular rate RHYTHM: regular rhythm HEART SOUNDS: S1 normal heart sound present and S2 normal heart sound present GI: COMMON NORMALS: Normal to inspection, nondistended, normoactive bowel sounds present, Soft to palpation, non-tender, No hepatosplenomegaly present and no masses PALPATION: Yes Soft to palpation and Yes No hepatosplenomegaly present OTHER: PEG tube noted with brokencap . Extremity: NARRATIVE EXTREMITY EXAM: Hematoma and mild abrasion noted on left elbow. Good range of motion Procedures Feeding Tube Replacement Type of Tube: gastrostomy Insertion Site Prior to Procedure: clean Tube Used for Reinsertion: other (18 Burundian G-tube) Burundian Tube Size (F): 18 Balloon size (mL): 7 Verification of Placement: auscultation Tube Secured by: tape/dressing Patient Tolerated Procedure: well and no complications Course Vital Signs: Vital signs: Vital Signs Temperature 98.4 F 12/02/23 16:26 Pulse Rate 92 12/02/23 16:26 Blood Pressure 189/82 12/02/23 16:26 Pulse Oximetry 99 12/02/23 16:26 Oxygen Delivery Me thod Room Air 12/02/23 16:26 MDM - Extremity (Nontraumatic) Medical Decision Making 18-Burundian G-tube removed and placed without problem. X-ray was obtained of left elbow, read off negative by radiologist, [facility] Differential Diagnosis Unlikely herpes zoster, gout, cellulitis, superficial thrombophlebitis, deep venous thrombosis of upper extremity, lower extremity edema or deep vein t hrombosis of lower extremity Medical Records I reviewed the patient's medical records. Lab Data I reviewed the patient's lab results. Radiology Impressions Elbow X-Ray 12/02/23 16:26 IMPRESSION: No fracture. All radiology interpretation(s) finalized by discharge Discharge Plan Discharge Patient Disposition: Home Clinical Impression: PEG tube malfunction, Hematoma of left elbow Condition: Stable Prescriptions: No Action acetaminophen 325 mg Tablet 650 mg feeding tube Q4H PRN (Reason: Pain) Rx Instructions: NOT TO EXCEED 3000MG IN 24 HOURS sulfasalazine 500 mg Tablet 1,000 mg feeding tube TID lorazepam 0.5 mg Tablet 0.5 mg feeding tube BID@0600,1900 sodium bicarbonate 650 mg Tablet 1,300 mg feeding tube TID@0600,1200,1900 Lantus Solostar U-100 Insulin 100 unit/mL (3 mL) Insulin Pen 12 unit SUBCUT BEDTIME hydrocodone-acetaminophen 5-325 mg Tablet 1 tab feeding tube Q8H MDD 6 tabs PRN (Reason: Pain) miconazole nitrate 2 % Aerosol Powder 1 spray TOPICAL BID PRN (Reason: UNKNOWN) bisacodyl 10 mg Suppository 10 mg [place] DAILY PRN (Reason: Constipation) calcitriol 1 mcg/mL Solution See Rx Instructions .ROUTE .COMPLEX Rx Instructions: 0.5 mcg GASTRIC TUBE daily GlucaGen HypoKit 1 mg Recon Soln 1 mg SUBCUT PRN pantoprazole [Protonix] [address] For Susp In Packet 40 mg feeding tube DAILY insulin lispro [Humalog Alex KwikPen U-100] 100 unit/mL Insulin Pen, Half- Unit See Rx Instructions .ROUTE .COMPLEX Rx Instructions: PER SLIDING SCALE QID 150-200=0 UNITS 201-250=2 UNITS 251-300=4 UNITS 301-350=6 UNITS 351-400=8 UNITS IF BS IS GREATER THAN 400 OR LESS THAN 60 CALL atorvastatin 10 mg tablet 10 mg feeding tube DAILY Coreg 12.5 mg Tablet 12.5 mg feeding tube BID citalopram 10 mg/5 mL solution 40 mg feeding tube DAILY risperidone 1 mg/mL solution See Rx Instructions .ROUTE .COMPLEX Rx Instructions: 0.25 ML PER PO QAM AND 0.5ML PO AT BEDTIME Triad Wound Dressing Paste 1 applic TOPICAL PRN Rx Instructions: APPLY TRIAD PASTE TO BUTTOCKS/PERIREA FOR PROTECTION sennosides-docusate sodium 8.6-50 mg tablet 1 tab PO BID PRN (Reason: constipation) naloxone 0.4 mg/mL Solution See Rx Instructions .ROUTE .COMPLEX Rx Instructions: 0.4 mg IM IN DELTOID OR THIGH-MAY REPEAT EVERY 3 TO 5 MINUTES FOR 3 DOSES AND CALL 911 IF NO RESPONSE nystatin 100,000 unit/gram Powder 1 applic TOPICAL BID Rx Instructions: APPLY TO BILATERAL BUTTOCKS FOR REDNESS diphenoxylate-atropine [Lomotil] 2.5-0.025 mg Tablet 1 tab feeding tube QID PRN (Reason: Diarrhea) aspirin 81 mg Tablet,Delayed Release (Dr/Ec) 81 mg feeding tube DAILY@0600 pyridoxine (vitamin B6) 50 mg Tablet 50 mg feeding tube DAILY@0600 diclofenac sodium 1 % Gel 4 g TOPICAL BID Rx Instructions: APPLy TO BLE FOR PAIN RELIEF Orajel 3X Mouth Sores 20-0.1-0.15 % Gel 1 ea MUCOUS MEMBRANE QID PRN (Reason: MOUTH SORES) Rx Instructions: APPLY TO SORE TOOTH OR SURROUNDING GUMS Discharge Orders: Discharge ED (Routine); Ordered 12/02/23 Ordered By: Amador Irving Referrals: Bryan Garcia DO [Primary Care Provider] - 1 week Patient Instructions: How to Use and Care for Your PEG Tube (DC), Hematoma (ED) Activity Restrictions/Additional Instructions: Your PEG tube was replaced in the ER without complication. The radiologist read your x-ray of your left elbow is no acute fracture. Please follow-up with your PCP within next 7 to 10 days as needed. Coding Level of Care Code ED Automatic Corn Grinder Operator for Latosha Elam
[2023-12-02 18:20] VITALS: BP 156/87; PULSE 104; O2SAT 87
--- NOTE | 2023-12-02 21:45 | PC.NURSE ---
@2100- Chnaged patients soiled brief and rotated to right side.
[2023-12-02 22:00] VITALS: PULSE 87; O2SAT 98
[2023-12-03 02:52] VITALS: PULSE 70; O2SAT 94
== END 2023-12-03 02:55 | disposition home or self-care (01) ==
PROVIDERS: Emergency Provider Emergency Medicine; PCP Internal Medicine
DX: K94.23 Gastrostomy malfunction (principal); S50.02XA Contusion of left elbow, initial encounter; Z79.82 Long term (current) use of aspirin; Z79.4 Long term (current) use of insulin; E11.22 Type 2 diabetes mellitus with diabetic chronic kidney disease; I12.9 Hypertensive chronic kidney disease with stage 1 through stage 4 chronic kidney disease, or unspecified chronic kidney disease; N18.4 Chronic kidney disease, stage 4 (severe); Z86.73 Personal history of transient ischemic attack (TIA), and cerebral infarction without residual deficits; W19.XXXA Unspecified fall, initial encounter
CPT/HCPCS: 43762; 73080; 99284; B4087

== ENCOUNTER 2023-12-29 04:44 | Emergency (ER) | payer OTHER, SELFPAY ==
[2023-12-29 04:45] VITALS: BP 121/50; PULSE 71; RESP 19; TEMP 35.5; O2SAT 96; BMI 20.6
--- NOTE | 2023-12-29 05:03 | XRR_ITS ---
PROCEDURE INFORMATION: Exam: XR Chest Exam date and time: 12/29/2023 5:10 AM Age: 73 years old Clinical indication: Other: General weakness. Hypothermia; Patient HX: EMS arrival from shelter for general weakness. Patient hypothermic upon exam. ; Additional info: AMS TECHNIQUE: Imaging protocol: Radiologic exam of the chest. Views: 1 view. COMPARISON: CR XR chest 1V [id number] 10/15/2020 7:40 PM FINDINGS: Lungs: There is mild prominence and indistinctness of the pulmonary vasculature and increased interstitial opacities present bilaterally, findings suggesting pulmonary edema. Pleural spaces: Unremarkable. No pleural effusion. No pneumothorax. Heart/Mediastinum: Unremarkable. No cardiomegaly. Vasculature: Stent is seen in the right carotid artery. Bones/joints: Status post left shoulder replacement. XR/XR chest 1V portable [id number] IMPRESSION: Mild prominence and indistinctness of pulmonary vasculature and increased interstitial opacities seen in guerrero thoraces bilaterally findings may represent mild pulmonary edema.
--- NOTE | 2023-12-29 05:03 | XRR_ITS ---
PROCEDURE INFORMATION: Exam: XR Left Elbow Exam date and time: 12/29/2023 5:05 AM Age: 73 years old Clinical indication: Patient HX: Patient has contusion to posterior aspect of left elbow. Winced in pain with manipulation. PT non verbal due to stroke. ; Additional info: Elbow pain and bruising TECHNIQUE: Imaging protocol: Radiologic exam of the left elbow. Views: 3 or more views. COMPARISON: CR ( EX, ) 12/02/2023 4:56 PM FINDINGS: Bones/joints: Normal. Soft tissues: Normal. XR/XR elbow LT min 3V* [id number] IMPRESSION: No acute findings.
--- NOTE | 2023-12-29 05:05 | ECG_ITS ---
[facility] Test Date: 2023-12-29 Pat Name: Rodger Barbosa Department: Room: Gender: Male Scientific Database Curator: : 1950 Requested By: Bert Ng Order Number: [id number] Shaquille MD: Cindy Looney M.D. Measurements Intervals [place]an Rate: 68 P: 72 MN: 140 QRS: 45 QRSD: 102 T: 66 QT: 437 QTc: 468 Interpretive Statements SINUS RHYTHM Compared to ECG 10/16/2020 00:39:25 Sinus tachycardia no longer present Short MN interval no longer present Electronically Signed On 12-29-2023 17:43:52 CDT by Cindy Looney M.D. [email or web address]
[2023-12-29 05:39] LABS: Basophils % 0.3 %; Eosinophils # 0.1 10^3/uL (0.0-0.8); Eosinophils % 0.9 %; Hematocrit 25.6 % (37-53); Lymphocytes # 0.6 10^3/uL (0.8-4.8); Mean Corpuscular HGB Conc 31.6 g/dL (30-55); Mean Corpuscular Hemoglobin 33.5 pg (27-33); Mean Corpuscular Volume 105.8 fl (82-101); Mean Platelet Volume 11.7 fL (7.4-10.4); Monocytes # 0.5 10^3/uL (0.2-0.9); Monocytes % 6.1 %; Neutrophils # 6.64 10^3/uL (1.8-7.7); Neutrophils % 84.4 %; Nucleated Red Blood Cells % 0 %; Platelet Count 164 10^3/cmm (157-399); Red Blood Count 2.42 10^6/uL (3.85-5.65); Red Cell Distribution Width 14.9 % (12.1-15.1); White Blood Count 7.86 10^3/uL (3.29-11.43)
--- NOTE | 2023-12-29 05:40 | ED_ITS ---
HPI - General Adult 2 General: Chief complaint: General Medical Stated complaint: WEAKNESS Time Seen by Provider: 12/29/23 04:57 History of Present Illness: 73-year-old male nonverbal [facility] patient. He presents with altered mental status. Evidently was found to have a blood sugar of 45 this morning. He was fed through the tube, with repeat blood sugars in the 140s. He became more alert at this point. According to [facility] staff, he is still not at his baseline. Review of Systems 2 General: Reports: ROS unobtainable due to medical condition PFSH ED 2 PFSH: Medical History Chronic kidney disease, stage IV (severe) UTI (urinary tract infection) Carotid artery disease History of common carotid artery stent placement Diverticulitis Obsessive compulsive disorder Depression Cholelithiasis Lactic acidosis Hyperkalemia CKD (chronic kidney disease) stage 4, GFR 15-29 ml/min Abdominal pain Partial small bowel obstruction Small bowel obstruction Crohn's disease Diabetes mellitus Hypertension Nephrolithiasis Anemia GI bleeding Gastroesophageal reflux Mild gastritis on EGD 2011 Anxiety reaction Peripheral arterial occlusive disease CVA (cerebral vascular accident) Residual right-sided weakness Surgical History History of colonoscopy 02/2012 --active Crohn's disease at ileocolic anastomosis History of esophagogastroduodenoscopy 02/2012 --mild gastritis History of lithotripsy x 2 History of resection of small bowel x 1-2 History of right hemicolectomy Social History Smoking and tobacco/nicotine status: never used tobacco/nicotine Physical Exam 2 Const: GENERAL APPEARANCE: ill appearing (Mildly) O RIENTATION/CONSCIOUSNESS: Yes awake HENMT: COMMON NORMALS: normocephalic HEAD & SCALP: normocephalic Eye: COMMON NORMALS: Equal, round and reactive pupils present and EOMs intact bilaterally PUPIL: Yes Equal, round and reactive pupils present Resp: COMMON NORMALS: normal respiratory effort AUSCULTATION: diminished lung sounds Cardio: COMMON NORMALS: regular rate and regular rhythm RATE: regular rate RHYTHM: regular rhythm GI: COMMON NORMALS: Soft to palpation INSPECTION: No abdominal distension AUSCULTATION: Yes normoactive bowel sounds PALPATION: Yes Soft to palpation OTHER: G-tube site shows mild irritation, no drainage. Extremity: NARRATIVE EXTREMITY EXAM: No edema Course 2 Vital Signs: Vital signs: Vital Signs Temperature 95.9 F L 12/29/23 04:45 Pulse Rate 80 12/29/23 07:00 Respiratory Rate 21 H 12/29/23 07:00 Blood Pressure 151/66 12/29/23 06:19 Pulse Oximetry 98 12/29/23 07:00 Oxygen Delivery Me thod Room Air 12/29/23 04:45 MDM - General Adult Medical Decision Making 73-year-old male with decreased mental status in the [facility]. Blood sugar was found to be 45. Has improved significantly here. He was given D10. His CBC shows a hemoglobin of 8. We do not have a hemoglobin on him since 2020. White blood cell count is 7.8. His troponin is 81. Other labs are pending. Blood gas shows pH of 7.36 with pCO2 of 41 on pO2 of 90. His creatinine is 4.4 which is stable. Electrolytes are stable. His sugar is 125 now. CRP is 126, which is improved. Urinalysis is negative for infection. He is afebrile. In fact his temperature is low. David hugger has been placed with good result. His sugar is improved. With resolution of symptoms, he will be allowed discharge back to the [facility], with close observation of blood sugar for the next 24 hours. Lab Data 12/29/23 05:26 12/29/23 05:26 Laboratory Results WBC 7.86 10^3/uL (3.29-11.43) 12/29/23 05:26 RBC 2.42 10^6/uL (3.85-5.65) L 12/29/23 05:26 Hgb 8.10 g/dL (11.27-16.99) L 12/29/23 05:26 Hct 25.6 % (37-53) L 12/29/23 05:26 MCV 105.8 fl (82-101) H 12/29/23 05:26 MCH 33.5 pg (27-33) H 12/29/23 05:26 MCHC 31.6 g/dL (30-55) 12/29/23 05:26 RDW 14.9 % (12.1-15.1) 12/29/23 05:26 Plt Count 164 10^3/cmm (157-399) 12/29/23 05:26 MPV 11.7 fL (7.4-10.4) H 12/29/23 05:26 Neut % (Auto) 84.4 % 12/29/23 05:26 Lymph % (Auto) 8.0 % 12/29/23 05:26 Swisher % (Auto) 6.1 % 12/29/23 05:26 Eos % (Auto) 0.9 % 12/29/23 05:26 Baso % (Auto) 0.3 % 12/29/23 05:26 Neut # (Auto) 6.64 10^3/uL (1.8-7.7) 12/29/23 05:26 Lymph # (Auto) 0.6 10^3/uL (0.8-4.8) L 12/29/23 05:26 Swisher # (Auto) 0.5 10^3/uL (0.2-0.9) 12/29/23 05:26 Eos # (Auto) 0.1 10^3/uL (0.0-0.8) 12/29/23 05:26 Baso # (Auto) 0.0 10^3/uL (0.0-0.1) 12/29/23 05:26 Nucleated RBC % (auto) 0 % 12/29/23 05:26 Nucleated RBCs # 0.0 /100WBC 12/29/23 05:26 Specimen Type Arterial 12/29/23 05:35 Sample Site Radial, left 12/29/23 05:35 ABG pH 7.36 (7.35-7.45) 12/29/23 05:35 ABG pCO2 41.1 mmHg (35-45) 12/29/23 05:35 ABG pO2 90.2 mmHg (80.0-100.0) 12/29/23 05:35 ABG HCO3 23.4 mmol/L (22-26) 12/29/23 05:35 ABG Base Excess -1.9 mmol/L (-2.0-2.0) 12/29/23 05:35 Isak Test Pos 12/29/23 05:35 Hematocrit 24.4 % (42-52) L 12/29/23 05:35 O2 Delivery Device Room air 12/29/23 05:35 Director Of Medical Staff Services ID [email or web address] 12/29/23 05:35 Sodium 135 mmol/L (136-145) L 12/29/23 05:26 Potassium 4.5 mmol/L (3.5-5.1) 12/29/23 05:26 Chloride 96 mmol/L (98-107) L 12/29/23 05:26 Carbon Dioxide 23 mmol/L (22-29) 12/29/23 05:26 Anion Gap 20.5 (5-19) H 12/29/23 05:26 BUN 72 mg/dL (8-23) H 12/29/23 05:26 Creatinine 4.4 mg/dL (0.7-1.2) H 12/29/23 05:26 GFR Calculation Not Reportable 12/29/23 05:26 Glucose 125 mg/dL (65-115) H 12/29/23 05:26 POC Glucose 139 mg/dL (70-110) H 12/29/23 06:22 Calculated Osmolality 303 mOsm/kg (285-295) H 12/29/23 05:26 Lactic Acid 1.7 mmol/L (0.5-2.2) 12/29/23 05:26 Calcium 8.9 mg/dL (8.5-10.5) 12/29/23 05:26 Total Bilirubin 1.0 mg/dL (0.15-1.2) 12/29/23 05:26 AST 95 U/L (0-40) H 12/29/23 05:26 ALT 125 U/L (0-41) H 12/29/23 05:26 Alkaline Phosphatase 242 U/L (40-130) H 12/29/23 05:26 Troponin T Baseline 81 ng/L (0-15) H 12/29/23 05:26 C-Reactive Protein 126.2 mg/L (0.0-4.9) H 12/29/23 05:26 Total Protein 6.5 g/dL (6.6-8.7) L 12/29/23 05:26 Albumin 3.5 g/dL (3.5-5.2) 12/29/23 05:26 Globulin 3.0 g/dL (1.3-4.6) 12/29/23 05:26 Urine Color Yellow (Yellow) 12/29/23 06:12 Urine Appearance Clear (CLEAR) 12/29/23 06:12 Urine pH 8 (5-7) H 12/29/23 06:12 Ur Specific [place] 1.005 (1.005-1.030) 12/29/23 06:12 Urine Protein 1+ (Negative) H 12/29/23 06:12 Urine Glucose (UA) Norm (Normal) 12/29/23 06:12 Urine Ketones Negative (Negative) 12/29/23 06:12 Urine Blood 2+ (Negative) H 12/29/23 06:12 Urine Nitrate Negative (Negative) 12/29/23 06:12 Urine Bilirubin 1+ (Negative) H 12/29/23 06:12 Prot Sulfosalicylic Acd Positive (Negative) 12/29/23 06:12 Urine Urobilinogen Neg mg/dL (Negative) 12/29/23 06:12 Ur Leukocyte Esterase Negative (Negative) 12/29/23 06:12 Urine RBC 5-10 /hpf (0-2) H 12/29/23 06:12 Urine WBC Rare /hpf (0-5) 12/29/23 06:12 Ur Squamous Epith Cells Rare /hpf (0-5) 12/29/23 06:12 Amorphous Sediment Not Reportable 12/29/23 06:12 Urine Bacteria Trace /hpf (NONE) 12/29/23 06:12 All radiology interpretation(s) finalized by discharge Discharge Plan Discharge Patient Disposition: Home Clinical Impression: Hypoglycemia Condition: Stable Prescriptions: No Action acetaminophen 325 mg Tablet 650 mg feeding tube Q4H PRN (Reason: Pain) Rx Instructions: NOT TO EXCEED 3000MG IN 24 HOURS sulfasalazine 500 mg Tablet 1,000 mg feeding tube TID lorazepam 0.5 mg Tablet 0.5 mg feeding tube BID@0600,1900 sodium bicarbonate 650 mg Tablet 1,300 mg feeding tube TID@0600,1200,1900 Lantus Solostar U-100 Insulin 100 unit/mL (3 mL) Insulin Pen 12 unit SUBCUT BEDTIME hydrocodone-acetaminophen 5-325 mg Tablet 1 tab feeding tube Q8H MDD 6 tabs PRN (Reason: Pain) miconazole nitrate 2 % Aerosol Powder 1 spray TOPICAL BID PRN (Reason: UNKNOWN) bisacodyl 10 mg Suppository 10 mg [place] DAILY PRN (Reason: Constipation) calcitriol 1 mcg/mL Solution See Rx Instructions .ROUTE .COMPLEX Rx Instructions: 0.5 mcg GASTRIC TUBE daily GlucaGen HypoKit 1 mg Recon Soln 1 mg SUBCUT PRN pantoprazole [Protonix] [address] For Susp In Packet 40 mg feeding tube DAILY insulin lispro [Humalog Alex KwikPen U-100] 100 unit/mL Insulin Pen, Half- Unit See Rx Instructions .ROUTE .COMPLEX Rx Instructions: PER SLIDING SCALE QID 150-200=0 UNITS 201-250=2 UNITS 251-300=4 UNITS 301-350=6 UNITS 351-400=8 UNITS IF BS IS GREATER THAN 400 OR LESS THAN 60 CALL atorvastatin 10 mg tablet 10 mg feeding tube DAILY Coreg 12.5 mg Tablet 12.5 mg feeding tube BID citalopram 10 mg/5 mL solution 40 mg feeding tube DAILY risperidone 1 mg/mL solution See Rx Instructions .ROUTE .COMPLEX Rx Instructions: 0.25 ML PER PO QAM AND 0.5ML PO AT BEDTIME Triad Wound Dressing Paste 1 applic TOPICAL PRN Rx Instructions: APPLY TRIAD PASTE TO BUTTOCKS/PERIREA FOR PROTECTION sennosides-docusate sodium 8.6-50 mg tablet 1 tab PO BID PRN (Reason: constipation) naloxone 0.4 mg/mL Solution See Rx Instructions .ROUTE .COMPLEX Rx Instructions: 0.4 mg IM IN DELTOID OR THIGH-MAY REPEAT EVERY 3 TO 5 MINUTES FOR 3 DOSES AND CALL 911 IF NO RESPONSE nystatin 100,000 unit/gram Powder 1 applic TOPICAL BID Rx Instructions: APPLY TO BILATERAL BUTTOCKS FOR REDNESS diphenoxylate-atropine [Lomotil] 2.5-0.025 mg Tablet 1 tab feeding tube QID PRN (Reason: Diarrhea) aspirin 81 mg Tablet,Delayed Release (Dr/Ec) 81 mg feeding tube DAILY@0600 pyridoxine (vitamin B6) 50 mg Tablet 50 mg feeding tube DAILY@0600 diclofenac sodium 1 % Gel 4 g TOPICAL BID Rx Instructions: APPLy TO BLE FOR PAIN RELIEF Orajel 3X Mouth Sores 20-0.1-0.15 % Gel 1 ea MUCOUS MEMBRANE QID PRN (Reason: MOUTH SORES) Rx Instructions: APPLY TO SORE TOOTH OR SURROUNDING GUMS Discharge Orders: Discharge ED (Routine); Ordered 12/29/23 Ordered By: Bert Maharaj Referrals: Garcia,Bryan Brad, DO [Primary Care Provider] - Patient Instructions: Hypoglycemia in a Person with Diabetes (ED), Opioid Safety, Pain Management Activity Restrictions/Additional Instructions: Check blood sugar more often the next 24 hours. If blood sugar is staying low, consider cutting the sliding scale dosage. See your doctor this week. Return for any worsening problems or new problems that are of concern. Coding Level of Care Code ED Medical Office Supervisor for Latosha Elam
[2023-12-29 05:46] LABS: ABG PCO2 41.1 mmHg (35-45); ABG PH Result 7.36 (7.35-7.45); Arterial Blood Gas Hematocrit 24.4 % (42-52); Base Excess ABG -1.9 mmol/L (-2.0-2.0); Blood Gas Allen Test Pos; Blood Gas Sample Site Radial, left; Blood Gas Sample Type Arterial; HCO3 ABG 23.4 mmol/L (22-26); Oxygen Device ROOM AIR; PO2 ABG 90.2 mmHg (80.0-100.0)
[2023-12-29 05:56] LABS: Troponin(5th) Baseline 81 ng/L (0-15)
[2023-12-29 05:59] LABS: Lactic Sepsis W/Reflex 1.7 mmol/L (0.5-2.2)
[2023-12-29 06:00] LABS: Alanine Aminotransferase 125 U/L (0-41); Albumin Level 3.5 g/dL (3.5-5.2); Alkaline Phosphatase 242 U/L (40-130); Anion Gap 20.5 (5-19); Aspartate Amino Transferase 95 U/L (0-40); Blood Urea Nitrogen 72 mg/dL (8-23); C Reactive Protein 126.2 mg/L (0.0-4.9); Calcium 8.9 mg/dL (8.5-10.5); Carbon Dioxide 23 mmol/L (22-29); Chloride 96 mmol/L (98-107); Creatinine Clr Calc Pharmacy 13.3958; Glucose 125 mg/dL (65-115); Osmolality Calculated 303 mOsm/kg (285-295); Potassium 4.5 mmol/L (3.5-5.1); Sodium 135 mmol/L (136-145); Total Protein 6.5 g/dL (6.6-8.7)
[2023-12-29] MEDS: sodium chloride 0.9% 1,000 ML 999 ML IV (06:18)
[2023-12-29 06:19] VITALS: BP 151/66; PULSE 76; RESP 17; O2SAT 98
[2023-12-29 06:26] LABS: Glucose Point of Care 115 mg/dL (70-110)
[2023-12-29 06:26] LABS: Glucose Point of Care 139 mg/dL (70-110)
[2023-12-29 07:00] VITALS: PULSE 80; RESP 21; O2SAT 98
[2023-12-29 07:04] LABS: Blood Urine 2+ (Negative); Glucose Urine UA Norm (Normal); Ketones Urine Negative (Negative); Protein Urine 1+ (Negative); Specific Gravity, Urine 1.005 (1.005-1.030); Urine Appearance Clear (CLEAR); Urine Color Yellow (Yellow); pH Urine 8 (5-7)
[2023-12-29 07:05] LABS: Add Urine Culture? No; Add Urine Microscopic? YES; Bacteria Urine TRACE /hpf; Bilirubin Urine 1+ (Negative); Leukocyte Esterase Urine Negative (Negative); Nitrate Urine Negative (Negative); Squamous Epithelial Cell Urine RARE /hpf (0-5); Sulfosalicylic Acid Urine Positive (Negative); Urobilinogen Urine Neg (Negative); WBC Urine RARE /hpf (0-5)
[2023-12-29 07:15] LABS: Glucose Point of Care 179 mg/dL (70-110)
== END 2023-12-29 07:45 | disposition home or self-care (01) ==
PROVIDERS: Emergency Provider Emergency Medicine; PCP Internal Medicine
DX: E11.649 Type 2 diabetes mellitus with hypoglycemia without coma (principal); Z79.4 Long term (current) use of insulin; E11.22 Type 2 diabetes mellitus with diabetic chronic kidney disease; I12.9 Hypertensive chronic kidney disease with stage 1 through stage 4 chronic kidney disease, or unspecified chronic kidney disease; N18.4 Chronic kidney disease, stage 4 (severe); Z86.73 Personal history of transient ischemic attack (TIA), and cerebral infarction without residual deficits; Z79.82 Long term (current) use of aspirin
CPT/HCPCS: 36416; 36600; 51702; 71045; 73080; 80053; 81001; 82803; 82962; 83605; 84484; 85025; 86140; 87040; 93005; 99285; J7030

== ENCOUNTER 2024-01-31 21:55 | Emergency (ER) | payer OTHER, MEDICARE, SELFPAY ==
[2024-01-31 21:58] VITALS: BP 165/100; PULSE 78; RESP 18; TEMP 37; O2SAT 100
--- NOTE | 2024-01-31 22:51 | XRR_ITS ---
PROCEDURE INFORMATION: Exam: XR Abdomen Exam date and time: 01/31/2024 11:00 PM Age: 73 years old Clinical indication: Device placement; Gi device; Prior surgery; Surgery date: 6+ months; Surgery type: Peg tube. Hemicolectomy. Small bowel resection; Patient HX: Check S/P peg tube replacement. 25cc gastrografin introduced before exposure. History of crohn's disease. ; Additional info: Peg check with gastrograffin; Feeding tube replacement TECHNIQUE: Imaging protocol: Radiologic exam of the abdomen. Views: Frontal supine view of the abdomen. 1 View. Other contrast: Catheter, GASTROGRAFIN, 25 ML; COMPARISON: CT abdomen pelvis con [id number] 15/10/2020 10:27 FINDINGS: Tubes, catheters and devices: A single AP supine view of the abdomen is provided following Gastrografin administration through the indwelling gastrostomy tube. The gastrostomy tube and retaining balloon are in appropriate position. Gastrointestinal tract: Gastrografin outlines the gastric antrum and duodenum. There is contrast flowing into the proximal jejunum. The bowel gas pattern is nonobstructive. Organs: A laminated gallstone is present. Bones/joints: Bilateral hip arthroplasties are partially included. XR/XR KUB portable [id number] IMPRESSION: 1. Gastrostomy tube and retaining balloon in the stomach, in appropriate position. 2. Cholelithiasis. 3. A nonobstructive bowel gas pattern.
[2024-01-31] MEDS: diatrizoate meglumine 120 mL Sol PO (23:18)
--- NOTE | 2024-01-31 23:54 | PC.NURSE ---
This nurse spoke with nurse Velasquez at [facility] and gave nurse update on change of G tube to patent 18F tube. [facility] nurse had no questions or concerns at time of dc.
[2024-02-01 00:15] VITALS: PULSE 76; O2SAT 96
--- NOTE | 2024-02-01 01:00 | ED_ITS ---
HPI - General Adult General: Chief complaint: General Medical Stated complaint: CLOGGED FEEDING TUBE Time Seen by Provider: 01/31/24 21:59 History of Present Illness: 73-year-old male [facility] patient. He has a G-tube. It has been clogged. custodial staff is tried to unclog it with flushes, [employer], etc. with no resolution. No vomiting. Evidently no fever. No trauma to the tube. Associated symptoms: Deny vomiting Review of Systems Const: Denies: fever(s) GI: Denies: vomiting PFSH ED PFSH: Medical History Chronic kidney disease, stage IV (severe) UTI (urinary tract infection) Carotid artery disease History of common carotid artery stent placement Diverticulitis Obsessive compulsive disorder Depression Cholelithiasis Lactic acidosis Hyperkalemia CKD (chronic kidney disease) stage 4, GFR 15-29 ml/min Abdominal pain Partial small bowel obstruction Small bowel obstruction Crohn's disease Diabetes mellitus Hypertension Nephrolithiasis Anemia GI bleeding Gastroesophageal reflux Mild gastritis on EGD 2011 Anxiety reaction Peripheral arterial occlusive disease CVA (cerebral vascular accident) Residual right-sided weakness Surgical History History of colonoscopy 02/2012 --active Crohn's disease at ileocolic anastomosis History of esophagogastroduodenoscopy 02/2012 --mild gastritis History of lithotripsy x 2 History of resection of small bowel x 1-2 History of right hemicolectomy Social History Smoking and tobacco/nicotine status: never used tobacco/nicotine Physical Exam Const: COMMON NORMALS: alert GENERAL APPEARANCE: cooperative and frail appearing Eye: COMMON NORMALS: EOMs intact bilaterally Neck/C-Spine: GENERAL: Yes trachea midline Chest: CHEST: Yes Symmetrical chest wall rise Resp: COMMON NORMALS: normal respiratory effort, No use of accessory muscles and clear to auscultation bilaterally AUSCULTATION: clear to auscultation bilaterally Cardio: COMMON NORMALS: regular rate and regular rhythm RATE: regular rate RHYTHM: regular rhythm GI: COMMON NORMALS: Normal to inspection, nondistended, normoactive bowel sounds present OTHER: Gastrostomy tube present. Neuro: SENSORIUM/ORIENTATION: Yes alert Procedures Feeding Tube Replacement Type of Tube: gastrostomy Insertion Site Prior to Procedure: clean Tube Used for Reinsertion: other (Gastrostomy tube) Lebanese Tube Size (F): 18 Balloon size (mL): 8 Verification of Placement: auscultation, KUB and gastrografin injection Tube Secured by: tape/dressing Patient Tolerated Procedure: well and no complications Course Vital Signs: Vital signs: Vital Signs Temperature 98.6 F 01/31/24 21:58 Pulse Rate 76 02/01/24 00:15 Respiratory Rate 18 01/31/24 21:58 Blood Pressure 165/100 01/31/24 21:58 Pulse Oximetry 96 02/01/24 00:15 Oxygen Delivery Me thod Room Air 02/01/24 00:15 MDM - General Adult Medical Decision Making G-tube was replaced through the gastrostomy hole following removal of old tube without complication. KUB confirms proper position. He will be allowed discharge. Lab Data Radiology Impressions KUB X-Ray 01/31/24 22:51 IMPRESSION: 1. Gastrostomy tube and retaining balloon in the stomach, in appropriate position. 2. Cholelithiasis. 3. A nonobstructive bowel gas pattern. All radiology interpretation(s) finalized by discharge Discharge Plan Discharge Patient Disposition: Home Clinical Impression: Complication of feeding tube Condition: Stable Prescriptions: No Action acetaminophen 325 mg Tablet 650 mg feeding tube Q4H PRN (Reason: Pain) Rx Instructions: NOT TO EXCEED 3000MG IN 24 HOURS sulfasalazine 500 mg Tablet 1,000 mg feeding tube TID lorazepam 0.5 mg Tablet 0.5 mg feeding tube BID@0600,1900 sodium bicarbonate 650 mg Tablet 1,300 mg feeding tube TID@0600,1200,1900 Lantus Solostar U-100 Insulin 100 unit/mL (3 mL) Insulin Pen 12 unit SUBCUT BEDTIME hydrocodone-acetaminophen 5-325 mg Tablet 1 tab feeding tube Q8H MDD 6 tabs PRN (Reason: Pain) miconazole nitrate 2 % Aerosol Powder 1 spray TOPICAL BID PRN (Reason: UNKNOWN) bisacodyl 10 mg Suppository 10 mg [place] DAILY PRN (Reason: Constipation) calcitriol 1 mcg/mL Solution See Rx Instructions .ROUTE .COMPLEX Rx Instructions: 0.5 mcg GASTRIC TUBE daily GlucaGen HypoKit 1 mg Recon Soln 1 mg SUBCUT PRN pantoprazole [Protonix] [address] For Susp In Packet 40 mg feeding tube DAILY insulin lispro [Humalog Alex KwikPen U-100] 100 unit/mL Insulin Pen, Half- Unit See Rx Instructions .ROUTE .COMPLEX Rx Instructions: PER SLIDING SCALE QID 150-200=0 UNITS 201-250=2 UNITS 251-300=4 UNITS 301-350=6 UNITS 351-400=8 UNITS IF BS IS GREATER THAN 400 OR LESS THAN 60 CALL atorvastatin 10 mg tablet 10 mg feeding tube DAILY Coreg 12.5 mg Tablet 12.5 mg feeding tube BID citalopram 10 mg/5 mL solution 40 mg feeding tube DAILY risperidone 1 mg/mL solution See Rx Instructions .ROUTE .COMPLEX Rx Instructions: 0.25 ML PER PO QAM AND 0.5ML PO AT BEDTIME Triad Wound Dressing Paste 1 applic TOPICAL PRN Rx Instructions: APPLY TRIAD PASTE TO BUTTOCKS/PERIREA FOR PROTECTION sennosides-docusate sodium 8.6-50 mg tablet 1 tab PO BID PRN (Reason: constipation) naloxone 0.4 mg/mL Solution See Rx Instructions .ROUTE .COMPLEX Rx Instructions: 0.4 mg IM IN DELTOID OR THIGH-MAY REPEAT EVERY 3 TO 5 MINUTES FOR 3 DOSES AND CALL 911 IF NO RESPONSE nystatin 100,000 unit/gram Powder 1 applic TOPICAL BID Rx Instructions: APPLY TO BILATERAL BUTTOCKS FOR REDNESS diphenoxylate-atropine [Lomotil] 2.5-0.025 mg Tablet 1 tab feeding tube QID PRN (Reason: Diarrhea) aspirin 81 mg Tablet,Delayed Release (Dr/Ec) 81 mg feeding tube DAILY@0600 pyridoxine (vitamin B6) 50 mg Tablet 50 mg feeding tube DAILY@0600 diclofenac sodium 1 % Gel 4 g TOPICAL BID Rx Instructions: APPLy TO BLE FOR PAIN RELIEF Orajel 3X Mouth Sores 20-0.1-0.15 % Gel 1 ea MUCOUS MEMBRANE QID PRN (Reason: MOUTH SORES) Rx Instructions: APPLY TO SORE TOOTH OR SURROUNDING GUMS Discharge Orders: Discharge ED (Routine); Ordered 01/31/24 Ordered By: Bert Maharaj Referrals: Bryan Garcia, [Primary Care Provider] - 4-7 days Patient Instructions: Opioid Safety, Pain Management Activity Restrictions/Additional Instructions: Return for problems Coding Level of Care Code ED Healthcare Administration Internship for [facility]wd
== END 2024-02-01 00:28 | disposition home or self-care (01) ==
PROVIDERS: Emergency Provider Emergency Medicine; PCP Internal Medicine
DX: K94.29 Other complications of gastrostomy (principal); Z79.82 Long term (current) use of aspirin; Z79.4 Long term (current) use of insulin; E11.22 Type 2 diabetes mellitus with diabetic chronic kidney disease; I12.9 Hypertensive chronic kidney disease with stage 1 through stage 4 chronic kidney disease, or unspecified chronic kidney disease; N18.4 Chronic kidney disease, stage 4 (severe); Z86.73 Personal history of transient ischemic attack (TIA), and cerebral infarction without residual deficits
CPT/HCPCS: 74018; 99283; Q9963